=== PATIENT | female | born 1955 | race Caucasian/White ===

== ENCOUNTER → 2016-09-11 | Outpatient (CLI) | payer MEDICARE, BC ==
--- NOTE | 2016-09-11 16:17 | PN ---
Sarah is a 61-year-old female patient with a history of narcolepsy and obstructive sleep apnea. The patient has narcolepsy type I and she is maintained on Adderall 30 mg b.i.d. and Lexapro 20 mg p.o. daily. She is doing well. Her narcolepsy is being well controlled. No sleep paralysis or hallucinations at this point. No cataplexy has been reported. She is constantly losing weight. She had lost 15 pounds in May 2016 and since then she has lost an additional 6 pounds. This weight loss is being achieved as the patient has become more active following her back surgery. She has no complaints. She is ( ) of the Adderall for now and the dose has been dropped down to 30 mg p.o. b.i.d. and she is still on Lexapro 20 mg p.o. daily. She has not been using her CPAP therapy on a regular bases, which I insisted on multiple occasions to do so. I am going to re-order the patient's Mirage Gill FX nasal pillows. Her current vitals: Blood pressure is 117/74, pulse 108, respiration 16, temperature 97.5, saturation 96% on room air. Weight is 306 and height is 63 inches. GENERAL APPEARANCE: Calm and comfortable. HEENT: Crowding of the posterior pharynx. There is no goiter or neck mass. LUNGS: Clear to auscultation. HEART: Sounds are regular rate and rhythm. Normal S1, S2. ABDOMEN: Soft, nontender. No organomegaly. EXTREMITIES: No clubbing, no cyanosis or clubbing. IMPRESSION: 1. Narcolepsy type I on Adderall and Lexapro combination. Currently the patient is well treated. She is taking Adderall 30 mg p.o. twice a day and Lexapro 20 mg p.o. daily. No cataplexy has been noted. 2. Obstructive sleep apnea, apnea-hypopnea index of 28. 3. Obesity with ongoing weight loss. 4. Chronic hypersomnia. 5. Hypertension. 6. Diabetes mellitus. 7. Anxiety/depression. 8. Chronic back pain with previous back surgery. PLAN: 1. Reorder Mirage Gill FX mask for this patient. 2. Refill the patient's Adderall. 3. Continue Lexapro. 4. Encourage weight loss. 5. Continue maintaining good sleep hygiene measures. 6. She is well treated. However, she needs to be more compliant with her CPAP use. I insisted on that, and I am going to see her back in 6 months' time in follow up. I reordered her mask.
== END | disposition home or self-care (01) ==
LOC: SLEEP 13:06
PROVIDERS: ATTEND Internal Medicine Critical Care Medicine
DX: G47.419 Narcolepsy without cataplexy (principal); G47.33 Obstructive sleep apnea (adult) (pediatric); E66.9 Obesity, unspecified; G47.13 Recurrent hypersomnia; I10 Essential (primary) hypertension; E11.9 Type 2 diabetes mellitus without complications; F41.9 Anxiety disorder, unspecified; F32.9 Major depressive disorder, single episode, unspecified; G89.29 Other chronic pain; M54.9 Dorsalgia, unspecified; Z79.899 Other long term (current) drug therapy; Z98.890 Other specified postprocedural states

== ENCOUNTER 2017-03-13 13:44 | Emergency (ER) | payer MEDICARE, BC ==
[2017-03-13 13:50] VITALS: BP 130/76; PULSE 100; RESP 20; TEMP 97
--- NOTE | 2017-03-13 14:02 | ED ---
General Adult HPI - General Chief complaint: Extremity Injury, Upper Stated complaint: Wrist Injury Time Seen by Provider: 03/13/17 13:50 Source: patient, RN notes reviewed Mode of arrival: ambulatory Limitations: no limitations - History of Present Illness Initial comments: 61 yo female presents to the ER with cc of left wrist pain. Patient tripped and fell and landed onto her left wrist a week ago after walking her dog. Since she's had swelling and pains that she was concerned. She saw her doctor yesterday but the x-ray machine was down we did make an appointment for follow- up with or so but the splint she has been wearing his abdomen helping much pain medication is not helping much lately. Initially seen earlier. She denies any other injury from the incident. Denies any head or neck pain. She states she can feel her fingers she has good range of motion it is just painful. Patient denies any recent fever, chills, shortness of breath, chest pain, back pain, abdominal pain, nausea vomiting, numbness or tingling, dysuria or hematuria, constipation or diarrhea, headaches or visual changes, or any other current symptoms. - Related Data Home Medications Medication Instructions Recorded Confirmed ALPRAZolam [Xanax] 1 mg PO HS 03/23/15 05/14/16 Dextroamphetamine/Amphetamine 30 mg PO TID 03/23/15 05/14/16 [Adderall] Insulin Glargine [Lantus] 40 unit SQ HS 03/23/15 05/14/16 Lisinopril [Zestril] 5 mg PO HS 03/23/15 05/14/16 Albuterol Inhaler [Ventolin Hfa 2 puff INHALATION RT-Q6H PRN 09/12/15 05/14/16 Inhaler] Insulin Regular [humuLIN R] See Protocol SQ AC-TID 03/28/16 05/14/16 Pramipexole [Mirapex] 2 mg PO HS 05/09/16 05/14/16 metFORMIN HCL [Glucophage] 500 mg PO BID 05/09/16 05/14/16 Levofloxacin 500 mg PO DAILY 05/14/16 05/14/16 Previous Rx's Medication Instructions Recorded Docusate [Colace] 100 mg PO BID #60 capsule 05/18/16 HYDROcodone/APAP 10-325MG [[place] 1 each PO Q6H PRN #90 tab 05/18/16 10-325] Allergies Allergy/AdvReac Type Severity Reaction Status Date / Time Penicillins Allergy Rash/Hives, Verified 03/13/17 13:50 SOB Review of Systems ROS Statement: Those systems with pertinent positive or pertinent negative responses have been documented in the HPI. ROS Other: All systems not noted in ROS Statement are negative. Past Medical History Past Medical History: Asthma, Diabetes Mellitus Additional Past Medical History / Comment(s): Narcalepsy, Restless leg syndrome History of Any Multi-Drug Resistant Organisms: None Reported Additional Past Surgical History / Comment(s): Both hands, left knee, nose Past Psychological History: No Psychological Hx Reported Smoking Status: Current every day smoker Past Alcohol Use History: None Reported Past Drug Use History: None Reported General Exam - General Exam Comments Initial Comments: General: The patient is awake and alert, in no distress, and does not appear acutely ill. Neck: The neck is supple, there is no tenderness. Cardiovascular: There is a regular rate and rhythm. No murmur, rub or gallop is appreciated. Respiratory: Lungs are clear to auscultation, respirations are non-labored, breath sounds are equal. No wheezes, stridor, rales, or rhonchi. Musculoskeletal: Sensation intact with 2+ pulses throughout left upper extremity. Full range of Motion of left elbow. Patient's range of motion left wrist with some painful range of motion left hand. There is some associated signs and left wrist. Patient at the anatomical snuffbox. Neurological: CN II-XII intact, There are no obvious motor or sensory deficits. Coordination appears grossly intact. Speech is normal. Skin: Skin is warm and dry and no rashes or lesions are noted. Psychiatric: Normal mood and affect. Limitations: no limitations Course Vital Signs 03/13/17 13:48 Temperature 97 F L Pulse Rate 100 Respiratory 20 Rate Blood Pressure 130/76 O2 Sat by Pulse 97 Oximetry Procedures - Orthopedic Splinting/Casting Injury #1 Side: left Upper Extremity Injury Location: wrist Upper Extremity Immobilizer: thumb spica (short arm) Medical Decision Making - Medical Decision Making 61-year-old female presents for left wrist pain after a fall one week ago. At this time x-rays reviewed that does show a possible radius fracture. Since with the assessment. We discussed follow-up with orthopedic we discussed return parameters all her questions. She that she understood and she is given plan. All questions have been answered. She'll be discharged. - Radiology Data Radiology results: report reviewed, image reviewed Disposition Clinical Impression: Left radial fracture Disposition: HOME SELF-CARE Condition: Stable Instructions: Wrist Fracture in Adults (ED) Additional Instructions: Please use medication as discussed. Please follow up with family doctor if symptoms have not improved over the next two days. Please return to the emergency room if your symptoms increase or worsen or for any other concerns. Referrals: Weston Gusman DO [Primary Care Provider] - 1-2 days Time of Disposition: 14:37
--- NOTE | 2017-03-13 14:27 | XR ---
Left wrist HISTORY: Trauma and pain 1 week prior 4 views of the left wrist No comparisons Small ossific density is present lateral to the radial styloid on the frontal view. There is associat ed soft tissue swelling. Bone mineralization, joint spaces and alignment are maintained. Mild osteoar thritic change present at the carpometacarpal joint of the first digit. IMPRESSION: Findings suggest small chip fracture at the lateral aspect of the radial styloid.
== END 2017-03-13 14:45 | disposition home or self-care (01) ==
LOC: EC 13:44
DX: S52.512A Displaced fracture of left radial styloid process, initial encounter for closed fracture (principal); J45.909 Unspecified asthma, uncomplicated; E11.9 Type 2 diabetes mellitus without complications; F17.200 Nicotine dependence, unspecified, uncomplicated; Z79.4 Long term (current) use of insulin; Z79.899 Other long term (current) drug therapy; Z88.0 Allergy status to penicillin; W19.XXXA Unspecified fall, initial encounter
CPT/HCPCS: 29125; 99283

== ENCOUNTER → 2017-06-27 | Outpatient (CLI) | payer MEDICARE, BC | LOC: RADUSWWP 07:04 | PROVIDERS: ATTEND Family Medicine | DX: Z53.9 Procedure and treatment not carried out, unspecified reason (principal) ==

== ENCOUNTER → 2017-07-12 | Outpatient (CLI) | payer MEDICARE, BC ==
--- NOTE | 2017-07-16 11:41 | MM ---
Reason for exam: screening (asymptomatic). Last mammogram was performed 3 years and 11 months ago. History: Patient is postmenopausal. Took estrogen for 2 years beginning at age 36. Physical Findings: A clinical breast exam by your physician is recommended on an annual basis and results should be correlated with mammographic findings. MG 3D Screening Mammo W/Cad Bilateral CC and MLO view(s) were taken. XCCL view(s) were taken of the right breast. Prior study comparison: August 03, 2013, right diagnostic mammogram w/CAD. January 29, 2013, [facility] [place] DIGITAL RIGHT MAMMOGRAM w/CAD. The breast tissue is heterogeneously dense. This may lower the sensitivity of mammography. No suspicious abnormality. No significant changes when compared with prior studies. ASSESSMENT: Negative, BI-RAD 1 RECOMMENDATION: Routine screening mammogram of both breasts in 1 year.
== END | disposition home or self-care (01) ==
LOC: RADMAMWWP 11:23
PROVIDERS: ATTEND Obstetrics & Gynecology
DX: Z12.31 Encounter for screening mammogram for malignant neoplasm of breast (principal)
CPT/HCPCS: 77063; 77067

== ENCOUNTER → 2017-08-20 | Outpatient (CLI) | payer MEDICARE, BC ==
[2017-08-20 16:56] LABS: Basophils # (A) 0.1 k/uL (0-0.2); Basophils % (A) 1 %; Eosinophils # (A) 0.5 k/uL (0-0.7); Eosinophils % (A) 6 %; HCT 39.6 % (34.0-46.0); HGB 12.2 gm/dL (11.4-16.0); Hypochromasia Slight; Lymphocytes # (A) 2.4 k/uL (1.0-4.8); Lymphocytes % (A) 30 %; MCH 29.8 pg (25.0-35.0); MCHC 30.9 g/dL (31.0-37.0); MCV 96.4 fL (80.0-100.0); Mean Platelet Volume 6.7; Monocytes # (A) 0.5 k/uL (0-1.0); Monocytes % (A) 6 %; Neutrophils # (A) 4.4 k/uL (1.3-7.7); Neutrophils % (A) 56 %; Platelet Count 313 k/uL (150-450); RBC 4.11 m/uL (3.80-5.40); RDW 12.5 % (11.5-15.5); WBC 7.9 k/uL (3.8-10.6)
[2017-08-20 17:07] LABS: INR 0.9 (<1.2); Prothrombin Time 9.3 sec (9.0-12.0)
[2017-08-20 17:14] LABS: Chloride 100 mmol/L (98-107); Glucose 101 mg/dL (74-99); Sodium 137 mmol/L (137-145)
[2017-08-20 17:15] LABS: Anion Gap 9 mmol/L; Blood Urea Nitrogen 15 mg/dL (7-17); Calcium 9.2 mg/dL (8.4-10.2); Carbon Dioxide 28 mmol/L (22-30)
--- NOTE | 2017-08-20 17:37 | XR ---
EXAMINATION TYPE: XR chest 2V DATE OF EXAM: 08/20/2017 COMPARISON: Prior chest x-ray 05/08/2016 HISTORY: Preop, history of asthma TECHNIQUE: Frontal and lateral views of the chest are obtained. FINDINGS: There is no focal air space opacity, pleural effusion, or pneumothorax seen. The cardiac silhouette size is stable. The osseous structures are intact. IMPRESSION: No acute cardiopulmonary process.
[2017-08-20 18:58] LABS: Appearance,Urine Clear (Clear); Bilirubin,Urine Negative (Negative); Blood,Urine Negative (Negative); Color,Urine Yellow; Glucose,Urine (UA) Negative (Negative); Ketones,Urine Negative (Negative); Leukocyte Esterase,Urine Negative (Negative); Nitrite,Urine Negative (Negative); Protein,Urine Trace (Negative); Specific Gravity,Urine 1.023 (1.001-1.035); Urobilinogen,Urine <2.0 mg/dL (<2.0)
[2017-08-20 19:00] LABS: Amorphous Sediment,Urine Rare /hpf; Bacteria,Urine Rare /hpf; Hyaline Casts,Urine 3 /lpf (0-2); Mucus,Urine Rare /hpf; RBC,Urine 1 /hpf (0-5); Squamous Epithelial Cell,Urine 16 /hpf (0-4); Uric Acid Crystals,Urine Occasional /hpf; WBC,Urine 1 /hpf (0-5)
== END | disposition home or self-care (01) ==
LOC: LABPAT 16:27
PROVIDERS: ATTEND Orthopaedic Surgery Orthopaedic Surgery of the Spine
DX: Z01.818 Encounter for other preprocedural examination (principal); Z01.812 Encounter for preprocedural laboratory examination; M51.26 Other intervertebral disc displacement, lumbar region
CPT/HCPCS: 36415; 71046; 80048; 81003; 85025; 85610; 85730; 86850; 86900; 86901; 87070; 93005

== ENCOUNTER 2017-08-28 08:44 | Day surgery (SDC) | payer MEDICARE, BC ==
[2017-08-21 15:12] VITALS: BMI 36.5
[~2017-08-28 08:44] MED LIST: BACITRACIN 50,000 UNIT, POLYMYXIN B 500,000 UNIT in SODIUM CHLORIDE 0.9% IRRIGATIO 1,00... IRRIGATION ONE; CLINDAMYCIN 600 MG in DEXTROSE 5% IN WATER 50 ML IVPB ONE; DEXAMETHASONE SOD PHOSPHATE 10 MG/ML 1 ML VIAL IV ONE; HYDROmorphone 0.5 MG/0.5 ML SYRINGE IVP PRN; ONDANSETRON 4 MG/2 ML VIAL IVP ONE
[2017-08-28 09:14] LABS: Glucose,Whole Blood 128 mg/dL (75-99)
[2017-08-28] MEDS ORDERED: LIDOCAINE 1% 20 ML VIAL (10MG/ML) FOR IV START INTRADERMA ONE (09:19)
[2017-08-28] MEDS ORDERED: LACTATED RINGERS 1,000 ML IV ONE ×2 (09:19→12:09)
[2017-08-28] MEDS ORDERED: SUCCINYLCHOLINE CHLORIDE 100 MG/5 ML SYR IV ONE (10:51)
[2017-08-28] MEDS ORDERED: PHENYLEPHRINE-0.9% NACL SYG 1 MG/10 ML SYRINGE ONE (10:51)
[2017-08-28] MEDS ORDERED: MIDAZOLAM 2 MG/2 ML VIAL ONE (10:51)
[2017-08-28] MEDS ORDERED: ePHEDrine SULFATE/0.9% NACL/PF 50 MG/5 ML SYRINGE IV ONE (10:51)
[2017-08-28] MEDS ORDERED: PROPOFOL 10 MG/ML 20 ML VIAL IV ONE (10:51)
[2017-08-28] MEDS ORDERED: fentaNYL (PF) 50 MCG/ML 2 ML AMP ONE (10:51)
[2017-08-28] MEDS ORDERED: LIDOCAINE 1% INJ 10MG/ML (20 ML MDV) ONE (10:51)
[2017-08-28] MEDS ORDERED: BUPIVACAINE (PF) 0.25% 30 ML VIAL SQ ONE (11:15)
[2017-08-28] MEDS ORDERED: THROMBIN (BOVINE) 5,000 UNIT VIAL TOPICAL ONE (11:18)
--- NOTE | 2017-08-28 11:41 | FL ---
Fluoroscopy HISTORY: L1-2 laminectomy 1 second fluoroscopy time supplied to the referring clinician. 1 intraoperative C-arm images documen t the procedure. See dictated report from orthopedic surgery.
--- NOTE | 2017-08-28 11:42 | XR ---
Limited lumbar spine HISTORY: L1-2 laminectomy Intraoperative C-arm image documents the procedure
[2017-08-28] MEDS ORDERED: MORPHINE SULFATE 4 MG/ML SYRINGE IVP PRN (12:09)
[2017-08-28] MEDS ORDERED: MAGNESIUM HYDROXIDE 2,400 MG/10 ML CUP PO PRN (12:09)
[2017-08-28] MEDS ORDERED: ONDANSETRON 4 MG/2 ML VIAL IVP PRN (12:09)
[2017-08-28] MEDS ORDERED: HYDROcodone/APAP 5-325MG 1 EACH TAB PO PRN (12:09)
[2017-08-28] MEDS ORDERED: HYDROmorphone 0.5 MG/0.5 ML SYRINGE IVP PRN (12:09)
[2017-08-28] MEDS ORDERED: BENZOCAINE/MENTHOL LOZENG 1 EACH LOZENGE MUCOUS MEM PRN (12:09)
[2017-08-28] MEDS ORDERED: IBUPROFEN 600 MG TAB PO PRN (12:09)
[2017-08-28] MEDS ORDERED: ALBUTEROL NEBULIZED 2.5 MG/3 ML INHALATION PRN (12:12)
--- NOTE | 2017-08-28 12:17 | P.OP ---
Date of Procedure: 08/28/17 Preoperative Diagnosis: Severe spinal stenosis L1 to L2 Neurogenic claudication History of prior decompression and fusion L2 through L5 Lower extremity radiculopathy Postoperative Diagnosis: Same Anesthesia: GETA Pathology: none sent Condition: stable Disposition: PACU Description of Procedure: DESCRIPTION OF PROCEDURE(S): BRIEF OPERATIVE NOTE Preoperative Diagnosis: Severe Spinal stenosis L1-2,neurogenic claudication, lower extremity radiculopathy, history of prior decompression and fusion L2-3 L3 4 L4 5 Postoperative Diagnosis: Same Procedure: Laminectomy and decompression bilaterally Use of fluoroscopic guidance Surgeon: Dr. Mosher Free Lance Artist: Rk SALAS who is present throughout the entire the case persistence during positioning, dissection, exposure, visualization, and all crucial elements of the case as well as closure. Anesthesia: General anesthesia Estimated blood loss: Approximately 50 mL Complications: None apparent Components implanted: Paradigm Coflex interlaminar stabilization device size 16 Disposition: To recovery room in good stable condition. OPERATIVE INDICATIONS The patient has been having issues in their lower back and lower extremities. She has a history of lumbar decompression and fusion L2 through L5 for her severe spinal stenosis and degenerative scoliosis. She had done well with that surgery initially was making good progress with this and improving her mobilization and activity. However she started developing evidence of further aerogenic claudication and lower extremity razor symptoms. She is found have adjacent level degeneration at L1-2 with evidence of severe stenosis at L1-2 which correlated with her new lower extremity symptoms with neurogenic claudication and spinal stenosis with radiculopathy. The patient was having evidence of neurogenic claudication and spinal stenosis along with issues with lower extremity radiculopathy. The patient was found to have significant spinal stenosis which correlated well with their low back and lower extremity symptoms. The patient has been through conservative treatment. She is not having a lot of benefit despite aggressive conservative treatment. With their imaging, and the level of their stenosis and their propensity for the possibility of recurrent stenosis I felt that decompression with intralaminar stabilization would be a good benefit for the patient. We discussed various treatment options including surgery, and the patient wishes to proceed with surgery We discussed the risk, patient's alternatives and benefits of surgery including but not limited to, risk of bleeding risk of infection, risk of need for further surgery, risk of decreased, loss of motion, loss of function, nerve damage, paralysis, heart attack, blindness and . OPERATIVE SUMMARY After discussing all the risks, patient alternatives and benefits at length, the patient elected to proceed with surgical intervention, signed informed consent, and presented for their procedure. The patient was seen and examined in the preoperative holding area and the surgical site was marked. The patient was given antibiotics and brought to the operating room. The patient was sedated and intubated by anesthesia in standard fashion. The patient was positioned on to the operating room table in a prone position on the appropriate frame which was well-padded and well molded. We were careful to pad any bony prominences and pressure points. We were careful to maintain the patient's cervical spine and good neutral alignment and position throughout. The patient was prepped and draped in a normal standard fashion. An appropriate timeout and keystone protocol performed. We were able to proceed with the surgery. Fluoroscopy was utilized to establish the appropriate level. The local wound area was infiltrated with local anesthetic. An incision was made at the midline longitudinally over the appropriate levels at L1-2 above Levaquin her prior fusion . Dissection was taken down subcutaneously to the level of the fascia which was split midline. Dissection was taken over the lamina. Intraoperative fluoroscopy was taken which showed a marker at the appropriate level at L1-2 with findings of hardware. He stable from L2 to L5 . With the appropriate level positively confirmed, we were able to proceed with laminectomy. The wound was copiously irrigated and suctioned dry as had been done periodically throughout the case. I performed a laminectomy with a combination of curettes and a high-speed bur and Kerrison rongeurs. A small medial facetectomy was performed again further access. This was done bilaterally at that level. A partial foraminotomy was also performed. Portions of the ligamentum flavum were taken down to expose the dura and traversing nerve root. I was able to mobilize the traversing nerve root and gain access to the disc space. Note was made of obvious compression from the disc. Protecting the soft tissue structures, a small annulotomy was established. I was able to perform discectomy and remove any extruded disc fragments and any loose fragments from within the disc itself. There is some disc desiccation noted. I tried to preserve the disc annulus that appeared stable. There were no further extruded fragments noted. There is no evidence of dural tear or leak. Good hemostasis maintained. The wound was copiously irrigated and suctioned dry. Good decompression was noted. At this point further prepared the interspinous process and interlaminar space with a combination of curettes and a high-speed bur and Kerrison rongeurs. As able get good parallel alignment at the interspinous process space and interlaminar space. I used a trial spacer for the Coflex device and have good fit and fill with the appropriate size device. I was able to place a size 16 Coflex spacer. I had to shave down the spinous process at to allow for appropriate positioning of the Coflex device. The device was prepared and then positioned and malleted in position with good alignment and good position and good bony purchase at the interlaminar space. The position was checked and found to be approximately 3 mm away from the dura without impingement on the dura itself. It was checked and found to be stable. Intraoperative C-arm was utilized to confirm the alignment and position at the appropriate levels. We were able to proceed with closure. The fascia was closed for a watertight closure. The subcuticular tissue was closed with absorbable suture. The wound was cleaned and dried and dressed with the appropriate dressing. The drapes were broken down. The patient was gently rolled back onto their hospital bed being careful to maintain their cervical spine and good neutral alignment and position. They were woken up by anesthesia, extubated, and brought to the recovery room in good stable condition. The patient will be admitted to the hospital for observation and for appropriate postoperative care, medical management and monitoring. We will continue to follow them closely about the postoperative course.
[2017-08-28] MEDS ORDERED: INSULIN REGULAR 100 UNIT/ML VIAL SQ SCH (12:30)
[2017-08-28] MEDS: LACTATED RINGERS 1,000 ML IV SCH (12:31)
[2017-08-28] MEDS: MORPHINE SULFATE 4 MG/ML SYRINGE IVP PRN ×4 (12:33→13:25)
[2017-08-28 13:10] LABS: Glucose,Whole Blood 149 mg/dL (75-99)
[2017-08-28] MEDS: HYDROcodone/APAP 5-325MG 1 EACH TAB PO PRN ×2 (15:10→19:31)
[2017-08-28] MEDS ORDERED: ceFAZolin IN SWFI 2 GM/20 ML SYRINGE IVP SCH (16:00)
[2017-08-28 16:56] LABS: Glucose,Whole Blood 351 mg/dL (75-99)
[2017-08-28] MEDS: INSULIN ASPART 100 UNIT/ML 1 ML 10 ML VIAL SQ SCH ×2 (17:42→20:30)
[2017-08-28 20:13] LABS: Glucose,Whole Blood 375 mg/dL (75-99)
[2017-08-28] MEDS: metFORMIN 500 MG TAB PO SCH (20:30)
[2017-08-28] MEDS: SULFAMETHOX-TMP 800-160MG 1 EACH TAB PO SCH (20:30)
[2017-08-28] MEDS: SODIUM CHLORIDE 0.9% 1,000 ML IV SCH (20:31)
[2017-08-28] MEDS: CLINDAMYCIN 600 MG in DEXTROSE 5% IN WATER 50 ML IVPB SCH ×2 (20:31)
[2017-08-28] MEDS: Dextroamphetamine/Amphetamine [Adderall] 30 MG PO SCH (20:32)
[2017-08-28] MEDS ORDERED: INSULIN DETEMIR 100 UNIT/ML 10 ML VIAL SQ SCH (21:00)
[2017-08-28] MEDS ORDERED: LISINOPRIL 5 MG TAB PO SCH (21:00)
[2017-08-28] MEDS ORDERED: ESCITALOPRAM 10 MG TAB PO SCH (21:00)
[2017-08-28] MEDS ORDERED: PRAMIPEXOLE 1 MG TAB PO SCH (21:00)
[2017-08-28] MEDS ORDERED: ALPRAZolam 1 MG TAB PO SCH (21:00)
[2017-08-29] MEDS: SODIUM CHLORIDE 0.9% 1,000 ML IV SCH (01:41)
[2017-08-29] MEDS: CLINDAMYCIN 600 MG in DEXTROSE 5% IN WATER 50 ML IVPB SCH ×4 (01:59→09:31)
[2017-08-29] MEDS: HYDROcodone/APAP 5-325MG 1 EACH TAB PO PRN ×2 (03:44→08:36)
[2017-08-29] MEDS: LACTATED RINGERS 1,000 ML IV SCH (05:06)
[2017-08-29 07:08] VITALS: BP 101/55; PULSE 84; RESP 14; TEMP 98.2
[2017-08-29 07:44] LABS: Glucose,Whole Blood 136 mg/dL (75-99)
[2017-08-29] MEDS: metFORMIN 500 MG TAB PO SCH (07:47)
[2017-08-29] MEDS: SULFAMETHOX-TMP 800-160MG 1 EACH TAB PO SCH (07:47)
[2017-08-29] MEDS: INSULIN ASPART 100 UNIT/ML 1 ML 10 ML VIAL SQ SCH (07:48)
[2017-08-29] MEDS: Dextroamphetamine/Amphetamine [Adderall] 30 MG PO SCH (07:50)
--- NOTE | 2017-08-29 08:21 | P.DS ---
Providers Date of admission: 08/28/2017 Attending physician: Yo Mosher Primary care physician: Weston [facility] Course: The patient presented on the day of admission as per her operative note. She feels her legs are doing well but her back has some pain as expected. She has been having some drainage at her wound site overnight. and she is not having any fevers or chills. She's not having any nausea or vomiting. Physical Exam The incision site is clean dry and intact. There is no erythema . There is some scant bloody drainage at the inferior aspect of the incision site. There is no purulence. There is no significant fluid collection or swelling. There is no purulence no evidence of infection. Abdomen soft and nontender. Chest has good excursion with deep inspiration and expiration. The patient has active and passive range of motion intact at the upper and lower extremities. There is no acute change in neurologic status. Her lower extremity is have good sustained dorsal flexion plantar flexion and [facility] Hospital Course Postoperative day #1 status post laminectomy decompression of L1 2 with placement of interlaminar stabilizing device. History of lumbar decompression and fusion L2 to L5 Small bloody drainage at the incision The patient has been making progress postoperatively. She has very scant small bloody drainage the inferior aspect of the incision site but this seems to be slowing well and I think it will go on to heal appropriately. We should follow this up closely on an outpatient basis. She is hopeful to go home and I think that is okay as long as we see her closely in the office tomorrow to monitor the wound. She should remain on some prophylactic antibiotics and we will continue her Bactrim orally while there remained some drainage. Her dressing is reinforced and she'll be given some other dressing for local wound care as needed. They have completed the prophylactic antibiotics without any signs or symptoms of infection. The patient has been able to advance their diet, and is tolerating diet adequately. The pain was initially controlled with IV medications and is now controlled appropriately with oral medications. The patient has been able to increase their mobilization. The patient has progressed appropriately. I think they are in good stable condition for discharge today with close follow-up for her wound tomorrow at the office. They will be sent home with appropriate prescriptions. I answered their questions to the best of my ability in a language that they can understand and they are agreeable with the plan. They will follow up as directed tomorrow at our office. Patient Condition at Discharge: Fair Plan - Discharge Summary Discharge Rx Participant: Yes New Discharge Prescriptions: New HYDROcodone/APAP 5-325MG [[place] 5] 1 each PO Q8HR PRN #90 tab PRN Reason: Pain Sulfamethox-Tmp 800-160Mg [Bactrim DS 800-160 mg] 1 tab PO Q12HR #14 tab No Action Lisinopril [Zestril] 5 mg PO HS Dextroamphetamine/Amphetamine [Adderall] 30 mg PO BID ALPRAZolam [Xanax] 1 mg PO HS Insulin Glargine [Lantus] 40 unit SQ HS Albuterol Inhaler [Ventolin Hfa Inhaler] 2 puff INHALATION RT-Q6H PRN PRN Reason: Shortness Of Breath Insulin Regular [humuLIN R] See Protocol SQ AC-TID metFORMIN HCL [Glucophage] 500 mg PO BID Pramipexole [Mirapex] 2 mg PO HS Escitalopram [Lexapro] 10 mg PO HS Sulfamethox-Tmp 800-160Mg [Bactrim DS 800-160 mg] 1 tab PO Q12HR Discharge Medication List ALPRAZolam [Xanax] 1 mg PO HS 03/23/15 [History] Dextroamphetamine/Amphetamine [Adderall] 30 mg PO BID 03/23/15 [History] Insulin Glargine [Lantus] 40 unit SQ HS 03/23/15 [History] Lisinopril [Zestril] 5 mg PO HS 03/23/15 [History] Albuterol Inhaler [Ventolin Hfa Inhaler] 2 puff INHALATION RT-Q6H PRN 09/12/15 [ History] Insulin Regular [humuLIN R] See Protocol SQ AC-TID 03/28/16 [History] Pramipexole [Mirapex] 2 mg PO HS 05/09/16 [History] metFORMIN HCL [Glucophage] 500 mg PO BID 05/09/16 [History] Escitalopram [Lexapro] 10 mg PO HS 08/21/17 [History] Sulfamethox-Tmp 800-160Mg [Bactrim DS 800-160 mg] 1 tab PO Q12HR 08/21/17 [ History] HYDROcodone/APAP 5-325MG [[place] 5] 1 each PO Q8HR PRN #90 tab 08/29/17 [Rx] Sulfamethox-Tmp 800-160Mg [Bactrim DS 800-160 mg] 1 tab PO Q12HR #14 tab [Rx] Follow up Appointment(s)/Referral(s): Yo Mosher DO [Doctor of Osteopathic Medicine] - 08/30/17 (Follow-up tomorrow August [address] Mosher's office. Nurse to please make appointment) Activity/Diet/Wound Care/Special Instructions: Keep wound site covered with dry gauze. May reinforce as needed. Please give patient some extra dressing for reinforcement or changing dressing as needed. Keep site dry. Do not shower. May ambulate. No heavy or repetitive activity. No repetitive bending Ice to the area 3 times a day. Continue oral antibiotics and oral pain control
[2017-08-29] MEDS ORDERED: SENNOSIDES-DOCUSATE SODIUM 1 EACH TAB PO SCH (09:00)
== END 2017-08-29 10:50 | disposition home or self-care (01) ==
LOC: OR 08:44 → 3SUR 12:19 → OR 08-29 10:50
PROVIDERS: ATTEND Orthopaedic Surgery Orthopaedic Surgery of the Spine
DX: M48.062 Spinal stenosis, lumbar region with neurogenic claudication (principal); M51.16 Intervertebral disc disorders with radiculopathy, lumbar region; E11.51 Type 2 diabetes mellitus with diabetic peripheral angiopathy without gangrene; Z79.4 Long term (current) use of insulin; F32.9 Major depressive disorder, single episode, unspecified; I10 Essential (primary) hypertension; G25.81 Restless legs syndrome; J44.9 Chronic obstructive pulmonary disease, unspecified; G47.33 Obstructive sleep apnea (adult) (pediatric); G47.419 Narcolepsy without cataplexy; F17.210 Nicotine dependence, cigarettes, uncomplicated; Z79.899 Other long term (current) drug therapy; Z88.0 Allergy status to penicillin; Z79.891 Long term (current) use of opiate analgesic
CPT/HCPCS: 63047; 94640; 97161; 72020; C1713; J2270; J1100; J2405; 86850; 86900; 86901

== ENCOUNTER 2017-09-23 08:37 | Inpatient (IN) | payer MEDICARE, BC ==
[2017-09-23] MEDS ORDERED: SODIUM CHLORIDE 0.9% 1,000 ML IV STA (09:04)
[2017-09-23] MEDS ORDERED: DEXAMETHASONE SOD PHOSPHATE 10 MG/ML 1 ML VIAL IV STA (09:04)
[2017-09-23] MEDS ORDERED: IPRATROPIUM 0.5 MG/2.5 ML NEBU INHALATION STA (09:04)
[2017-09-23] MEDS ORDERED: ALBUTEROL NEBULIZED 2.5 MG/3 ML INHALATION STA (09:04)
[2017-09-23] MEDS ORDERED: SODIUM CHLORIDE 0.9% 500 ML IV STA (09:04)
--- NOTE | 2017-09-23 09:24 | ED ---
General Adult HPI - General Chief complaint: Shortness of Breath Stated complaint: SEBASTIAN X 3 DAYS Time Seen by Provider: 09/23/17 08:50 Source: patient, family, RN notes reviewed Mode of arrival: wheelchair Limitations: no limitations - History of Present Illness Initial comments: 62-year-old female presents with three-day history of worsening cough and dyspnea. Patient states that she has had a productive cough and worsening time catching her breath. She even used her 's oxygen at home. She has no diagnosis of COPD, however she is a long-time smoker and is currently smoking just less than one pack of cigarettes daily. She also complains of some mild sore throat. No central chest pain. No fever, however patient has had chills. No abdominal pain. No vomiting or diarrhea. - Related Data Home Medications Medication Instructions Recorded Confirmed ALPRAZolam [Xanax] 0.5 mg PO TID PRN 03/23/15 09/23/17 Dextroamphetamine/Amphetamine 30 mg PO BID 03/23/15 09/23/17 [Adderall] Lisinopril [Zestril] 5 mg PO HS 03/23/15 09/23/17 Albuterol Inhaler [Ventolin Hfa 2 puff INHALATION RT-Q6H PRN 09/12/15 09/23/17 Inhaler] Pramipexole [Mirapex] 2 mg PO HS 05/09/16 09/23/17 metFORMIN HCL [Glucophage] 500 mg PO BID 05/09/16 09/23/17 Escitalopram [Lexapro] 10 mg PO HS 08/21/17 09/23/17 Gabapentin [Neurontin] 600 mg PO TID 09/23/17 09/23/17 HYDROcodone/APAP 7.5-325MG [[place] 1 tab PO TID PRN 09/23/17 09/23/17 7.5-325] Montelukast [Singulair] 10 mg PO HS 09/23/17 09/23/17 busPIRone HCL [Buspar] 7.5 mg PO BID 09/23/17 09/23/17 Allergies Allergy/AdvReac Type Severity Reaction Status Date / Time Penicillins Allergy Rash/Hives, Verified 09/23/17 10:01 SOB Review of Systems ROS Statement: Those systems with pertinent positive or pertinent negative responses have been documented in the HPI. ROS Other: All systems not noted in ROS Statement are negative. Past Medical History Past Medical History: Asthma Additional Past Medical History / Comment(s): Narcalepsy, Restless leg syndrome History of Any Multi-Drug Resistant Organisms: None Reported Past Surgical History: Back Surgery Additional Past Surgical History / Comment(s): Both hands, left knee, nose Past Psychological History: No Psychological Hx Reported Smoking Status: Current every day smoker Past Alcohol Use History: None Reported Past Drug Use History: None Reported General Exam Limitations: no limitations General appearance: alert, in no apparent distress Head exam: Present: atraumatic, normocephalic Eye exam: Present: normal appearance, PERRL, EOMI ENT exam: Present: normal exam, normal oropharynx Neck exam: Present: normal inspection. Absent: tenderness, meningismus Respiratory exam: Present: respiratory distress, wheezes, decreased breath sounds, prolonged expiratory Cardiovascular Exam: Present: regular rate, normal rhythm GI/Abdominal exam: Present: soft. Absent: distended, tenderness Extremities exam: Present: normal inspection, normal capillary refill. Absent: pedal edema Back exam: Present: normal inspection, full ROM Neurological exam: Present: alert, oriented X3, CN II-XII intact. Absent: motor sensory deficit Psychiatric exam: Present: normal affect, normal mood Skin exam: Present: warm, dry, intact. Absent: cyanosis, diaphoretic Course Vital Signs 09/23/17 09/23/17 09/23/17 08:45 09:00 09:04 Temperature 98.4 F Pulse Rate 100 101 H Respiratory 16 20 22 Rate Blood Pressure 87/54 120/69 O2 Sat by Pulse 92 L 98 Oximetry 09/23/17 09/23/17 09:32 09:58 Temperature Pulse Rate 97 102 H Respiratory Rate Blood Pressure O2 Sat by Pulse Oximetry - Reevaluation(s) Reevaluation #1: 09/23/17 10:37 On reevaluation, patient remains dyspneic, she does have improved air entry. EKG Findings - EKG Comments: EKG Findings:: EKG: Normal sinus rhythm, ventricular rate 100, FL interval 162, QRS duration 78, QTC 407, no signs of ST segment elevation or ischemia Medical Decision Making - Medical Decision Making 62-year-old female presenting with cough and dyspnea. On initial evaluation, patient has decreased air entry bilaterally. She is given albuterol, Atrovent, and steroids, on reevaluation she does have somewhat improved air entry with wheezing throughout. Laboratory studies reveal normal CBC, normal electrolytes , troponin and BNP are negative. Influenza negative, chest x-ray negative for focal pneumonia. Patient will be admitted for further symptomatic treatment of reactive airway disease and suspicion for COPD. - Lab Data Result diagrams: 09/23/17 09:04 09/23/17 09:04 Lab Results 09/23/17 09/23/17 09/23/17 Range/Units 09:04 09:04 09:04 WBC 9.5 (3.8-10.6) k/uL RBC 4.24 (3.80-5.40) m/uL Hgb 12.1 (11.4-16.0) gm/dL Hct 39.1 (34.0-46.0) % MCV 92.2 (80.0-100.0) fL MCH 28.4 (25.0-35.0) pg MCHC 30.8 L (31.0-37.0) g/dL RDW 12.9 (11.5-15.5) % Plt Count 330 (150-450) k/uL Neutrophils % 68 % Lymphocytes % 19 % Monocytes % 7 % Eosinophils % 4 % Basophils % 1 % Neutrophils # 6.4 (1.3-7.7) k/uL Lymphocytes # 1.8 (1.0-4.8) k/uL Monocytes # 0.7 (0-1.0) k/uL Eosinophils # 0.4 (0-0.7) k/uL Basophils # 0.1 (0-0.2) k/uL PT (9.0-12.0) sec INR (<1.2) APTT (22.0-30.0) sec Sodium 139 (137-145) mmol/L Potassium 5.4 H (3.5-5.1) mmol/L Chloride 99 (98-107) mmol/L Carbon Dioxide 30 (22-30) mmol/L Anion Gap 10 mmol/L BUN 16 (7-17) mg/dL Creatinine 0.68 (0.52-1.04) mg/dL Est GFR (CKD-EPI)AfAm >90 (>60 ml/min/1.73 sqM) Est GFR (CKD-EPI)NonAf >90 (>60 ml/min/1.73 sqM) Glucose 104 H (74-99) mg/dL Plasma Lactic Acid Liu (0.7-2.0) mmol/L Calcium 9.0 (8.4-10.2) mg/dL Magnesium 1.8 (1.6-2.3) mg/dL Total Bilirubin 0.5 (0.2-1.3) mg/dL AST 21 (14-36) U/L ALT 23 (9-52) U/L Alkaline Phosphatase 121 (38-126) U/L Total Creatine Kinase 68 (30-135) U/L CK-MB (CK-2) 1.1 (0.0-2.4) ng/mL CK-MB (CK-2) Rel Index 1.6 Troponin I <0.012 (0.000-0.034) ng/mL NT-Pro-B Natriuret Pep pg/mL Total Protein 6.9 (6.3-8.2) g/dL Albumin 3.8 (3.5-5.0) g/dL Influenza Type A RNA (Not Detectd) Influenza Type B (PCR) (Not Detectd) 09/23/17 09/23/17 09/23/17 Range/Units 09:04 09:04 09:04 WBC (3.8-10.6) k/uL RBC (3.80-5.40) m/uL Hgb (11.4-16.0) gm/dL Hct (34.0-46.0) % MCV (80.0-100.0) fL MCH (25.0-35.0) pg MCHC (31.0-37.0) g/dL RDW (11.5-15.5) % Plt Count (150-450) k/uL Neutrophils % % Lymphocytes % % Monocytes % % Eosinophils % % Basophils % % Neutrophils # (1.3-7.7) k/uL Lymphocytes # (1.0-4.8) k/uL Monocytes # (0-1.0) k/uL Eosinophils # (0-0.7) k/uL Basophils # (0-0.2) k/uL PT 9.3 (9.0-12.0) sec INR 0.9 (<1.2) APTT 21.3 L (22.0-30.0) sec Sodium (137-145) mmol/L Potassium (3.5-5.1) mmol/L Chloride (98-107) mmol/L Carbon Dioxide (22-30) mmol/L Anion Gap mmol/L BUN (7-17) mg/dL Creatinine (0.52-1.04) mg/dL Est GFR (CKD-EPI)AfAm (>60 ml/min/1.73 sqM) Est GFR (CKD-EPI)NonAf (>60 ml/min/1.73 sqM) Glucose (74-99) mg/dL Plasma Lactic Acid Liu 0.9 (0.7-2.0) mmol/L Calcium (8.4-10.2) mg/dL Magnesium (1.6-2.3) mg/dL Total Bilirubin (0.2-1.3) mg/dL AST (14-36) U/L ALT (9-52) U/L Alkaline Phosphatase (38-126) U/L Total Creatine Kinase (30-135) U/L CK-MB (CK-2) (0.0-2.4) ng/mL CK-MB (CK-2) Rel Index Troponin I (0.000-0.034) ng/mL NT-Pro-B Natriuret Pep 114 pg/mL Total Protein (6.3-8.2) g/dL Albumin (3.5-5.0) g/dL Influenza Type A RNA (Not Detectd) Influenza Type B (PCR) (Not Detectd) 09/23/17 Range/Units 09:12 WBC (3.8-10.6) k/uL RBC (3.80-5.40) m/uL Hgb (11.4-16.0) gm/dL Hct (34.0-46.0) % MCV (80.0-100.0) fL MCH (25.0-35.0) pg MCHC (31.0-37.0) g/dL RDW (11.5-15.5) % Plt Count (150-450) k/uL Neutrophils % % Lymphocytes % % Monocytes % % Eosinophils % % Basophils % % Neutrophils # (1.3-7.7) k/uL Lymphocytes # (1.0-4.8) k/uL Monocytes # (0-1.0) k/uL Eosinophils # (0-0.7) k/uL Basophils # (0-0.2) k/uL PT (9.0-12.0) sec INR (<1.2) APTT (22.0-30.0) sec Sodium (137-145) mmol/L Potassium (3.5-5.1) mmol/L Chloride (98-107) mmol/L Carbon Dioxide (22-30) mmol/L Anion Gap mmol/L BUN (7-17) mg/dL Creatinine (0.52-1.04) mg/dL Est GFR (CKD-EPI)AfAm (>60 ml/min/1.73 sqM) Est GFR (CKD-EPI)NonAf (>60 ml/min/1.73 sqM) Glucose (74-99) mg/dL Plasma Lactic Acid Liu (0.7-2.0) mmol/L Calcium (8.4-10.2) mg/dL Magnesium (1.6-2.3) mg/dL Total Bilirubin (0.2-1.3) mg/dL AST (14-36) U/L ALT (9-52) U/L Alkaline Phosphatase (38-126) U/L Total Creatine Kinase (30-135) U/L CK-MB (CK-2) (0.0-2.4) ng/mL CK-MB (CK-2) Rel Index Troponin I (0.000-0.034) ng/mL NT-Pro-B Natriuret Pep pg/mL Total Protein (6.3-8.2) g/dL Albumin (3.5-5.0) g/dL Influenza Type A RNA Not Detected (Not Detectd) Influenza Type B (PCR) Not Detected (Not Detectd) Disposition Clinical Impression: Acute exacerbation of chronic obstructive airways disease Disposition: ADMITTED IP TO THIS HOSP Condition: Stable Referrals: Weston Gusman DO [Primary Care Provider] - 1-2 days Decision to Admit Reason: Admit from EC Decision Date: 09/23/17 Decision Time: 10:38
[2017-09-23 09:35] LABS: Basophils # (A) 0.1 k/uL (0-0.2); Basophils % (A) 1 %; Eosinophils # (A) 0.4 k/uL (0-0.7); Eosinophils % (A) 4 %; HCT 39.1 % (34.0-46.0); HGB 12.1 gm/dL (11.4-16.0); Lymphocytes # (A) 1.8 k/uL (1.0-4.8); Lymphocytes % (A) 19 %; MCH 28.4 pg (25.0-35.0); MCHC 30.8 g/dL (31.0-37.0); MCV 92.2 fL (80.0-100.0); Mean Platelet Volume 7.2; Monocytes # (A) 0.7 k/uL (0-1.0); Monocytes % (A) 7 %; Neutrophils # (A) 6.4 k/uL (1.3-7.7); Neutrophils % (A) 68 %; Platelet Count 330 k/uL (150-450); RBC 4.24 m/uL (3.80-5.40); RDW 12.9 % (11.5-15.5); WBC 9.5 k/uL (3.8-10.6)
[2017-09-23 09:45] LABS: Albumin 3.8 g/dL (3.5-5.0); Anion Gap 10 mmol/L; Carbon Dioxide 30 mmol/L (22-30); Chloride 99 mmol/L (98-107); Glucose 104 mg/dL (74-99); Sodium 139 mmol/L (137-145); Total Bilirubin 0.5 mg/dL (0.2-1.3); Total Protein 6.9 g/dL (6.3-8.2)
[2017-09-23 09:54] LABS: ALT 23 U/L (9-52); AST 21 U/L (14-36); Alkaline Phosphatase 121 U/L (38-126); Blood Urea Nitrogen 16 mg/dL (7-17); Magnesium 1.8 mg/dL (1.6-2.3); Potassium 5.4 mmol/L (3.5-5.1)
[2017-09-23 09:57] LABS: Creatine Kinase 68 U/L (30-135)
[2017-09-23 10:10] LABS: Creatine Kinase MB 1.1 ng/mL (0.0-2.4); INR 0.9 (<1.2); Prothrombin Time 9.3 sec (9.0-12.0); Troponin I <0.012 ng/mL (0.000-0.034)
[2017-09-23 10:11] LABS: Partial Thromboplastin Time 21.3 sec (22.0-30.0)
[2017-09-23] MEDS ORDERED: MORPHINE SULFATE/PF 10MG/10ML VL IVP STA (10:19)
[2017-09-23] MEDS ORDERED: IPRATROPIUM-ALBUTEROL 3 ML NEB INHALATION PRN (10:38)
[2017-09-23] MEDS ORDERED: ALBUTEROL NEBULIZED 2.5 MG/3 ML INHALATION PRN ×2 (10:40→12:47)
--- NOTE | 2017-09-23 10:52 | XR ---
EXAMINATION TYPE: XR chest 2V DATE OF EXAM: 09/23/2017 COMPARISON: Prior chest x-ray 08/20/2017 HISTORY: Difficulty breathing and shortness of breath, asthma TECHNIQUE: Frontal and lateral views of the chest are obtained. FINDINGS: There are overlying cardiac leads. Patient is rotated. No evident pneumothorax or pleural effusion. Cardiomediastinal silhouette, pulmonary vascularity and bridget are likely stable accounting f or differences in technique. There is bronchial wall thickening. No evident airspace disease. Promine nt lung volumes suggest underlying COPD. There is a spinal curvature. IMPRESSION: Correlate for bronchitis, reactive airways disease, follow-up as indicated.
[2017-09-23] MEDS: IPRATROPIUM-ALBUTEROL 3 ML NEB INHALATION SCH ×3 (11:36→20:22)
[2017-09-23] MEDS ORDERED: ALPRAZolam 0.5 MG TAB PO PRN (12:47)
[2017-09-23] MEDS ORDERED: HYDROcodone/APAP 7.5-325MG 1 EACH TAB PO PRN (12:47)
[2017-09-23] MEDS: ADDERALL 30MG PO SCH (16:21)
--- NOTE | 2017-09-23 16:46 | P.CNPUL ---
History of Present Illness Consult date: 09/23/17 Reason for consult: dyspnea, COPD History of present illness: 62-year-old female patient a chronic smoker with known history of COPD who has been maintained on Spiriva and budesonide neb last treatment twice a day in addition to Ventolin rescue inhaler lasted basis. The patient comes into the hospital because of increased dyspnea cough chest congestion wheezing and acute bronchospasm. Her condition is been gradually getting worse over the past few days. She has been utilizing her 's oxygen. She has been also utilizing her 's nebulizer. She is a long-term smoker. No sore throat. No hemoptysis. No pleurisy. No fever or chills. Influenza screen came back negative. The patient's chest x-ray was within normal limits. No leukocytosis. No renal insufficiency. No fever or chills. Currently she is on 97% pulse ox with 2-3 L of oxygen by nasal cannula. She is having frequent coughing spells. No recent hospitalization for any Pulmicort complications. Review of Systems Constitutional: Reports fatigue, Reports weakness Eyes: denies as per HPI, denies blurred vision, denies bulging eye Ears: deny: decreased hearing, ear discharge, earache Ears, nose, mouth and throat: Denies headache, Denies sore throat Breasts: Reports as per HPI Cardiovascular: Reports decreased exercise tolerance, Reports dyspnea on exertion, Reports shortness of breath Respiratory: Reports cough, Reports dyspnea, Reports wheezing Gastrointestinal: Denies abdominal pain, Denies diarrhea, Denies nausea, Denies vomiting Genitourinary: Denies dysuria, Denies hematuria Musculoskeletal: Denies myalgias Musculoskeletal: absent: ankle pain, ankle stiffness, ankle swelling Integumentary: Denies pruritus, Denies rash Neurological: Denies numbness, Denies weakness Psychiatric: Denies anxiety, Denies depression Endocrine: Denies fatigue, Denies weight change Past Medical History Past Medical History: COPD Additional Past Medical History / Comment(s): Narcalepsy, cataplexy, JOSSELIN does not wear device, restless leg syndrome, low back pain with sciatica, migraines, IDDM type II. History of Any Multi-Drug Resistant Organisms: None Reported Past Surgical History: Back Surgery Additional Past Surgical History / Comment(s): 08/18/17 laminectomy/discectomy with spacer L1-L2, bilateral carpal tunnel released, L knee arthroscopy, sinus surgery, "pain blocks" to back. Additional Past Anesthesia/Blood Transfusion Reaction / Comment(s): Pt's heart stopped after a "pain block" procedure that required anesthesia. Smoking Status: Current every day smoker - Past Family History Father History Unknown: Yes Additional Family Medical History / Comment(s): Pt is adopted. Medications and Allergies Home Medications Medication Instructions Recorded Confirmed Type ALPRAZolam [Xanax] 0.5 mg PO TID PRN 03/23/15 09/23/17 History Dextroamphetamine/Amphetamine 30 mg PO BID 03/23/15 09/23/17 History [Adderall] Lisinopril [Zestril] 5 mg PO HS 03/23/15 09/23/17 History Albuterol Inhaler [Ventolin Hfa 2 puff INHALATION RT-Q6H PRN 09/12/15 09/23/17 History Inhaler] Pramipexole [Mirapex] 2 mg PO HS 05/09/16 09/23/17 History metFORMIN HCL [Glucophage] 500 mg PO BID 05/09/16 09/23/17 History Escitalopram [Lexapro] 10 mg PO HS 08/21/17 09/23/17 History Gabapentin [Neurontin] 600 mg PO TID 09/23/17 09/23/17 History HYDROcodone/APAP 7.5-325MG [[place] 1 tab PO TID PRN 09/23/17 09/23/17 History 7.5-325] Montelukast [Singulair] 10 mg PO HS 09/23/17 09/23/17 History busPIRone HCL [Buspar] 7.5 mg PO BID 09/23/17 09/23/17 History Allergies Allergy/AdvReac Type Severity Reaction Status Date / Time Penicillins Allergy Rash/Hives, Verified 09/23/17 10:01 SOB Physical Exam Vitals: Vital Signs Temp Pulse Pulse Resp BP BP Pulse Ox 09/23/17 16:22 100 09/23/17 14:42 98 F 90 18 129/59 97 09/23/17 13:00 98.6 F 85 16 113/63 91 L 09/23/17 11:24 98.6 F 90 19 112/63 94 L 09/23/17 10:00 96 20 108/55 94 L 09/23/17 09:58 102 H 09/23/17 09:32 97 09/23/17 09:04 22 09/23/17 09:00 101 H 20 120/69 98 09/23/17 08:45 98.4 F 100 16 87/54 92 L Intake and Output 09/23/17 09/23/17 09/23/17 06:59 14:59 22:59 Other: Weight 93.894 kg Limitations: no limitations General appearance: alert, in no apparent distress Head exam: Present: atraumatic, normocephalic Eye exam: Present: normal appearance, PERRL, EOMI ENT exam: Present: normal exam, normal oropharynx Neck exam: Present: normal inspection. Absent: tenderness, meningismus Respiratory exam: Present: respiratory distress, wheezes, decreased breath sounds, prolonged expiratory Cardiovascular Exam: Present: regular rate, normal rhythm GI/Abdominal exam: Present: soft. Absent: distended, tenderness Extremities exam: Present: normal inspection, normal capillary refill. Absent: pedal edema Back exam: Present: normal inspection, full ROM Neurological exam: Present: alert, oriented X3, CN II-XII intact. Absent: motor sensory deficit Psychiatric exam: Present: normal affect, normal mood Skin exam: Present: warm, dry, intact. Absent: cyanosis, diaphoretic Results - Laboratory Findings CBC and BMP: 09/23/17 09:04 09/23/17 09:04 PT/INR, D-dimer PT 9.3 sec (9.0-12.0) 09/23/17 09:04 INR 0.9 (<1.2) 09/23/17 09:04 Abnormal lab findings: Abnormal Labs 09/23/17 09/23/17 09/23/17 09:04 09:04 09:04 MCHC 30.8 L APTT 21.3 L Potassium 5.4 H Glucose 104 H - Diagnostic Findings Chest x-ray: image reviewed Assessment and Plan Plan: Assessment 1 acute exacerbation of COPD with secondary shortness of breath 2 acute bronchitis 3 obstructive sleep apnea not on CPAP therapy 4 narcolepsy 5 RLS 6 obesity 7 chronic pain 8 chronic anxiety/depression 9 hypertension 10 smoker Plan Continue DuoNeb nebulized treatments around the clock. IV Solu-Medrol. Levaquin as an empiric antibiotic coverage. Robitussin-DM for cough. We'll continue to follow. Will need outpatient follow-up regarding her COPD including a based on pulmonary function test. Smoking cessation counseling was done. Adjustment on her respiratory medications inhaler will be done on outpatient basis.
[2017-09-23] MEDS: methylPREDNISolone SOD SUCCI 125 MG/2 ML VIAL IV SCH (18:09)
[2017-09-23] MEDS: LEVOFLOXACIN 500 MG TAB PO SCH (18:09)
[2017-09-23] MEDS: GABAPENTIN 300 MG CAP PO SCH ×2 (18:10→20:45)
[2017-09-23] MEDS: metFORMIN 500 MG TAB PO SCH (18:10)
[2017-09-23] MEDS: MONTELUKAST 10 MG TAB PO SCH (20:44)
[2017-09-23] MEDS: ESCITALOPRAM 10 MG TAB PO SCH (20:45)
[2017-09-23] MEDS: busPIRone HCl 5 MG TAB PO SCH (20:45)
[2017-09-23] MEDS: PRAMIPEXOLE 1 MG TAB PO SCH (21:00)
[2017-09-24] MEDS: methylPREDNISolone SOD SUCCI 125 MG/2 ML VIAL IV SCH ×3 (00:01→15:29)
[2017-09-24] MEDS: IPRATROPIUM-ALBUTEROL 3 ML NEB INHALATION SCH ×4 (08:05→20:18)
[2017-09-24 08:28] LABS: Anion Gap 12 mmol/L; Blood Urea Nitrogen 19 mg/dL (7-17); Carbon Dioxide 28 mmol/L (22-30); Chloride 98 mmol/L (98-107); Glucose 389 mg/dL (74-99); Potassium 5.6 mmol/L (3.5-5.1); Sodium 138 mmol/L (137-145)
[2017-09-24] MEDS ORDERED: predniSONE 20 MG TAB PO SCH (09:00)
[2017-09-24] MEDS: ADDERALL 30MG PO SCH ×2 (09:19→15:35)
[2017-09-24] MEDS: metFORMIN 500 MG TAB PO SCH ×2 (09:32→17:49)
[2017-09-24] MEDS: GABAPENTIN 300 MG CAP PO SCH ×3 (09:32→21:30)
[2017-09-24] MEDS: busPIRone HCl 5 MG TAB PO SCH ×2 (09:32→21:28)
[2017-09-24] MEDS ORDERED: INSULIN ASPART 100 UNIT/ML 1 ML 10 ML VIAL SQ SCH (09:41)
[2017-09-24] MEDS ORDERED: INSULIN ASPART 100 UNIT/ML 1 ML 10 ML VIAL SQ ONE ×2 (09:42→12:10)
[2017-09-24] MEDS: NICOTINE 21MG/24HR PATCH TRANSDERM SCH (11:06)
[2017-09-24 11:21] LABS: Glucose,Whole Blood 382 mg/dL (75-99)
--- NOTE | 2017-09-24 11:27 | P.HPIM ---
History of Present Illness H&P Date: 09/24/17 Chief Complaint: Shortness of breath 62-year-old female who presented to the emergency room with a chief complaint of shortness of breath and cough that is increasing in severity over the last 2-3 days. Patient reports using her 's oxygen at home. Patient does admit to smoking approximately one pack of cigarettes a day. Patient denies chest pain or pressure. Denies fever or chills. Denies nausea or vomiting. Denies lightheadedness or dizziness. The patient has a history of COPD, diabetes mellitus, obstructive sleep apnea, restless leg syndrome, and chronic back pain. The patient also has a history of anxiety and depression. She is a current every day cigarette smoker. Chest x-ray: Findings suggestive of COPD. No acute process. Laboratory data: WBC 9.5. Hemoglobin 12.1. Platelet count 330. Sodium 139. Potassium 5.4. BUN 16. Creatinine 0.68. Glucose 104. Lactic acid 0.9. Troponin: Negative 1 BNP: 114 Testing for influenza A and B was negative. The patient was admitted to the hospital under the care of Dr. Gusman. Consultations were placed to pulmonary. Review of Systems GENERAL: Patient denies fever. Denies chills. EYES: Denies blurred vision. Denies vision changes. Denies eye pain. EARS, NOSE, MOUTH, & THROAT: Denies headache. Denies sore throat. Denies ear pain. RESPIRATORY: Positive for shortness of breath. Positive for cough. Denies hemoptysis. CARDIOVASCULAR: Denies chest pain or pressure. Denies palpitations. Denies arrhythmias. GASTROINTESTINAL: Denies abdominal pain. Denies diarrhea. Denies constipation. Denies nausea. Denies vomiting. Denies heartburn. Denies blood in the stool. GENITOURINARY: Denies urinary frequency. Denies burning. Denies dysuria. Denies cloudy urine. Denies blood in the urine. MUSCULOSKELETAL: Denies myalgias. Denies joint swelling. Denies decreased range of motion beyond patients baseline. INTEGUMENTARY: Denies pruitis. Denies rash. PSYCHIATRIC: Denies suicidal or homicial ideations. ENDOCRINE: Denies weight change. Denies polydipsia. Denies polyuria. HEMATOLOGIC: Denies bleeding disorders. Past Medical History Past Medical History: COPD, Diabetes Mellitus Additional Past Medical History / Comment(s): Narcalepsy, cataplexy, JOSSELIN does not wear device, restless leg syndrome, low back pain with sciatica, migraines, IDDM type II. History of Any Multi-Drug Resistant Organisms: None Reported Past Surgical History: Back Surgery Additional Past Surgical History / Comment(s): 08/18/17 laminectomy/discectomy with spacer L1-L2, bilateral carpal tunnel released, L knee arthroscopy, sinus surgery, "pain blocks" to back. Additional Past Anesthesia/Blood Transfusion Reaction / Comment(s): Pt's heart stopped after a "pain block" procedure that required anesthesia. Past Psychological History: Anxiety, Depression Additional Psychological History / Comment(s): Pt resides with her spouse. She uses a rolator if going for longer walks. She drives minimally, her spouse takes her to [id number]. She has a glucometer. Smoking Status: Current every day smoker Past Alcohol Use History: None Reported Additional Past Alcohol Use History / Comment(s): Pt started smoking in 1977 and is about a ppd smoker. Past Drug Use History: None Reported - Past Family History Father History Unknown: Yes Additional Family Medical History / Comment(s): Pt is adopted. Medications and Allergies Home Medications Medication Instructions Recorded Confirmed Type ALPRAZolam [Xanax] 0.5 mg PO TID PRN 03/23/15 09/23/17 History Dextroamphetamine/Amphetamine 30 mg PO BID 03/23/15 09/23/17 History [Adderall] Lisinopril [Zestril] 5 mg PO HS 03/23/15 09/23/17 History Albuterol Inhaler [Ventolin Hfa 2 puff INHALATION RT-Q6H PRN 09/12/15 09/23/17 History Inhaler] Pramipexole [Mirapex] 2 mg PO HS 05/09/16 09/23/17 History metFORMIN HCL [Glucophage] 500 mg PO BID 05/09/16 09/23/17 History Escitalopram [Lexapro] 10 mg PO HS 08/21/17 09/23/17 History Gabapentin [Neurontin] 600 mg PO TID 09/23/17 09/23/17 History HYDROcodone/APAP 7.5-325MG [[place] 1 tab PO TID PRN 03/26/18 03/26/18 History 7.5-325] Montelukast [Singulair] 10 mg PO HS 09/23/17 09/23/17 History busPIRone HCL [Buspar] 7.5 mg PO BID 09/23/17 09/23/17 History Allergies Allergy/AdvReac Type Severity Reaction Status Date / Time Penicillins Allergy Rash/Hives, Verified 09/23/17 10:01 SOB Physical Exam Vitals: Vital Signs Temp Pulse Pulse Resp BP BP Pulse Ox 09/24/17 08:16 92 09/24/17 08:06 92 09/24/17 07:00 97.4 F L 94 18 143/74 98 09/24/17 01:54 90 09/24/17 01:43 92 09/23/17 23:00 98 F 76 17 136/61 93 L 09/23/17 20:46 92 09/23/17 20:22 96 09/23/17 16:38 100 09/23/17 16:22 100 09/23/17 14:42 98 F 90 18 129/59 97 09/23/17 13:00 98.6 F 85 16 113/63 91 L 09/23/17 11:24 98.6 F 90 19 112/63 94 L Intake and Output 09/23/17 09/24/17 09/24/17 22:59 06:59 14:59 Intake Total 2300 600 Balance 2300 600 Intake: Intake, IV Titration 600 600 Amount Sodium Chloride 0.9% 1, 600 600 000 ml @ 75 mls/hr IV . [id number] STA Rx#:[id number] Oral 1700 Other: Voiding Method Toilet # Voids 2 2 Weight 93.894 kg GENERAL: This is a 62-year-old female in no apparent distress at the time of examination. Pleasant and cooperative. HEENT: Head is atraumatic, normocephalic. Pupils are equal, round, and reactive to light. Sclerae anicteric. Conjunctivae are clear. Mucus membranes of the mouth are moist. Neck is supple. RESPIRATORY: Decreased air exchange with expiratory wheezing noted. No use of accessory muscles. Patient maintaining oxygen saturation greater than 92% nasal cannula. No chest wall tenderness is noted on palpation or with deep breathing. CARDIOVASCULAR: Regular rate and rhythm. S1 and S2 noted. No systolic or diastolic murmur auscultated. No JVD noted. No S3 or S4 noted. GASTROINTESTINAL: No distention noted. Abdomen soft and round. Normal active bowel sounds auscultated x 4 quadrants. No pain or tenderness noted upon palpation. INTEGUMENTARY: No cyanosis. No jaundice. No rashes noted. No cellulitis noted. EXTREMITIES: 2+ peripheral pulses. No evidence of peripheral edema. No calf tenderness noted. NEUROLOGIC: Cranial nerves II-XII intact. PSYCHIATRIC: Awake, alert, and oriented X 3. Appropriate affect. Intact judgement and insight. Results CBC & Chem 7: 09/23/17 09:04 09/24/17 07:39 Labs: Abnormal Lab Results - Last 24 Hours (Table) 09/24/17 Range/Units 07:39 Potassium 5.6 H (3.5-5.1) mmol/L BUN 19 H (7-17) mg/dL Glucose 389 H (74-99) mg/dL Thrombosis Risk Factor Assmnt - Choose All That Apply Any of the Below Risk Factors Present?: Yes Each Factor Represents 1 point: Abnormal pulmonary function (COPD), Obesity ( BMI >25) Other Risk Factors: Yes Each Risk Factor Represents 2 Points: Age 61-74 years Other congenital or acquired thrombophilia - If yes, enter type in comment: No Thrombosis Risk Factor Assessment Total Risk Factor Score: 4 Thrombosis Risk Factor Assessment Level: Moderate Risk Assessment and Plan Plan: ASSESSMENT: Acute exacerbation of chronic obstructive pulmonary disease Acute bronchitis Diabetes mellitus, type II, hemoglobin A1c pending Hyperglycemia, likely secondary to IV steroids Hyperkalemia Obstructive sleep apnea, patient not on CPAP therapy Essential hypertension Chronic pain disorder Anxiety, unspecified Depression, unspecified Obesity: BMI 36.7 Nicotine dependence, patient is a current cigarette smoker PLAN: Pulmonary on consult. Appreciate recommendations and input Continue DuoNeb treatments Continue IV steroids: 60 mg every 6 hours IV. Wean per pulmonary Continue empiric antibiotics in the form of Levaquin Hold patient's lisinopril secondary to hyperkalemia. Monitor blood pressure Repeat potassium at 1600 IV fluids at 100 mL an hour 12 hours then may Hep-Lock IV Nicotine patch 21 mg daily Obtain hemoglobin A1c Capillary blood glucose accu-checks AC/HS 18 units NovoLog 1 dose now then begin NovoLog sliding scale insulin coverage AC/HS Complete home oxygen assessment Home meds as appropriate Monitor labs GI prophylaxis: Protonix 40 mg PO Daily DVT prophylaxis: Heparin 5000 units subcu every 8 hours Monitor vital signs and address as appropriate Discharge planning: Patient to return home when stable Further recommendations pending patient's course Nurse practitioner note has been reviewed by physician. Signing provider agrees with the documented findings, assessment, and plan of care.
[2017-09-24] MEDS ORDERED: INSULIN DETEMIR 100 UNIT/ML 10 ML VIAL SQ SCH (12:15)
[2017-09-24] MEDS: SODIUM CHLORIDE 0.9% 1,000 ML IV SCH ×2 (12:58→21:28)
[2017-09-24] MEDS: INSULIN DETEMIR 100 UNIT/ML 10 ML VIAL SQ SCH ×2 (12:58→23:55)
[2017-09-24] MEDS: HEPARIN SODIUM,PORCINE 5,000 UNIT/ML 1 ML VIAL SQ SCH ×2 (15:35→23:55)
[2017-09-24 15:36] LABS: Glucose,Whole Blood 181 mg/dL (75-99)
[2017-09-24] MEDS: methylPREDNISolone SOD SUCCI 40 MG/ML 1 ML VIAL IV SCH ×2 (15:39→23:55)
[2017-09-24] MEDS: LEVOFLOXACIN 500 MG TAB PO SCH (15:40)
[2017-09-24] MEDS: INSULIN ASPART 100 UNIT/ML 1 ML 10 ML VIAL SQ SCH ×3 (15:40→21:29)
--- NOTE | 2017-09-24 16:47 | P.PN ---
Subjective Progress Note Date: 09/24/17 Principal diagnosis: Acute exacerbation of COPD with secondary shortness of breath and acute bronchitis 62-year-old female patient a chronic smoker with known history of COPD who has been maintained on Spiriva and budesonide neb last treatment twice a day in addition to Ventolin rescue inhaler lasted basis. The patient comes into the hospital because of increased dyspnea cough chest congestion wheezing and acute bronchospasm. Her condition is been gradually getting worse over the past few days. She has been utilizing her 's oxygen. She has been also utilizing her 's nebulizer. She is a long-term smoker. No sore throat. No hemoptysis. No pleurisy. No fever or chills. Influenza screen came back negative. The patient's chest x-ray was within normal limits. No leukocytosis. No renal insufficiency. No fever or chills. Currently she is on 97% pulse ox with 2-3 L of oxygen by nasal cannula. She is having frequent coughing spells. No recent hospitalization for any Pulmicort complications. On 09/24/2017 patient seen in follow-up. She is improving, denies any worsening shortness of breath, lung sounds positive for good air entry bilaterally, with a few rhonchi, but no wheezes noted. Denies any fever, chills , chest pain. She has been ambulating within the room, and tolerating activity well. Remains on 2 L per nasal cannula with O2 sat at 97%. She remains slightly tachycardic with a heart rate up to 110 BPM. Afebrile, vital signs are stable. Blood culture showed no growth at the 24-hour marion. She and continues on Levaquin, Solu-Medrol, nebulized treatments, and she is responding well to the treatments. However developed a significant steroid-induced hyperglycemia, but in view of her improvement, we will decrease the Solu-Medrol down to 40 mg every 8 hours. Anticipate further improvement, and tomorrow we will switch the patient to oral prednisone, and discharge patient home provided she continues to improve. Objective - Vital Signs Vital signs: Vital Signs Temp 97.9 F 09/24/17 15:00 Pulse 110 H 09/24/17 16:19 Resp 16 09/24/17 16:19 BP 117/70 09/24/17 15:00 Pulse Ox 97 09/24/17 16:10 Intake & Output 09/23/17 09/24/17 09/24/17 18:59 06:59 18:59 Intake Total 600 2900 200 Balance 600 2900 200 Weight 93.894 kg 93.894 kg Intake: IV 200 Sodium Chloride 0.9% 1, 200 000 ml @ 100 mls/hr IV . Q10H [facility] Rx#:[id number] Intake, IV Titration 600 1200 Amount Sodium Chloride 0.9% 1, 600 1200 000 ml @ 75 mls/hr IV . [id number] [facility] Rx#:[id number] Oral 1700 Other: Voiding Method Toilet # Voids 2 - Exam Limitations: no limitations General appearance: alert, in no apparent distress Head exam: Present: atraumatic, normocephalic Eye exam: Present: normal appearance, PERRL, EOMI ENT exam: Present: normal exam, normal oropharynx Neck exam: Present: normal inspection. Absent: tenderness, meningismus Respiratory exam: prolonged expiratory phase, no wheezes, there is some scattered rhonchi Cardiovascular Exam: Present: regular rate, normal rhythm GI/Abdominal exam: Present: soft. Absent: distended, tenderness Extremities exam: Present: normal inspection, normal capillary refill. Absent: pedal edema Back exam: Present: normal inspection, full ROM Neurological exam: Present: alert, oriented X3, CN II-XII intact. Absent: motor sensory deficit Psychiatric exam: Present: normal affect, normal mood Skin exam: Present: warm, dry, intact. Absent: cyanosis, diaphoretic - Labs CBC & Chem 7: 09/23/17 09:04 09/24/17 07:39 Labs: Abnormal Lab Results - Last 24 Hours (Table) 09/24/17 09/24/17 09/24/17 Range/Units 07:39 11:16 15:23 Potassium 5.6 H (3.5-5.1) mmol/L BUN 19 H (7-17) mg/dL Glucose 389 H (74-99) mg/dL POC Glucose (mg/dL) 382 H 181 H (75-99) mg/dL Microbiology - Last 24 Hours (Table) 09/23/17 09:04 Blood Culture - Preliminary Blood No Growth after 24 hours Assessment and Plan Plan: Assessment: 1 acute exacerbation of COPD with secondary shortness of breath 2 acute bronchitis 3 obstructive sleep apnea not on CPAP therapy 4 narcolepsy 5 RLS 6 obesity 7 chronic pain 8 chronic anxiety/depression 9 hypertension 10 smoker Plan Patient continues to improve, she however developed significant steroid-induced hyperglycemia, but in view of her clinical improvement we will decrease the Solu -Medrol to 40 mg every 8 hours. Continue Levaquin, continue cough syrup, nicotine patch, nebulized treatments. Anticipate further improvement, and possible discharge home tomorrow. I performed a history & physical examination of the patient and discussed their management with my nurse practitioner, Maryam Barker. I reviewed the nurse practitioner's note and agree with the documented findings and plan of care. Lung sounds are positive for scattered rhonchi, but no wheezing noted. The findings and the impression was discussed with the patient. I attest to the documentation by the nurse practitioner. Time with Patient: Less than 30
[2017-09-24 17:29] LABS: Glucose,Whole Blood 155 mg/dL (75-99)
[2017-09-24 18:45] LABS: Hemoglobin A1C 6.7 % (4.0-6.0)
[2017-09-24 20:37] LABS: Glucose,Whole Blood 233 mg/dL (75-99)
[2017-09-24] MEDS: ESCITALOPRAM 10 MG TAB PO SCH (21:28)
[2017-09-24] MEDS: MONTELUKAST 10 MG TAB PO SCH (21:29)
[2017-09-24] MEDS: PRAMIPEXOLE 1 MG TAB PO SCH (21:29)
[2017-09-25] MEDS ORDERED: PANTOPRAZOLE 40 MG TABLET PO SCH (07:30)
[2017-09-25 07:42] LABS: Glucose,Whole Blood 205 mg/dL (75-99)
[2017-09-25] MEDS: ADDERALL 30MG PO SCH ×2 (07:46→12:40)
[2017-09-25] MEDS: INSULIN ASPART 100 UNIT/ML 1 ML 10 ML VIAL SQ SCH ×2 (07:53→14:50)
[2017-09-25] MEDS: NICOTINE 21MG/24HR PATCH TRANSDERM SCH (07:54)
[2017-09-25] MEDS: methylPREDNISolone SOD SUCCI 40 MG/ML 1 ML VIAL IV SCH (07:54)
[2017-09-25] MEDS: HEPARIN SODIUM,PORCINE 5,000 UNIT/ML 1 ML VIAL SQ SCH (07:54)
[2017-09-25] MEDS: GABAPENTIN 300 MG CAP PO SCH (07:55)
[2017-09-25] MEDS: metFORMIN 500 MG TAB PO SCH (07:55)
[2017-09-25 08:34] VITALS: BP 144/83; RESP 16; TEMP 98.8
[2017-09-25 08:34] LABS: Anion Gap 11 mmol/L; Blood Urea Nitrogen 26 mg/dL (7-17); Calcium 9.6 mg/dL (8.4-10.2); Carbon Dioxide 27 mmol/L (22-30); Chloride 101 mmol/L (98-107); Glucose 237 mg/dL (74-99); Potassium 5.2 mmol/L (3.5-5.1); Sodium 139 mmol/L (137-145)
[2017-09-25] MEDS: IPRATROPIUM-ALBUTEROL 3 ML NEB INHALATION SCH ×2 (08:39→11:43)
[2017-09-25] MEDS: busPIRone HCl 5 MG TAB PO SCH (10:05)
--- NOTE | 2017-09-25 11:08 | P.PN ---
Subjective Progress Note Date: 09/25/17 62-year-old female who presented to the emergency room with a chief complaint of shortness of breath and cough that is increasing in severity over the last 2-3 days. Patient reports using her 's oxygen at home. Patient does admit to smoking approximately one pack of cigarettes a day. Patient denies chest pain or pressure. Denies fever or chills. Denies nausea or vomiting. Denies lightheadedness or dizziness. The patient has a history of COPD, diabetes mellitus, obstructive sleep apnea, restless leg syndrome, and chronic back pain. The patient also has a history of anxiety and depression. She is a current every day cigarette smoker. Chest x-ray: Findings suggestive of COPD. No acute process. Laboratory data: WBC 9.5. Hemoglobin 12.1. Platelet count 330. Sodium 139. Potassium 5.4. BUN 16. Creatinine 0.68. Glucose 104. Lactic acid 0.9. Troponin: Negative 1 BNP: 114 Testing for influenza A and B was negative. The patient was admitted to the hospital under the care of Dr. Gusman. Consultations were placed to pulmonary. 09/25/2017 Patient seen and examined at the bedside on rounds with Dr. Gusman. Patient is awake and alert. Sitting up in bed. Patient currently denies dyspnea. Patient was evaluated for home oxygen yesterday. Patient does not meet criteria for home oxygen therapy. Patient is currently on room air with oxygen saturations of 94%. Heart rate in the 90-100s. Blood pressure 144/83. Patient is afebrile. Her potassium this morning is 5.2. Blood sugars elevated at 237. Patient remains on NovoLog sliding scale. Objective - Vital Signs Vital signs: Vital Signs Temp 98.8 F 09/25/17 07:00 Pulse 98 09/25/17 08:50 Resp 16 09/25/17 07:00 BP 144/83 09/25/17 07:00 Pulse Ox 94 L 09/25/17 07:00 Intake & Output 09/24/17 09/25/17 09/25/17 18:59 06:59 18:59 Intake Total 200 1450 Balance 200 1450 Intake: IV 200 900 Sodium Chloride 0.9% 1, 200 900 000 ml @ 100 mls/hr IV . Q10H [facility] Rx#:[id number] Oral 550 Other: Voiding Method Toilet Toilet # Voids 1 - Exam GENERAL: This is a 62-year-old female in no apparent distress at the time of examination. Pleasant and cooperative. HEENT: Head is atraumatic, normocephalic. Pupils are equal, round, and reactive to light. Sclerae anicteric. Conjunctivae are clear. Mucus membranes of the mouth are moist. Neck is supple. RESPIRATORY: Scattered expiratory wheezing noted, improved since yesterday. No use of accessory muscles. Patient maintaining oxygen saturation greater than 92 %. No chest wall tenderness is noted on palpation or with deep breathing. CARDIOVASCULAR: Regular rate and rhythm. S1 and S2 noted. No systolic or diastolic murmur auscultated. No JVD noted. No S3 or S4 noted. GASTROINTESTINAL: No distention noted. Abdomen soft and round. Normal active bowel sounds auscultated x 4 quadrants. No pain or tenderness noted upon palpation. INTEGUMENTARY: No cyanosis. No jaundice. No rashes noted. No cellulitis noted. EXTREMITIES: 2+ peripheral pulses. No evidence of peripheral edema. No calf tenderness noted. NEUROLOGIC: Cranial nerves II-XII intact. PSYCHIATRIC: Awake, alert, and oriented X 3. Appropriate affect. Intact judgement and insight. - Labs CBC & Chem 7: 09/23/17 09:04 09/25/17 08:02 Labs: Abnormal Lab Results - Last 24 Hours (Table) 09/24/17 09/24/17 09/24/17 Range/Units 07:39 11:16 15:23 Potassium (3.5-5.1) mmol/L BUN (7-17) mg/dL Glucose (74-99) mg/dL POC Glucose (mg/dL) 382 H 181 H (75-99) mg/dL Hemoglobin A1c 6.7 H (4.0-6.0) % 09/24/17 09/24/17 09/25/17 Range/Units 17:11 20:29 07:14 Potassium (3.5-5.1) mmol/L BUN (7-17) mg/dL Glucose (74-99) mg/dL POC Glucose (mg/dL) 155 H 233 H 205 H (75-99) mg/dL Hemoglobin A1c (4.0-6.0) % 09/25/17 Range/Units 08:02 Potassium 5.2 H (3.5-5.1) mmol/L BUN 26 H (7-17) mg/dL Glucose 237 H (74-99) mg/dL POC Glucose (mg/dL) (75-99) mg/dL Hemoglobin A1c (4.0-6.0) % Microbiology - Last 24 Hours (Table) 09/23/17 09:04 Blood Culture - Preliminary Blood No Growth after 24 hours Assessment and Plan Plan: ASSESSMENT: Acute exacerbation of chronic obstructive pulmonary disease Acute bronchitis Diabetes mellitus, type II, hemoglobin A1c 6.7% Hyperglycemia, likely secondary to IV steroids Hyperkalemia Obstructive sleep apnea, patient not on CPAP therapy Essential hypertension Chronic pain disorder Anxiety, unspecified Depression, unspecified Obesity: BMI 36.7 Nicotine dependence, patient is a current cigarette smoker PLAN: Pulmonary on consult. Appreciate recommendations and input Continue DuoNeb treatments Continue IV steroids: 40 mg every 8 hours IV. Wean per pulmonary Continue empiric antibiotics in the form of Levaquin Hold patient's lisinopril secondary to hyperkalemia. Monitor blood pressure Nicotine patch 21 mg daily Capillary blood glucose accu-checks AC/HS Continue NovoLog sliding scale insulin coverage AC/HS Continue Levemir Home meds as appropriate Monitor labs GI prophylaxis: Protonix 40 mg PO Daily DVT prophylaxis: Heparin 5000 units subcu every 8 hours Monitor vital signs and address as appropriate Discharge planning: Patient to return home when stable Further recommendations pending patient's course Possible discharge home this afternoon if patient is cleared by pulmonary. Otherwise anticipate discharge home tomorrow Nurse practitioner note has been reviewed by physician. Signing provider agrees with the documented findings, assessment, and plan of care.
[2017-09-25 11:34] LABS: Glucose,Whole Blood 356 mg/dL (75-99)
[2017-09-25 11:47] VITALS: PULSE 99
[2017-09-25] MEDS ORDERED: INSULIN ASPART 100 UNIT/ML 1 ML 10 ML VIAL SQ ONE (12:12)
[2017-09-25] MEDS: INSULIN DETEMIR 100 UNIT/ML 10 ML VIAL SQ SCH (12:58)
[2017-09-25 14:43] LABS: Glucose,Whole Blood 211 mg/dL (75-99)
--- NOTE | 2017-09-25 14:52 | P.DS ---
Providers Date of admission: 09/25/17 09:16 Expected date of discharge: 09/25/17 Attending physician: Weston Gusman Consults: 09/23/17 11:10 Consult Physician Urgent Consulting Provider: Alexandre Gardiner Consult Reason/Comments: copd Do you want consulting provider notified?: Yes Primary care physician: Weston Gusman [facility] Course: 62-year-old female who presented to the emergency room with a chief complaint of shortness of breath and cough that is increasing in severity over the last 2-3 days. Patient reports using her 's oxygen at home. Patient does admit to smoking approximately one pack of cigarettes a day. Patient denies chest pain or pressure. Denies fever or chills. Denies nausea or vomiting. Denies lightheadedness or dizziness. The patient has a history of COPD, diabetes mellitus, obstructive sleep apnea, restless leg syndrome, and chronic back pain. The patient also has a history of anxiety and depression. She is a current every day cigarette smoker. Chest x-ray: Findings suggestive of COPD. No acute process. Laboratory data: WBC 9.5. Hemoglobin 12.1. Platelet count 330. Sodium 139. Potassium 5.4. BUN 16. Creatinine 0.68. Glucose 104. Lactic acid 0.9. Troponin: Negative 1 BNP: 114 Testing for influenza A and B was negative. The patient was evaluated by pulmonary during hospitalization. She was started on IV steroids and have been tapered per pulmonary with improvement in the patient's respiratory status back to her baseline. The patient was evaluated for home oxygen. However the patient does not meet criteria for home oxygen as her oxygen saturation was 94% on room air. The patient has remained hemodynamically stable during hospitalization. The patient's potassium was elevated during hospitalization with a peak of 5.6. The patient's lisinopril has been placed on hold. Her blood pressure has remained stable. She is to continue to hold her lisinopril at the time of discharge until she is reevaluated by Dr. Gusman on an outpatient basis and has her potassium repeated at that time. The patient experienced steroid-induced hyperglycemia during hospitalization. She was placed on a NovoLog sliding scale and also required Levemir. The patient's hemoglobin A1c is 6.7%. The patient takes metformin at home and also has a glucometer to check her blood sugars. The patient was deemed stable for discharge from a pulmonary standpoint per Dr. Gardiner. The patient was also deemed stable for discharge per Dr. Gusman. She is to follow up on an outpatient basis. The patient was encouraged to abstain from cigarette smoking. Prescriptions were sent to the patient's preferred pharmacy for prednisone taper, Levaquin, and DuoNeb treatments per pulmonary. Prescriptions were also sent to the patient's preferred pharmacy for nicotine patches daily 7 days. DISCHARGE DIAGNOSIS: Acute exacerbation of chronic obstructive pulmonary disease, improved at the time of discharge Acute bronchitis, improved at time of discharge Diabetes mellitus, type II, hemoglobin A1c 6.7% Hyperglycemia, likely secondary to IV steroids Hyperkalemia Obstructive sleep apnea, patient not on CPAP therapy Essential hypertension Chronic pain disorder Anxiety, unspecified Depression, unspecified Obesity: BMI 36.7 Nicotine dependence, patient is a current cigarette smoker Nurse practitioner note has been reviewed by physician. Signing provider agrees with the documented findings, assessment, and plan of care. Patient Condition at Discharge: Stable Plan - Discharge Summary Discharge Rx Participant: No New Discharge Prescriptions: New Levofloxacin [Levaquin] 500 mg PO DAILY 5 Days #5 tab predniSONE 10 mg PO DAILY 9 Days #18 tab Ipratropium-Albuterol Nebulize [Duoneb 0.5 mg-3 mg/3 ml Soln] 3 ml INHALATION QID 30 Days #3 box Nicotine 21Mg/24Hr Patch [Habitrol] 1 patch TRANSDERM DAILY #7 patch Continue Dextroamphetamine/Amphetamine [Adderall] 30 mg PO BID ALPRAZolam [Xanax] 0.5 mg PO TID PRN PRN Reason: Anxiety Albuterol Inhaler [Ventolin Hfa Inhaler] 2 puff INHALATION RT-Q6H PRN PRN Reason: Shortness Of Breath metFORMIN HCL [Glucophage] 500 mg PO BID Pramipexole [Mirapex] 2 mg PO HS Escitalopram [Lexapro] 10 mg PO HS busPIRone HCL [Buspar] 7.5 mg PO BID Montelukast [Singulair] 10 mg PO HS HYDROcodone/APAP 7.5-325MG [Miller 7.5-325] 1 tab PO TID PRN PRN Reason: Pain Gabapentin [Neurontin] 600 mg PO TID Discontinued Lisinopril [Zestril] 5 mg PO HS Discharge Medication List ALPRAZolam [Xanax] 0.5 mg PO TID PRN 03/23/15 [History] Dextroamphetamine/Amphetamine [Adderall] 30 mg PO BID 03/23/15 [History] Albuterol Inhaler [Ventolin Hfa Inhaler] 2 puff INHALATION RT-Q6H PRN 09/12/15 [ History] Pramipexole [Mirapex] 2 mg PO HS 05/09/16 [History] metFORMIN HCL [Glucophage] 500 mg PO BID 05/09/16 [History] Escitalopram [Lexapro] 10 mg PO HS 08/21/17 [History] Gabapentin [Neurontin] 600 mg PO TID 09/23/17 [History] HYDROcodone/APAP 7.5-325MG [Miller 7.5-325] 1 tab PO TID PRN 09/23/17 [History] Montelukast [Singulair] 10 mg PO HS 09/23/17 [History] busPIRone HCL [Buspar] 7.5 mg PO BID 09/23/17 [History] Ipratropium-Albuterol Nebulize [Duoneb 0.5 mg-3 mg/3 ml Soln] 3 ml INHALATION QID 30 Days #3 box 09/25/17 [Rx] Levofloxacin [Levaquin] 500 mg PO DAILY 5 Days #5 tab 09/25/17 [Rx] Nicotine 21Mg/24Hr Patch [Habitrol] 1 patch TRANSDERM DAILY #7 patch 09/25/17 [ Rx] predniSONE 10 mg PO DAILY 9 Days #18 tab 09/25/17 [Rx] Follow up Appointment(s)/Referral(s): Weston Gusman DO [Primary Care Provider] - 1 Week [facility], [NON-STAFF] - As Needed Alexandre Gardiner MD [STAFF PHYSICIAN] - 1 Week Activity/Diet/Wound Care/Special Instructions: Continue to hold your lisinopril until you see Dr. Gusman at your follow up appointment Recheck potassium at follow up appointment with Dr. Gusman Discharge Disposition: HOME SELF-CARE
--- NOTE | 2017-09-25 15:03 | P.PN ---
Subjective Progress Note Date: 09/25/17 Principal diagnosis: Acute exacerbation of COPD with secondary shortness of breath and acute bronchitis 62-year-old female patient a chronic smoker with known history of COPD who has been maintained on Spiriva and budesonide neb last treatment twice a day in addition to Ventolin rescue inhaler lasted basis. The patient comes into the hospital because of increased dyspnea cough chest congestion wheezing and acute bronchospasm. Her condition is been gradually getting worse over the past few days. She has been utilizing her 's oxygen. She has been also utilizing her 's nebulizer. She is a long-term smoker. No sore throat. No hemoptysis. No pleurisy. No fever or chills. Influenza screen came back negative. The patient's chest x-ray was within normal limits. No leukocytosis. No renal insufficiency. No fever or chills. Currently she is on 97% pulse ox with 2-3 L of oxygen by nasal cannula. She is having frequent coughing spells. No recent hospitalization for any Pulmicort complications. On 09/24/2017 patient seen in follow-up. She is improving, denies any worsening shortness of breath, lung sounds positive for good air entry bilaterally, with a few rhonchi, but no wheezes noted. Denies any fever, chills , chest pain. She has been ambulating within the room, and tolerating activity well. Remains on 2 L per nasal cannula with O2 sat at 97%. She remains slightly tachycardic with a heart rate up to 110 BPM. Afebrile, vital signs are stable. Blood culture showed no growth at the 24-hour marion. She and continues on Levaquin, Solu-Medrol, nebulized treatments, and she is responding well to the treatments. However developed a significant steroid-induced hyperglycemia, but in view of her improvement, we will decrease the Solu-Medrol down to 40 mg every 8 hours. Anticipate further improvement, and tomorrow we will switch the patient to oral prednisone, and discharge patient home provided she continues to improve. On 09/17/2017 patient seen in follow-up on medical surgical floor. She is almost back to her baseline, she continues to improve. She states her breathing is much easier, her lung sounds are clear to auscultation today. No rhonchi, no wheezes, no rales on today's exam. Vital signs are stable, she is on room air. He has been ambulating, tolerating activity well. No fever, no chills, no chest congestion. She is requesting to go home today. From pulmonary standpoint patient is stable to go home today, follow-up appointment with Dr. Gardiner and 7 days. Patient will need to finish outpatient course of antibiotics, prednisone taper, obese on home on DuoNeb nebulized treatments, she has Ventolin inhaler at home, and we will add Symbicort. Objective - Vital Signs Vital signs: Vital Signs Temp 98.8 F 09/25/17 07:00 Pulse 99 09/25/17 11:54 Resp 16 09/25/17 07:00 BP 144/83 09/25/17 07:00 Pulse Ox 94 L 09/25/17 07:00 Intake & Output 09/24/17 09/25/17 09/25/17 18:59 06:59 18:59 Intake Total 200 1450 Balance 200 1450 Intake: IV 200 900 Sodium Chloride 0.9% 1, 200 900 000 ml @ 100 mls/hr IV . Q10H [facility] Rx#:[id number] Oral 550 Other: Voiding Method Toilet Toilet Toilet # Voids 1 2 - Exam Limitations: no limitations General appearance: alert, in no apparent distress Head exam: Present: atraumatic, normocephalic Eye exam: Present: normal appearance, PERRL, EOMI ENT exam: Present: normal exam, normal oropharynx Neck exam: Present: normal inspection. Absent: tenderness, meningismus Respiratory exam: prolonged expiratory phase, no wheezes, no rhonchi, patient is much less bronchospastic and congested on today's exam. Cardiovascular Exam: Present: regular rate, normal rhythm GI/Abdominal exam: Present: soft. Absent: distended, tenderness Extremities exam: Present: normal inspection, normal capillary refill. Absent: pedal edema Back exam: Present: normal inspection, full ROM Neurological exam: Present: alert, oriented X3, CN II-XII intact. Absent: motor sensory deficit Psychiatric exam: Present: normal affect, normal mood Skin exam: Present: warm, dry, intact. Absent: cyanosis, diaphoretic - Labs CBC & Chem 7: 09/23/17 09:04 09/25/17 08:02 Labs: Abnormal Lab Results - Last 24 Hours (Table) 09/24/17 09/24/17 09/24/17 Range/Units 07:39 15:23 17:11 Potassium (3.5-5.1) mmol/L BUN (7-17) mg/dL Glucose (74-99) mg/dL POC Glucose (mg/dL) 181 H 155 H (75-99) mg/dL Hemoglobin A1c 6.7 H (4.0-6.0) % 09/24/17 09/25/17 09/25/17 Range/Units 20:29 07:14 08:02 Potassium 5.2 H (3.5-5.1) mmol/L BUN 26 H (7-17) mg/dL Glucose 237 H (74-99) mg/dL POC Glucose (mg/dL) 233 H 205 H (75-99) mg/dL Hemoglobin A1c (4.0-6.0) % 09/25/17 09/25/17 Range/Units 11:31 14:42 Potassium (3.5-5.1) mmol/L BUN (7-17) mg/dL Glucose (74-99) mg/dL POC Glucose (mg/dL) 356 H 211 H (75-99) mg/dL Hemoglobin A1c (4.0-6.0) % Microbiology - Last 24 Hours (Table) 09/23/17 09:04 Blood Culture - Preliminary Blood No Growth after 48 hours Assessment and Plan Plan: Assessment: 1 acute exacerbation of COPD with secondary shortness of breath 2 acute bronchitis 3 obstructive sleep apnea not on CPAP therapy 4 narcolepsy 5 RLS 6 obesity 7 chronic pain 8 chronic anxiety/depression 9 hypertension 10 smoker Plan Patient continues to improve, reports her breathing is much easier, lung sounds are clear to auscultation, no wheezes or rhonchi. No fever no chills, vital signs are stable. From pulmonary standpoint patient is stable for discharge home today. She will need to finish outpatient course of oral Levaquin for 5 more days, prednisone taper, DuoNeb nebulized treatments will be sent, nicotine patch, and Symbicort will be added. Follow-up with Dr. Gardiner in the office in one week I performed a history & physical examination of the patient and discussed their management with my nurse practitioner, Maryam Barker. I reviewed the nurse practitioner's note and agree with the documented findings and plan of care. Lung sounds are clear. The findings and the impression was discussed with the patient. I attest to the documentation by the nurse practitioner. Time with Patient: Less than 30
== END 2017-09-25 15:55 | disposition home or self-care (01) | DRG 192 ==
LOC: EC 08:37 → 5MS5E 10:38 → OBSVTOIN 09-25 09:16
PROVIDERS: ADMIT Family Medicine; ATTEND Family Medicine
DX: J44.0 Chronic obstructive pulmonary disease with (acute) lower respiratory infection (principal); E11.65 Type 2 diabetes mellitus with hyperglycemia; J44.1 Chronic obstructive pulmonary disease with (acute) exacerbation; J20.9 Acute bronchitis, unspecified; E66.9 Obesity, unspecified; E87.5 Hyperkalemia; F17.210 Nicotine dependence, cigarettes, uncomplicated; F32.9 Major depressive disorder, single episode, unspecified; F41.9 Anxiety disorder, unspecified; G25.81 Restless legs syndrome; G47.33 Obstructive sleep apnea (adult) (pediatric); G47.419 Narcolepsy without cataplexy; G89.29 Other chronic pain; I10 Essential (primary) hypertension; T38.0X5A Adverse effect of glucocorticoids and synthetic analogues, initial encounter; Z68.36 Body mass index [BMI] 36.0-36.9, adult; Z79.899 Other long term (current) drug therapy; Z79.84 Long term (current) use of oral hypoglycemic drugs; Z79.51 Long term (current) use of inhaled steroids; Z88.0 Allergy status to penicillin; M54.30 Sciatica, unspecified side; G43.909 Migraine, unspecified, not intractable, without status migrainosus; Z79.891 Long term (current) use of opiate analgesic; Z71.6 Tobacco abuse counseling
CPT/HCPCS: 36415; 71046; 80048; 80053; 82550; 82553; 83036; 83605; 83735; 83880; 84132; 84484; 85025; 85610; 85730; 87040; 87502; 93005; 94640; 94760; 96361; 96374; 96375; 99285

== ENCOUNTER 2017-12-06 13:07 | Emergency (ER) | payer MEDICARE, BC ==
[2017-12-06] MEDS ORDERED: MORPHINE SULFATE 2 MG/ML SYRINGE IM STA (13:32)
--- NOTE | 2017-12-06 13:34 | ED ---
Back Pain HPI - General Chief Complaint: Back Pain/Injury Stated Complaint: fall, back injury Time Seen by Provider: 12/06/17 13:23 Source: patient, family, RN notes reviewed Limitations: no limitations - History of Present Illness Initial Comments: 62-year-old female presents emergency Department chief complaint of low back pain. Patient states that she fell out of bed on Saturday night. Patient states that she follow-up with her PCP in which she received a pain shot. She states the pain worsened and she was advised to come emergency department for evaluation. Patient has an appointment with her back surgeon Dr. Jc on Saturday. Patient denies any bowel bladder incontinence or retention. Denies any saddle anesthesia. She does have right lower extremity paresthesias which is chronic for sensitive surgeries. Patient states that she's had 2 fusions of her lumbar spine L3 through L5 along with spacers to an L1-L2 L2-L3. Patient has no dysuria. Patient denies head injury no loss conscious denies any neck or upper back pain. - Related Data Home Medications Medication Instructions Recorded Confirmed ALPRAZolam [Xanax] 1 mg PO HS 03/23/15 12/06/17 Dextroamphetamine/Amphetamine 60 mg PO HS 03/23/15 12/06/17 [Adderall] Pramipexole [Mirapex] 2 mg PO HS 05/09/16 12/06/17 metFORMIN HCL [Glucophage] 1,000 mg PO HS 05/09/16 12/06/17 Escitalopram [Lexapro] 10 mg PO HS 08/21/17 12/06/17 Gabapentin [Neurontin] 600 mg PO Q8H 09/23/17 12/06/17 Montelukast [Singulair] 10 mg PO HS 09/23/17 12/06/17 busPIRone HCL [Buspar] 15 mg PO HS 09/23/17 12/06/17 Ipratropium-Albuterol Nebulize 3 ml INHALATION RT-QID 12/06/17 12/06/17 [Duoneb 0.5 mg-3 mg/3 ml Soln] Lisinopril [Zestril] 5 mg PO HS 12/06/17 12/06/17 buPROPion XL [Wellbutrin Xl] 150 mg PO HS 12/06/17 12/06/17 traMADol HCL [Ultram] 50 - 100 mg PO Q6H PRN 12/06/17 12/06/17 Previous Rx's Medication Instructions Recorded Acetaminophen-Codeine 300-30mg 1 tab PO Q4H PRN #14 tablet 12/06/17 [Tylenol #3] Allergies Allergy/AdvReac Type Severity Reaction Status Date / Time Penicillins Allergy Rash/Hives, Verified 12/06/17 13:35 SOB Review of Systems ROS Statement: Those systems with pertinent positive or pertinent negative responses have been documented in the HPI. ROS Other: All systems not noted in ROS Statement are negative. Past Medical History Past Medical History: COPD, Diabetes Mellitus, Hypertension Additional Past Medical History / Comment(s): Narcalepsy, cataplexy, JOSSELIN does not wear device, restless leg syndrome, low back pain with sciatica, migraines, IDDM type II. History of Any Multi-Drug Resistant Organisms: None Reported Past Surgical History: Back Surgery Additional Past Surgical History / Comment(s): 08/18/17 laminectomy/discectomy with spacer L1-L2, bilateral carpal tunnel released, L knee arthroscopy, sinus surgery, "pain blocks" to back. Additional Past Anesthesia/Blood Transfusion Reaction / Comment(s): Pt's heart stopped after a "pain block" procedure that required anesthesia. Past Psychological History: Anxiety, Depression Smoking Status: Current every day smoker Past Alcohol Use History: None Reported Past Drug Use History: None Reported - Past Family History Mother Additional Family Medical History / Comment(s): adopted Father History Unknown: Yes Additional Family Medical History / Comment(s): Pt is adopted. General Exam Limitations: no limitations General appearance: alert, in no apparent distress Head exam: Present: atraumatic, normocephalic, normal inspection Neck exam: Present: normal inspection, full ROM. Absent: tenderness, meningismus, lymphadenopathy Respiratory exam: Present: normal lung sounds bilaterally. Absent: respiratory distress, wheezes, rales, rhonchi, stridor Cardiovascular Exam: Present: regular rate, normal rhythm, normal heart sounds. Absent: systolic murmur, diastolic murmur, rubs, gallop, clicks GI/Abdominal exam: Present: soft, normal bowel sounds. Absent: distended, tenderness, guarding, rebound, rigid Extremities exam: Present: normal inspection, full ROM, normal capillary refill , other (Lower extremities neurovascular intact equal color equal warmth). Absent: tenderness, pedal edema, joint swelling, calf tenderness Back exam: Present: normal inspection, full ROM, tenderness (Tenderness along the lumbar spine, right lower back region, there is an old surgical scar noted) , paraspinal tenderness. Absent: CVA tenderness (R), CVA tenderness (L), vertebral tenderness Skin exam: Present: warm, dry, intact, normal color. Absent: rash Course Vital Signs 12/06/17 13:16 Temperature 97.7 F Pulse Rate 80 Respiratory 20 Rate Blood Pressure 102/62 O2 Sat by Pulse 96 Oximetry Medical Decision Making - Medical Decision Making 62-year-old female presents to the emergency department for back pain after a fall. Patient x-rays which shows stable postsurgical changes. Patient is neurovascularly and neurologically intact. Patient will follow-up with her surgeon on Saturday at her scheduled appointment. Patient is alert like symptoms. Patient agrees this plan return parameters discussed. Disposition Clinical Impression: Low back pain Disposition: HOME SELF-CARE Condition: Stable Instructions: Chronic Back Pain (ED) Additional Instructions: Please return to the Emergency Department if symptoms worsen or any other concerns. Prescriptions: Acetaminophen-Codeine 300-30mg [Tylenol #3] 1 tab PO Q4H PRN #14 tablet PRN Reason: pain Is patient prescribed a controlled substance at d/c from ED?: Yes When asked, does pt state using other controlled substances?: Yes If prescribed controlled substance>3 days was MAPS reviewed?: Prescribed <3 Days If opioid is for acute pain is fill amount 7 days or less?: No If Rx opioid, was Start Talking consent form obtained?: Yes Referrals: Weston Gusman DO [Primary Care Provider] - 1-2 days Yo Mosher DO [Doctor of Osteopathic Medicine] - 1-2 days
--- NOTE | 2017-12-06 14:11 | XR ---
EXAM TYPE: LUMBAR SPINE X RAY SERIES COMPARISON: 05/14/2016 HISTORY: Pain TECHNIQUE: 4 views are submitted. FINDINGS: Postsurgical changes are noted. Severe degenerative disc disease T12-L1 and L1-L2. Alignment is near anatomic. No definite spondylolisthesis. IMPRESSION: 1. Postsurgical changes. 2. Severe degenerative disc disease T12-L1 and L1-L2.
--- NOTE | 2017-12-06 14:12 | XR ---
EXAMINATION TYPE: XR Hip RT and AP Pelvis DATE OF EXAM: 12/06/2017 COMPARISON: NONE HISTORY: Pain TECHNIQUE: A single AP view of the pelvis is obtained. Two views of the right hip are obtained. FINDINGS: There is postsurgical change involving the lower lumbar spine. SI joints are symmetric. Mi ld concentric narrowing of the hip joints. Osseous structures intact. IMPRESSION: 1. No acute fracture or dislocation. If symptoms persist follow-up exam in 7-10 days recommended.
[2017-12-06] MEDS ORDERED: Acetaminophen-Codeine 300-30mg TAB PO STA (14:21)
[2017-12-06 15:06] VITALS: BP 123/59; PULSE 90; RESP 18; TEMP 96.9
== END 2017-12-06 15:12 | disposition home or self-care (01) ==
LOC: EC 13:07
DX: M54.5 Low back pain (principal); J44.9 Chronic obstructive pulmonary disease, unspecified; E11.9 Type 2 diabetes mellitus without complications; I10 Essential (primary) hypertension; G25.81 Restless legs syndrome; F32.9 Major depressive disorder, single episode, unspecified; F41.9 Anxiety disorder, unspecified; F17.200 Nicotine dependence, unspecified, uncomplicated; Z79.84 Long term (current) use of oral hypoglycemic drugs; Z79.899 Other long term (current) drug therapy; Z88.0 Allergy status to penicillin; Z98.890 Other specified postprocedural states; W06.XXXA Fall from bed, initial encounter
CPT/HCPCS: 72110; 73502; 99283; 96372; J2270

== ENCOUNTER 2018-03-14 16:44 | Emergency (ER) | payer MEDICARE, BC ==
[2018-03-14 16:50] VITALS: RESP 18
[2018-03-14] MEDS ORDERED: HYDROcodone/APAP 7.5-325MG 1 EACH TAB PO ONE (17:17)
--- NOTE | 2018-03-14 17:59 | XR ---
EXAMINATION TYPE: XR Hip Complete RT DATE OF EXAM: 03/14/2018 COMPARISON: NONE HISTORY: Pain after a fall TECHNIQUE: 2 views FINDINGS: I see no fracture nor dislocation. Hip joint space is normal. Sacroiliac joint appears norm al. IMPRESSION: Negative right hip exam
--- NOTE | 2018-03-14 18:00 | XR ---
EXAMINATION TYPE: XR knee complete LT DATE OF EXAM: 03/14/2018 COMPARISON: NONE HISTORY: Knee pain TECHNIQUE: 3 views FINDINGS: I see no fracture nor dislocation. Joint spaces are normal. There is no sign of joint effus ion. IMPRESSION: Negative left knee exam.
--- NOTE | 2018-03-14 18:00 | XR ---
EXAMINATION TYPE: XR elbow complete RT DATE OF EXAM: 03/14/2018 COMPARISON: NONE HISTORY: Pain TECHNIQUE: 3 views FINDINGS: I see no fracture nor dislocation. Joint spaces are normal. There is no sign of elbow joint effusion. IMPRESSION: Negative right elbow exam.
--- NOTE | 2018-03-14 18:01 | XR ---
EXAMINATION TYPE: XR shoulder complete LT DATE OF EXAM: 03/14/2018 COMPARISON: NONE HISTORY: Pain TECHNIQUE: 3 views FINDINGS: I see no fracture nor dislocation. Joint spaces are normal. There is no sign of shoulder sammy int effusion. IMPRESSION: Negative left shoulder exam. Minimal spurring.
--- NOTE | 2018-03-14 18:02 | XR ---
EXAMINATION TYPE: XR clavicle LT DATE OF EXAM: 03/14/2018 COMPARISON: NONE HISTORY: Pain after a fall TECHNIQUE: 2 views FINDINGS: The AC joint appears intact. I see no fracture nor dislocation. There is some calcification at the greater tuberosity of the humerus. IMPRESSION: Calcific tendinitis at the left shoulder joint. No clavicle fracture.
--- NOTE | 2018-03-14 18:50 | ED ---
Lower Extremity Injury HPI - General Chief Complaint: Extremity Injury, Lower Stated Complaint: Fall-Knee and Back Pain Time Seen by Provider: 03/14/18 16:53 Source: patient Mode of arrival: wheelchair Limitations: no limitations - History of Present Illness Initial Comments: This is 62 field past medical history of osteoarthritis and previous left hip injury, type 2 diabetes and hypertension presents today for chief complaint of fall. Patient sates that 4 PM she was in the parking lot at [employer], when she was running from bees that were near her. She tripped over a cement parking barrier. She fell onto her left side. Patient denies any head injury, loss of consciousness. Or injury to the thoracic region of the body. Patient states that she fell and rolled onto her left side hitting her left knee and left shoulder and had some low back pain. Patient states that she has chronic low back pain. Patient stated that she had right hip pain. However she has had right hip pain chronically. Patient denies chest pain, shortness of breath , dizziness, palpitations prior or after the fall. Patient states that following the incident she was complaining of left shoulder pain, she stated this felt mostly clavicle. She was able to fully weight-bear and ambulate. However she complained of left knee pain. Patient denies any numbness, tingling , loss sensation, loss of bowel bladder control, urinary retention or any other associated symptoms. Remainder of ROS negative. - Related Data Home Medications Medication Instructions Recorded Confirmed ALPRAZolam [Xanax] 1 mg PO HS 03/23/15 12/06/17 Dextroamphetamine/Amphetamine 60 mg PO HS 03/23/15 12/06/17 [Adderall] Pramipexole [Mirapex] 2 mg PO HS 05/09/16 12/06/17 metFORMIN HCL [Glucophage] 1,000 mg PO HS 05/09/16 12/06/17 Escitalopram [Lexapro] 10 mg PO HS 08/21/17 12/06/17 Gabapentin [Neurontin] 600 mg PO Q8H 09/23/17 12/06/17 Montelukast [Singulair] 10 mg PO HS 09/23/17 12/06/17 busPIRone HCL [Buspar] 15 mg PO HS 09/23/17 12/06/17 Ipratropium-Albuterol Nebulize 3 ml INHALATION RT-QID 12/06/17 12/06/17 [Duoneb 0.5 mg-3 mg/3 ml Soln] Lisinopril [Zestril] 5 mg PO HS 12/06/17 12/06/17 buPROPion XL [Wellbutrin Xl] 150 mg PO HS 12/06/17 12/06/17 traMADol HCL [Ultram] 50 - 100 mg PO Q6H PRN 12/06/17 12/06/17 Previous Rx's Medication Instructions Recorded Acetaminophen-Codeine 300-30mg 1 tab PO Q4H PRN #14 tablet 12/06/17 [Tylenol #3] Ibuprofen [Motrin] 600 mg PO Q6HR PRN 7 Days #28 tab 03/14/18 Allergies Allergy/AdvReac Type Severity Reaction Status Date / Time Penicillins Allergy Rash/Hives, Verified 03/14/18 16:50 SOB Review of Systems ROS Statement: Those systems with pertinent positive or pertinent negative responses have been documented in the HPI. ROS Other: All systems not noted in ROS Statement are negative. Constitutional: Denies: fever, chills Eyes: Denies: eye pain ENT: Denies: ear pain, throat pain Respiratory: Denies: cough, dyspnea, wheezes, hemoptysis, stridor Cardiovascular: Denies: chest pain, palpitations, dyspnea on exertion, edema Genitourinary: Denies: dysuria Musculoskeletal: Reports: back pain. Denies: arthralgia Skin: Denies: rash, lesions Neurological: Denies: headache, weakness, numbness, paresthesias, confusion, abnormal gait Past Medical History Past Medical History: COPD, Diabetes Mellitus, Hypertension Additional Past Medical History / Comment(s): Narcalepsy, cataplexy, JOSSELIN does not wear device, restless leg syndrome, low back pain with sciatica, migraines, IDDM type II. History of Any Multi-Drug Resistant Organisms: None Reported Past Surgical History: Back Surgery Additional Past Surgical History / Comment(s): 08/18/17 laminectomy/discectomy with spacer L1-L2, bilateral carpal tunnel released, L knee arthroscopy, sinus surgery, "pain blocks" to back. Additional Past Anesthesia/Blood Transfusion Reaction / Comment(s): Pt's heart stopped after a "pain block" procedure that required anesthesia. Past Psychological History: Anxiety, Depression Smoking Status: Current every day smoker Past Alcohol Use History: None Reported Past Drug Use History: None Reported - Past Family History Mother Additional Family Medical History / Comment(s): adopted Father History Unknown: Yes Additional Family Medical History / Comment(s): Pt is adopted. General Exam - General Exam Comments Initial Comments: General: The patient is awake and alert, in no distress, and does not appear acutely ill. Eye: Pupils are equal, round and reactive to light, extra-ocular movements are intact. No nystagmus. There is normal conjunctiva bilaterally. No signs of icterus. Ears, nose, mouth and throat: There are moist mucous membranes and no oral lesions. Neck: The neck is supple, there is no tenderness or JVD. Cardiovascular: There is a regular rate and rhythm. No murmur, rub or gallop is appreciated. Respiratory: Lungs are clear to auscultation, respirations are non-labored, breath sounds are equal. No wheezes, stridor, rales, or rhonchi. Musculoskeletal: Upon examination of the left shoulder, there is no obvious deformity or couple supple. There is tenderness to patient over the mid clavicle left side. Appears equal palpation of the right. There are no lacerations or abrasions of the knees bilaterally. There is no obvious deformity or soft tissue swelling. Patient admits to pain over palpation of the anterior knee. Patient has full range motion of the knees equally bilaterally with extension and flexion, extensor mechanism intact. No laxity or crepitus noted. Sensation of the upper and lower extremities intact bilaterally. No patch paresthesias. She is able to make the okay, fingers crossed for thumbs-up, stop sign with the hands bilaterally. Ulnar, median, radial nerves intact. Strength of the upper or lower extremities including shoulders elbows wrist and hand, hips knees and feet 5 out of 5 no evidence of weakness. Inspection of the right hip there is no obvious deformities. There is no shortening of the leg or internal/external rotation of the right hip. Patient is full range of motion at the right hip with flexion and extension. DP and radial pulses equal bilaterally 2+. No saddle parathesias. Full ROM at the lumbar spine, no midline tenderness, mild right sided paravertebral tenderness. Neurological: A&O x 3. CN II-XII intact, There are no obvious motor or sensory deficits. Coordination appears grossly intact. Speech is normal. Skin: Skin is warm and dry and no rashes or lesions are noted. Psychiatric: Cooperative, appropriate mood & affect, normal judgment. Limitations: no limitations Course Vital Signs 03/14/18 03/14/18 16:48 19:17 Temperature 98.5 F 98.2 F Pulse Rate 109 H 99 Respiratory 18 18 Rate Blood Pressure 138/86 122/83 O2 Sat by Pulse 97 97 Oximetry Medical Decision Making - Medical Decision Making Imaging (-). Neurovascular exam WNL. No signs of caude equina a this time. Pt given norco for pain mgmt. She stated this helped. Case discussed with Dr. Dahl. At this time we feel pt is stable for d/c with PCP f/u and orthopedic consult if pain persists >1 week. Pt agreed with plan. Pt given ibuprofen 600mg rx for pain mgmt. Pt d/c in stable condition. Disposition Clinical Impression: Fall, Left shoulder pain, Left knee pain, Right hip pain, Left elbow pain Disposition: HOME SELF-CARE Condition: Good Instructions: Knee Pain (ED), R.I.C.E. Treatment (ED) Additional Instructions: Please take medication as discussed. Please follow-up with primary care provider in next 1-2 days. Please see orthopedic surgery for persistent pain > 1week. Please return to the ER for any changes, worsening symptoms, or any other concerns as discussed. Prescriptions: Ibuprofen [Motrin] 600 mg PO Q6HR PRN 7 Days #28 tab PRN Reason: Pain Is patient prescribed a controlled substance at d/c from ED?: No Referrals: Weston Gusman DO [Primary Care Provider] - 1-2 days Bhavesh Bryson MD [Medical Doctor] - 1-2 days Time of Disposition: 18:49
[2018-03-14 19:18] VITALS: BP 122/83; PULSE 99; TEMP 98.2
== END 2018-03-14 19:17 | disposition home or self-care (01) ==
LOC: EC 16:44
DX: M25.562 Pain in left knee (principal); M25.512 Pain in left shoulder; M25.551 Pain in right hip; M25.522 Pain in left elbow; M54.5 Low back pain; J44.9 Chronic obstructive pulmonary disease, unspecified; E11.9 Type 2 diabetes mellitus without complications; I10 Essential (primary) hypertension; G25.81 Restless legs syndrome; F32.9 Major depressive disorder, single episode, unspecified; F41.9 Anxiety disorder, unspecified; F17.200 Nicotine dependence, unspecified, uncomplicated; Z79.84 Long term (current) use of oral hypoglycemic drugs; Z79.899 Other long term (current) drug therapy; Z88.0 Allergy status to penicillin
CPT/HCPCS: 73502; 99283

== ENCOUNTER → 2018-08-26 | Outpatient (CLI) | payer MEDICARE, BC ==
--- NOTE | 2018-08-26 15:39 | PN ---
PROGRESS NOTE This is a 63-year-old female patient with multiple medical problems. I have diagnosed this patient with moderately severe obstructive sleep apnea with an AHI of 28. 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 After an extensive attempt, the patient failed CPAP therapy and she is at the point where she is unable to use any form of CPAP treatment. She has lost some weight in order of the a 11 pounds since her last evaluation. She is trying to lose weight. She is a chronic smoker. She has COPD. She is coming in for routine check. In terms of her sleep apnea, the patient has loud snoring. The patient has frequent nighttime arousals in the middle of the night with choking and gasping sensation. Her narcolepsy symptoms are being treated with Adderall 30 mg p.o. twice a day and Lexapro 20 mg p.o. q. daily for symptoms of cataplexy. She continues to have on and off sleep attacks, especially on the nights where she does not extend her sleep hours. She has occasional sleep paralysis, once every couple of months and occasional episodes of narcolepsy once every 6 months. These are mild episodes where the patient does not collapse on the floor. Upon laughing or becoming emotional she feels muscle weakness especially in the lower extremities. She is going to bed at around 8:30 pm and she tries to sleep around 7 hours if possible. More recently, she has become short of breath. She is a chronic smoker and she is having increased dyspnea on cough, chest tightness, wheezing. COPD is exacerbating. She has a ProAir rescue inhaler at home and albuterol nebulized treatment. She is using only on as-needed basis. She smokes 1/2 to 1 pack of cigarettes a day. No side effect from Adderall. No hyperactivity. No issues related to dependence. No tremors. No irritability. No sleepwalking or sleep talking. No agitation, no anxiety or depression. She has lost with weight as mentioned. No hemoptysis. No pleurisy. She is looking to move to [facility] as her is being considered for lung transplantation at [facility]. REVIEW OF SYSTEMS: A 12-point review of system was done. Positive findings are mentioned above with history of present illness. [place] score still elevated above 20. She has sleepiness, tiredness and fatigue. She is on Adderall and Celexa for combination regarding her narcolepsy. She has lost weight. She has labored breathing and daytime cough. She has also nocturnal wheezing. No swelling in the lower extremities. No restlessness in her legs. No sleepwalking or sleep talking. No altered mentation. PHYSICAL EXAMINATION: BP is 101/66, pulse 106, respirations 20, temperature 97.5, saturation 96% on room air. Weight is 203, height is 53 inches. BMI 35.9. GENERAL APPEARANCE: Obese, calm, comfortable. Head is atraumatic normocephalic. Neck is short, supple Mallampati class IV. There is no goiter or neck mass. LUNGS: Diminished breath sounds bilaterally otherwise clear. There is prolongation of the expiratory phase of breathing. Scattered expiratory wheezes throughout the lung jones bilaterally. HEART: Sounds are regular rate and rhythm. Normal S1, S2. No S3. No murmurs. ABDOMEN: Soft, nontender. No organomegaly. EXTREMITIES: No cyanosis or clubbing. NEUROLOGIC: Alert and oriented x3. No focal neurological deficits. PSYCHIATRIC: Negative for anxiety or depression. IMPRESSION: 1. Acute chronic obstructive pulmonary disease exacerbation. The patient has COPD and currently she is smoking 1/2 pack of cigarettes a day. She is having increased bronchus with wheezing and shortness of breath related to COPD exacerbation. 2. Narcolepsy type I, maintained on a combination of Adderall 30 mg p.o. b.i.d. and Lexapro 20 mg p. o. q. day. She is too somnolent and sleepy, probably related to her combination of obstructive sleep apnea and narcolepsy. JOSSELIN is not treated and her treatment of JOSSELIN has failed in the past. She has lost some weight. She is having occasional sleep arousals and cataplexy. Medications will be renewed. 3. Obstructive sleep apnea, apnea-hypopnea index of 28, unable to comply with CPAP therapy. 4. Obesity with a body mass index of 35.9. 5. Shortness of breath, secondary to above. 6. Hypersomnia, chronic [place] score is more than 20. 7. Hypertension. 8. Diabetes mellitus. 9. Chronic anxiety/depression. 10.Chronic back pain. 11.Chronic neck pain. PLAN: 1. Renew the Adderall 30 mg p.o. twice a day. 2. Continue Lexapro 20 mg p.o. daily for symptoms of cataplexy. 3. Encourage further weight loss. 4. Optimize COPD exacerbation with a combination of Z-Natanael and prednisone burst taper and use albuterol nebulized treatment 3-4 times a day around the clock. 5. [facility] regarding her COPD exacerbation. She will need a chest x-ray, and repeat baseline spirometry. Smoking cessation counseling was done. Advise was given regarding optimizing sleep hygiene measures. Power naps will be needed regarding hypersomnia. Will continue to follow. MMODL / IJN: [id number] /
== END ==
LOC: SLEEP 14:00
PROVIDERS: ATTEND Internal Medicine Critical Care Medicine
DX: G47.33 Obstructive sleep apnea (adult) (pediatric) (principal); J44.9 Chronic obstructive pulmonary disease, unspecified; F17.210 Nicotine dependence, cigarettes, uncomplicated; G47.411 Narcolepsy with cataplexy; E66.9 Obesity, unspecified; R06.02 Shortness of breath; I10 Essential (primary) hypertension; E11.9 Type 2 diabetes mellitus without complications; F41.9 Anxiety disorder, unspecified; F32.9 Major depressive disorder, single episode, unspecified; G89.29 Other chronic pain; M54.9 Dorsalgia, unspecified; M54.2 Cervicalgia; Z68.35 Body mass index [BMI] 35.0-35.9, adult

== ENCOUNTER 2018-12-08 10:07 | Inpatient (IN) | payer MEDICARE, BC ==
[2018-12-08] MEDS ORDERED: IPRATROPIUM-ALBUTEROL 3 ML NEB INHALATION STA (10:30)
[2018-12-08] MEDS ORDERED: methylPREDNISolone SOD SUCCI 125 MG/2 ML VIAL IV STA (10:30)
[2018-12-08] MEDS ORDERED: ACETAMINOPHEN TAB 500 MG TAB PO STA (10:32)
--- NOTE | 2018-12-08 10:33 | ED ---
General Adult HPI - General Chief complaint: Shortness of Breath Stated complaint: SEBASTIAN Time Seen by Provider: 12/08/18 10:14 Source: patient, RN notes reviewed Mode of arrival: wheelchair Limitations: no limitations - History of Present Illness Initial comments: Patient is a pleasant 83-year-old female presenting to the emergency department with difficulty breathing. Onset of symptoms was several days ago. Patient does have history of similar symptoms previously associated with COPD. Patient does have cough with occasional DrChloe green sputum. Symptoms have presently worsened since onset. No chest pain. No leg pain or leg swelling. Patient is unclear whether or not she has had fevers. - Related Data Home Medications Medication Instructions Recorded Confirmed ALPRAZolam [Xanax] 1 mg PO HS 03/23/15 12/08/18 Dextroamphetamine/Amphetamine 30 mg PO BID 03/23/15 12/08/18 [Adderall] Pramipexole [Mirapex] 2 mg PO HS 05/09/16 12/08/18 metFORMIN HCL [Glucophage] 1,000 mg PO HS 05/09/16 12/08/18 Escitalopram [Lexapro] 10 mg PO HS 08/21/17 12/08/18 Montelukast [Singulair] 10 mg PO HS 09/23/17 12/08/18 busPIRone HCL [Buspar] 15 mg PO HS 09/23/17 12/08/18 Lisinopril [Zestril] 5 mg PO HS 12/06/17 12/08/18 buPROPion XL [Wellbutrin Xl] 150 mg PO HS 12/06/17 12/08/18 Albuterol Nebulized [Ventolin 2.5 mg INHALATION RT-Q4H 12/08/18 12/08/18 Nebulized] Allergies Allergy/AdvReac Type Severity Reaction Status Date / Time Penicillins Allergy Rash/Hives, Verified 12/08/18 10:47 SOB Review of Systems ROS Statement: Those systems with pertinent positive or pertinent negative responses have been documented in the HPI. ROS Other: All systems not noted in ROS Statement are negative. Constitutional: Reports: as per HPI Eyes: Denies: eye pain ENT: Denies: ear pain Respiratory: Reports: cough, dyspnea Cardiovascular: Denies: chest pain Endocrine: Reports: fatigue Gastrointestinal: Denies: abdominal pain Genitourinary: Denies: dysuria Musculoskeletal: Denies: back pain Skin: Denies: rash Neurological: Denies: weakness Past Medical History Past Medical History: COPD, Diabetes Mellitus, Hypertension Additional Past Medical History / Comment(s): Narcalepsy, cataplexy, JOSSELIN does not wear device, restless leg syndrome, low back pain with sciatica, migraines, IDDM type II. History of Any Multi-Drug Resistant Organisms: None Reported Past Surgical History: Back Surgery Additional Past Surgical History / Comment(s): 08/18/17 laminectomy/discectomy with spacer L1-L2, bilateral carpal tunnel released, L knee arthroscopy, sinus surgery, "pain blocks" to back. Additional Past Anesthesia/Blood Transfusion Reaction / Comment(s): Pt's heart stopped after a "pain block" procedure that required anesthesia. Past Psychological History: Anxiety, Depression Smoking Status: Current every day smoker Past Alcohol Use History: None Reported Past Drug Use History: None Reported - Past Family History Mother Additional Family Medical History / Comment(s): adopted Father History Unknown: Yes Additional Family Medical History / Comment(s): Pt is adopted. General Exam Limitations: no limitations General appearance: alert Head exam: Present: atraumatic Eye exam: Present: normal appearance, PERRL ENT exam: Present: normal oropharynx Neck exam: Present: normal inspection Respiratory exam: Present: respiratory distress, wheezes, decreased breath sounds Cardiovascular Exam: Present: tachycardia GI/Abdominal exam: Present: soft. Absent: tenderness Extremities exam: Present: normal inspection. Absent: pedal edema, calf tenderness Back exam: Present: normal inspection Neurological exam: Present: alert Psychiatric exam: Present: normal affect, normal mood Skin exam: Present: normal color Course Vital Signs 12/08/18 12/08/18 12/08/18 10:09 10:30 10:39 Temperature 99.2 F Pulse Rate 114 H 98 108 H Respiratory 26 H 28 H Rate Blood Pressure 98/62 108/76 O2 Sat by Pulse 86 L 92 L Oximetry 12/08/18 12/08/18 10:48 11:00 Temperature Pulse Rate 92 96 Respiratory 25 H Rate Blood Pressure 116/90 O2 Sat by Pulse 93 L Oximetry EKG Findings - EKG Comments: EKG Findings:: Sinus tachycardia 11. IA 160. QRS 86. QT 322. QTC 417. Normal axis. Normal QRS. No acute ST change. Medical Decision Making - Medical Decision Making Patient reevaluated and is somewhat improved following advise her treatment. Patient and family are updated on results and plan. Dr. Gusman has been paged for admission. Patient previously has seen Dr. Eric Saravia in and he will be consult. - Lab Data Result diagrams: 12/08/18 10:28 12/08/18 10:28 Lab Results 12/08/18 12/08/18 12/08/18 Range/Units 10:28 10:28 10:28 WBC 8.6 (3.8-10.6) k/uL RBC 4.52 (3.80-5.40) m/uL Hgb 13.3 (11.4-16.0) gm/dL Hct 41.1 (34.0-46.0) % MCV 91.0 (80.0-100.0) fL MCH 29.5 (25.0-35.0) pg MCHC 32.4 (31.0-37.0) g/dL RDW 12.9 (11.5-15.5) % Plt Count 297 (150-450) k/uL Neutrophils % 78 % Lymphocytes % 12 % Monocytes % 6 % Eosinophils % 1 % Basophils % 1 % Neutrophils # 6.7 (1.3-7.7) k/uL Lymphocytes # 1.1 (1.0-4.8) k/uL Monocytes # 0.5 (0-1.0) k/uL Eosinophils # 0.1 (0-0.7) k/uL Basophils # 0.0 (0-0.2) k/uL PT (9.0-12.0) sec INR (<1.2) APTT (22.0-30.0) sec Sodium 133 L (137-145) mmol/L Potassium 4.8 (3.5-5.1) mmol/L Chloride 99 (98-107) mmol/L Carbon Dioxide 26 (22-30) mmol/L Anion Gap 8 mmol/L BUN 20 H (7-17) mg/dL Creatinine 0.80 (0.52-1.04) mg/dL Est GFR (CKD-EPI)AfAm 90 (>60 ml/min/1.73 sqM) Est GFR (CKD-EPI)NonAf 78 (>60 ml/min/1.73 sqM) Glucose 172 H (74-99) mg/dL Plasma Lactic Acid Liu (0.7-2.0) mmol/L Calcium 8.8 (8.4-10.2) mg/dL Total Bilirubin 0.4 (0.2-1.3) mg/dL AST 31 (14-36) U/L ALT 32 (9-52) U/L Alkaline Phosphatase 107 (38-126) U/L Troponin I (0.000-0.034) ng/mL NT-Pro-B Natriuret Pep 145 pg/mL Total Protein 6.6 (6.3-8.2) g/dL Albumin 3.8 (3.5-5.0) g/dL 12/08/18 12/08/18 12/08/18 Range/Units 10:28 10:28 10:28 WBC (3.8-10.6) k/uL RBC (3.80-5.40) m/uL Hgb (11.4-16.0) gm/dL Hct (34.0-46.0) % MCV (80.0-100.0) fL MCH (25.0-35.0) pg MCHC (31.0-37.0) g/dL RDW (11.5-15.5) % Plt Count (150-450) k/uL Neutrophils % % Lymphocytes % % Monocytes % % Eosinophils % % Basophils % % Neutrophils # (1.3-7.7) k/uL Lymphocytes # (1.0-4.8) k/uL Monocytes # (0-1.0) k/uL Eosinophils # (0-0.7) k/uL Basophils # (0-0.2) k/uL PT 9.7 (9.0-12.0) sec INR 0.9 (<1.2) APTT 23.3 (22.0-30.0) sec Sodium (137-145) mmol/L Potassium (3.5-5.1) mmol/L Chloride (98-107) mmol/L Carbon Dioxide (22-30) mmol/L Anion Gap mmol/L BUN (7-17) mg/dL Creatinine (0.52-1.04) mg/dL Est GFR (CKD-EPI)AfAm (>60 ml/min/1.73 sqM) Est GFR (CKD-EPI)NonAf (>60 ml/min/1.73 sqM) Glucose (74-99) mg/dL Plasma Lactic Acid Liu 0.9 (0.7-2.0) mmol/L Calcium (8.4-10.2) mg/dL Total Bilirubin (0.2-1.3) mg/dL AST (14-36) U/L ALT (9-52) U/L Alkaline Phosphatase (38-126) U/L Troponin I <0.012 (0.000-0.034) ng/mL NT-Pro-B Natriuret Pep pg/mL Total Protein (6.3-8.2) g/dL Albumin (3.5-5.0) g/dL - Radiology Data Radiology results: image reviewed (Chest x-ray shows diffuse interstitial prominence.) Disposition Clinical Impression: Acute exacerbation of chronic obstructive airways disease Disposition: ADMITTED IP TO THIS HOSP Is patient prescribed a controlled substance at d/c from ED?: No Referrals: Weston Gusman DO [Primary Care Provider] - 1-2 days Decision Time: 11:42
[2018-12-08 10:47] LABS: Basophils % (A) 1 %; Eosinophils # (A) 0.1 k/uL (0-0.7); Eosinophils % (A) 1 %; HCT 41.1 % (34.0-46.0); HGB 13.3 gm/dL (11.4-16.0); Lymphocytes # (A) 1.1 k/uL (1.0-4.8); Lymphocytes % (A) 12 %; MCH 29.5 pg (25.0-35.0); MCHC 32.4 g/dL (31.0-37.0); Mean Platelet Volume 6.7; Monocytes # (A) 0.5 k/uL (0-1.0); Monocytes % (A) 6 %; Neutrophils # (A) 6.7 k/uL (1.3-7.7); Neutrophils % (A) 78 %; Platelet Count 297 k/uL (150-450); RBC 4.52 m/uL (3.80-5.40); RDW 12.9 % (11.5-15.5); WBC 8.6 k/uL (3.8-10.6)
[2018-12-08 10:57] LABS: Albumin 3.8 g/dL (3.5-5.0); Calcium 8.8 mg/dL (8.4-10.2); Potassium 4.8 mmol/L (3.5-5.1); Total Bilirubin 0.4 mg/dL (0.2-1.3); Total Protein 6.6 g/dL (6.3-8.2)
[2018-12-08 11:01] LABS: INR 0.9 (<1.2); Partial Thromboplastin Time 23.3 sec (22.0-30.0); Prothrombin Time 9.7 sec (9.0-12.0)
--- NOTE | 2018-12-08 11:12 | XR ---
EXAMINATION TYPE: XR chest 2V DATE OF EXAM: 12/08/2018 COMPARISON: 09/23/2017 HISTORY: Shortness of breath and COPD TECHNIQUE: Frontal and lateral views of the chest are obtained. FINDINGS: Pulmonary hyperinflation is seen with flattening of the diaphragms on lateral view indicat julisa of underlying COPD. Increased interstitial markings are unchanged from 09/23/2017. Cardiomediastin al silhouette is within normal limits and stable. Minimal multilevel degenerative changes of the spin e are noted with mild diffuse osseous demineralization. IMPRESSION: Similar diffuse interstitial prominence can be seen in atypical pneumonitis, reactive ai rway disease, bronchitis. Alternatively mild interstitial pulmonary edema is less likely.
[2018-12-08] MEDS ORDERED: LEVOFLOXACIN 750MG-D5W PMX 750 MG in DEXTROSE/WATER 1 150ML.BAG IVPB STA (11:43)
[2018-12-08] MEDS: LEVOFLOXACIN 750MG-D5W PMX 750 MG in DEXTROSE/WATER 1 150ML.BAG IVPB SCH (11:52)
[2018-12-08 15:38] LABS: Glucose,Whole Blood 346 mg/dL (75-99)
[2018-12-08] MEDS: IPRATROPIUM-ALBUTEROL 3 ML NEB INHALATION SCH ×2 (15:41→19:16)
[2018-12-08] MEDS ORDERED: INSULIN ASPART (NovoLOG) 100 UNIT/ML VIAL SQ ONE ×2 (15:54→21:21)
[2018-12-08] MEDS ORDERED: ONDANSETRON 4 MG/2 ML VIAL IVP PRN (15:58)
[2018-12-08] MEDS: INSULIN ASPART (NovoLOG) 100 UNIT/ML VIAL SQ SCH ×3 (16:41→21:24)
[2018-12-08] MEDS: methylPREDNISolone SOD SUCCI 125 MG/2 ML VIAL IV SCH (17:21)
[2018-12-08] MEDS: PANTOPRAZOLE 40 MG/10 ML VIAL IVP SCH (17:22)
[2018-12-08] MEDS: INSULIN DETEMIR (LEVEMIR) 100 UNIT/ML SYR SQ SCH (17:22)
[2018-12-08] MEDS: buPROPion XL 150 MG TAB.ER.24H PO SCH (20:42)
[2018-12-08] MEDS: busPIRone HCl 5 MG TAB PO SCH (20:43)
--- NOTE | 2018-12-08 20:54 | P.CNPUL ---
History of Present Illness Consult date: 12/08/18 Reason for consult: dyspnea, COPD History of present illness: 63-year-old female patient came into the hospital because of worsening shortness of breath. She presented herself to the ED. Her symptoms started several days back. She had been producing green to yellow sputum. She was also getting more dyspneic cough and congested. The patient was unclear whether she was having any fever or chills. Chest x-ray showed COPD with some increased interstitial prominence bilaterally. For that reason the patient in the coming to the hospital. On his nonelevated. Troponins are negative. Liver function is within normal limits. The electrolytes are also within normal limits. Review of Systems Constitutional: Reports fatigue, Reports weakness, reports chronic sleepiness Eyes: denies as per HPI, denies blurred vision, denies bulging eye Ears: deny: decreased hearing, ear discharge, earache Ears, nose, mouth and throat: Denies headache, Denies sore throat Breasts: Reports as per HPI Cardiovascular: Reports decreased exercise tolerance, Reports dyspnea on exertion, Reports shortness of breath Respiratory: Reports cough, Reports dyspnea, Reports wheezing Gastrointestinal: Denies abdominal pain, Denies diarrhea, Denies nausea, Denies vomiting Genitourinary: Denies dysuria, Denies hematuria Musculoskeletal: Denies myalgias Musculoskeletal: absent: ankle pain, ankle stiffness, ankle swelling Integumentary: Denies pruritus, Denies rash Neurological: Denies numbness, Denies weakness Psychiatric: Denies anxiety, Denies depression Endocrine: Denies fatigue, Denies weight change Past Medical History Past Medical History: Asthma, COPD, Diabetes Mellitus, Hypertension Additional Past Medical History / Comment(s): Narcalepsy, cataplexy, JOSSELIN does not wear device, restless leg syndrome, low back pain, R leg numbness at times, IDDM type II. History of Any Multi-Drug Resistant Organisms: None Reported Past Surgical History: Back Surgery Additional Past Surgical History / Comment(s): 08/18/17 laminectomy/discectomy with spacer L1-L2, lumbar cages, bilateral carpal tunnel released, L knee arthroscopy, sinus surgery, "pain injections" to back and cervical. Additional Past Anesthesia/Blood Transfusion Reaction / Comment(s): Pt's heart stopped after a "pain block" procedure that required anesthesia. Smoking Status: Current every day smoker - Past Family History Mother Additional Family Medical History / Comment(s): adopted Father History Unknown: Yes Additional Family Medical History / Comment(s): Pt is adopted. Medications and Allergies Home Medications Medication Instructions Recorded Confirmed Type ALPRAZolam [Xanax] 1 mg PO HS 03/23/15 12/08/18 History Dextroamphetamine/Amphetamine 30 mg PO BID 03/23/15 12/08/18 History [Adderall] Pramipexole [Mirapex] 2 mg PO HS 05/09/16 12/08/18 History metFORMIN HCL [Glucophage] 1,000 mg PO HS 05/09/16 12/08/18 History Escitalopram [Lexapro] 10 mg PO HS 08/21/17 12/08/18 History Montelukast [Singulair] 10 mg PO HS 09/23/17 12/08/18 History busPIRone HCL [Buspar] 15 mg PO HS 09/23/17 12/08/18 History Lisinopril [Zestril] 5 mg PO HS 12/06/17 12/08/18 History buPROPion XL [Wellbutrin Xl] 150 mg PO HS 12/06/17 12/08/18 History Albuterol Nebulized [Ventolin 2.5 mg INHALATION RT-Q4H 12/08/18 12/08/18 History Nebulized] Allergies Allergy/AdvReac Type Severity Reaction Status Date / Time Penicillins Allergy Rash/Hives, Verified 12/08/18 17:09 SOB Physical Exam Vitals: Vital Signs Temp Pulse Pulse Pulse Resp BP BP 12/08/18 19:16 90 12/08/18 16:47 97.4 F L 86 20 114/63 12/08/18 15:51 93 12/08/18 15:43 91 12/08/18 15:40 98.3 F 91 20 93/57 12/08/18 15:35 18 12/08/18 12:00 106 H 21 126/80 12/08/18 11:00 96 25 H 116/90 12/08/18 10:48 92 12/08/18 10:39 108 H 12/08/18 10:30 98 28 H 108/76 12/08/18 10:09 99.2 F 114 H 26 H 98/62 Pulse Ox 12/08/18 19:16 06/10/19 16:47 100 12/08/18 15:51 12/08/18 15:43 12/08/18 15:40 94 L 12/08/18 15:35 12/08/18 12:00 92 L 12/08/18 11:00 93 L 12/08/18 10:48 12/08/18 10:39 12/08/18 10:30 92 L 12/08/18 10:09 86 L Intake and Output 12/08/18 12/08/18 12/08/18 06:59 14:59 22:59 Other: Weight 95.708 kg Limitations: no limitations General appearance: alert, in no apparent distress Head exam: Present: atraumatic, normocephalic Eye exam: Present: normal appearance, PERRL, EOMI ENT exam: Present: normal exam, normal oropharynx Neck exam: Present: normal inspection. Absent: tenderness, meningismus Respiratory exam: Present: respiratory distress, wheezes, decreased breath sounds, prolonged expiratory phase of breathing along with expiratory wheezes. Cardiovascular Exam: Present: regular rate, normal rhythm GI/Abdominal exam: Present: soft. Absent: distended, tenderness Extremities exam: Present: normal inspection, normal capillary refill. Absent: pedal edema Back exam: Present: normal inspection, full ROM Neurological exam: Present: alert, oriented X3, CN II-XII intact. Absent: motor sensory deficit Psychiatric exam: Present: normal affect, normal mood Skin exam: Present: warm, dry, intact. Absent: cyanosis, diaphoretic Results - Laboratory Findings CBC and BMP: 12/08/18 10:28 12/08/18 10:28 PT/INR, D-dimer PT 9.7 sec (9.0-12.0) 12/08/18 10:28 INR 0.9 (<1.2) 12/08/18 10:28 Abnormal lab findings: Abnormal Labs 12/08/18 12/08/18 10:28 15:38 Sodium 133 L BUN 20 H Glucose 172 H POC Glucose (mg/dL) 346 H - Diagnostic Findings Chest x-ray: image reviewed Assessment and Plan Plan: 1 acute exacerbation of COPD with secondary shortness of breath 2 acute bronchitis 3 obstructive sleep apnea not on CPAP therapy 4 narcolepsy, maintained on and that 30 mg by mouth twice a day. 5 RLS 6 obesity 7 chronic pain 8 chronic anxiety/depression 9 hypertension 10 smoke Plan Agree on current treatment. Levaquin as empiric antibiotic coverage. IV Solu- Medrol for the next 24 hours. DuoNeb nebulized treatments around the clock. Monitor blood sugars. Levemir insulin 25 units daily along with a NovoLog sliding scale coverage along with a 0.1 units per KG before meals and at bedtime. Resume all of the outpatient medications. Smoking cessation counseling was done. We'll continue to follow.
[2018-12-08] MEDS ORDERED: LISINOPRIL 5 MG TAB PO SCH (21:00)
[2018-12-08 21:01] LABS: Glucose,Whole Blood 427 mg/dL (75-99)
[2018-12-08] MEDS: MONTELUKAST 10 MG TAB PO SCH (21:49)
[2018-12-08] MEDS: ALPRAZolam 1 MG TAB PO SCH (21:49)
[2018-12-08] MEDS: metFORMIN 500 MG TAB PO SCH (21:49)
[2018-12-08] MEDS: ESCITALOPRAM 10 MG TAB PO SCH (21:49)
[2018-12-08] MEDS: PRAMIPEXOLE 1 MG TAB PO SCH (21:51)
[2018-12-08] MEDS: NICOTINE 21MG/24HR PATCH TRANSDERM SCH (21:51)
[2018-12-09] MEDS: methylPREDNISolone SOD SUCCI 125 MG/2 ML VIAL IV SCH ×4 (00:14→18:01)
[2018-12-09] MEDS: IPRATROPIUM-ALBUTEROL 3 ML NEB INHALATION SCH ×4 (07:41→20:10)
[2018-12-09 07:51] LABS: Glucose,Whole Blood 221 mg/dL (75-99)
[2018-12-09 08:07] LABS: Basophils % (A) 0 %; Eosinophils % (A) 0 %; HCT 38.8 % (34.0-46.0); HGB 12.4 gm/dL (11.4-16.0); Lymphocytes # (A) 0.8 k/uL (1.0-4.8); Lymphocytes % (A) 12 %; MCH 29.5 pg (25.0-35.0); MCHC 31.9 g/dL (31.0-37.0); MCV 92.7 fL (80.0-100.0); Mean Platelet Volume 7.4; Monocytes # (A) 0.2 k/uL (0-1.0); Monocytes % (A) 3 %; Neutrophils # (A) 5.9 k/uL (1.3-7.7); Neutrophils % (A) 83 %; Platelet Count 276 k/uL (150-450); RBC 4.19 m/uL (3.80-5.40); RDW 13.6 % (11.5-15.5); WBC 7.1 k/uL (3.8-10.6)
[2018-12-09] MEDS: DEXTROAMPHETAMINE PO SCH ×2 (08:22→13:38)
[2018-12-09] MEDS: AMPHETAMINE PO SCH ×2 (08:22→13:38)
[2018-12-09] MEDS: PANTOPRAZOLE 40 MG/10 ML VIAL IVP SCH (08:25)
[2018-12-09] MEDS: NICOTINE 21MG/24HR PATCH TRANSDERM SCH (08:25)
[2018-12-09 08:26] LABS: Calcium 8.9 mg/dL (8.4-10.2); Potassium 5.4 mmol/L (3.5-5.1)
[2018-12-09] MEDS: INSULIN DETEMIR (LEVEMIR) 100 UNIT/ML SYR SQ SCH (08:29)
[2018-12-09] MEDS: INSULIN ASPART (NovoLOG) 100 UNIT/ML VIAL SQ SCH ×7 (08:29→22:17)
[2018-12-09] MEDS ORDERED: SODIUM CHLORIDE 0.9% 500 ML 500 ML IV ONE (09:09)
[2018-12-09] MEDS: LEVOFLOXACIN 750MG-D5W PMX 750 MG in DEXTROSE/WATER 1 150ML.BAG IVPB SCH (11:57)
--- NOTE | 2018-12-09 11:58 | P.PN ---
Subjective Progress Note Date: 12/09/18 Principal diagnosis: Exacerbation of COPD 63-year-old female patient came into the hospital because of worsening shortness of breath. She presented herself to the ED. Her symptoms started several days back. She had been producing green to yellow sputum. She was also getting more dyspneic cough and congested. The patient was unclear whether she was having any fever or chills. Chest x-ray showed COPD with some increased interstitial prominence bilaterally. For that reason the patient in the coming to the hospital. On his nonelevated. Troponins are negative. Liver function is within normal limits. The electrolytes are also within normal limits. On 12/09/2016 patient seen in follow-up on pediatric floor. She is awake and alert, she still pretty dyspneic, and as having nonproductive cough, this morning her blood pressure is low, 86/53, patient is non-tachycardic, no fever or chills, she is on 3 L of oxygen with a pulse ox 92%, lung sounds reveal diminished breath sounds, with scattered wheezing, but overall patient's sounds less congested. Patient is in the process of receiving 500 mL IV fluid bolus. Today's labs have been reviewed, showing white blood cell count of 7.1, hemoglobin of 12.4, lactic acid was 0.9. Apparently was negative 1, proBNP was within normal limits at 145. Antibiotic coverage in the form of Levaquin, patient is on IV Solu-Medrol, nebulized bronchodilators. She is on a nicotine patch. Objective - Vital Signs Vital signs: Vital Signs Temp 97.5 F L 12/09/18 08:40 Pulse 91 12/09/18 11:05 Resp 16 12/09/18 11:05 BP 88/55 12/09/18 09:10 Pulse Ox 92 L 12/09/18 08:40 Intake & Output 12/08/18 12/09/18 12/09/18 18:59 06:59 18:59 Intake Total 750 Balance 750 Weight 95.708 kg Intake: Oral 750 Other: Voiding Method Toilet # Voids 1 - Exam GENERAL EXAM: Alert, pleasant, 63-year-old white female, on 3 L of oxygen with a pulse ox of 92% comfortable in no apparent distress. HEAD: Normocephalic/atraumatic. EYES: Normal reaction of pupils, equal size. Conjunctiva pink, sclera white. NOSE: Clear with pink turbinates. THROAT: No erythema or exudates. NECK: No masses, no JVD, no thyroid enlargement, no adenopathy. CHEST: No chest wall deformity. Symmetrical expansion. LUNGS: Equal air entry with diminished breath sounds, scattered wheezes CVS: Regular rate and rhythm, normal S1 and S2, no gallops, no murmurs, no rubs ABDOMEN: Soft, nontender. No hepatosplenomegaly, normal bowel sounds, no guarding or rigidity. EXTREMITIES: No clubbing, no edema, no cyanosis, 2+ pulses and upper and lower extremities. MUSCULOSKELETAL: Muscle strength and tone normal. SPINE: No scoliosis or deformity SKIN: No rashes CENTRAL NERVOUS SYSTEM: Alert and oriented -3. No focal deficits, tone is normal in all 4 extremities. PSYCHIATRIC: Alert and oriented -3. Appropriate affect. Intact judgment and insight. - Labs CBC & Chem 7: 12/09/18 07:23 12/09/18 07:23 Labs: Abnormal Lab Results - Last 24 Hours (Table) 12/08/18 12/08/18 12/09/18 Range/Units 15:38 20:56 07:23 Lymphocytes # 0.8 L (1.0-4.8) k/uL Sodium (137-145) mmol/L Potassium (3.5-5.1) mmol/L BUN (7-17) mg/dL Glucose (74-99) mg/dL POC Glucose (mg/dL) 346 H 427 H (75-99) mg/dL 12/09/18 12/09/18 Range/Units 07:23 07:47 Lymphocytes # (1.0-4.8) k/uL Sodium 134 L (137-145) mmol/L Potassium 5.4 H (3.5-5.1) mmol/L BUN 26 H (7-17) mg/dL Glucose 205 H (74-99) mg/dL POC Glucose (mg/dL) 221 H (75-99) mg/dL Assessment and Plan Plan: 1 acute exacerbation of COPD with secondary shortness of breath 2 acute bronchitis 3 obstructive sleep apnea not on CPAP therapy 4 narcolepsy, maintained on and that 30 mg by mouth twice a day. 5 RLS 6 obesity 7 chronic pain 8 chronic anxiety/depression 9 hypertension 10 smoke Plan: We'll continue with current medical treatment, agree with IV fluid bolus, no complaints of worsening dyspnea or chest pain. Encourage oral intake. No fever or chills, continue current abiotic coverage. Today's labs have been reviewed, chest x-ray was reviewed by Dr. Gardiner, and showed some diffuse interstitial prominence, likely related to reactive airway disease and bronchitis. ProBNP was within normal limits, doubt possibility of pulmonary edema. We'll continue to follow I performed a history & physical examination of the patient and discussed their management with my nurse practitioner, Maryam Barker. I reviewed the nurse practitioner's note and agree with the documented findings and plan of care. Lung sounds are positive for diffuse wheezes throughout the lung jones. The findings and the impression was discussed with the patient. I attest to the documentation by the nurse practitioner. Time with Patient: Less than 30
[2018-12-09 12:43] LABS: Glucose,Whole Blood 318 mg/dL (75-99)
[2018-12-09 13:04] LABS: Hemoglobin A1C 9.9 % (4.0-6.0)
[2018-12-09 17:28] LABS: Glucose,Whole Blood 284 mg/dL (75-99)
[2018-12-09 20:42] LABS: Glucose,Whole Blood 444 mg/dL (75-99)
[2018-12-09] MEDS: busPIRone HCl 5 MG TAB PO SCH (21:40)
[2018-12-09] MEDS: buPROPion XL 150 MG TAB.ER.24H PO SCH (21:40)
[2018-12-09] MEDS ORDERED: INSULIN DETEMIR (LEVEMIR) 100 UNIT/ML SYR SQ SCH ×3 (21:45→22:20)
[2018-12-09] MEDS: ESCITALOPRAM 10 MG TAB PO SCH (21:57)
[2018-12-09] MEDS: PRAMIPEXOLE 1 MG TAB PO SCH (21:58)
[2018-12-09] MEDS: ALPRAZolam 1 MG TAB PO SCH (22:01)
[2018-12-09] MEDS: metFORMIN 500 MG TAB PO SCH (22:01)
[2018-12-09] MEDS: MONTELUKAST 10 MG TAB PO SCH (22:12)
[2018-12-09] MEDS ORDERED: INSULIN ASPART (NovoLOG) 100 UNIT/ML VIAL SQ ONE (22:17)
[2018-12-09] MEDS: IPRATROPIUM-ALBUTEROL 3 ML NEB INHALATION PRN (22:59)
[2018-12-10] MEDS: methylPREDNISolone SOD SUCCI 125 MG/2 ML VIAL IV SCH ×4 (00:29→18:03)
[2018-12-10] MEDS: IPRATROPIUM-ALBUTEROL 3 ML NEB INHALATION PRN ×2 (05:20→23:40)
[2018-12-10 07:46] LABS: Glucose,Whole Blood 179 mg/dL (75-99)
[2018-12-10] MEDS: PANTOPRAZOLE 40 MG TABLET PO SCH (08:07)
[2018-12-10] MEDS: INSULIN ASPART (NovoLOG) 100 UNIT/ML VIAL SQ SCH ×7 (08:08→20:51)
[2018-12-10] MEDS: IPRATROPIUM-ALBUTEROL 3 ML NEB INHALATION SCH ×4 (08:13→19:48)
[2018-12-10 09:31] LABS: Basophils % (A) 0 %; Eosinophils % (A) 0 %; HCT 39.4 % (34.0-46.0); HGB 12.5 gm/dL (11.4-16.0); Hypochromasia Moderate; Lymphocytes # (A) 0.7 k/uL (1.0-4.8); Lymphocytes % (A) 8 %; MCH 30.3 pg (25.0-35.0); MCHC 31.7 g/dL (31.0-37.0); MCV 95.8 fL (80.0-100.0); Mean Platelet Volume 7.1; Monocytes # (A) 0.3 k/uL (0-1.0); Monocytes % (A) 3 %; Neutrophils # (A) 8.6 k/uL (1.3-7.7); Neutrophils % (A) 88 %; Platelet Count 298 k/uL (150-450); RBC 4.11 m/uL (3.80-5.40); RDW 12.9 % (11.5-15.5); WBC 9.8 k/uL (3.8-10.6)
[2018-12-10 09:40] LABS: Potassium 5.3 mmol/L (3.5-5.1)
[2018-12-10] MEDS: AMPHETAMINE PO SCH ×2 (10:56→15:23)
[2018-12-10] MEDS: NICOTINE 21MG/24HR PATCH TRANSDERM SCH (10:56)
[2018-12-10] MEDS: DEXTROAMPHETAMINE PO SCH ×2 (10:56→15:23)
[2018-12-10] MEDS: MUPIROCIN 2% OINT 22 GM TUBE TOPICAL SCH ×3 (12:19→21:12)
[2018-12-10] MEDS: LEVOFLOXACIN 750 MG TAB PO SCH (12:20)
[2018-12-10 12:56] LABS: Glucose,Whole Blood 317 mg/dL (75-99)
[2018-12-10 15:03] VITALS: BMI 37.3
--- NOTE | 2018-12-10 15:38 | P.PN ---
Subjective Progress Note Date: 12/10/18 63-year-old female patient came into the hospital because of worsening shortness of breath. She presented herself to the ED. Her symptoms started several days back. She had been producing green to yellow sputum. She was also getting more dyspneic cough and congested. The patient was unclear whether she was having any fever or chills. Chest x-ray showed COPD with some increased interstitial prominence bilaterally. For that reason the patient in the coming to the hospital. On his nonelevated. Troponins are negative. Liver function is within normal limits. The electrolytes are also within normal limits. On 12/09/2016 patient seen in follow-up on pediatric floor. She is awake and alert, she still pretty dyspneic, and as having nonproductive cough, this morning her blood pressure is low, 86/53, patient is non-tachycardic, no fever or chills, she is on 3 L of oxygen with a pulse ox 92%, lung sounds reveal diminished breath sounds, with scattered wheezing, but overall patient's sounds less congested. Patient is in the process of receiving 500 mL IV fluid bolus. Today's labs have been reviewed, showing white blood cell count of 7.1, hemoglobin of 12.4, lactic acid was 0.9. Apparently was negative 1, proBNP was within normal limits at 145. Antibiotic coverage in the form of Levaquin, patient is on IV Solu-Medrol, nebulized bronchodilators. She is on a nicotine patch. On 12/10/2018, patient is gradually improving and she is less short of breath compared to yesterday. She still having some coughing spells. Note that yesterday the patient had a bout of hypotension. She was given IV fluids and her blood pressure normalizes. Since then she has not had any issues with his blood pressure. Cough has subsided. She remains bronchus spastic and wheezy. She is gradually improving. She is on Levaquin. Is on IV Solu-Medrol. She is on DuoNeb nebulized treatment [id number]. Skeletal chest wall pain especially when she coughs. No other new complaints otherwise for now. Objective - Vital Signs Vital signs: Vital Signs Temp 97.9 F 12/10/18 12:15 Pulse 98 12/10/18 12:15 Resp 20 12/10/18 12:15 BP 101/67 12/10/18 12:15 Pulse Ox 96 12/10/18 12:15 Intake & Output 12/09/18 12/10/18 12/10/18 18:59 06:59 18:59 Intake Total 1250 480 Balance 1250 480 Weight 95.708 kg Intake: Oral 1250 480 Other: Voiding Method Toilet Toilet # Voids 3 3 1 - Exam GENERAL EXAM: Alert, pleasant, 63-year-old white female, on 3 L of oxygen with a pulse ox of 92% comfortable in no apparent distress. HEAD: Normocephalic/atraumatic. EYES: Normal reaction of pupils, equal size. Conjunctiva pink, sclera white. NOSE: Clear with pink turbinates. THROAT: No erythema or exudates. NECK: No masses, no JVD, no thyroid enlargement, no adenopathy. CHEST: No chest wall deformity. Symmetrical expansion. LUNGS: Equal air entry with diminished breath sounds, scattered wheezes CVS: Regular rate and rhythm, normal S1 and S2, no gallops, no murmurs, no rubs ABDOMEN: Soft, nontender. No hepatosplenomegaly, normal bowel sounds, no guarding or rigidity. EXTREMITIES: No clubbing, no edema, no cyanosis, 2+ pulses and upper and lower extremities. MUSCULOSKELETAL: Muscle strength and tone normal. SPINE: No scoliosis or deformity SKIN: No rashes CENTRAL NERVOUS SYSTEM: Alert and oriented -3. No focal deficits, tone is normal in all 4 extremities. PSYCHIATRIC: Alert and oriented -3. Appropriate affect. Intact judgment and insight. - Labs CBC & Chem 7: 12/10/18 09:16 12/10/18 09:16 Labs: Abnormal Lab Results - Last 24 Hours (Table) 12/09/18 12/09/18 12/10/18 Range/Units 17:26 20:39 07:42 Neutrophils # (1.3-7.7) k/uL Lymphocytes # (1.0-4.8) k/uL Sodium (137-145) mmol/L Potassium (3.5-5.1) mmol/L BUN (7-17) mg/dL Glucose (74-99) mg/dL POC Glucose (mg/dL) 284 H 444 H 179 H (75-99) mg/dL 12/10/18 12/10/18 12/10/18 Range/Units 09:16 09:16 12:54 Neutrophils # 8.6 H (1.3-7.7) k/uL Lymphocytes # 0.7 L (1.0-4.8) k/uL Sodium 136 L (137-145) mmol/L Potassium 5.3 H (3.5-5.1) mmol/L BUN 29 H (7-17) mg/dL Glucose 268 H (74-99) mg/dL POC Glucose (mg/dL) 317 H (75-99) mg/dL Microbiology - Last 24 Hours (Table) 12/08/18 10:44 Blood Culture - Preliminary Blood No Growth after 48 hours Assessment and Plan Plan: 1 acute exacerbation of COPD with secondary shortness of breath 2 acute bronchitis 3 obstructive sleep apnea not on CPAP therapy 4 narcolepsy, maintained on Adderall 30 mg by mouth twice a day. 5 RLS 6 obesity 7 chronic pain 8 chronic anxiety/depression 9 hypertension 10 smoke Plan Continue same treatment. The patient is improving slowly. Continue IV Solu- Medrol. Continue bronchodilators. Continue Levaquin. Outpatient medications were resumed. We'll continue to follow. Anticipate further improvement over the next 24 hours.
[2018-12-10 17:20] LABS: Glucose,Whole Blood 408 mg/dL (75-99)
[2018-12-10] MEDS ORDERED: INSULIN ASPART (NovoLOG) 100 UNIT/ML VIAL SQ ONE ×2 (18:00→21:00)
--- NOTE | 2018-12-10 18:47 | P.HPIM ---
History of Present Illness H&P Date: 12/09/18 Chief Complaint: Worsening shortness of breath A 63-year-old female presented to the ER with worsening shortness of breath that started last week in a patient who is a current smoker, history of narcolepsy, COPD, anxiety, depression, hypertension, diabetes mellitus and multiple other medical issues. Reports occasional productive cough with green sputum. He reports no fevers or chills. Denies chest pain, palpitations or shortness of breath. Denies lightheadedness dizziness or focal deficits. EKG reporting sinus tachycardia. Chest x-ray reporting diffuse interstitial prominence, bronchitis. Troponin is negative. Blood sugars uncontrolled. Review of Systems ROS Statement: Those systems with pertinent positive or pertinent negative responses have been documented in the HPI. ROS Other: All systems not noted in ROS Statement are negative. Past Medical History Past Medical History: Asthma, COPD, Diabetes Mellitus, Hypertension Additional Past Medical History / Comment(s): Narcalepsy, cataplexy, JOSSELIN does not wear device, restless leg syndrome, low back pain, R leg numbness at times, IDDM type II. History of Any Multi-Drug Resistant Organisms: None Reported Past Surgical History: Back Surgery Additional Past Surgical History / Comment(s): 08/18/17 laminectomy/discectomy with spacer L1-L2, lumbar cages, bilateral carpal tunnel released, L knee arthr oscopy, sinus surgery, "pain injections" to back and cervical. Additional Past Anesthesia/Blood Transfusion Reaction / Comment(s): Pt's heart stopped after a "pain block" procedure that required anesthesia. Smoking Status: Current every day smoker - Past Family History Mother Additional Family Medical History / Comment(s): adopted Father History Unknown: Yes Additional Family Medical History / Comment(s): Pt is adopted. Medications and Allergies Home Medications Medication Instructions Recorded Confirmed Type ALPRAZolam [Xanax] 1 mg PO HS 03/23/15 12/08/18 History Dextroamphetamine/Amphetamine 30 mg PO BID 03/23/15 12/08/18 History [Adderall] Pramipexole [Mirapex] 2 mg PO HS 05/09/16 12/08/18 History metFORMIN HCL [Glucophage] 1,000 mg PO HS 05/09/16 12/08/18 History Escitalopram [Lexapro] 10 mg PO HS 08/21/17 12/08/18 History Montelukast [Singulair] 10 mg PO HS 09/23/17 12/08/18 History busPIRone HCL [Buspar] 15 mg PO HS 09/23/17 12/08/18 History Lisinopril [Zestril] 5 mg PO HS 12/06/17 12/08/18 History buPROPion XL [Wellbutrin Xl] 150 mg PO HS 12/06/17 12/08/18 History Albuterol Nebulized [Ventolin 2.5 mg INHALATION RT-Q4H 12/08/18 12/08/18 History Nebulized] Allergies Allergy/AdvReac Type Severity Reaction Status Date / Time Penicillins Allergy Rash/Hives, Verified 12/08/18 17:09 SOB Physical Exam Vitals: Vital Signs Temp Pulse Pulse Pulse Resp BP BP 12/09/18 04:55 98.2 F 93 22 96/63 12/09/18 00:12 97.4 F L 74 22 94/57 12/08/18 20:13 92 12/08/18 20:03 98.1 F 94 20 115/70 12/08/18 20:00 90 12/08/18 16:47 97.4 F L 86 20 114/63 12/08/18 15:51 93 12/08/18 15:43 91 12/08/18 15:40 98.3 F 91 20 93/57 12/08/18 15:35 18 12/08/18 12:00 106 H 21 126/80 12/08/18 11:00 96 25 H 116/90 12/08/18 10:48 92 12/08/18 10:39 108 H 12/08/18 10:30 98 28 H 108/76 12/08/18 10:09 99.2 F 114 H 26 H 98/62 Pulse Ox 12/09/18 04:55 94 L 12/09/18 00:12 96 12/08/18 20:13 12/08/18 20:03 95 12/08/18 20:00 12/08/18 16:47 100 12/08/18 15:51 12/08/18 15:43 12/08/18 15:40 94 L 12/08/18 15:35 12/08/18 12:00 92 L 12/08/18 11:00 93 L 12/08/18 10:48 12/08/18 10:39 12/08/18 10:30 92 L 12/08/18 10:09 86 L Intake and Output 12/08/18 12/09/18 12/09/18 22:59 06:59 14:59 Intake Total 250 500 Balance 250 500 Intake: Oral 250 500 Other: Voiding Method Toilet Toilet # Voids 1 1 PHYSICAL EXAM: VITAL SIGNS: As above GENERAL: Sitting up in bed, no acute distress, sleepy HEENT: Conjunctivae normal. eyes normal. Oral mucosa moist NECK: No JVD. No thyroid enlargement. No LNs CARDIOVASCULAR: S1, S2 regular..No murmur RESPIRATION: Breath sounds diminished in the bases. No rhonchi or crackles. Prolonged Expiratory wheezing, No bronchial breathing. ABDOMEN: Soft, nontender . No guarding. no masses palpable. No ascites, No hepatosplenomegaly.Bowel sounds heard. LEGS: No edema. no swelling PSYCHIATRY: Alert and oriented X-3, mood and affect normal. NERVOUS SYSTEM: Cranial N 2-12 grossly normal. Moves all 4 limbs. Diffuse weakness No focal deficits. Strength and sensation grossly intact.. Skin: no lesions, no rash Joints: No active swelling. No inflammation. Lymphatic system. No LN neck axilla or groin. Results CBC & Chem 7: 12/10/18 09:16 12/10/18 09:16 Labs: Abnormal Lab Results - Last 24 Hours (Table) 12/08/18 12/08/18 12/08/18 Range/Units 10:28 15:38 20:56 Sodium 133 L (137-145) mmol/L BUN 20 H (7-17) mg/dL Glucose 172 H (74-99) mg/dL POC Glucose (mg/dL) 346 H 427 H (75-99) mg/dL Thrombosis Risk Factor Assmnt - Choose All That Apply Any of the Below Risk Factors Present?: Yes Each Factor Represents 1 point: Abnormal pulmonary function (COPD), Obesity (BMI >25) Other Risk Factors: Yes Each Risk Factor Represents 2 Points: Age 61-74 years Other congenital or acquired thrombophilia - If yes, enter type in comment: No Thrombosis Risk Factor Assessment Total Risk Factor Score: 4 Thrombosis Risk Factor Assessment Level: Moderate Risk Assessment and Plan Assessment: -Acute COPD exacerbation with acute bronchitis -Ongoing nicotine abuse -Narcolepsy -Obstructive sleep apnea -Restless leg syndrome -Diabetes mellitus, hyperglycemic, noncompliant, HGBA1c 9.9 -Obesity, BMI 37.4 -Anxiety, depression, chronic -Hypertension -Chronic pain syndrome Plan: Continue on current medication regime ,monitoring and symptomatic treatment. Maintain IV antibiotics, nebulized bronchodilators, IV steroids. Smoking cessation readdressed. Pursed lip breathing demonstrated & encouraged. Continue on long acting insulin, steroids sliding scale with close monitoring of Accu-Cheks. Consistent carb diet reinforced. Home meds have been reviewed and resumed. Evaluated by pulmonary with recommendations noted and appreciated. Further recommendations to follow. The impression and plan of care has been dictated as directed. : I performed a history and examination of this patient, discussed the same with the dictator. I agree with the dictator's note ,documented as a scribe. Any additional findings or plans will be noted. Intake and: 35 minutes
--- NOTE | 2018-12-10 18:59 | P.PN ---
Subjective Progress Note Date: 12/10/18 A 63-year-old female presented to the ER with worsening shortness of breath that started last week in a patient who is a current smoker, history of narcolepsy, COPD, anxiety, depression, hypertension, diabetes mellitus and multiple other medical issues. Reports occasional productive cough with green sputum. He reports no fevers or chills. Denies chest pain, palpitations or shortness of breath. Denies lightheadedness dizziness or focal deficits. EKG reporting sinus tachycardia. Chest x-ray reporting diffuse interstitial prominence, bronchitis. Troponin is negative. Blood sugars uncontrolled. 01/09/2019 yesterday had an isolated episode of mild hypotension, received IV fluid bolus 1, resolved .blood sugars uncontrolled in a patient on steroids and eating Milky [employer] candy bars throughout the night. Long-acting insulin dose increased last night with additional 18 units of NovoLog. A.m. blood sugar 172. Breathing slowly improving on nebulized bronchodilators, IV antibiotics, IV steroids. Denies cough today Afebrile. Potassium 5.3. Objective - Vital Signs Vital signs: Vital Signs Temp 98.2 F 12/10/18 15:51 Pulse 110 H 12/10/18 16:12 Resp 20 12/10/18 15:51 BP 122/75 12/10/18 15:51 Pulse Ox 93 L 12/10/18 15:51 Intake & Output 12/09/18 12/10/18 12/10/18 18:59 06:59 18:59 Intake Total 1250 480 Balance 1250 480 Weight 95.708 kg Intake: Oral 1250 480 Other: Voiding Method Toilet Toilet # Voids 3 3 1 - Exam VITAL SIGNS: As above GENERAL: Sitting up in bed, no acute distress, sleepy HEENT: Conjunctivae normal. eyes normal. Oral mucosa moist NECK: No JVD. No thyroid enlargement. No LNs CARDIOVASCULAR: S1, S2 regular..No murmur RESPIRATION: Breath sounds diminished in the bases. No rhonchi or crackles. Improving Expiratory wheezing. ABDOMEN: Soft, nontender . No guarding. no masses palpable. Bowel sounds heard. LEGS: No edema. no swelling PSYCHIATRY: Alert and oriented X-3, mood and affect normal. NERVOUS SYSTEM: Cranial N 2-12 grossly normal. Moves all 4 limbs. Diffuse weakness No focal deficits. Strength and sensation grossly intact.. Skin: no lesions, no rash Joints: No active swelling. No inflammation. Lymphatic system. No LN neck axilla or groin. - Labs CBC & Chem 7: 12/10/18 09:16 12/10/18 09:16 Labs: Abnormal Lab Results - Last 24 Hours (Table) 12/09/18 12/10/18 12/10/18 Range/Units 20:39 07:42 09:16 Neutrophils # 8.6 H (1.3-7.7) k/uL Lymphocytes # 0.7 L (1.0-4.8) k/uL Sodium (137-145) mmol/L Potassium (3.5-5.1) mmol/L BUN (7-17) mg/dL Glucose (74-99) mg/dL POC Glucose (mg/dL) 444 H 179 H (75-99) mg/dL 12/10/18 12/10/18 12/10/18 Range/Units 09:16 12:54 17:16 Neutrophils # (1.3-7.7) k/uL Lymphocytes # (1.0-4.8) k/uL Sodium 136 L (137-145) mmol/L Potassium 5.3 H (3.5-5.1) mmol/L BUN 29 H (7-17) mg/dL Glucose 268 H (74-99) mg/dL POC Glucose (mg/dL) 317 H 408 H (75-99) mg/dL Microbiology - Last 24 Hours (Table) 12/08/18 10:44 Blood Culture - Preliminary Blood No Growth after 48 hours Assessment and Plan Assessment: -Acute COPD exacerbation with acute bronchitis -Ongoing nicotine abuse -Narcolepsy -Obstructive sleep apnea -Restless leg syndrome -Diabetes mellitus, hyperglycemic, noncompliant, HGBA1c 9.9 -Obesity, BMI 37.4 -Anxiety, depression, chronic -Hypertension -Chronic pain syndrome Plan: Continue on current medication regime ,monitoring and symptomatic treatment. Discussed compliancy with diabetes mellitus/diet. Dietary consulted. Mupirocin for left forearm abrasion. Maintain IV antibiotics, nebulized bronchodilators, IV steroids. Smoking cessation readdressed Levemir dose further increased last night with close monitoring of Accu-Cheks. Increase ambulation as tolerated. follow closely with pulmonary. Further recommendations to follow. The impression and plan of care has been dictated as directed. : I performed a history and examination of this patient, discussed the same with the dictator. I agree with the dictator's note ,documented as a scribe. Any additional findings or plans will be noted. Intake and: 35 minutes
[2018-12-10 20:52] LABS: Glucose,Whole Blood 316 mg/dL (75-99)
[2018-12-10] MEDS: ALPRAZolam 1 MG TAB PO SCH (21:07)
[2018-12-10] MEDS: PRAMIPEXOLE 1 MG TAB PO SCH (21:08)
[2018-12-10] MEDS: metFORMIN 500 MG TAB PO SCH (21:08)
[2018-12-10] MEDS: MONTELUKAST 10 MG TAB PO SCH (21:08)
[2018-12-10] MEDS: ESCITALOPRAM 10 MG TAB PO SCH (21:08)
[2018-12-10] MEDS: busPIRone HCl 5 MG TAB PO SCH (21:12)
[2018-12-10] MEDS: buPROPion XL 150 MG TAB.ER.24H PO SCH (21:12)
[2018-12-11] MEDS: methylPREDNISolone SOD SUCCI 125 MG/2 ML VIAL IV SCH ×3 (00:04→12:35)
[2018-12-11] MEDS: PANTOPRAZOLE 40 MG TABLET PO SCH (06:40)
[2018-12-11 06:56] LABS: Basophils % (A) 0 %; Eosinophils % (A) 0 %; HCT 37.7 % (34.0-46.0); HGB 11.6 gm/dL (11.4-16.0); Hypochromasia Slight; Lymphocytes # (A) 0.9 k/uL (1.0-4.8); Lymphocytes % (A) 9 %; MCH 29.1 pg (25.0-35.0); MCHC 30.8 g/dL (31.0-37.0); MCV 94.4 fL (80.0-100.0); Mean Platelet Volume 6.7; Monocytes # (A) 0.3 k/uL (0-1.0); Monocytes % (A) 3 %; Neutrophils # (A) 8.4 k/uL (1.3-7.7); Neutrophils % (A) 85 %; Platelet Count 301 k/uL (150-450); RDW 12.9 % (11.5-15.5); WBC 9.9 k/uL (3.8-10.6)
[2018-12-11 07:05] LABS: Glucose,Whole Blood 204 mg/dL (75-99)
[2018-12-11 07:21] LABS: Calcium 9.4 mg/dL (8.4-10.2); Potassium 5.6 mmol/L (3.5-5.1)
[2018-12-11] MEDS: INSULIN ASPART (NovoLOG) 100 UNIT/ML VIAL SQ SCH ×8 (07:25→22:52)
[2018-12-11] MEDS: DEXTROAMPHETAMINE PO SCH ×2 (08:41→15:52)
[2018-12-11] MEDS: AMPHETAMINE PO SCH ×2 (08:41→15:52)
[2018-12-11] MEDS: NICOTINE 21MG/24HR PATCH TRANSDERM SCH (08:42)
[2018-12-11] MEDS: MUPIROCIN 2% OINT 22 GM TUBE TOPICAL SCH ×2 (08:44→20:02)
[2018-12-11] MEDS: IPRATROPIUM-ALBUTEROL 3 ML NEB INHALATION SCH ×4 (09:14→20:36)
--- NOTE | 2018-12-11 11:29 | P.PN ---
Subjective Progress Note Date: 12/11/18 A 63-year-old female presented to the ER with worsening shortness of breath that started last week in a patient who is a current smoker, history of narcolepsy, COPD, anxiety, depression, hypertension, diabetes mellitus and multiple other medical issues. Reports occasional productive cough with green sputum. He reports no fevers or chills. Denies chest pain, palpitations or shortness of breath. Denies lightheadedness dizziness or focal deficits. EKG reporting sinus tachycardia. Chest x-ray reporting diffuse interstitial prominence, bronchitis. Troponin is negative. Blood sugars uncontrolled. 01/09/2019 yesterday had an isolated episode of mild hypotension, received IV fluid bolus 1, resolved .blood sugars uncontrolled in a patient on steroids and eating Milky Way candy bars throughout the night. Long-acting insulin dose increased last night with additional 18 units of NovoLog. A.m. blood sugar 172. Breathing slowly improving on nebulized bronchodilators, IV antibiotics, IV steroids. Denies cough today Afebrile. Potassium 5.3. 01/10/19 maintained on nebulized bronchodilators, IV steroids -hyperglycemic during the night, received additional NovoLog. A.m. blood sugar 200. Breathing continues to improve. No cough. Afebrile, normal WBC. Objective - Vital Signs Vital signs: Vital Signs Temp 98.0 F 12/11/18 08:16 Pulse 94 12/11/18 09:25 Resp 20 12/11/18 08:52 BP 164/83 12/11/18 08:16 Pulse Ox 95 12/11/18 08:16 Intake & Output 12/10/18 12/11/18 12/11/18 18:59 06:59 18:59 Intake Total 480 Balance 480 Weight 95.708 kg Intake: Oral 480 Other: Voiding Method Toilet # Voids 1 1 # Bowel Movements 1 - Exam VITAL SIGNS: As above GENERAL: Sitting up at side of bed, no acute distress HEENT: Conjunctivae normal. eyes normal. Oral mucosa moist NECK: No JVD. No thyroid enlargement. No LNs CARDIOVASCULAR: S1, S2 regular..No murmur RESPIRATION: Breath sounds diminished in the bases. No rhonchi or crackles. Expiratory wheezing improved ABDOMEN: Soft, nontender . No guarding. no masses palpable. Bowel sounds heard. LEGS: No edema. no swelling PSYCHIATRY: Alert and oriented X-3, mood and affect normal. NERVOUS SYSTEM: Cranial N 2-12 grossly normal. Moves all 4 limbs. No focal deficits. Strength and sensation grossly intact.. Skin: no lesions, no rash - Labs CBC & Chem 7: 12/11/18 06:36 12/11/18 06:36 Labs: Abnormal Lab Results - Last 24 Hours (Table) 12/10/18 12/10/18 12/10/18 Range/Units 12:54 17:16 20:38 MCHC (31.0-37.0) g/dL Neutrophils # (1.3-7.7) k/uL Lymphocytes # (1.0-4.8) k/uL Potassium (3.5-5.1) mmol/L Carbon Dioxide (22-30) mmol/L BUN (7-17) mg/dL Glucose (74-99) mg/dL POC Glucose (mg/dL) 317 H 408 H 316 H (75-99) mg/dL 12/11/18 12/11/18 12/11/18 Range/Units 06:36 06:36 07:02 MCHC 30.8 L (31.0-37.0) g/dL Neutrophils # 8.4 H (1.3-7.7) k/uL Lymphocytes # 0.9 L (1.0-4.8) k/uL Potassium 5.6 H (3.5-5.1) mmol/L Carbon Dioxide 32 H (22-30) mmol/L BUN 28 H (7-17) mg/dL Glucose 202 H (74-99) mg/dL POC Glucose (mg/dL) 204 H (75-99) mg/dL Microbiology - Last 24 Hours (Table) 12/08/18 10:44 Blood Culture - Preliminary Blood No Growth after 48 hours Assessment and Plan Assessment: -Acute COPD exacerbation with acute bronchitis -Ongoing nicotine abuse -Narcolepsy -Obstructive sleep apnea -Restless leg syndrome -Diabetes mellitus, hyperglycemic, noncompliant, HGBA1c 9.9 -Obesity, BMI 37.4 -Anxiety, depression, chronic -Hypertension -Chronic pain syndrome Plan: Continue on current medication regime ,monitoring and symptomatic treatment. Maintain IV antibiotics, nebulized bronchodilators, IV steroids. Smoking cessation readdressed. Levemir dose further increased. close monitoring of Accu-Cheks. Steroid tapering as per pulmonary. Increase ambulation as tolerated. The impression and plan of care has been dictated as directed. : I performed a history and examination of this patient, discussed the same with the dictator. I agree with the dictator's note ,documented as a scribe. Any additional findings or plans will be noted. Intake and: 35 minutes
[2018-12-11] MEDS: LEVOFLOXACIN 750 MG TAB PO SCH (12:34)
[2018-12-11 12:36] LABS: Glucose,Whole Blood 291 mg/dL (75-99)
[2018-12-11] MEDS ORDERED: INSULIN ASPART (NovoLOG) 100 UNIT/ML VIAL SQ ONE (12:47)
--- NOTE | 2018-12-11 13:07 | P.PN ---
Subjective Progress Note Date: 12/11/18 Principal diagnosis: Exacerbation of COPD 63-year-old female patient came into the hospital because of worsening shortness of breath. She presented herself to the ED. Her symptoms started several days back. She had been producing green to yellow sputum. She was also getting more dyspneic cough and congested. The patient was unclear whether she was having any fever or chills. Chest x-ray showed COPD with some increased interstitial prominence bilaterally. For that reason the patient in the coming to the hospital. On his nonelevated. Troponins are negative. Liver function is within normal limits. The electrolytes are also within normal limits. On 12/09/2016 patient seen in follow-up on pediatric floor. She is awake and alert, she still pretty dyspneic, and as having nonproductive cough, this morning her blood pressure is low, 86/53, patient is non-tachycardic, no fever or chills, she is on 3 L of oxygen with a pulse ox 92%, lung sounds reveal diminished breath sounds, with scattered wheezing, but overall patient's sounds less congested. Patient is in the process of receiving 500 mL IV fluid bolus. Today's labs have been reviewed, showing white blood cell count of 7.1, hemoglobin of 12.4, lactic acid was 0.9. Apparently was negative 1, proBNP was within normal limits at 145. Antibiotic coverage in the form of Levaquin, patient is on IV Solu-Medrol, nebulized bronchodilators. She is on a nicotine patch. On 12/10/2018 patient is seen in follow-up on pediatric floor. She is sitting up in bed, in no acute distress, her breathing is improving, she is breathing easier, she is currently on room air, with a pulse ox of 95%, afebrile, hemodynamically stable, lung sounds reveal minimal wheezes. Today's labs were reviewed, showing white blood cell count of 9.9, hemoglobin of 11.6, serum sodium is 138, potassium is 5.6, chloride is 100, CO2 32, BUN of 28, creatinine 0.81. Blood culture showed no growth. Pneumatic coverage in the form of L evaquin. Nebulized bronchodilator, IV steroids continue. Objective - Vital Signs Vital signs: Vital Signs Temp 98.0 F 12/11/18 08:16 Pulse 94 12/11/18 09:25 Resp 20 12/11/18 08:52 BP 164/83 12/11/18 08:16 Pulse Ox 95 12/11/18 08:16 Intake & Output 12/10/18 12/11/18 12/11/18 18:59 06:59 18:59 Intake Total 480 Balance 480 Weight 95.708 kg Intake: Oral 480 Other: Voiding Method Toilet # Voids 1 1 # Bowel Movements 1 - Exam GENERAL EXAM: Alert, pleasant, 63-year-old white female, on 3 L of oxygen with a pulse ox of 92% comfortable in no apparent distress. HEAD: Normocephalic/atraumatic. EYES: Normal reaction of pupils, equal size. Conjunctiva pink, sclera white. NOSE: Clear with pink turbinates. THROAT: No erythema or exudates. NECK: No masses, no JVD, no thyroid enlargement, no adenopathy. CHEST: No chest wall deformity. Symmetrical expansion. LUNGS: Equal air entry with diminished breath sounds, scattered wheezes, less bronchospastic on today's exam CVS: Regular rate and rhythm, normal S1 and S2, no gallops, no murmurs, no rubs ABDOMEN: Soft, nontender. No hepatosplenomegaly, normal bowel sounds, no g uarding or rigidity. EXTREMITIES: No clubbing, no edema, no cyanosis, 2+ pulses and upper and lower extremities. MUSCULOSKELETAL: Muscle strength and tone normal. SPINE: No scoliosis or deformity SKIN: No rashes CENTRAL NERVOUS SYSTEM: Alert and oriented -3. No focal deficits, tone is normal in all 4 extremities. PSYCHIATRIC: Alert and oriented -3. Appropriate affect. Intact judgment and insight. - Labs CBC & Chem 7: 12/11/18 06:36 12/11/18 06:36 Labs: Abnormal Lab Results - Last 24 Hours (Table) 12/10/18 12/10/18 12/11/18 Range/Units 17:16 20:38 06:36 MCHC 30.8 L (31.0-37.0) g/dL Neutrophils # 8.4 H (1.3-7.7) k/uL Lymphocytes # 0.9 L (1.0-4.8) k/uL Potassium (3.5-5.1) mmol/L Carbon Dioxide (22-30) mmol/L BUN (7-17) mg/dL Glucose (74-99) mg/dL POC Glucose (mg/dL) 408 H 316 H (75-99) mg/dL 12/11/18 12/11/18 12/11/18 Range/Units 06:36 07:02 12:28 MCHC (31.0-37.0) g/dL Neutrophils # (1.3-7.7) k/uL Lymphocytes # (1.0-4.8) k/uL Potassium 5.6 H (3.5-5.1) mmol/L Carbon Dioxide 32 H (22-30) mmol/L BUN 28 H (7-17) mg/dL Glucose 202 H (74-99) mg/dL POC Glucose (mg/dL) 204 H 291 H (75-99) mg/dL Microbiology - Last 24 Hours (Table) 12/08/18 10:44 Blood Culture - Preliminary Blood No Growth after 72 hours Assessment and Plan Plan: 1 acute exacerbation of COPD with secondary shortness of breath 2 acute bronchitis 3 obstructive sleep apnea not on CPAP therapy 4 narcolepsy, maintained on and that 30 mg by mouth twice a day. 5 RLS 6 obesity 7 chronic pain 8 chronic anxiety/depression 9 hypertension 10 smoke Plan: Continue current medical treatment considering dose IV steroids, antibiotics, nebulized bronchodilators. Patient is improving, less bronchospastic and dyspneic. Vital signs are stable, could be considered for discharge home in the next 24 hours. I performed a history & physical examination of the patient and discussed their management with my nurse practitioner, Maryam Barker. I reviewed the nurse practitioner's note and agree with the documented findings and plan of care. Lung sounds are positive for diffuse wheezes throughout the lung jones. The findings and the impression was discussed with the patient. I attest to the documentation by the nurse practitioner. Time with Patient: Less than 30
[2018-12-11 16:55] LABS: Glucose,Whole Blood 218 mg/dL (75-99)
[2018-12-11] MEDS ORDERED: INSULIN DETEMIR (LEVEMIR) 100 UNIT/ML SYR SQ SCH (21:00)
[2018-12-11 21:13] LABS: Glucose,Whole Blood 264 mg/dL (75-99)
[2018-12-11] MEDS: busPIRone HCl 5 MG TAB PO SCH (21:51)
[2018-12-11] MEDS: buPROPion XL 150 MG TAB.ER.24H PO SCH (21:51)
[2018-12-11] MEDS: MONTELUKAST 10 MG TAB PO SCH (21:52)
[2018-12-11] MEDS: PRAMIPEXOLE 1 MG TAB PO SCH (21:52)
[2018-12-11] MEDS: ESCITALOPRAM 10 MG TAB PO SCH (21:53)
[2018-12-11] MEDS: metFORMIN 500 MG TAB PO SCH (21:53)
[2018-12-11] MEDS: ALPRAZolam 1 MG TAB PO SCH (21:57)
[2018-12-12] MEDS: MUPIROCIN 2% OINT 22 GM TUBE TOPICAL SCH ×2 (00:03→09:36)
[2018-12-12] MEDS: methylPREDNISolone SOD SUCCI 125 MG/2 ML VIAL IV SCH ×2 (00:08→09:38)
[2018-12-12] MEDS: IPRATROPIUM-ALBUTEROL 3 ML NEB INHALATION PRN (03:33)
[2018-12-12 06:54] LABS: Basophils % (A) 0 %; Eosinophils % (A) 0 %; HCT 40.8 % (34.0-46.0); HGB 12.6 gm/dL (11.4-16.0); Hypochromasia Slight; Lymphocytes # (A) 0.9 k/uL (1.0-4.8); Lymphocytes % (A) 11 %; MCH 29.1 pg (25.0-35.0); MCHC 30.8 g/dL (31.0-37.0); MCV 94.5 fL (80.0-100.0); Mean Platelet Volume 6.6; Monocytes # (A) 0.3 k/uL (0-1.0); Monocytes % (A) 4 %; Neutrophils # (A) 6.3 k/uL (1.3-7.7); Neutrophils % (A) 82 %; Platelet Count 306 k/uL (150-450); RBC 4.32 m/uL (3.80-5.40); RDW 12.9 % (11.5-15.5); WBC 7.7 k/uL (3.8-10.6)
[2018-12-12 07:08] LABS: Calcium 9.5 mg/dL (8.4-10.2); Potassium 5.1 mmol/L (3.5-5.1)
[2018-12-12] MEDS: PANTOPRAZOLE 40 MG TABLET PO SCH (07:33)
[2018-12-12 07:34] LABS: Glucose,Whole Blood 211 mg/dL (75-99)
[2018-12-12] MEDS: INSULIN ASPART (NovoLOG) 100 UNIT/ML VIAL SQ SCH ×4 (07:38→12:57)
[2018-12-12] MEDS: IPRATROPIUM-ALBUTEROL 3 ML NEB INHALATION SCH ×2 (08:44→12:07)
[2018-12-12] MEDS: AMPHETAMINE PO SCH (09:24)
[2018-12-12] MEDS: DEXTROAMPHETAMINE PO SCH (09:24)
[2018-12-12] MEDS: NICOTINE 21MG/24HR PATCH TRANSDERM SCH (09:35)
[2018-12-12 09:55] VITALS: BP 145/86; RESP 20; TEMP 97.9
--- NOTE | 2018-12-12 11:33 | P.DS ---
Providers Date of admission: 12/08/18 11:43 Expected date of discharge: 12/12/18 Attending physician: Weston Gusman Consults: 12/08/18 11:43 Consult Physician Routine Consulting Provider: Alexandre Gardiner Consult Reason/Comments: dyspnea Do you want consulting provider notified?: Yes Primary care physician: Weston Gusman Hospital Course: Final Diagnoses: -Acute COPD exacerbation with acute bronchitis -Ongoing nicotine abuse -Narcolepsy -Obstructive sleep apnea -Restless leg syndrome -Diabetes mellitus, hyperglycemic, noncompliant, HGBA1c 9.9 -Obesity, BMI 37.4 -Anxiety, depression, chronic -Hypertension -Chronic pain syndrome Hospital course: A 63-year-old female presented to the ER with worsening shortness of breath that started last week in a patient who is a current smoker, history of narcolepsy, COPD, anxiety, depression, hypertension, diabetes mellitus and multiple other medical issues. Reports occasional productive cough with green sputum. He reports no fevers or chills. Denies chest pain, palpitations or shortness of breath. Denies lightheadedness dizziness or focal deficits. EKG reporting sinus tachycardia. Chest x-ray reporting diffuse interstitial prominence, bronchitis. Troponin is negative. Blood sugars uncontrolled. 01/09/2019 yesterday had an isolated episode of mild hypotension, received IV fluid bolus 1, resolved .blood sugars uncontrolled in a patient on steroids and eating Milky Way candy bars throughout the night. Long-acting insulin dose increased last night with additional 18 units of NovoLog. A.m. blood sugar 172. Breathing slowly improving on nebulized bronchodilators, IV antibiotics, IV steroids. Denies cough today Afebrile. Potassium 5.3. 01/10/19 maintained on nebulized bronchodilators, IV steroids -hyperglycemic during the night, received additional NovoLog. A.m. blood sugar 200. Breathing continues to improve. No cough. Afebrile, normal WBC. Significant clinical improvement. Cleared by pulmonary for discharge. Patient being discharged on Lantus insulin, will require diabetic supplies, case management to ensure patient has glucometer. Outpatient diabetic education at Dr. Gusman office. Patient is being discharged home today in a stable condition with guarded prognosis. Exam GENERAL: ALert and oriented X 3, no acute distress CARDIOVASCULAR: S1, S2 regular.No murmur RESPIRATION: Breath sounds diminished in the bases. No rhonchi or crackles. Occasional fine expiratory wheeze. ABDOMEN: Soft, nontender . No guarding. no masses palpable. Bowel sounds heard. NERVOUS SYSTEM: No focal deficits. The impression and plan of care has been dictated as directed. : I performed a history and examination of this patient, discussed the same with the dictator. I agree with the dictator's note ,documented as a scribe. Any additional findings or plans will be noted. Time taken: 35 minutes Patient Condition at Discharge: Stable Plan - Discharge Summary Discharge Rx Participant: No New Discharge Prescriptions: New Nicotine 21Mg/24Hr Patch [Habitrol] 1 patch TRANSDERM DAILY #30 patch Levofloxacin [Levaquin] 750 mg PO Q24H #5 tab predniSONE 10 mg PO DIRECTED #30 tab Pantoprazole [Protonix] 40 mg PO AC-BRKFST #15 tablet. Insulin Glargine [Lantus] 30 unit SQ HS #1 vial Continue Dextroamphetamine/Amphetamine [Adderall] 30 mg PO BID ALPRAZolam [Xanax] 1 mg PO HS metFORMIN HCL [Glucophage] 1,000 mg PO HS Pramipexole [Mirapex] 2 mg PO HS Escitalopram [Lexapro] 10 mg PO HS busPIRone HCL [Buspar] 15 mg PO HS Montelukast [Singulair] 10 mg PO HS buPROPion XL [Wellbutrin XL] 150 mg PO HS Lisinopril [Zestril] 5 mg PO HS Albuterol Nebulized [Ventolin Nebulized] 2.5 mg INHALATION RT-Q4H Discharge Medication List ALPRAZolam [Xanax] 1 mg PO HS 03/23/15 [History] Dextroamphetamine/Amphetamine [Adderall] 30 mg PO BID 03/23/15 [History] Pramipexole [Mirapex] 2 mg PO HS 05/09/16 [History] metFORMIN HCL [Glucophage] 1,000 mg PO HS 05/09/16 [History] Escitalopram [Lexapro] 10 mg PO HS 08/21/17 [History] Montelukast [Singulair] 10 mg PO HS 09/23/17 [History] busPIRone HCL [Buspar] 15 mg PO HS 09/23/17 [History] Lisinopril [Zestril] 5 mg PO HS 12/06/17 [History] buPROPion XL [Wellbutrin XL] 150 mg PO HS 12/06/17 [History] Albuterol Nebulized [Ventolin Nebulized] 2.5 mg INHALATION RT-Q4H 12/08/18 [History] Insulin Glargine [Lantus] 30 unit SQ HS #1 vial 12/12/18 [Rx] Levofloxacin [Levaquin] 750 mg PO Q24H #5 tab 12/12/18 [Rx] Nicotine 21Mg/24Hr Patch [Habitrol] 1 patch TRANSDERM DAILY #30 patch 12/12/18 [Rx] Pantoprazole [Protonix] 40 mg PO AC-BRKFST #15 tablet. 12/12/18 [Rx] predniSONE 10 mg PO DIRECTED #30 tab 12/12/18 [Rx] Follow up Appointment(s)/Referral(s): Weston Gusman DO [Primary Care Provider] - 01/02/19 10:30 am Alexandre Gardiner MD [Family Provider] - 12/15/18 2:15 pm Ambulatory/Diagnostic Orders: Complete Blood Count w/diff [LAB.AMB] Time Frame: 1 Week, Location: None Selected Activity/Diet/Wound Care/Special Instructions: Case management to arrange for diabetic supplies, ensure patient has glucometer Accu-Cheks before meals and at bedtime, maintain log and take to follow-up visit with PCP for further recommendations Outpatient diabetic education classes at Dr. Gusman office Diet: Consistent carb Activity: Limited until follow up
[2018-12-12] MEDS: LEVOFLOXACIN 750 MG TAB PO SCH (12:13)
[2018-12-12 12:15] VITALS: PULSE 94
--- NOTE | 2018-12-12 12:22 | P.PN ---
Subjective Progress Note Date: 12/12/18 Principal diagnosis: Exacerbation of COPD 63-year-old female patient came into the hospital because of worsening shortness of breath. She presented herself to the ED. Her symptoms started several days back. She had been producing green to yellow sputum. She was also getting more dyspneic cough and congested. The patient was unclear whether she was having any fever or chills. Chest x-ray showed COPD with some increased interstitial prominence bilaterally. For that reason the patient in the coming to the hospital. On his nonelevated. Troponins are negative. Liver function is within normal limits. The electrolytes are also within normal limits. On 12/09/2016 patient seen in follow-up on pediatric floor. She is awake and alert, she still pretty dyspneic, and as having nonproductive cough, this morning her blood pressure is low, 86/53, patient is non-tachycardic, no fever or chills, she is on 3 L of oxygen with a pulse ox 92%, lung sounds reveal diminished breath sounds, with scattered wheezing, but overall patient's sounds less congested. Patient is in the process of receiving 500 mL IV fluid bolus. Today's labs have been reviewed, showing white blood cell count of 7.1, hemoglobin of 12.4, lactic acid was 0.9. Apparently was negative 1, proBNP was within normal limits at 145. Antibiotic coverage in the form of Levaquin, patient is on IV Solu-Medrol, nebulized bronchodilators. She is on a nicotine patch. On 12/10/2018 patient is seen in follow-up on pediatric floor. She is sitting up in bed, in no acute distress, her breathing is improving, she is breathing easier, she is currently on room air, with a pulse ox of 95%, afebrile, hemodynamically stable, lung sounds reveal minimal wheezes. Today's labs were reviewed, showing white blood cell count of 9.9, hemoglobin of 11.6, serum sodium is 138, potassium is 5.6, chloride is 100, CO2 32, BUN of 28, creatinine 0.81. Blood culture showed no growth. Pneumatic coverage in the form of L evaquin. Nebulized bronchodilator, IV steroids continue. On 12/12/2018 patient seen in follow-up on pediatric floor. She continues to improve. No acute events overnight, room air pulse ox is 95%, no fever or chills, lung sounds are positive for a few end expiratory wheezes, significantly improved. Today's labs have been reviewed showing white blood cell Of 7.7, Hemoglobin of 12.6, Electrolytes Were Unremarkable, BUN Was 28 and Creatinine Is 0.83. No Fever or Chills, blood culture showed no growth. Objective - Vital Signs Vital signs: Vital Signs Temp 97.9 F 12/12/18 08:17 Pulse 102 H 12/12/18 08:53 Resp 20 12/12/18 08:17 BP 145/86 12/12/18 08:17 Pulse Ox 95 12/12/18 08:17 Intake & Output 12/11/18 12/12/18 12/12/18 18:59 06:59 18:59 Other: Voiding Method Toilet # Voids 1 1 # Bowel Movements 1 - Exam GENERAL EXAM: Alert, pleasant, 63-year-old white female, on room air with pulse ox of 95 comfortable in no apparent distress. HEAD: Normocephalic/atraumatic. EYES: Normal reaction of pupils, equal size. Conjunctiva pink, sclera white. NOSE: Clear with pink turbinates. THROAT: No erythema or exudates. NECK: No masses, no JVD, no thyroid enlargement, no adenopathy. CHEST: No chest wall deformity. Symmetrical expansion. LUNGS: Equal air entry with diminished breath sounds, a few end expiratory wheezes CVS: Regular rate and rhythm, normal S1 and S2, no gallops, no murmurs, no rubs ABDOMEN: Soft, nontender. No hepatosplenomegaly, normal bowel sounds, no guarding or rigidity. EXTREMITIES: No clubbing, no edema, no cyanosis, 2+ pulses and upper and lower extremities. MUSCULOSKELETAL: Muscle strength and tone normal. SPINE: No scoliosis or deformity SKIN: No rashes CENTRAL NERVOUS SYSTEM: Alert and oriented -3. No focal deficits, tone is normal in all 4 extremities. PSYCHIATRIC: Alert and oriented -3. Appropriate affect. Intact judgment and insight. - Labs CBC & Chem 7: 12/12/18 06:19 12/12/18 06:19 Labs: Abnormal Lab Results - Last 24 Hours (Table) 12/11/18 12/11/18 12/11/18 Range/Units 12:28 16:51 21:11 MCHC (31.0-37.0) g/dL Lymphocytes # (1.0-4.8) k/uL Carbon Dioxide (22-30) mmol/L BUN (7-17) mg/dL Glucose (74-99) mg/dL POC Glucose (mg/dL) 291 H 218 H 264 H (75-99) mg/dL 12/12/18 12/12/18 12/12/18 Range/Units 06:19 06:19 07:32 MCHC 30.8 L (31.0-37.0) g/dL Lymphocytes # 0.9 L (1.0-4.8) k/uL Carbon Dioxide 31 H (22-30) mmol/L BUN 28 H (7-17) mg/dL Glucose 225 H (74-99) mg/dL POC Glucose (mg/dL) 211 H (75-99) mg/dL Microbiology - Last 24 Hours (Table) 12/08/18 10:44 Blood Culture - Preliminary Blood No Growth after 72 hours Assessment and Plan Plan: 1 acute exacerbation of COPD with secondary shortness of breath 2 acute bronchitis 3 obstructive sleep apnea not on CPAP therapy 4 narcolepsy, maintained on and that 30 mg by mouth twice a day. 5 RLS 6 obesity 7 chronic pain 8 chronic anxiety/depression 9 hypertension 10 smoke Plan: From pulmonary perspective patient is stable, she is improving, stable for discharge home today on the course of oral antibiotics, prednisone taper, she has albuterol nebulized treatments at home, she can continue on those, she will need follow-up in the outpatient setting, in 7-10 days. I performed a history & physical examination of the patient and discussed their management with my nurse practitioner, Maryam Barker. I reviewed the nurse practitioner's note and agree with the documented findings and plan of care. Lung sounds are positive for diffuse wheezes throughout the lung jones. The findings and the impression was discussed with the patient. I attest to the documentation by the nurse practitioner. Time with Patient: Less than 30
[2018-12-12 12:46] LABS: Glucose,Whole Blood 194 mg/dL (75-99)
== END 2018-12-12 13:15 | disposition home or self-care (01) | DRG 192 ==
LOC: EC 10:07 → 4MS4W 11:43 → 6PED 15:46
PROVIDERS: ADMIT Family Medicine; ATTEND Family Medicine
DX: J44.1 Chronic obstructive pulmonary disease with (acute) exacerbation (principal); J44.0 Chronic obstructive pulmonary disease with (acute) lower respiratory infection; J20.9 Acute bronchitis, unspecified; E11.65 Type 2 diabetes mellitus with hyperglycemia; E66.9 Obesity, unspecified; Z68.37 Body mass index [BMI] 37.0-37.9, adult; F17.210 Nicotine dependence, cigarettes, uncomplicated; F32.9 Major depressive disorder, single episode, unspecified; F41.9 Anxiety disorder, unspecified; G25.81 Restless legs syndrome; G47.33 Obstructive sleep apnea (adult) (pediatric); G47.419 Narcolepsy without cataplexy; G89.4 Chronic pain syndrome; I10 Essential (primary) hypertension; Z79.52 Long term (current) use of systemic steroids; Z79.84 Long term (current) use of oral hypoglycemic drugs; Z79.899 Other long term (current) drug therapy; T38.3X6A Underdosing of insulin and oral hypoglycemic [antidiabetic] drugs, initial encounter; Z91.128 Patient's intentional underdosing of medication regimen for other reason; I95.9 Hypotension, unspecified; T38.0X5A Adverse effect of glucocorticoids and synthetic analogues, initial encounter; Z88.0 Allergy status to penicillin; Z91.19 Patient's noncompliance with other medical treatment and regimen
CPT/HCPCS: 36415; 71046; 80048; 80053; 83036; 83605; 83880; 84484; 85025; 85610; 85730; 87040; 93005; 94640; 94760; 96365; 96375; 99285

== ENCOUNTER → 2020-06-21 | Outpatient (CLI) | payer MEDICARE, BC ==
--- NOTE | 2020-06-21 17:40 | PN ---
PROGRESS NOTE Sarah is 65 and the patient has obstructive sleep apnea, narcolepsy type 1 and COPD. She is a chronic smoker. In terms of her sleep apnea, I was unable to make her successfully treated with CPAP therapy. Currently she has a ResMed S9 series which is adjusted at a minimum pressure of 8 and a maximum pressure of 16. She has been given a nasal pillow in the past. Despite our efforts, the patient tells me that she has not been able to tolerate the treatment. I am wondering whether this is related to the machine itself or the mode of ventilator, CPAP versus BiPAP, or overall she may be noncompliant. Meanwhile, she [place] at a dose of 30 mg twice a day, and she is also on Lexapro. She has been having on and off episodes of sleep paralysis; probably she can recall around one episode over the past 6 months. She has had no major hallucinations. She had rounds of cataplexy, not to the point where she had to completely collapse. She felt weak without being collapsed on the floor. She is on Lexapro for that. Her weight has been stable. She continues to smoke. She continues to have issues with COPD. She is on ProAir rescue inhaler. No hemoptysis. No pleurisy. On one occasion she had a sleep attack at Dr. Gusman's in the office and she had to be stimulated frequently and repetitively to get her awakened. No history of alcoholism. No potential for any substance abuse at this point in time. No side effects to Adderall. She is on 30 mg twice a day in addition to Lexapro. No symptoms of depression. No symptoms of any significant anxiety at this point in time. PHYSICAL EXAMINATION: VITAL SIGNS: BP is 107/73, pulse 80, respirations 16, temperature 97.8. GENERAL APPEARANCE: Calm, comfortable. HEAD: Atraumatic, normocephalic. NECK: Supple. No JVD. No goiter or neck masses. Mallampati class IV. LUNGS: Clear to auscultation. Diminished in lung bases along with a few scattered expiratory wheezes. HEART: Heart sounds are regular rate and rhythm. Normal S1, S2. No S3, S4. No murmurs. ABDOMEN: Soft, nontender. No organomegaly. EXTREMITIES: No edema. No cyanosis or clubbing. IMPRESSION: 1. Narcolepsy, type 1, currently on a combination of Adderall 30 mg p.o. b.i.d. and Lexapro 20 mg p.o. daily. She continues to be quite somnolent and sleepy. She is requesting an increase in her medication dose or addition of different medications. However, based on the fact that the patient has been not treated for sleep apnea, I am not going to make any adjustments. I am going to concentrate on her getting more compliant with CPAP therapy, knowing that she has at least moderate to severe obstructive sleep apnea. 2. Obstructive sleep apnea with apnea/hypopnea index of 28, unable to tolerate APAP. 3. Chronic obstructive pulmonary disease. 4. Obesity. 5. Chronic hypersomnia; Lula score of at least 20. 6. Hypertension. 7. Diabetes mellitus. 8. History of chronic anxiety/depression. 9. Chronic back and neck pain. PLAN: 1. Continue Adderall and Lexapro, and the medications will be refilled regularly. 2. Encourage weight loss. 3. Obtain a BiPAP titration on this patient and attempt to get her a BiPAP machine, hoping that she will be more compliant with the treatment. 4. See me back in followup in a few months' time. MMODL / IJN: [id number] /
== END | disposition home or self-care (01) ==
LOC: SLEEP 16:30
PROVIDERS: ATTEND Internal Medicine Critical Care Medicine
DX: G47.33 Obstructive sleep apnea (adult) (pediatric) (principal); G47.419 Narcolepsy without cataplexy; G47.10 Hypersomnia, unspecified; E66.9 Obesity, unspecified; I10 Essential (primary) hypertension; E11.9 Type 2 diabetes mellitus without complications; J44.9 Chronic obstructive pulmonary disease, unspecified; M54.9 Dorsalgia, unspecified; G89.29 Other chronic pain; Z86.59 Personal history of other mental and behavioral disorders; Z99.89 Dependence on other enabling machines and devices

== ENCOUNTER → 2020-12-28 | Outpatient (CLI) | payer MEDICARE, BC ==
--- NOTE | 2020-12-28 11:24 | XR ---
EXAMINATION TYPE: XR chest 2V DATE OF EXAM: 12/28/2020 COMPARISON: 12/08/2018 TECHNIQUE: PA and lateral views submitted. HISTORY: Chest pain FINDINGS: The lungs are clear and there is no pneumothorax, pleural effusion, or focal pneumonia. Hyperinflati on noted. Arthropathy of the shoulders. Hypertrophic and degenerative change of the spine. Postoperat julisa change lumbosacral junction. Mild prominence of the pulmonary arteries. IMPRESSION: 1. No acute process. Correlate for COPD and pulmonary arterial hypertension.
== END | disposition home or self-care (01) ==
LOC: RADXRMAIN 10:50
PROVIDERS: ATTEND Family Medicine
DX: R91.8 Other nonspecific abnormal finding of lung field (principal)
CPT/HCPCS: 71046

== ENCOUNTER 2021-01-29 16:47 | Observation (INO) | payer MEDICARE, BC ==
[2021-01-29 17:02] LABS: Glucose,Whole Blood 474 mg/dL (75-99)
[2021-01-29] MEDS ORDERED: SODIUM CHLORIDE 0.9% 1,000 ML IV STA (17:22)
[2021-01-29] MEDS ORDERED: ASPIRIN 81 MG PO STA (17:37)
--- NOTE | 2021-01-29 17:39 | ED ---
General Adult HPI - General Chief complaint: Chest Pain Stated complaint: Chest Pain/High BS Time Seen by Provider: 01/29/21 16:53 Source: EMS Mode of arrival: EMS Limitations: no limitations - History of Present Illness Initial comments: Dictation was produced using [employer] dictation software. please excuse any grammatical, word or spelling errors. Chief Complaint: 65-year-old female presents to the emergency department for chest pain History of Present Illness: 75-year-old female she presents with chest pain. She had an episode that began last night. She states it's like a pressure to her substernal chest. No radiation to the extremities shoulders or jaw. No associated diaphoresis. Patient has a history of tobacco abuse, diabetes and hypertension. Patient is an orphan and has no idea if she has family history of heart attacks or cardiac disease. [facility] was evaluated transferred via EMS to our emergency department. He is given 1 nitro with improvement of symptoms. The ROS documented in this emergency department record has been reviewed and confirmed by me. Those systems with pertinent positive or negative responses have been documented in the HPI. All other systems are other negative and/or noncontributory. PHYSICAL EXAM: General Impression: Alert and oriented x3, not in acute distress HEENT: Normocephalic atraumatic, extra-ocular movements intact, pupils equal and reactive to light bilaterally, mucous membranes moist. Cardiovascular: Heart regular rate and rhythm Chest: Able to complete full sentences, no retractions, no tachypnea Abdomen: abdomen soft, non-tender, non-distended, no organomegaly Musculoskeletal: Pulses present and equal in all extremities, no peripheral edema Motor: no focal deficits noted Neurological: CN II-XII grossly intact, no focal motor or sensory deficits noted Skin: Intact with no visualized rashes Psych: Normal affect and mood ED course: 65-year-old female presents with atypical chest pain typical features. Vital signs upon arrival are within acceptable limits. EKG shows no active findings to suggest ischemia or infarction. Laboratory evaluation obtained. CBC unremarkable. Metabolic panel shows sodium of 129, glucose 485. Troponin is negative. Rest of labs unremarkable. Chest x-ray is nonacute. Patient reevaluated bedside at 6:58 PM found to be in stable medical condition. Patient denies any active chest pain at this time. Clinical presentation concerning for acute coronary syndrome. She has multiple risk factors. Patient is agreeable for admission for cardiac monitoring, cardiac consultation and serial troponins. She is given aspirin. EKG interpretation: Ventricular rate 92, normal sinus rhythm, MD interval 174, QRS 90, QTc 455. No MD prolongation, no QTC prolongation, no ST or T-wave changes noted. . Overall, this EKG is unremarkable - Related Data Home Medications Medication Instructions Recorded Confirmed ALPRAZolam [Xanax] 0.5 mg PO BID PRN 03/23/15 01/29/21 Dextroamphetamine/Amphetamine 30 mg PO BID 03/23/15 01/29/21 [Adderall] Pramipexole [Mirapex] 2 mg PO HS 05/09/16 01/29/21 lisinopriL [Zestril] 5 mg PO HS 12/06/17 01/29/21 Escitalopram [Lexapro] 20 mg PO HS 01/29/21 01/29/21 INSULIN LISPRO (humaLOG) [humaLOG] See Protocol SQ DIRECTED 01/29/21 01/29/21 Insulin Glargine [Lantus] 70 unit SQ HS 01/29/21 01/29/21 metFORMIN HCL ER [Glucophage XR] 1,000 mg PO HS 01/29/21 01/29/21 Allergies Allergy/AdvReac Type Severity Reaction Status Date / Time Penicillins Allergy Rash/Hives, Verified 01/29/21 17:54 SOB Review of Systems ROS Statement: Those systems with pertinent positive or pertinent negative responses have been documented in the HPI. ROS Other: All systems not noted in ROS Statement are negative. Past Medical History Past Medical History: Asthma, COPD, Diabetes Mellitus, Hypertension Additional Past Medical History / Comment(s): Narcalepsy, cataplexy, JOSSELIN does not wear device, restless leg syndrome, low back pain, R leg numbness at times, IDDM type II. History of Any Multi-Drug Resistant Organisms: None Reported Past Surgical History: Back Surgery Additional Past Surgical History / Comment(s): 08/18/17 laminectomy/discectomy with spacer L1-L2, lumbar cages, bilateral carpal tunnel released, L knee arthroscopy, sinus surgery, "pain injections" to back and cervical. Additional Past Anesthesia/Blood Transfusion Reaction / Comment(s): Pt's heart stopped after a "pain block" procedure that required anesthesia. Past Psychological History: Anxiety, Depression Smoking Status: Current every day smoker Past Alcohol Use History: None Reported Past Drug Use History: None Reported - Past Family History Mother Additional Family Medical History / Comment(s): adopted Father History Unknown: Yes Additional Family Medical History / Comment(s): Pt is adopted. General Exam Limitations: no limitations Course Vital Signs 01/29/21 01/29/21 16:53 17:10 Temperature 98.3 F Pulse Rate 105 H 96 Respiratory 20 20 Rate Blood Pressure 102/76 118/81 O2 Sat by Pulse 99 98 Oximetry Medical Decision Making - Lab Data Result diagrams: 01/29/21 17:42 01/29/21 17:42 Lab Results 01/29/21 01/29/21 01/29/21 Range/Units 17:01 17:42 17:42 WBC 9.3 (3.8-10.6) k/uL RBC 4.20 (3.80-5.40) m/uL Hgb 12.0 (11.4-16.0) gm/dL Hct 37.2 (34.0-46.0) % MCV 88.7 (80.0-100.0) fL MCH 28.6 (25.0-35.0) pg MCHC 32.2 (31.0-37.0) g/dL RDW 13.8 (11.5-15.5) % Plt Count 313 (150-450) k/uL MPV 7.5 Neutrophils % 69 % Lymphocytes % 18 % Monocytes % 5 % Eosinophils % 7 % Basophils % 0 % Neutrophils # 6.4 (1.3-7.7) k/uL Lymphocytes # 1.7 (1.0-4.8) k/uL Monocytes # 0.4 (0-1.0) k/uL Eosinophils # 0.6 (0-0.7) k/uL Basophils # 0.0 (0-0.2) k/uL Sodium 129 L (137-145) mmol/L Potassium 4.7 (3.5-5.1) mmol/L Chloride 96 L (98-107) mmol/L Carbon Dioxide 26 (22-30) mmol/L Anion Gap 7 mmol/L BUN 14 (7-17) mg/dL Creatinine 0.58 (0.52-1.04) mg/dL Est GFR (CKD-EPI)AfAm >90 (>60 ml/min/1.73 sqM) Est GFR (CKD-EPI)NonAf >90 (>60 ml/min/1.73 sqM) Glucose 485 H (74-99) mg/dL POC Glucose (mg/dL) 474 H (75-99) mg/dL POC Glu Manager Of Sales Mayra Maier Calcium 8.6 (8.4-10.2) mg/dL Magnesium 1.8 (1.6-2.3) mg/dL Total Bilirubin <0.1 L (0.2-1.3) mg/dL AST 19 (14-36) U/L ALT 16 (4-34) U/L Alkaline Phosphatase 116 (38-126) U/L Troponin I (0.000-0.034) ng/mL Total Protein 5.8 L (6.3-8.2) g/dL Albumin 3.2 L (3.5-5.0) g/dL 01/29/21 Range/Units 17:42 WBC (3.8-10.6) k/uL RBC (3.80-5.40) m/uL Hgb (11.4-16.0) gm/dL Hct (34.0-46.0) % MCV (80.0-100.0) fL MCH (25.0-35.0) pg MCHC (31.0-37.0) g/dL RDW (11.5-15.5) % Plt Count (150-450) k/uL MPV Neutrophils % % Lymphocytes % % Monocytes % % Eosinophils % % Basophils % % Neutrophils # (1.3-7.7) k/uL Lymphocytes # (1.0-4.8) k/uL Monocytes # (0-1.0) k/uL Eosinophils # (0-0.7) k/uL Basophils # (0-0.2) k/uL Sodium (137-145) mmol/L Potassium (3.5-5.1) mmol/L Chloride (98-107) mmol/L Carbon Dioxide (22-30) mmol/L Anion Gap mmol/L BUN (7-17) mg/dL Creatinine (0.52-1.04) mg/dL Est GFR (CKD-EPI)AfAm (>60 ml/min/1.73 sqM) Est GFR (CKD-EPI)NonAf (>60 ml/min/1.73 sqM) Glucose (74-99) mg/dL POC Glucose (mg/dL) (75-99) mg/dL POC Glu Manager Of Sales ID Calcium (8.4-10.2) mg/dL Magnesium (1.6-2.3) mg/dL Total Bilirubin (0.2-1.3) mg/dL AST (14-36) U/L ALT (4-34) U/L Alkaline Phosphatase (38-126) U/L Troponin I <0.012 (0.000-0.034) ng/mL Total Protein (6.3-8.2) g/dL Albumin (3.5-5.0) g/dL Disposition Clinical Impression: Chest pain Disposition: ADMITTED IP TO THIS HOSP Condition: Fair Referrals: Weston Gusman DO [Primary Care Provider] - 1-2 days
[2021-01-29 17:59] LABS: Basophils % (A) 0 %; Eosinophils # (A) 0.6 k/uL (0-0.7); Eosinophils % (A) 7 %; HCT 37.2 % (34.0-46.0); Lymphocytes # (A) 1.7 k/uL (1.0-4.8); Lymphocytes % (A) 18 %; MCH 28.6 pg (25.0-35.0); MCHC 32.2 g/dL (31.0-37.0); MCV 88.7 fL (80.0-100.0); Mean Platelet Volume 7.5; Monocytes # (A) 0.4 k/uL (0-1.0); Monocytes % (A) 5 %; Neutrophils # (A) 6.4 k/uL (1.3-7.7); Neutrophils % (A) 69 %; Platelet Count 313 k/uL (150-450); RDW 13.8 % (11.5-15.5); WBC 9.3 k/uL (3.8-10.6)
[2021-01-29 18:09] LABS: ALT 16 U/L (4-34); AST 19 U/L (14-36); African American GFR (CKD) >90 (>60 ml/min/1.73 sqM); Albumin 3.2 g/dL (3.5-5.0); Alkaline Phosphatase 116 U/L (38-126); Anion Gap 7 mmol/L; Blood Urea Nitrogen 14 mg/dL (7-17); Calcium 8.6 mg/dL (8.4-10.2); Carbon Dioxide 26 mmol/L (22-30); Chloride 96 mmol/L (98-107); Glucose 485 mg/dL (74-99); Magnesium 1.8 mg/dL (1.6-2.3); Non-African American GFR(CKD) >90 (>60 ml/min/1.73 sqM); Potassium 4.7 mmol/L (3.5-5.1); Sodium 129 mmol/L (137-145); Total Bilirubin <0.1 mg/dL (0.2-1.3); Total Protein 5.8 g/dL (6.3-8.2)
--- NOTE | 2021-01-29 18:36 | XR ---
EXAMINATION TYPE: XR chest 2V DATE OF EXAM: 01/29/2021 COMPARISON: Chest radiograph 12/28/2020 HISTORY: Chest pain TECHNIQUE: Frontal and lateral views of the chest are obtained. FINDINGS: Cardiomediastinal silhouette appears within normal limits. Mildly prominent pulmonary vasc ulature. No focal consolidation, pleural effusion, or pneumothorax. There is osseous structures appea r intact. Limited views of the upper abdomen appear normal. IMPRESSION: 1. No acute cardiopulmonary process. 2. Mildly prominent pulmonary vessels, similar to prior. Correlate for pulmonary hypertension.
[2021-01-29 18:43] LABS: INR 0.8 (<1.2); Prothrombin Time 9.3 sec (9.0-12.0)
[2021-01-29] MEDS ORDERED: NITROGLYCERIN SL TABS 0.4 MG TAB SUBLINGUAL PRN (18:56)
[2021-01-29 19:08] LABS: Partial Thromboplastin Time 19.8 sec (22.0-30.0)
[2021-01-29 20:43] LABS: Glucose,Whole Blood 330 mg/dL (75-99)
[2021-01-29] MEDS: INSULIN ASPART (NovoLOG) 100 UNIT/ML VIAL SQ SCH (21:36)
[2021-01-30 03:35] LABS: Glucose,Whole Blood 259 mg/dL (75-99)
[2021-01-30] MEDS ORDERED: ALPRAZolam 0.5 MG TAB PO PRN (05:08)
[2021-01-30] MEDS ORDERED: INSULIN DETEMIR (LEVEMIR) 100 UNIT/ML SYR SQ STA (05:13)
[2021-01-30 05:33] LABS: Glucose,Whole Blood 169 mg/dL (75-99)
[2021-01-30 07:31] LABS: Glucose,Whole Blood 211 mg/dL (75-99)
[2021-01-30 08:12] VITALS: BP 113/76; PULSE 104; RESP 16; TEMP 98.9
[2021-01-30] MEDS ORDERED: NON FORMULARY DRUG (Dextroamphetamine/Amphetamine [Adderall] 30 MG Tablet) PO SCH (09:00)
[2021-01-30] MEDS ORDERED: ASPIRIN 325 MG TAB PO SCH (09:00)
[2021-01-30] MEDS: INSULIN ASPART (NovoLOG) 100 UNIT/ML VIAL SQ SCH (09:05)
[2021-01-30] MEDS ORDERED: ASPIRIN 81 MG PO STA (09:20)
[2021-01-30] MEDS ORDERED: AMINOPHYLLINE 500 MG/20 ML VIAL IV PRN (09:21)
[2021-01-30] MEDS ORDERED: CAFFEINE CITRATE 60 MG/3 ML VIAL IV PRN (09:21)
[2021-01-30] MEDS ORDERED: REGADENOSON 0.4 MG/5 ML SYRINGE IV PRN (09:21)
--- NOTE | 2021-01-30 09:56 | P.CRDCN ---
History of Present Illness Consult date: 01/30/21 History of present illness: HISTORY OF PRESENT ILLNESS: This is a 65-year-old female with a past medical history significant for hypertension, diabetes, and nicotine dependence. Patient reports she smokes 1 pack per day. She is unsure of her family history. 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 We have been asked to see the patient in consultation for chest pain. Patient examined at the bedside. Patient reports 2 nights ago she was feeling in her normal state of health when she developed chest pain on the right side of her chest. She states the pain has been on and off since that time. She denied any radiation of the pain. She does report feeling nauseous and diaphoretic yesterday and states she threw up once. No further episodes of vomiting since. She does report pain with palpation of her right chest. She denies increased pain with deep inspiration. EKG reveals sinus mechanism with no signs of acute ischemia Chest xray no acute cardiopulmonary process. Mildly prominent pulmonary vessels, similar to prior. Correlate for pulmonary hypertension. Laboratory data: WBC 9.3. Hemoglobin 12.0. Platelet count 313. Sodium 129. Potassium 4.7. BUN 13. Creatinine 0.58. Troponin negative 3. Current home cardiac medications include lisinopril 5 mg at night REVIEW OF SYSTEMS: At the time of my exam: CONSTITUTIONAL: Denies fever or chills. HEENT: Denies blurred vision, vision changes, or eye pain. Denies hemoptysis CARDIOVASCULAR: Denies chest pain. Denies orthopnea. Denies PND. Denies palpitations RESPIRATORY: Denies shortness of breath. GASTROINTESTINAL: Denies abdominal pain. Denies nausea or vomiting. HEMATOLOGIC: Denies bleeding disorders. GENITOURINARY: Denies any blood in urine. SKIN: Denies pruitis. Denies rash. PHYSICAL EXAM: VITAL SIGNS: Reviewed. GENERAL: Well-developed in no acute distress. HEENT: Head is normocephalic. Pupils are equal, round. Sclerae anicteric. Mucous membranes of the mouth are moist. Neck supple. No JVD or thyromegaly LUNGS: Respirations even and unlabored. Lungs diminished bilaterally. HEART: Regular rate and rhythm. S1 and S2 heard. ABDOMEN: Soft. Nondistended. Nontender. EXTREMITIES: Normal range of motion. No clubbing or cyanosis. Peripheral pulses intact. No lower extremity edema NEUROLOGIC: Awake and alert. Oriented x 3. ASSESSMENT: Chest pain, troponins negative 3, with typical and atypical features Hypertension Diabetes Nicotine dependence, patient smokes 1 pack per day Obesity: BMI 33.7 PLAN: An acute coronary event has been ruled out Resume home cardiac medications Smoking cessation recommended Obtain 2-D echo to assess cardiac structure and function Patient to undergo Lexiscan stress test to assess for reversible ischemia Further recommendations pending patient's course Nurse practitioner note has been reviewed by physician. Signing provider agrees with the documented findings, assessment, and plan of care. Past Medical History Past Medical History: Asthma, COPD, Diabetes Mellitus, Hypertension Additional Past Medical History / Comment(s): Narcalepsy, cataplexy, JOSSELIN does not wear device, restless leg syndrome, low back pain, R leg numbness at times, IDDM type II. History of Any Multi-Drug Resistant Organisms: None Reported Past Surgical History: Back Surgery Additional Past Surgical History / Comment(s): 08/18/17 laminectomy/discectomy with spacer L1-L2, lumbar cages, bilateral carpal tunnel released, L knee arthroscopy, sinus surgery, "pain injections" to back and cervical. Additional Past Anesthesia/Blood Transfusion Reaction / Comment(s): Pt's heart stopped after a "pain block" procedure that required anesthesia. Past Psychological History: Anxiety, Depression Smoking Status: Current every day smoker Past Alcohol Use History: None Reported Additional Past Alcohol Use History / Comment(s): Pt states she currently smokes a pack a day. Past Drug Use History: None Reported - Past Family History Mother Additional Family Medical History / Comment(s): adopted Father History Unknown: Yes Additional Family Medical History / Comment(s): Pt is adopted. Medications and Allergies Home Medications Medication Instructions Recorded Confirmed Type ALPRAZolam [Xanax] 0.5 mg PO BID PRN 03/23/15 01/29/21 History Dextroamphetamine/Amphetamine 30 mg PO BID 03/23/15 01/29/21 History [Adderall] Pramipexole [Mirapex] 2 mg PO HS 05/09/16 01/29/21 History lisinopriL [Zestril] 5 mg PO HS 12/06/17 01/29/21 History Escitalopram [Lexapro] 20 mg PO HS 01/29/21 01/29/21 History INSULIN LISPRO (humaLOG) [humaLOG] See Protocol SQ DIRECTED 01/29/21 01/29/21 History Insulin Glargine [Lantus] 70 unit SQ HS 01/29/21 01/29/21 History metFORMIN HCL ER [Glucophage XR] 1,000 mg PO HS 01/29/21 01/29/21 History Allergies Allergy/AdvReac Type Severity Reaction Status Date / Time Penicillins Allergy Rash/Hives, Verified 01/29/21 17:54 SOB Physical Exam Vitals: Vital Signs Temp Pulse Pulse Resp BP BP Pulse Ox 01/30/21 07:00 98.9 F 104 H 16 113/76 98 01/30/21 02:00 98.0 F 98 17 98/71 97 01/29/21 20:00 98.4 F 84 17 113/72 98 01/29/21 19:22 97.2 F L 100 18 134/80 100 01/29/21 17:10 96 20 118/81 98 01/29/21 16:53 98.3 F 105 H 20 102/76 99 Intake and Output 01/29/21 01/30/21 01/30/21 22:59 06:59 14:59 Intake Total 500 0 Balance 500 0 Intake: Oral 500 0 Other: Voiding Method Toilet # Voids 0 2 Weight 86.183 kg Results 01/29/21 17:42 01/29/21 17:42 Cardiac Enzymes 01/29/21 01/29/21 01/29/21 Range/Units 17:42 17:42 20:40 AST 19 (14-36) U/L Troponin I <0.012 0.015 (0.000-0.034) ng/mL 01/29/21 Range/Units 23:06 AST (14-36) U/L Troponin I <0.012 (0.000-0.034) ng/mL Coagulation 01/29/21 Range/Units 17:42 PT 9.3 (9.0-12.0) sec APTT 19.8 L (22.0-30.0) sec CBC 01/29/21 Range/Units 17:42 WBC 9.3 (3.8-10.6) k/uL RBC 4.20 (3.80-5.40) m/uL Hgb 12.0 (11.4-16.0) gm/dL Hct 37.2 (34.0-46.0) % Plt Count 313 (150-450) k/uL Comprehensive Metabolic Panel 01/29/21 Range/Units 17:42 Sodium 129 L (137-145) mmol/L Potassium 4.7 (3.5-5.1) mmol/L Chloride 96 L (98-107) mmol/L Carbon Dioxide 26 (22-30) mmol/L BUN 14 (7-17) mg/dL Creatinine 0.58 (0.52-1.04) mg/dL Glucose 485 H (74-99) mg/dL Calcium 8.6 (8.4-10.2) mg/dL AST 19 (14-36) U/L ALT 16 (4-34) U/L Alkaline Phosphatase 116 (38-126) U/L Total Protein 5.8 L (6.3-8.2) g/dL Albumin 3.2 L (3.5-5.0) g/dL Current Medications Generic Name Dose Route Start Last Admin Trade Name Freq PRN Reason Stop Dose Admin Alprazolam 0.5 mg 01/30/21 05:08 Alprazolam 0.5 Mg Tab PO BID PRN Anxiety Aspirin 325 mg 01/30/21 09:00 Aspirin 325 Mg Tab PO DAILY [facility] Escitalopram Oxalate 20 mg 01/30/21 21:00 Escitalopram 20 Mg Tab PO HS [facility] Insulin Aspart 0 unit 01/29/21 19:30 01/29/21 21:36 Insulin Aspart (Novolog) 100 Unit/Ml Vial SQ 6 unit AC-TID [facility] Administration Protocol Insulin Detemir 70 unit 01/30/21 21:00 Insulin Detemir (Levemir) 100 Unit/Ml Syr SQ HS [facility] Lisinopril 5 mg 01/30/21 21:00 Lisinopril 5 Mg Tab PO HS [facility] Metformin HCl 250 mg 01/30/21 21:00 Metformin 500 Mg Tab PO BID JOSE ANTONIO Nitroglycerin 0.4 mg 01/29/21 18:56 Nitroglycerin Sl Tabs 0.4 Mg Tab SUBLINGUAL Q5M PRN Chest Pain Non-Formulary Medication 30 mg 01/30/21 09:00 Dextroamphetamine/Amphetamine [Adderall] PO BID [facility] Pramipexole Dihydrochloride 2 mg 01/30/21 21:00 Pramipexole 1 Mg Tab PO HS JOSE ANTONIO Intake and Output 01/29/21 01/30/21 01/30/21 22:59 06:59 14:59 Intake Total 500 0 Balance 500 0 Intake: Oral 500 0 Other: Voiding Method Toilet # Voids 0 2 Weight 86.183 kg 01/29/21 17:42 01/29/21 17:42
[2021-01-30] MEDS ORDERED: PANTOPRAZOLE 40 MG/10 ML VIAL IVP SCH (10:15)
[2021-01-30] MEDS ORDERED: NICOTINE 21MG/24HR PATCH TRANSDERM SCH (10:15)
--- NOTE | 2021-01-30 10:38 | P.HPIM ---
History of Present Illness H&P Date: 01/30/21 Chief Complaint: Chest pain History and Physical and Discharge Summary This is a 65-year-old female presented to the ER with complaints of chest pain with past medical history of ongoing nicotine dependence -smokes one pack per day, narcolepsy, COPD, anxiety, depression, hypertension, diabetes mellitus and multiple other medical issues. Family history unknown, patient is an orphan. Reports nonradiating midsternal chest pain accompanied by diaphoresis, nausea and vomiting initiating the prior night before admission. Denies increased pain with deep inspiration. Denies lightheadedness, dizziness or focal deficits. Chest x-ray reported no acute cardiopulmonary process, mildly prominent pulmonary vessels similar to prior, possible pulmonary hypertension. EKG reported normal sinus rhythm. Troponin negative 3. Hematology unremarkable. Sodium 129, potassium 4.7, chloride 96 bicarb 26 BUN 14, creatinine 0.58. Blood sugar uncontrolled on admission with a high of 474, currently ranging in the 160s to low 200s. Prior hemoglobin A1c of 11.6 on 12/26/2020. Review of Systems ROS Statement: Those systems with pertinent positive or pertinent negative responses have been documented in the HPI. ROS Other: All systems not noted in ROS Statement are negative. Past Medical History Past Medical History: Asthma, COPD, Diabetes Mellitus, Hypertension Additional Past Medical History / Comment(s): Narcalepsy, cataplexy, JOSSELIN does not wear device, restless leg syndrome, low back pain, R leg numbness at times, IDDM type II. History of Any Multi-Drug Resistant Organisms: None Reported Past Surgical History: Back Surgery Additional Past Surgical History / Comment(s): 08/18/17 laminectomy/discectomy with spacer L1-L2, lumbar cages, bilateral carpal tunnel released, L knee arthroscopy, sinus surgery, "pain injections" to back and cervical. Additional Past Anesthesia/Blood Transfusion Reaction / Comment(s): Pt's heart stopped after a "pain block" procedure that required anesthesia. Past Psychological History: Anxiety, Depression Smoking Status: Current every day smoker Past Alcohol Use History: None Reported Additional Past Alcohol Use History / Comment(s): Pt states she currently smokes a pack a day. Past Drug Use History: None Reported - Past Family History Mother Additional Family Medical History / Comment(s): adopted Father History Unknown: Yes Additional Family Medical History / Comment(s): Pt is adopted. Medications and Allergies Home Medications Medication Instructions Recorded Confirmed Type ALPRAZolam [Xanax] 0.5 mg PO BID PRN 03/23/15 01/29/21 History Dextroamphetamine/Amphetamine 30 mg PO BID 03/23/15 01/29/21 History [Adderall] Pramipexole [Mirapex] 2 mg PO HS 05/09/16 01/29/21 History lisinopriL [Zestril] 5 mg PO HS 12/06/17 01/29/21 History Escitalopram [Lexapro] 20 mg PO HS 01/29/21 01/29/21 History INSULIN LISPRO (humaLOG) [humaLOG] See Protocol SQ DIRECTED 01/29/21 01/29/21 History Insulin Glargine [Lantus] 70 unit SQ HS 01/29/21 01/29/21 History metFORMIN HCL ER [Glucophage XR] 1,000 mg PO HS 01/29/21 01/29/21 History Nicotine 21Mg/24Hr Patch [Habitrol] 1 patch TRANSDERM DAILY patch 01/30/21 Rx Allergies Allergy/AdvReac Type Severity Reaction Status Date / Time Penicillins Allergy Rash/Hives, Verified 01/29/21 17:54 SOB Physical Exam Vitals: Vital Signs Temp Pulse Pulse Resp BP BP Pulse Ox 01/30/21 07:00 98.9 F 104 H 16 113/76 98 01/30/21 02:00 98.0 F 98 17 98/71 97 01/29/21 20:00 98.4 F 84 17 113/72 98 01/29/21 19:22 97.2 F L 100 18 134/80 100 01/29/21 17:10 96 20 118/81 98 01/29/21 16:53 98.3 F 105 H 20 102/76 99 Intake and Output 01/29/21 01/30/21 01/30/21 22:59 06:59 14:59 Intake Total 500 0 Balance 500 0 Intake: Oral 500 0 Other: Voiding Method Toilet # Voids 0 2 Weight 86.183 kg PHYSICAL EXAM: VITAL SIGNS: As above GENERAL: Sitting up in bed, no acute distress HEENT: Conjunctivae normal. eyes normal. NECK: No JVD. No thyroid enlargement. No LNs CARDIOVASCULAR: S1, S2 regular.No murmur RESPIRATION: Normal respiratory effort .Breath sounds CTA,diminished in the bases. No rhonchi or crackles. ABDOMEN: Soft, nontender . No guarding. no masses palpable. No ascites, No hepatosplenomegaly.Bowel sounds heard. LEGS: No edema. no swelling PSYCHIATRY: Alert and oriented X-3, mood and affect normal. NERVOUS SYSTEM: Cranial N 2-12 grossly normal. Moves all 4 limbs. Diffuse weakness No focal deficits. Strength and sensation grossly intact.. Skin: Right thigh open wound secondary to picking, no rash Lymphatic system. No LN neck axilla. Results CBC & Chem 7: 01/29/21 17:42 01/29/21 17:42 Labs: Abnormal Lab Results - Last 24 Hours (Table) 01/29/21 01/29/21 01/29/21 Range/Units 17:01 17:42 17:42 APTT 19.8 L (22.0-30.0) sec Sodium 129 L (137-145) mmol/L Chloride 96 L (98-107) mmol/L Glucose 485 H (74-99) mg/dL POC Glucose (mg/dL) 474 H (75-99) mg/dL Total Bilirubin <0.1 L (0.2-1.3) mg/dL Total Protein 5.8 L (6.3-8.2) g/dL Albumin 3.2 L (3.5-5.0) g/dL 01/29/21 01/30/21 01/30/21 Range/Units 20:39 03:31 05:30 APTT (22.0-30.0) sec Sodium (137-145) mmol/L Chloride (98-107) mmol/L Glucose (74-99) mg/dL POC Glucose (mg/dL) 330 H 259 H 169 H (75-99) mg/dL Total Bilirubin (0.2-1.3) mg/dL Total Protein (6.3-8.2) g/dL Albumin (3.5-5.0) g/dL 01/30/21 Range/Units 07:30 APTT (22.0-30.0) sec Sodium (137-145) mmol/L Chloride (98-107) mmol/L Glucose (74-99) mg/dL POC Glucose (mg/dL) 211 H (75-99) mg/dL Total Bilirubin (0.2-1.3) mg/dL Total Protein (6.3-8.2) g/dL Albumin (3.5-5.0) g/dL Thrombosis Risk Factor Assmnt - Choose All That Apply Each Factor Represents 1 point: Abnormal pulmonary function (COPD) Each Risk Factor Represents 2 Points: Age 61-74 years Thrombosis Risk Factor Assessment Total Risk Factor Score: 3 Thrombosis Risk Factor Assessment Level: Moderate Risk Assessment and Plan Assessment: -CP, troponins negative 3, ruling out ACS. -Diabetes mellitus, hyperglycemic in admission, hemoglobin A1c 11.6 on 12/26/2020, repeat A1c pending. -Hyponatremia -COPD, stable -Ongoing nicotine abuse -Narcolepsy -Obstructive sleep apnea -Restless leg syndrome -Obesity, BMI 33.7 -Anxiety, depression, chronic -Hypertension -Chronic pain syndrome Plan: Continue on current medication regime ,monitoring and symptomatic treatment. Echo, stress test ordered. Smoking cessation readdressed. PPI added on for GI prophylaxis. Hemoglobin A1c results pending and to be faxed to Dr. Gusman office Further diabetic education in clinic.Dietary consult placed regarding further education on consistent carb diet. Patient will be discharged home today in a stable condition with guarded prognosis pending echo, stress test results, final DC recommendations and clearance from cardiology. The impression and plan of care has been dictated as directed. : I performed a history and examination of this patient, discussed the same with the dictator. I agree with the dictator's note ,documented as a scribe. Any additional findings or plans will be noted.
[2021-01-30 10:46] LABS: African American GFR (CKD) >90 (>60 ml/min/1.73 sqM); Anion Gap 8 mmol/L; Blood Urea Nitrogen 13 mg/dL (7-17); Calcium 9.1 mg/dL (8.4-10.2); Carbon Dioxide 23 mmol/L (22-30); Chloride 105 mmol/L (98-107); Glucose 180 mg/dL (74-99); Non-African American GFR(CKD) >90 (>60 ml/min/1.73 sqM); Sodium 136 mmol/L (137-145)
[2021-01-30 10:48] LABS: Potassium 5.1 mmol/L (3.5-5.1)
[2021-01-30] MEDS ORDERED: DOBUTamine DRIP for NUC MED 500 MG in DEXTROSE/WATER 1 250ML.BAG IV PRN (11:09)
[2021-01-30 11:58] LABS: Glucose,Whole Blood 102 mg/dL (75-99)
--- NOTE | 2021-01-30 12:15 | ECHOF ---
Referral Reason:Chest pain MEASUREMENTS -------- HEIGHT: 160.0 cm WEIGHT: 86.2 kg BP: RVIDd: 2.8 cm (< 3.3) IVSd: 1.4 cm (0.6 - 1.1) LVIDd: 3.5 cm (3.9 - 5.3) LVPWd: 1.5 cm (0.6 - 1.1) IVSs: 2.1 cm LVIDs: 2.4 cm LVPWs: 1.9 cm LAESV Index (A-L): 15.49 ml/m Ao Diam: 3.3 cm (2.0 - 3.7) AV Cusp: 2.3 cm (1.5 - 2.6) LA Diam: 2.8 cm (2.7 - 3.8) MV EXCURSION: 14.230 mm (> 18.000) MV EF SLOPE: 44 mm/s (70 - 150) EPSS: 0.4 cm MV E Chencho: 0.83 m/s MV DecT: 220 ms MV A Chencho: 0.80 m/s MV E/A Ratio: 1.04 RAP: 5.00 mmHg RVSP: 13.69 mmHg FINDINGS -------- Sinus rhythm. This was a technically adequate study. The left ventricular size is normal. There is moderate concentric left ventricular hypertrophy. O verall left ventricular systolic function is normal with, an EF between 55 - 60 %. The diastolic fi lling pattern is normal for the age of the patient 9.83. The right ventricle is normal in size. Normal LA size by volume 22+/-6 ml/m2. The right atrial size is normal. The aortic valve is trileaflet, and appears structurally normal. No aortic stenosis or regurgitation. The mitral valve is normal. Mild mitral regurgitation is present. The tricuspid valve appears structurally normal. Trace tricuspid regurgitation present. Right beverley tricular systolic pressure is normal at < 35 mmHg. There is no pulmonic regurgitation present. The aortic root size is normal. Normal inferior vena cava with normal inspiratory collapse consistent with estimated right atrial pre ssure of 5 mmHg. There is no pericardial effusion. CONCLUSIONS -------- 1. There is moderate concentric left ventricular hypertrophy. 2. Overall left ventricular systolic function is normal with, an EF between 55 - 60 %. 3. Normal LA size by volume 22+/-6 ml/m2. 4. The aortic valve is trileaflet, and appears structurally normal. No aortic stenosis or regurgitati on. 5. Mild mitral regurgitation is present. 6. Trace tricuspid regurgitation present. 7. There is no pericardial effusion. PROPERTY STAFF ACCOUNTANT: Dunia Zapata RDCS
[2021-01-30 16:17] LABS: Chol/HDL Ratio 3.45; LDL Cholesterol,Calculated 68.2 mg/dL (0.0-131.0); VLDL Calculation 29.8 mg/dL (5.00-40.00)
[2021-01-30 19:39] LABS: Hemoglobin A1C 12.1 % (4.0-6.0)
[2021-01-30] MEDS ORDERED: INSULIN DETEMIR (LEVEMIR) 100 UNIT/ML SYR SQ SCH (21:00)
[2021-01-30] MEDS ORDERED: PRAMIPEXOLE 1 MG TAB PO SCH (21:00)
[2021-01-30] MEDS ORDERED: lisinopriL 5 MG TAB PO SCH (21:00)
[2021-01-30] MEDS ORDERED: metFORMIN 500 MG TAB PO SCH (21:00)
[2021-01-30] MEDS ORDERED: ESCITALOPRAM 20 MG TAB PO SCH (21:00)
[2021-01-31] MEDS ORDERED: ASPIRIN 81 MG PO SCH (09:00)
== END 2021-01-30 13:18 | disposition home or self-care (01) ==
LOC: EC 16:47 → 6NMEDSUR 18:56
PROVIDERS: ADMIT Family Medicine; ATTEND Family Medicine
DX: R07.2 Precordial pain (principal); E11.9 Type 2 diabetes mellitus without complications; E66.9 Obesity, unspecified; E87.1 Hypo-osmolality and hyponatremia; F17.210 Nicotine dependence, cigarettes, uncomplicated; G47.411 Narcolepsy with cataplexy; J44.9 Chronic obstructive pulmonary disease, unspecified; G47.33 Obstructive sleep apnea (adult) (pediatric); F32.9 Major depressive disorder, single episode, unspecified; F41.9 Anxiety disorder, unspecified; I10 Essential (primary) hypertension; G89.4 Chronic pain syndrome; M54.5 Low back pain; G25.81 Restless legs syndrome; Z68.33 Body mass index [BMI] 33.0-33.9, adult; Z88.0 Allergy status to penicillin; Z79.4 Long term (current) use of insulin; Z98.1 Arthrodesis status; Z87.39 Personal history of other diseases of the musculoskeletal system and connective tissue; Z71.6 Tobacco abuse counseling
CPT/HCPCS: 96360; 96361; 99285; 36415; 93005; 93306; 80061; 80053; 80048; 83735; 84484; 85025; 85610; 85730; 83036; 71046; G0378 ×2

== ENCOUNTER 2021-02-02 18:35 | Inpatient (IN) | payer MEDICARE, BC ==
[2021-02-02] MEDS ORDERED: ALBUTEROL NEBULIZED 2.5 MG/3 ML INHALATION STA (18:54)
[2021-02-02] MEDS ORDERED: methylPREDNISolone SOD SUCCI 125 MG/2 ML VIAL IV STA (18:54)
[2021-02-02] MEDS ORDERED: SODIUM CHLORIDE 0.9% 500 ML 500 ML IV STA (18:54)
[2021-02-02] MEDS ORDERED: IPRATROPIUM 0.5 MG/2.5 ML NEBU INHALATION STA (18:54)
--- NOTE | 2021-02-02 19:03 | ED ---
General Adult HPI - General Chief complaint: Shortness of Breath Stated complaint: SOB Time Seen by Provider: 02/02/21 18:40 Source: patient, RN notes reviewed, old records reviewed Mode of arrival: wheelchair Limitations: no limitations - History of Present Illness Initial comments: This is a 65-year-old female presents emergency Department complaining of difficulty breathing for 2 days. Patient states she's also had an increased cough over the last 2 days. Patient denies any noticeable fever. Patient states she has COPD she continues to smoke. Patient states she has been taking breathing treatments but has not been helping. Patient denies any chest pain or palpitations. Patient denies any lightheadedness dizziness. Patient denies abdominal pain patient denies nausea vomiting diarrhea per patient states she's had a chronic wound to the lateral aspect of her right thigh which she continues to pick at it checked so never heals but is been there for over a year. - Related Data Home Medications Medication Instructions Recorded Confirmed ALPRAZolam [Xanax] 0.5 mg PO BID PRN 03/23/15 02/02/21 Dextroamphetamine/Amphetamine 30 mg PO BID 03/23/15 02/02/21 [Adderall] Pramipexole [Mirapex] 2 mg PO HS 05/09/16 02/02/21 lisinopriL [Zestril] 5 mg PO HS 12/06/17 02/02/21 Escitalopram [Lexapro] 20 mg PO HS 01/29/21 02/02/21 INSULIN LISPRO (humaLOG) [humaLOG] See Protocol SQ AC-TID 01/29/21 02/02/21 Insulin Glargine [Lantus] 70 unit SQ HS 01/29/21 02/02/21 metFORMIN HCL ER [Glucophage XR] 1,000 mg PO HS 01/29/21 02/02/21 Allergies Allergy/AdvReac Type Severity Reaction Status Date / Time Penicillins Allergy Rash/Hives, Verified 01/29/21 17:54 SOB Review of Systems ROS Statement: Those systems with pertinent positive or pertinent negative responses have been documented in the HPI. ROS Other: All systems not noted in ROS Statement are negative. Past Medical History Past Medical History: Asthma, COPD, Diabetes Mellitus, Hypertension Additional Past Medical History / Comment(s): Narcalepsy, cataplexy, JOSSELIN does not wear device, restless leg syndrome, low back pain, R leg numbness at times, IDDM type II. History of Any Multi-Drug Resistant Organisms: None Reported Past Surgical History: Back Surgery Additional Past Surgical History / Comment(s): 08/18/17 laminectomy/discectomy with spacer L1-L2, lumbar cages, bilateral carpal tunnel released, L knee arthroscopy, sinus surgery, "pain injections" to back and cervical. Additional Past Anesthesia/Blood Transfusion Reaction / Comment(s): Pt's heart stopped after a "pain block" procedure that required anesthesia. Past Psychological History: Anxiety, Depression Smoking Status: Current every day smoker Past Alcohol Use History: None Reported Past Drug Use History: None Reported - Past Family History Mother Additional Family Medical History / Comment(s): adopted Father History Unknown: Yes Additional Family Medical History / Comment(s): Pt is adopted. General Exam - General Exam Comments Initial Comments: GENERAL: Patient is well-developed and well-nourished. Patient is nontoxic and well- hydrated and is in mild distress. ENT: Neck is soft and supple. No significant lymphadenopathy is noted. Oropharynx is clear. Moist mucous membranes. Neck has full range of motion without eliciting any pain. EYES: The sclera were anicteric and conjunctiva were pink and moist. Extraocular movements were intact and pupils were equal round and reactive to light. Eye lids were unremarkable. PULMONARY: Patient has diminished breath sounds diffusely wheezing diffusely. CARDIOVASCULAR: There is a regular rate and rhythm without any murmurs gallops or rubs. ABDOMEN: Soft and nontender with normal bowel sounds. SKIN: Skin is clear with no lesions or rashes and otherwise unremarkable. NEUROLOGIC: Patient is alert and oriented x3. Cranial nerves II through XII are grossly intact. Motor and sensory are also intact. Normal speech, volume and content. Symmetrical smile. MUSCULOSKELETAL: Normal extremities with adequate strength and full range of motion. LYMPHATICS: No significant lymphadenopathy is noted PSYCHIATRIC: Normal psychiatric evaluation. Limitations: no limitations Course Vital Signs 02/02/21 02/02/21 02/02/21 18:36 18:51 18:52 Temperature 97.9 F 99.7 F H Pulse Rate 112 H Respiratory 18 22 Rate Blood Pressure 147/77 O2 Sat by Pulse 93 L Oximetry 02/02/21 02/02/21 02/02/21 19:23 19:32 19:45 Temperature Pulse Rate 103 H 103 H 103 H Respiratory Rate Blood Pressure O2 Sat by Pulse Oximetry 02/02/21 19:54 Temperature Pulse Rate 103 H Respiratory Rate Blood Pressure O2 Sat by Pulse Oximetry Medical Decision Making - Medical Decision Making EKG shows sinus tachycardia at 106 bpm NH interval 156 QRS is under 26 QT interval 364 QTC is 483. Patient's EKG shows no ST segment elevation or depression Patient received 2 breathing treatments and steroids in the emergency department. After that I listened to the patient she was doing better but continued to wheeze diffusely and needed to be admitted to the hospital. Chest x-ray showed no acute abnormality. Patient had a low-grade fever there for continued antibiotics on the floor. I spoke with [facility] AGREED to admit the patient admitted the patient wrote admitting orders I continued. Treatments steroids and antibiotics on the floor - Lab Data Result diagrams: 02/02/21 19:06 02/02/21 19:06 Lab Results 02/02/21 02/02/21 02/02/21 Range/Units 19:06 19:06 19:06 WBC 6.1 (3.8-10.6) k/uL RBC 4.46 (3.80-5.40) m/uL Hgb 12.3 (11.4-16.0) gm/dL Hct 39.2 (34.0-46.0) % MCV 88.0 (80.0-100.0) fL MCH 27.6 (25.0-35.0) pg MCHC 31.4 (31.0-37.0) g/dL RDW 13.8 (11.5-15.5) % Plt Count 306 (150-450) k/uL MPV 7.1 Neutrophils % 72 % Lymphocytes % 15 % Monocytes % 5 % Eosinophils % 5 % Basophils % 1 % Neutrophils # 4.4 (1.3-7.7) k/uL Lymphocytes # 0.9 L (1.0-4.8) k/uL Monocytes # 0.3 (0-1.0) k/uL Eosinophils # 0.3 (0-0.7) k/uL Basophils # 0.1 (0-0.2) k/uL PT 9.3 (9.0-12.0) sec INR 0.8 (<1.2) APTT 21.1 L (22.0-30.0) sec Sodium 132 L (137-145) mmol/L Potassium 4.9 (3.5-5.1) mmol/L Chloride 99 (98-107) mmol/L Carbon Dioxide 25 (22-30) mmol/L Anion Gap 8 mmol/L BUN 16 (7-17) mg/dL Creatinine 0.69 (0.52-1.04) mg/dL Est GFR (CKD-EPI)AfAm >90 (>60 ml/min/1.73 sqM) Est GFR (CKD-EPI)NonAf >90 (>60 ml/min/1.73 sqM) Glucose 217 H (74-99) mg/dL Plasma Lactic Acid Liu (0.7-2.0) mmol/L Calcium 8.8 (8.4-10.2) mg/dL Magnesium 1.8 (1.6-2.3) mg/dL Total Bilirubin <0.1 L (0.2-1.3) mg/dL AST 25 (14-36) U/L ALT 19 (4-34) U/L Alkaline Phosphatase 112 (38-126) U/L Troponin I (0.000-0.034) ng/mL Total Protein 6.2 L (6.3-8.2) g/dL Albumin 3.4 L (3.5-5.0) g/dL 02/02/21 02/02/21 Range/Units 19:06 19:06 WBC (3.8-10.6) k/uL RBC (3.80-5.40) m/uL Hgb (11.4-16.0) gm/dL Hct (34.0-46.0) % MCV (80.0-100.0) fL MCH (25.0-35.0) pg MCHC (31.0-37.0) g/dL RDW (11.5-15.5) % Plt Count (150-450) k/uL MPV Neutrophils % % Lymphocytes % % Monocytes % % Eosinophils % % Basophils % % Neutrophils # (1.3-7.7) k/uL Lymphocytes # (1.0-4.8) k/uL Monocytes # (0-1.0) k/uL Eosinophils # (0-0.7) k/uL Basophils # (0-0.2) k/uL PT (9.0-12.0) sec INR (<1.2) APTT (22.0-30.0) sec Sodium (137-145) mmol/L Potassium (3.5-5.1) mmol/L Chloride (98-107) mmol/L Carbon Dioxide (22-30) mmol/L Anion Gap mmol/L BUN (7-17) mg/dL Creatinine (0.52-1.04) mg/dL Est GFR (CKD-EPI)AfAm (>60 ml/min/1.73 sqM) Est GFR (CKD-EPI)NonAf (>60 ml/min/1.73 sqM) Glucose (74-99) mg/dL Plasma Lactic Acid Liu 1.1 (0.7-2.0) mmol/L Calcium (8.4-10.2) mg/dL Magnesium (1.6-2.3) mg/dL Total Bilirubin (0.2-1.3) mg/dL AST (14-36) U/L ALT (4-34) U/L Alkaline Phosphatase (38-126) U/L Troponin I <0.012 (0.000-0.034) ng/mL Total Protein (6.3-8.2) g/dL Albumin (3.5-5.0) g/dL Disposition Clinical Impression: Acute exacerbation of chronic obstructive pulmonary disease Disposition: ADMITTED IP TO THIS HOSP Referrals: Weston Gusman DO [Primary Care Provider] - 1-2 days Time of Disposition: 20:17
[2021-02-02 19:17] LABS: Basophils # (A) 0.1 k/uL (0-0.2); Basophils % (A) 1 %; Eosinophils # (A) 0.3 k/uL (0-0.7); Eosinophils % (A) 5 %; HCT 39.2 % (34.0-46.0); HGB 12.3 gm/dL (11.4-16.0); Lymphocytes # (A) 0.9 k/uL (1.0-4.8); Lymphocytes % (A) 15 %; MCH 27.6 pg (25.0-35.0); MCHC 31.4 g/dL (31.0-37.0); Mean Platelet Volume 7.1; Monocytes # (A) 0.3 k/uL (0-1.0); Monocytes % (A) 5 %; Neutrophils # (A) 4.4 k/uL (1.3-7.7); Neutrophils % (A) 72 %; Platelet Count 306 k/uL (150-450); RBC 4.46 m/uL (3.80-5.40); RDW 13.8 % (11.5-15.5); WBC 6.1 k/uL (3.8-10.6)
[2021-02-02 19:35] LABS: ALT 19 U/L (4-34); AST 25 U/L (14-36); African American GFR (CKD) >90 (>60 ml/min/1.73 sqM); Albumin 3.4 g/dL (3.5-5.0); Alkaline Phosphatase 112 U/L (38-126); Anion Gap 8 mmol/L; Blood Urea Nitrogen 16 mg/dL (7-17); Calcium 8.8 mg/dL (8.4-10.2); Carbon Dioxide 25 mmol/L (22-30); Chloride 99 mmol/L (98-107); Glucose 217 mg/dL (74-99); INR 0.8 (<1.2); Magnesium 1.8 mg/dL (1.6-2.3); Non-African American GFR(CKD) >90 (>60 ml/min/1.73 sqM); Partial Thromboplastin Time 21.1 sec (22.0-30.0); Potassium 4.9 mmol/L (3.5-5.1); Prothrombin Time 9.3 sec (9.0-12.0); Sodium 132 mmol/L (137-145); Total Bilirubin <0.1 mg/dL (0.2-1.3); Total Protein 6.2 g/dL (6.3-8.2)
[2021-02-02] MEDS ORDERED: IPRATROPIUM-ALBUTEROL 3 ML NEB INHALATION PRN (20:17)
--- NOTE | 2021-02-02 21:28 | XR ---
EXAMINATION TYPE: XR chest 2V DATE OF EXAM: 02/02/2021 COMPARISON: 01/29/2021 HISTORY: 65 years Female. STUDY INDICATION GIVEN: difficulty breathing . TECHNIQUE: Frontal lateral chest radiographs FINDINGS AND IMPRESSION: Mild prominence of the interstitium slightly increased compared to most recent prior suggests mild pu lmonary edema which could be secondary to atypical viral infection, inflammation, small airway diseas e or cardiogenic although the heart is not enlarged. No focal airspace disease, pneumothorax or pleural effusion seen. No acute osseous abnormalities seen. Mild osteophytic changes noted.
[2021-02-02 22:21] LABS: Glucose,Whole Blood 291 mg/dL (75-99)
[2021-02-02] MEDS ORDERED: ALPRAZolam 0.5 MG TAB PO PRN (22:22)
[2021-02-02] MEDS ORDERED: PRAMIPEXOLE 1 MG TAB PO SCH (22:30)
[2021-02-02] MEDS ORDERED: ESCITALOPRAM 20 MG TAB PO SCH (22:30)
[2021-02-02] MEDS ORDERED: lisinopriL 5 MG TAB PO SCH (22:30)
[2021-02-02] MEDS ORDERED: INSULIN DETEMIR (LEVEMIR) 100 UNIT/ML SYR SQ ONE (23:00)
[2021-02-02] MEDS: NON FORMULARY DRUG (Dextroamphetamine/Amphetamine [Adderall] 30 MG Tablet) PO SCH (23:59)
[2021-02-02] MEDS: metFORMIN 500 MG TAB PO SCH (23:59)
[2021-02-03 00:01] LABS: Glucose,Whole Blood 317 mg/dL (75-99)
[2021-02-03] MEDS ORDERED: INSULIN DETEMIR (LEVEMIR) 100 UNIT/ML SYR SQ ONE ×2 (00:05→07:00)
[2021-02-03] MEDS: methylPREDNISolone SOD SUCCI 125 MG/2 ML VIAL IV SCH ×2 (01:46→05:21)
[2021-02-03 01:51] LABS: Glucose,Whole Blood 336 mg/dL (75-99)
[2021-02-03 06:56] LABS: Glucose,Whole Blood 275 mg/dL (75-99)
[2021-02-03] MEDS: metFORMIN 500 MG TAB PO SCH (07:29)
[2021-02-03] MEDS ORDERED: INSULIN ASPART (NovoLOG) 100 UNIT/ML VIAL SQ SCH (07:30)
[2021-02-03] MEDS: INSULIN ASPART (NovoLOG) 100 UNIT/ML VIAL SQ SCH ×2 (07:30→12:03)
[2021-02-03] MEDS: NON FORMULARY DRUG (Dextroamphetamine/Amphetamine [Adderall] 30 MG Tablet) PO SCH (07:31)
[2021-02-03 08:26] VITALS: BP 132/73; PULSE 76; RESP 18; TEMP 97.5
[2021-02-03] MEDS ORDERED: IPRATROPIUM-ALBUTEROL 3 ML NEB INHALATION PRN (08:40)
[2021-02-03] MEDS ORDERED: HEPARIN SODIUM,PORCINE/PF 5,000 UNIT/0.5 ML SYRINGE SQ SCH (09:00)
[2021-02-03] MEDS ORDERED: LEVOFLOXACIN 500 MG TAB PO SCH (09:00)
[2021-02-03] MEDS ORDERED: FAMOTIDINE 20 MG/2 ML VIAL IV SCH (09:00)
[2021-02-03 11:21] LABS: Glucose,Whole Blood 412 mg/dL (75-99)
--- NOTE | 2021-02-03 11:34 | P.CNPUL ---
History of Present Illness Consult date: 02/03/21 Reason for consult: dyspnea, cough Chief complaint: Dyspnea, cough, History of present illness: This is a 65-year-old white female patient with a past medical history of COPD on home oxygen, obstructive sleep apnea noncompliant with CPAP therapy, history of narcolepsy on Adderall and Lexapro, and patient follows with Dr. Gardiner in the pulmonary clinic, patient continues to smoke 1 pack a day, at least 40 pack year smoking history, hypertension, diabetes TYPE II, restless leg syndrome, anxiety, depression, chronic back pain with history of multiple surgeries. Patient came into the emergency department on 02/02/2021 for evaluation of shortness of breath, cough and wheezing. Patient's symptoms started the day before yesterday. She reports nonproductive cough, no chest pain, or palpitations, no lightheadedness or dizziness, no nausea vomiting or diarrhea. Chest x-ray showed no acute abnormality. On admission patient had a low-grade fever temp of 99.5F, she was mildly tachycardic, with a heart rate in the low 100s. She was dyspneic and bronchospastic, she was given 2 [id number] nebulizer treatments, she was started on antibiotics in the form of Rocephin, which was later switched to Levaquin, she was given Solu-Medrol 125 mg. Her admission blood work has been reviewed showing normal white count of 6.1, hemoglobin is 12.3, sodium of 132, the rest of electrolytes were within normal limits, lactic acid of 1.1, LFTs were within normal limits, troponin was less than 0.012. Today's evaluation patient is seen sitting up in bed, currently on room air, she's been afebrile overnight, vital signs have been stable, she reports significant improvement in her dyspnea, wheezing and coughing. She is currently on room air. Her pulse ox is 92%, appears quite comfortable, after evaluation we offered clearing the patient for discharge home today to which the patient agreed. Review of Systems All systems: negative Constitutional: Denies chills, Denies fever Eyes: denies blurred vision, denies pain Ears, nose, mouth and throat: Denies headache, Denies sore throat Cardiovascular: Denies chest pain, Denies shortness of breath Respiratory: Reports cough with sputum, Reports dyspnea, Denies cough Gastrointestinal: Denies abdominal pain, Denies diarrhea, Denies nausea, Denies vomiting Genitourinary: Denies dysuria, Denies hematuria Musculoskeletal: Denies myalgias Integumentary: Denies pruritus, Denies rash Neurological: Denies numbness, Denies weakness Psychiatric: Denies anxiety, Denies depression Endocrine: Denies fatigue, Denies weight change Past Medical History Past Medical History: Asthma, COPD, Diabetes Mellitus, Hypertension Additional Past Medical History / Comment(s): Narcalepsy, cataplexy, JOSSELIN does not wear device, restless leg syndrome, low back pain, R leg numbness at times, IDDM type II. chronic wound to right thigh History of Any Multi-Drug Resistant Organisms: None Reported Past Surgical History: Back Surgery Additional Past Surgical History / Comment(s): 08/18/17 laminectomy/discectomy with spacer L1-L2, lumbar cages, bilateral carpal tunnel released, L knee arthroscopy, sinus surgery, "pain injections" to back and cervical. Additional Past Anesthesia/Blood Transfusion Reaction / Comment(s): Pt's heart stopped after a "pain block" procedure that required anesthesia. Past Psychological History: Anxiety, Depression Additional Psychological History / Comment(s): She uses a rolator if going for longer walks or walking outdoors. She no longer drives, her friends or son takes her to [employer]. She has a glucometer and a nebulizer.. Lives alone in 2 bedroom apt Smoking Status: Current every day smoker Past Alcohol Use History: None Reported Additional Past Alcohol Use History / Comment(s): Pt states she currently smokes a pack a day. Past Drug Use History: None Reported - Past Family History Mother Additional Family Medical History / Comment(s): adopted Father History Unknown: Yes Additional Family Medical History / Comment(s): Pt is adopted. Medications and Allergies Home Medications Medication Instructions Recorded Confirmed Type ALPRAZolam [Xanax] 0.5 mg PO BID PRN 03/23/15 02/02/21 History Dextroamphetamine/Amphetamine 30 mg PO BID 03/23/15 02/02/21 History [Adderall] Pramipexole [Mirapex] 2 mg PO HS 05/09/16 02/02/21 History lisinopriL [Zestril] 5 mg PO HS 12/06/17 02/02/21 History Escitalopram [Lexapro] 20 mg PO HS 01/29/21 02/02/21 History INSULIN LISPRO (humaLOG) [humaLOG] See Protocol SQ AC-TID 01/29/21 02/02/21 History Insulin Glargine [Lantus] 70 unit SQ HS 01/29/21 02/02/21 History metFORMIN HCL ER [Glucophage XR] 1,000 mg PO HS 01/29/21 02/02/21 History Allergies Allergy/AdvReac Type Severity Reaction Status Date / Time Penicillins Allergy Rash/Hives, Verified 01/29/21 17:54 SOB Physical Exam Vitals: Vital Signs Temp Pulse Pulse Resp BP BP Pulse Ox 02/03/21 08:25 97.5 F L 76 18 132/73 92 L 02/03/21 08:00 89 02/03/21 07:48 86 97 02/03/21 02:00 98.1 F 81 17 118/69 96 02/02/21 21:27 98.8 F 96 19 101/63 91 L 02/02/21 21:00 97 25 H 116/74 94 L 02/02/21 20:18 98 25 H 97 02/02/21 19:54 103 H 02/02/21 19:45 103 H 02/02/21 19:32 103 H 02/02/21 19:23 103 H 02/02/21 18:52 22 02/02/21 18:51 99.7 F H 02/02/21 18:36 97.9 F 112 H 18 147/77 93 L Intake and Output 02/02/21 02/03/21 02/03/21 22:59 06:59 14:59 Other: Voiding Method Toilet # Voids 1 Weight 86.183 kg GENERAL EXAM: Alert, very pleasant, 65-year-old white female, on room air with a pulse ox of 92% comfortable in no apparent distress. HEAD: Normocephalic/atraumatic. EYES: Normal reaction of pupils, equal size. Conjunctiva pink, sclera white. NOSE: Clear with pink turbinates. THROAT: No erythema or exudates. NECK: No masses, no JVD, no thyroid enlargement, no adenopathy. CHEST: No chest wall deformity. Symmetrical expansion. LUNGS: Equal air entry with some scattered rhonchi CVS: Regular rate and rhythm, normal S1 and S2, no gallops, no murmurs, no rubs ABDOMEN: Soft, nontender. No hepatosplenomegaly, normal bowel sounds, no guar ding or rigidity. EXTREMITIES: No clubbing, no edema, no cyanosis, 2+ pulses and upper and lower extremities. MUSCULOSKELETAL: Muscle strength and tone normal. SPINE: No scoliosis or deformity SKIN: No rashes CENTRAL NERVOUS SYSTEM: Alert and oriented -3. No focal deficits, tone is normal in all 4 extremities. PSYCHIATRIC: Alert and oriented -3. Appropriate affect. Intact judgment and insight. Results - Laboratory Findings CBC and BMP: 02/02/21 19:06 02/02/21 19:06 PT/INR, D-dimer PT 9.3 sec (9.0-12.0) 02/02/21 19:06 INR 0.8 (<1.2) 02/02/21 19:06 Abnormal lab findings: Abnormal Labs 02/02/21 02/02/21 02/02/21 19:06 19:06 19:06 Lymphocytes # 0.9 L APTT 21.1 L Sodium 132 L Glucose 217 H POC Glucose (mg/dL) Total Bilirubin <0.1 L Total Protein 6.2 L Albumin 3.4 L 02/02/21 02/03/21 02/03/21 22:19 00:00 01:49 Lymphocytes # APTT Sodium Glucose POC Glucose (mg/dL) 291 H 317 H 336 H Total Bilirubin Total Protein Albumin 02/03/21 02/03/21 06:55 11:19 Lymphocytes # APTT Sodium Glucose POC Glucose (mg/dL) 275 H 412 H Total Bilirubin Total Protein Albumin - Diagnostic Findings Chest x-ray: report reviewed, image reviewed Additional studies: EKG reviewed Assessment and Plan Plan: Assessment: #1. Acute exacerbation of chronic obstructive pulmonary disease, chest x-ray showed no acute abnormality. #2. Advanced COPD on home oxygen #3. Chronic and ongoing history of smoking, currently smoking 1 pack a day, carries at least [id number] smoking history #4. History of obstructive sleep apnea, noncompliant with CPAP #5. History of narcolepsy type I, on Adderall and Lexapro #6. Hypertension #7. Diabetes multiple type II #8. Chronic back and neck pain with multiple surgeries #9. Anxiety and depression #10. Restless leg syndrome Plan: Patient reports significant improvement in her symptoms since admission Breathing comfortably, she is on room air Afebrile, chest x-ray shows no acute abnormality She was offered to be cleared for discharge home today, and she agreed From pulmonary perspective she stable for discharge home, on course of oral antibiotics, prednisone taper, and she can resume her breathing treatments Follow up with Dr. Gardiner in the office in 7-10 days I performed a history & physical examination of the patient and discussed their management with my nurse practitioner, Maryam Barker. I reviewed the nurse practitioner's note and agree with the documented findings and plan of care. Lung sounds are positive for diffuse rhonchi throughout the lung jones. The findings and the impression was discussed with the patient. I attest to the do cumentation by the nurse practitioner. Time with Patient: Greater than 30
[2021-02-03] MEDS ORDERED: INSULIN ASPART (NovoLOG) 100 UNIT/ML VIAL SQ ONE (11:42)
[2021-02-03] MEDS ORDERED: IPRATROPIUM-ALBUTEROL 3 ML NEB INHALATION SCH (12:00)
--- NOTE | 2021-02-03 12:13 | P.HPIM ---
History of Present Illness H&P Date: 02/03/21 Chief Complaint: Worsening shortness of breath History and Physical and Discharge Summary This is a 65-year-old female presented to the ER with worsening shortness of breath, cough, wheezing since the last 2-3 days in a patient who has a medical history of ongoing nicotine dependence, obstructive sleep apnea, narcolepsy, COPD, anxiety, depression, hypertension, diabetes mellitus and multiple other medical issues. Nonproductive cough. Chest x-ray reporting no acute abnormality. Denies chest pain, palpitations or increased shortness of breath. Denies lightheadedness, dizziness or focal deficits. T-max 99.7, normal WBC. Hemoglobin 12.3, sodium 132, lactic acid 1.1 , troponin less than 0.012. Maintained on antibiotics, nebulized bronchodilators, IV steroids. Blood sugars elevated as patient on steroids and received only half of her Levemir dose last night, in addition to her requesting and eating multiple servings of pudding. Review of Systems ROS Statement: Those systems with pertinent positive or pertinent negative responses have been documented in the HPI. ROS Other: All systems not noted in ROS Statement are negative. Past Medical History Past Medical History: Asthma, COPD, Diabetes Mellitus, Hypertension Additional Past Medical History / Comment(s): Narcalepsy, cataplexy, JOSSELIN does not wear device, restless leg syndrome, low back pain, R leg numbness at times, IDDM type II. chronic wound to right thigh History of Any Multi-Drug Resistant Organisms: None Reported Past Surgical History: Back Surgery Additional Past Surgical History / Comment(s): 08/18/17 laminectomy/discectomy with spacer L1-L2, lumbar cages, bilateral carpal tunnel released, L knee arthroscopy, sinus surgery, "pain injections" to back and cervical. Additional Past Anesthesia/Blood Transfusion Reaction / Comment(s): Pt's heart stopped after a "pain block" procedure that required anesthesia. Past Psychological History: Anxiety, Depression Additional Psychological History / Comment(s): She uses a rolator if going for longer walks or walking outdoors. She no longer drives, her friends or son takes her to appts. She has a glucometer and a nebulizer.. Lives alone in 2 bedroom apt Smoking Status: Current every day smoker Past Alcohol Use History: None Reported Additional Past Alcohol Use History / Comment(s): Pt states she currently smokes a pack a day. Past Drug Use History: None Reported - Past Family History Mother Additional Family Medical History / Comment(s): adopted Father History Unknown: Yes Additional Family Medical History / Comment(s): Pt is adopted. Medications and Allergies Home Medications Medication Instructions Recorded Confirmed Type ALPRAZolam [Xanax] 0.5 mg PO BID PRN 03/23/15 02/02/21 History Dextroamphetamine/Amphetamine 30 mg PO BID 03/23/15 02/02/21 History [Adderall] Pramipexole [Mirapex] 2 mg PO HS 05/09/16 02/02/21 History lisinopriL [Zestril] 5 mg PO HS 12/06/17 02/02/21 History Escitalopram [Lexapro] 20 mg PO HS 01/29/21 02/02/21 History INSULIN LISPRO (humaLOG) [humaLOG] See Protocol SQ AC-TID 01/29/21 02/02/21 History Insulin Glargine [Lantus] 70 unit SQ HS 01/29/21 02/02/21 History metFORMIN HCL ER [Glucophage XR] 1,000 mg PO HS 01/29/21 02/02/21 History Budesonide-Formot 160-4.5 Mcg 2 puff INHALATION RT-BID #1 inh 02/03/21 Rx [Symbicort 160-4.5 Mcg Inhaler] Ipratropium-Albuterol Nebulize 3 ml INHALATION RT-QID #120 ml 02/03/21 Rx [Duoneb 0.5 mg-3 mg/3 ml Soln] Levofloxacin [Levaquin] 500 mg PO DAILY #5 tab 02/03/21 Rx predniSONE 10 mg PO DIRECTED #30 tab 02/03/21 Rx Allergies Allergy/AdvReac Type Severity Reaction Status Date / Time Penicillins Allergy Rash/Hives, Verified 01/29/21 17:54 SOB Physical Exam Vitals: Vital Signs Temp Pulse Pulse Resp BP BP Pulse Ox 02/03/21 08:25 97.5 F L 76 18 132/73 92 L 02/03/21 08:00 89 02/03/21 07:48 86 97 02/03/21 02:00 98.1 F 81 17 118/69 96 02/02/21 21:27 98.8 F 96 19 101/63 91 L 02/02/21 21:00 97 25 H 116/74 94 L 02/02/21 20:18 98 25 H 97 02/02/21 19:54 103 H 02/02/21 19:45 103 H 02/02/21 19:32 103 H 02/02/21 19:23 103 H 02/02/21 18:52 22 02/02/21 18:51 99.7 F H 02/02/21 18:36 97.9 F 112 H 18 147/77 93 L Intake and Output 02/02/21 02/03/21 02/03/21 22:59 06:59 14:59 Other: Voiding Method Toilet # Voids 1 Weight 86.183 kg PHYSICAL EXAM: VITAL SIGNS: As above GENERAL: Sitting up in bed, no acute distress, HEENT: Conjunctivae normal. eyes normal. Oral mucosa moist NECK: No JVD. No thyroid enlargement. No LNs CARDIOVASCULAR: S1, S2 regular.No murmur RESPIRATION: Breath sounds diminished in the bases. No rhonchi or crackles. Expiratory wheezing initially. Currently with some scattered rhonchi ABDOMEN: Soft, nontender . No guarding. no masses palpable. No ascites, No hepatosplenomegaly.Bowel sounds heard. LEGS: No edema. no swelling PSYCHIATRY: Alert and oriented X-3, mood and affect normal. NERVOUS SYSTEM: Cranial N 2-12 grossly normal. Moves all 4 limbs. Diffuse weakness No focal deficits. Strength and sensation grossly intact.. Skin: no lesions, no rash Lymphatic system. No LN neck axilla. Results CBC & Chem 7: 02/02/21 19:06 02/02/21 19:06 Labs: Abnormal Lab Results - Last 24 Hours (Table) 02/02/21 02/02/21 02/02/21 Range/Units 19:06 19:06 19:06 Lymphocytes # 0.9 L (1.0-4.8) k/uL APTT 21.1 L (22.0-30.0) sec Sodium 132 L (137-145) mmol/L Glucose 217 H (74-99) mg/dL POC Glucose (mg/dL) (75-99) mg/dL Total Bilirubin <0.1 L (0.2-1.3) mg/dL Total Protein 6.2 L (6.3-8.2) g/dL Albumin 3.4 L (3.5-5.0) g/dL 02/02/21 02/03/21 02/03/21 Range/Units 22:19 00:00 01:49 Lymphocytes # (1.0-4.8) k/uL APTT (22.0-30.0) sec Sodium (137-145) mmol/L Glucose (74-99) mg/dL POC Glucose (mg/dL) 291 H 317 H 336 H (75-99) mg/dL Total Bilirubin (0.2-1.3) mg/dL Total Protein (6.3-8.2) g/dL Albumin (3.5-5.0) g/dL 02/03/21 Range/Units 06:55 Lymphocytes # (1.0-4.8) k/uL APTT (22.0-30.0) sec Sodium (137-145) mmol/L Glucose (74-99) mg/dL POC Glucose (mg/dL) 275 H (75-99) mg/dL Total Bilirubin (0.2-1.3) mg/dL Total Protein (6.3-8.2) g/dL Albumin (3.5-5.0) g/dL Thrombosis Risk Factor Assmnt - Choose All That Apply Each Factor Represents 1 point: Abnormal pulmonary function (COPD), Obesity (BMI >25) Each Risk Factor Represents 2 Points: Age 61-74 years Thrombosis Risk Factor Assessment Total Risk Factor Score: 4 Thrombosis Risk Factor Assessment Level: Moderate Risk Assessment and Plan Assessment: -Acute COPD exacerbation -Chronic hypoxic and hypercapnic respiratory failure, on home O2 -Ongoing nicotine abuse -Narcolepsy -Obstructive sleep apnea, noncompliant with CPAP -Restless leg syndrome -Diabetes mellitus, hyperglycemic, noncompliant, HGBA1c 12.1 -Obesity, BMI 37.4 -Anxiety, depression, chronic -Hypertension -Chronic pain syndrome Plan: Continue current medication regime, monitoring and symptomatically treatment. Maintain antibiotics,nebulized bronchodilators, IV steroids. Smoking cessation readdressed. Hemoglobin A1c 12.1, consistent carb diet reinforced, patient is advised to obtain further diabetic education in clinic with Dr. Gusman. Evaluated by pulmonary and patient has been cleared for discharge. Patient feels better, eager for discharge. Patient will be discharged home in a stable condition with guarded prognosis, once blood sugars are better controlled. Discharge Medication List ALPRAZolam [Xanax] 0.5 mg PO BID PRN 03/23/15 [History] Dextroamphetamine/Amphetamine [Adderall] 30 mg PO BID 03/23/15 [History] Pramipexole [Mirapex] 2 mg PO HS 05/09/16 [History] lisinopriL [Zestril] 5 mg PO HS 12/06/17 [History] Escitalopram [Lexapro] 20 mg PO HS 01/29/21 [History] INSULIN LISPRO (humaLOG) [humaLOG] See Protocol SQ AC-TID 01/29/21 [History] Insulin Glargine [Lantus] 70 unit SQ HS 01/29/21 [History] metFORMIN HCL ER [Glucophage XR] 1,000 mg PO HS 01/29/21 [History] Budesonide-Formot 160-4.5 Mcg [Symbicort 160-4.5 Mcg Inhaler] 2 puff INHALATION RT-BID #1 inh 02/03/21 [Rx] Ipratropium-Albuterol Nebulize [Duoneb 0.5 mg-3 mg/3 ml Soln] 3 ml INHALATION RT-QID #120 ml 02/03/21 [Rx] Levofloxacin [Levaquin] 500 mg PO DAILY #5 tab 02/03/21 [Rx] predniSONE 10 mg PO DIRECTED #30 tab 02/03/21 [Rx] The impression and plan of care has been dictated as directed. : I performed a history and examination of this patient, discussed the same with the dictator. I agree with the dictator's note ,documented as a scribe. Any additional findings or plans will be noted.
[2021-02-03 14:38] LABS: Glucose,Whole Blood 221 mg/dL (75-99)
[2021-02-03] MEDS ORDERED: SYMBICORT 160-4.5 MCG INHALER INHALATION SCH (20:00)
[2021-02-03] MEDS ORDERED: FAMOTIDINE 20 MG TAB PO SCH (21:00)
[2021-02-03] MEDS ORDERED: NON FORMULARY DRUG (Insulin Glargine 100 UNIT/ML Vial) SQ SCH (21:00)
[2021-02-03] MEDS ORDERED: INSULIN DETEMIR (LEVEMIR) 100 UNIT/ML SYR SQ SCH (21:00)
[2021-02-04] MEDS ORDERED: predniSONE 20 MG TAB PO SCH (09:00)
== END 2021-02-03 15:14 | disposition home or self-care (01) | DRG 191 ==
LOC: EC 18:35 → 4SSUR 20:17
PROVIDERS: ADMIT Family Medicine; ATTEND Family Medicine
DX: J44.1 Chronic obstructive pulmonary disease with (acute) exacerbation (principal); J96.12 Chronic respiratory failure with hypercapnia; J96.11 Chronic respiratory failure with hypoxia; Z79.4 Long term (current) use of insulin; E11.65 Type 2 diabetes mellitus with hyperglycemia; G47.33 Obstructive sleep apnea (adult) (pediatric); G25.81 Restless legs syndrome; Z98.1 Arthrodesis status; F41.9 Anxiety disorder, unspecified; F32.9 Major depressive disorder, single episode, unspecified; F17.210 Nicotine dependence, cigarettes, uncomplicated; Z79.51 Long term (current) use of inhaled steroids; G47.419 Narcolepsy without cataplexy; E66.9 Obesity, unspecified; Z68.37 Body mass index [BMI] 37.0-37.9, adult; G89.4 Chronic pain syndrome; Z99.81 Dependence on supplemental oxygen; I10 Essential (primary) hypertension; Z91.19 Patient's noncompliance with other medical treatment and regimen
CPT/HCPCS: 36415; 71046; 80053; 83605; 83735; 84484; 85025; 85610; 85730; 87040; 93005; 94640; 94644; 94760; 96361; 96374; 99285

== ENCOUNTER 2021-04-05 19:41 | Emergency (ER) | payer MEDICARE, BC ==
[2021-04-05 19:54] VITALS: TEMP 98.2
[2021-04-05] MEDS ORDERED: IPRATROPIUM 0.5 MG/2.5 ML NEBU INHALATION STA (20:09)
[2021-04-05] MEDS ORDERED: methylPREDNISolone SOD SUCCI 125 MG/2 ML VIAL IV STA (20:09)
[2021-04-05] MEDS ORDERED: ALBUTEROL NEBULIZED 2.5 MG/3 ML INHALATION STA (20:09)
--- NOTE | 2021-04-05 20:57 | ED ---
General Adult HPI - General Chief complaint: Shortness of Breath Stated complaint: SOB Time Seen by Provider: 04/05/21 20:06 Source: patient, RN notes reviewed, old records reviewed Mode of arrival: ambulatory Limitations: no limitations - History of Present Illness Initial comments: 65-year-old female presenting with worsening cough and dyspnea. Patient was seen at the urgent care and sent to the emergency department for worsening pneumonia. Patient states she has been on antibiotics recently and continues to have a productive cough and dyspnea. She is a current smoker with history of COPD. No central chest pain. No reported fever. - Related Data Home Medications Medication Instructions Recorded Confirmed ALPRAZolam [Xanax] 0.5 mg PO BID PRN 03/23/15 02/02/21 Dextroamphetamine/Amphetamine 30 mg PO BID 03/23/15 02/02/21 [Adderall] Pramipexole [Mirapex] 2 mg PO HS 05/09/16 02/02/21 lisinopriL [Zestril] 5 mg PO HS 12/06/17 02/02/21 Escitalopram [Lexapro] 20 mg PO HS 01/29/21 02/02/21 INSULIN LISPRO (humaLOG) [humaLOG] See Protocol SQ AC-TID 01/29/21 02/02/21 Insulin Glargine [Lantus Vial] 70 unit SQ HS 01/29/21 02/02/21 metFORMIN HCL ER [Glucophage XR] 1,000 mg PO HS 01/29/21 02/02/21 Previous Rx's Medication Instructions Recorded Budesonide-Formot 160-4.5 Mcg 2 puff INHALATION RT-BID #1 inh 02/03/21 [Symbicort 160-4.5 Mcg Inhaler] Ipratropium-Albuterol Nebulize 3 ml INHALATION RT-QID #120 ml 02/03/21 [Duoneb 0.5 mg-3 mg/3 ml Soln] Levofloxacin [Levaquin] 500 mg PO DAILY #5 tab 02/03/21 predniSONE 10 mg PO DIRECTED #30 tab 02/03/21 Levofloxacin [Levaquin] 500 mg PO DAILY 1 Days #5 tab 04/05/21 predniSONE 50 mg PO DAILY #5 tab 04/05/21 Allergies Allergy/AdvReac Type Severity Reaction Status Date / Time Penicillins Allergy Rash/Hives, Verified 04/05/21 19:53 SOB Review of Systems ROS Statement: Those systems with pertinent positive or pertinent negative responses have been documented in the HPI. ROS Other: All systems not noted in ROS Statement are negative. Past Medical History Past Medical History: Asthma, COPD, Diabetes Mellitus, Hypertension Additional Past Medical History / Comment(s): Narcalepsy, cataplexy, JOSSELIN does not wear device, restless leg syndrome, low back pain, R leg numbness at times, IDDM type II. chronic wound to right thigh History of Any Multi-Drug Resistant Organisms: None Reported Past Surgical History: Back Surgery Additional Past Surgical History / Comment(s): 08/18/17 laminectomy/discectomy with spacer L1-L2, lumbar cages, bilateral carpal tunnel released, L knee arthroscopy, sinus surgery, "pain injections" to back and cervical. Additional Past Anesthesia/Blood Transfusion Reaction / Comment(s): Pt's heart stopped after a "pain block" procedure that required anesthesia. Past Psychological History: Anxiety, Depression Smoking Status: Current every day smoker Past Alcohol Use History: None Reported Past Drug Use History: None Reported - Past Family History Mother Additional Family Medical History / Comment(s): adopted Father History Unknown: Yes Additional Family Medical History / Comment(s): Pt is adopted. General Exam Limitations: no limitations General appearance: alert, in no apparent distress Head exam: Present: atraumatic, normocephalic Eye exam: Present: normal appearance, PERRL ENT exam: Present: normal exam Neck exam: Present: normal inspection Respiratory exam: Present: wheezes, rhonchi. Absent: respiratory distress Cardiovascular Exam: Present: normal rhythm, tachycardia GI/Abdominal exam: Present: soft. Absent: distended, tenderness, guarding Extremities exam: Present: normal inspection, normal capillary refill Neurological exam: Present: alert, oriented X3, CN II-XII intact. Absent: motor sensory deficit Psychiatric exam: Present: normal affect, normal mood Skin exam: Present: warm, dry, intact. Absent: cyanosis, diaphoretic Course Vital Signs 04/05/21 04/05/21 04/05/21 19:53 20:30 20:42 Temperature 98.2 F Pulse Rate 118 H 110 H 112 H Respiratory 16 Rate Blood Pressure 98/62 O2 Sat by Pulse 95 Oximetry 04/05/21 21:10 Temperature Pulse Rate 110 H Respiratory 20 Rate Blood Pressure 102/65 O2 Sat by Pulse 96 Oximetry EKG Findings - EKG Comments: EKG Findings:: EKG: Sinus tachycardia, low voltage, rate of 110, NM interval 158, QRS duration 88, QTC [address] segment elevation. Medical Decision Making - Medical Decision Making 65-year-old female history of COPD presenting with increased cough and dyspnea. No fevers. Workup was initiated, she has no leukocytosis, no blood flow abnormality. She has a mild hyperglycemia. Patient well-appearing and eager for discharge. I did discuss case with Dr. Gusman will evaluate the patient an outpatient basis. Chest x-ray showing no possible right lower lobe infiltrates, no other acute findings. - Lab Data Result diagrams: 04/05/21 20:51 04/05/21 20:51 Lab Results 04/05/21 04/05/21 04/05/21 Range/Units 20:51 20:51 20:51 WBC 10.3 (3.8-10.6) k/uL RBC 4.54 (3.80-5.40) m/uL Hgb 12.3 (11.4-16.0) gm/dL Hct 39.4 (34.0-46.0) % MCV 86.8 (80.0-100.0) fL MCH 27.0 (25.0-35.0) pg MCHC 31.2 (31.0-37.0) g/dL RDW 13.9 (11.5-15.5) % Plt Count 344 (150-450) k/uL MPV 7.0 Neutrophils % 73 % Lymphocytes % 20 % Monocytes % 4 % Eosinophils % 3 % Basophils % 0 % Neutrophils # 7.5 (1.3-7.7) k/uL Lymphocytes # 2.0 (1.0-4.8) k/uL Monocytes # 0.4 (0-1.0) k/uL Eosinophils # 0.3 (0-0.7) k/uL Basophils # 0.0 (0-0.2) k/uL PT 9.4 (9.0-12.0) sec INR 0.8 (<1.2) APTT 20.3 L (22.0-30.0) sec Sodium 132 L (137-145) mmol/L Potassium 4.1 (3.5-5.1) mmol/L Chloride 99 (98-107) mmol/L Carbon Dioxide 27 (22-30) mmol/L Anion Gap 6 mmol/L BUN 15 (7-17) mg/dL Creatinine 0.76 (0.52-1.04) mg/dL Est GFR (CKD-EPI)AfAm >90 (>60 ml/min/1.73 sqM) Est GFR (CKD-EPI)NonAf 82 (>60 ml/min/1.73 sqM) Glucose 216 H (74-99) mg/dL Plasma Lactic Acid Liu (0.7-2.0) mmol/L Calcium 9.1 (8.4-10.2) mg/dL Magnesium 1.7 (1.6-2.3) mg/dL Total Bilirubin 0.3 (0.2-1.3) mg/dL AST 23 (14-36) U/L ALT 20 (4-34) U/L Alkaline Phosphatase 109 (38-126) U/L Troponin I (0.000-0.034) ng/mL Total Protein 6.0 L (6.3-8.2) g/dL Albumin 3.3 L (3.5-5.0) g/dL 04/05/21 04/05/21 Range/Units 20:51 20:51 WBC (3.8-10.6) k/uL RBC (3.80-5.40) m/uL Hgb (11.4-16.0) gm/dL Hct (34.0-46.0) % MCV (80.0-100.0) fL MCH (25.0-35.0) pg MCHC (31.0-37.0) g/dL RDW (11.5-15.5) % Plt Count (150-450) k/uL MPV Neutrophils % % Lymphocytes % % Monocytes % % Eosinophils % % Basophils % % Neutrophils # (1.3-7.7) k/uL Lymphocytes # (1.0-4.8) k/uL Monocytes # (0-1.0) k/uL Eosinophils # (0-0.7) k/uL Basophils # (0-0.2) k/uL PT (9.0-12.0) sec INR (<1.2) APTT (22.0-30.0) sec Sodium (137-145) mmol/L Potassium (3.5-5.1) mmol/L Chloride (98-107) mmol/L Carbon Dioxide (22-30) mmol/L Anion Gap mmol/L BUN (7-17) mg/dL Creatinine (0.52-1.04) mg/dL Est GFR (CKD-EPI)AfAm (>60 ml/min/1.73 sqM) Est GFR (CKD-EPI)NonAf (>60 ml/min/1.73 sqM) Glucose (74-99) mg/dL Plasma Lactic Acid Liu 1.5 (0.7-2.0) mmol/L Calcium (8.4-10.2) mg/dL Magnesium (1.6-2.3) mg/dL Total Bilirubin (0.2-1.3) mg/dL AST (14-36) U/L ALT (4-34) U/L Alkaline Phosphatase (38-126) U/L Troponin I <0.012 (0.000-0.034) ng/mL Total Protein (6.3-8.2) g/dL Albumin (3.5-5.0) g/dL Disposition Clinical Impression: Acute exacerbation of chronic obstructive airways disease Disposition: HOME SELF-CARE Condition: Fair Instructions (If sedation given, give patient instructions): COPD (Chronic Obstructive Pulmonary Disease) (ED) Prescriptions: Levofloxacin [Levaquin] 500 mg PO DAILY 1 Days #5 tab predniSONE 50 mg PO DAILY #5 tab Is patient prescribed a controlled substance at d/c from ED?: No Referrals: Weston Gusman DO [Primary Care Provider] - 1-2 days Time of Disposition: 22:27
[2021-04-05 20:59] LABS: Basophils % (A) 0 %; Eosinophils # (A) 0.3 k/uL (0-0.7); Eosinophils % (A) 3 %; HCT 39.4 % (34.0-46.0); HGB 12.3 gm/dL (11.4-16.0); Lymphocytes % (A) 20 %; MCHC 31.2 g/dL (31.0-37.0); MCV 86.8 fL (80.0-100.0); Monocytes # (A) 0.4 k/uL (0-1.0); Monocytes % (A) 4 %; Neutrophils # (A) 7.5 k/uL (1.3-7.7); Neutrophils % (A) 73 %; Platelet Count 344 k/uL (150-450); RBC 4.54 m/uL (3.80-5.40); RDW 13.9 % (11.5-15.5); WBC 10.3 k/uL (3.8-10.6)
[2021-04-05 21:09] LABS: ALT 20 U/L (4-34); AST 23 U/L (14-36); African American GFR (CKD) >90 (>60 ml/min/1.73 sqM); Albumin 3.3 g/dL (3.5-5.0); Alkaline Phosphatase 109 U/L (38-126); Anion Gap 6 mmol/L; Blood Urea Nitrogen 15 mg/dL (7-17); Calcium 9.1 mg/dL (8.4-10.2); Carbon Dioxide 27 mmol/L (22-30); Chloride 99 mmol/L (98-107); Glucose 216 mg/dL (74-99); Magnesium 1.7 mg/dL (1.6-2.3); Non-African American GFR(CKD) 82 (>60 ml/min/1.73 sqM); Potassium 4.1 mmol/L (3.5-5.1); Sodium 132 mmol/L (137-145); Total Bilirubin 0.3 mg/dL (0.2-1.3)
[2021-04-05 21:21] LABS: INR 0.8 (<1.2); Prothrombin Time 9.4 sec (9.0-12.0)
[2021-04-05 21:24] LABS: Partial Thromboplastin Time 20.3 sec (22.0-30.0)
[2021-04-05] MEDS ORDERED: cefTRIAXone IN SWFI 1,000 MG/10 ML SYRINGE IVP STA (22:16)
--- NOTE | 2021-04-05 22:28 | XR ---
EXAMINATION TYPE: XR chest 2V DATE OF EXAM: 04/05/2021 COMPARISON: 02/02/2021 HISTORY: Difficulty breathing TECHNIQUE: 2 views FINDINGS: There is blunting left costophrenic angle. The right lung is fairly clear. There is no hear t failure. Heart is borderline enlarged. IMPRESSION: There is some left pleural effusion and left lower lobe infiltrate which is mostly new co mpared to old exam. No heart failure seen.
[2021-04-05 22:53] VITALS: BP 105/66; PULSE 103; RESP 18
== END 2021-04-05 22:40 | disposition home or self-care (01) ==
LOC: EC 19:41
DX: J44.1 Chronic obstructive pulmonary disease with (acute) exacerbation (principal); E11.9 Type 2 diabetes mellitus without complications; I10 Essential (primary) hypertension; F32.9 Major depressive disorder, single episode, unspecified; F41.9 Anxiety disorder, unspecified; F17.200 Nicotine dependence, unspecified, uncomplicated; Z79.4 Long term (current) use of insulin; Z79.51 Long term (current) use of inhaled steroids; Z79.52 Long term (current) use of systemic steroids; Z88.0 Allergy status to penicillin
CPT/HCPCS: 36415; 94640; 93005; 80053; 83605; 83735; 84484; 85025; 85610; 85730; 87040; 71046; 96374; 96375; 99285; J2930; J0696

== ENCOUNTER 2021-06-02 16:39 | Inpatient (IN) | payer MEDICARE, BC ==
[2021-06-02] MEDS ORDERED: IPRATROPIUM 0.5 MG/2.5 ML NEBU INHALATION STA (17:31)
[2021-06-02] MEDS ORDERED: methylPREDNISolone SOD SUCCI 125 MG/2 ML VIAL IV STA (17:31)
[2021-06-02] MEDS ORDERED: SODIUM CHLORIDE 0.9% 1,000 ML IV STA (17:31)
[2021-06-02] MEDS ORDERED: ALBUTEROL NEBULIZED 2.5 MG/3 ML INHALATION STA (17:31)
[2021-06-02] MEDS ORDERED: SODIUM CHLORIDE 0.9% 500 ML 500 ML IV STA (17:31)
[2021-06-02 17:49] LABS: Basophils # (A) 0.1 k/uL (0-0.2); Basophils % (A) 1 %; Eosinophils # (A) 0.1 k/uL (0-0.7); Eosinophils % (A) 1 %; HCT 37.7 % (34.0-46.0); HGB 11.8 gm/dL (11.4-16.0); Hypochromasia Slight; Lymphocytes # (A) 0.5 k/uL (1.0-4.8); Lymphocytes % (A) 7 %; MCH 25.8 pg (25.0-35.0); MCHC 31.4 g/dL (31.0-37.0); MCV 82.1 fL (80.0-100.0); Monocytes # (A) 0.5 k/uL (0-1.0); Monocytes % (A) 6 %; Neutrophils # (A) 6.6 k/uL (1.3-7.7); Neutrophils % (A) 84 %; Platelet Count 363 k/uL (150-450); RBC 4.59 m/uL (3.80-5.40); RDW 13.9 % (11.5-15.5); WBC 7.8 k/uL (3.8-10.6)
[2021-06-02 17:59] LABS: ALT 26 U/L (4-34); AST 27 U/L (14-36); African American GFR (CKD) >90 (>60 ml/min/1.73 sqM); Albumin 3.5 g/dL (3.5-5.0); Alkaline Phosphatase 118 U/L (38-126); Anion Gap 8 mmol/L; Blood Urea Nitrogen 15 mg/dL (7-17); Carbon Dioxide 28 mmol/L (22-30); Chloride 96 mmol/L (98-107); Glucose 235 mg/dL (74-99); Magnesium 1.8 mg/dL (1.6-2.3); Non-African American GFR(CKD) >90 (>60 ml/min/1.73 sqM); Potassium 4.5 mmol/L (3.5-5.1); Sodium 132 mmol/L (137-145); Total Bilirubin 0.2 mg/dL (0.2-1.3); Total Protein 6.3 g/dL (6.3-8.2)
[2021-06-02 18:11] LABS: INR 0.9 (<1.2); Prothrombin Time 9.8 sec (9.0-12.0)
[2021-06-02 18:12] LABS: Partial Thromboplastin Time 21.9 sec (22.0-30.0)
[2021-06-02] MEDS ORDERED: MORPHINE SULFATE 4 MG/ML SYRINGE IVP STA (18:49)
--- NOTE | 2021-06-02 19:01 | XR ---
EXAMINATION TYPE: XR chest 1V portable DATE OF EXAM: 06/02/2021 HISTORY: Shortness of breath. COMPARISON: 04/05/2021 TECHNIQUE: Single view of the chest is submitted. FINDINGS: Demonstrated are scattered senescent parenchymal change. There is near complete opacification left hemithorax which is felt to reflect a combination of the ef fusion, infiltrate and/or atelectasis. Underlying mass is not excluded. The right lung is clear. The heart is stable. Hilar and mediastinal structures are within normal limits. Degenerative changes are seen of the dorsal spine. IMPRESSION: 1. There is near complete opacification left hemithorax which is felt to reflect a combination of th e effusion, infiltrate and/or atelectasis. Underlying mass is not excluded. .
[2021-06-02] MEDS ORDERED: LORazepam 2 MG/ML INJ IV STA (19:54)
[2021-06-02] MEDS ORDERED: MORPHINE SULFATE 2 MG/ML SYRINGE IVP STA (19:55)
[2021-06-02] MEDS ORDERED: ACETAMINOPHEN TAB 325 MG TAB PO PRN (20:01)
[2021-06-02] MEDS ORDERED: NALOXONE 0.4 MG/ML 1 ML VIAL IV PRN (20:01)
[2021-06-02] MEDS ORDERED: ALBUTEROL HFA INHALER INHALATION PRN (20:03)
[2021-06-02] MEDS ORDERED: cefTRIAXone IN SWFI 1,000 MG/10 ML SYRINGE IVP STA (20:04)
[2021-06-02] MEDS ORDERED: AZITHROMYCIN 500 MG in SODIUM CHLORIDE 0.9% 250 ML IVPB STA (20:04)
--- NOTE | 2021-06-02 20:08 | ED ---
General Adult HPI - General Chief complaint: Shortness of Breath Stated complaint: SEBASTIAN,COPD,ASTHMA Time Seen by Provider: 06/02/21 17:20 Source: patient, RN notes reviewed, old records reviewed Mode of arrival: wheelchair Limitations: no limitations - History of Present Illness Initial comments: 58-year-old female presenting with 1 week of increased cough and dyspnea. History is somewhat limited secondary to respiratory distress. She denies fever. She does report some chest pain which is worse with deep breathing. She also has some back pain which is been present for the past one month. No abdominal pain. - Related Data Home Medications Medication Instructions Recorded Confirmed ALPRAZolam [Xanax] 0.5 mg PO BID PRN 03/23/15 06/02/21 Dextroamphetamine/Amphetamine 30 mg PO BID@0900,1400 03/23/15 06/02/21 [Adderall] Pramipexole [Mirapex] 2 mg PO HS 05/09/16 06/02/21 lisinopriL [Zestril] 5 mg PO HS 12/06/17 06/02/21 Escitalopram [Lexapro] 20 mg PO HS 01/29/21 06/02/21 metFORMIN HCL ER [Glucophage XR] 1,000 mg PO HS 01/29/21 06/02/21 Budesonide-Formot 160-4.5 Mcg 1 puff INHALATION RT-BID 06/02/21 06/02/21 [Symbicort 160-4.5 Mcg Inhaler] Allergies Allergy/AdvReac Type Severity Reaction Status Date / Time Penicillins Allergy Rash/Hives, Verified 06/02/21 19:24 SOB Review of Systems ROS Statement: Those systems with pertinent positive or pertinent negative responses have been documented in the HPI. ROS Other: All systems not noted in ROS Statement are negative. Past Medical History Past Medical History: Asthma, COPD, Diabetes Mellitus, Hypertension Additional Past Medical History / Comment(s): Narcalepsy, cataplexy, JOSSELIN does not wear device, restless leg syndrome, low back pain, R leg numbness at times, IDDM type II. chronic wound to right thigh History of Any Multi-Drug Resistant Organisms: None Reported Past Surgical History: Back Surgery Additional Past Surgical History / Comment(s): 08/18/17 laminectomy/discectomy with spacer L1-L2, lumbar cages, bilateral carpal tunnel released, L knee arthroscopy, sinus surgery, "pain injections" to back and cervical. Additional Past Anesthesia/Blood Transfusion Reaction / Comment(s): Pt's heart stopped after a "pain block" procedure that required anesthesia. Past Psychological History: Anxiety, Depression Smoking Status: Current every day smoker Past Alcohol Use History: None Reported Past Drug Use History: None Reported - Past Family History Mother Additional Family Medical History / Comment(s): adopted Father History Unknown: Yes Additional Family Medical History / Comment(s): Pt is adopted. General Exam Limitations: no limitations General appearance: alert, in distress Head exam: Present: atraumatic, normocephalic Eye exam: Present: normal appearance, PERRL ENT exam: Present: normal exam Neck exam: Present: normal inspection. Absent: tenderness, meningismus Respiratory exam: Present: respiratory distress, wheezes, accessory muscle use, decreased breath sounds Cardiovascular Exam: Present: normal rhythm, tachycardia GI/Abdominal exam: Present: soft. Absent: distended, tenderness, guarding Extremities exam: Present: normal inspection, normal capillary refill. Absent: pedal edema Neurological exam: Present: alert, oriented X3, CN II-XII intact. Absent: motor sensory deficit Psychiatric exam: Present: anxious Skin exam: Present: warm, dry, intact. Absent: cyanosis, diaphoretic Course Vital Signs 06/02/21 06/02/21 06/02/21 17:06 17:35 17:46 Temperature 99.7 F H 98.0 F Pulse Rate 131 H 126 H 124 H Respiratory 28 H 30 H Rate Blood Pressure 129/78 111/71 O2 Sat by Pulse 92 L 99 Oximetry 06/02/21 06/02/21 06/02/21 18:10 18:27 18:47 Temperature Pulse Rate 120 H 120 H 121 H Respiratory 24 Rate Blood Pressure O2 Sat by Pulse 83 L Oximetry 06/02/21 19:07 Temperature Pulse Rate 121 H Respiratory 22 Rate Blood Pressure 134/92 O2 Sat by Pulse 98 Oximetry EKG Findings - EKG Comments: EKG Findings:: EKG: Sinus tachycardia, left bundle branch block, rate of 124, OR interval 168, QRS duration 126, QTC 482. Medical Decision Making - Medical Decision Making 14-year-old female presenting with cough and dyspnea for one week. History COPD. Patient is in moderate respiratory distress upon arrival. She is wheezing bilateral lung jones. Chest x-rays obtained which shows a past patient left hemithorax. Patient does test positive for coronavirus. Given these opacification on x-ray she is started on antibiotics to cover for secondary pneumonia. She will be treated for COPD exacerbation. She is buddy ntained on BiPAP. There is no ICU beds currently she will be monitored in the emergency department, admitted to internal medicine awaiting bed placement and pulmonology is placed on consult. - Lab Data Result diagrams: 06/02/21 17:37 06/02/21 17:37 Lab Results 06/02/21 06/02/21 06/02/21 Range/Units 17:37 17:37 17:37 WBC 7.8 (3.8-10.6) k/uL RBC 4.59 (3.80-5.40) m/uL Hgb 11.8 (11.4-16.0) gm/dL Hct 37.7 (34.0-46.0) % MCV 82.1 (80.0-100.0) fL MCH 25.8 (25.0-35.0) pg MCHC 31.4 (31.0-37.0) g/dL RDW 13.9 (11.5-15.5) % Plt Count 363 (150-450) k/uL MPV 7.0 Neutrophils % 84 % Lymphocytes % 7 % Monocytes % 6 % Eosinophils % 1 % Basophils % 1 % Neutrophils # 6.6 (1.3-7.7) k/uL Lymphocytes # 0.5 L (1.0-4.8) k/uL Monocytes # 0.5 (0-1.0) k/uL Eosinophils # 0.1 (0-0.7) k/uL Basophils # 0.1 (0-0.2) k/uL Hypochromasia Slight PT 9.8 (9.0-12.0) sec INR 0.9 (<1.2) APTT 21.9 L (22.0-30.0) sec Sodium 132 L (137-145) mmol/L Potassium 4.5 (3.5-5.1) mmol/L Chloride 96 L (98-107) mmol/L Carbon Dioxide 28 (22-30) mmol/L Anion Gap 8 mmol/L BUN 15 (7-17) mg/dL Creatinine 0.65 (0.52-1.04) mg/dL Est GFR (CKD-EPI)AfAm >90 (>60 ml/min/1.73 sqM) Est GFR (CKD-EPI)NonAf >90 (>60 ml/min/1.73 sqM) Glucose 235 H (74-99) mg/dL Plasma Lactic Acid Liu (0.7-2.0) mmol/L Calcium 9.0 (8.4-10.2) mg/dL Magnesium 1.8 (1.6-2.3) mg/dL Total Bilirubin 0.2 (0.2-1.3) mg/dL AST 27 (14-36) U/L ALT 26 (4-34) U/L Alkaline Phosphatase 118 (38-126) U/L Troponin I (0.000-0.034) ng/mL NT-Pro-B Natriuret Pep pg/mL Total Protein 6.3 (6.3-8.2) g/dL Albumin 3.5 (3.5-5.0) g/dL Coronavirus (PCR) (Not Detectd) 06/02/21 06/02/21 06/02/21 Range/Units 17:37 17:37 17:37 WBC (3.8-10.6) k/uL RBC (3.80-5.40) m/uL Hgb (11.4-16.0) gm/dL Hct (34.0-46.0) % MCV (80.0-100.0) fL MCH (25.0-35.0) pg MCHC (31.0-37.0) g/dL RDW (11.5-15.5) % Plt Count (150-450) k/uL MPV Neutrophils % % Lymphocytes % % Monocytes % % Eosinophils % % Basophils % % Neutrophils # (1.3-7.7) k/uL Lymphocytes # (1.0-4.8) k/uL Monocytes # (0-1.0) k/uL Eosinophils # (0-0.7) k/uL Basophils # (0-0.2) k/uL Hypochromasia PT (9.0-12.0) sec INR (<1.2) APTT (22.0-30.0) sec Sodium (137-145) mmol/L Potassium (3.5-5.1) mmol/L Chloride (98-107) mmol/L Carbon Dioxide (22-30) mmol/L Anion Gap mmol/L BUN (7-17) mg/dL Creatinine (0.52-1.04) mg/dL Est GFR (CKD-EPI)AfAm (>60 ml/min/1.73 sqM) Est GFR (CKD-EPI)NonAf (>60 ml/min/1.73 sqM) Glucose (74-99) mg/dL Plasma Lactic Acid Liu 1.3 (0.7-2.0) mmol/L Calcium (8.4-10.2) mg/dL Magnesium (1.6-2.3) mg/dL Total Bilirubin (0.2-1.3) mg/dL AST (14-36) U/L ALT (4-34) U/L Alkaline Phosphatase (38-126) U/L Troponin I <0.012 (0.000-0.034) ng/mL NT-Pro-B Natriuret Pep 77 pg/mL Total Protein (6.3-8.2) g/dL Albumin (3.5-5.0) g/dL Coronavirus (PCR) (Not Detectd) 06/02/21 Range/Units 18:09 WBC (3.8-10.6) k/uL RBC (3.80-5.40) m/uL Hgb (11.4-16.0) gm/dL Hct (34.0-46.0) % MCV (80.0-100.0) fL MCH (25.0-35.0) pg MCHC (31.0-37.0) g/dL RDW (11.5-15.5) % Plt Count (150-450) k/uL MPV Neutrophils % % Lymphocytes % % Monocytes % % Eosinophils % % Basophils % % Neutrophils # (1.3-7.7) k/uL Lymphocytes # (1.0-4.8) k/uL Monocytes # (0-1.0) k/uL Eosinophils # (0-0.7) k/uL Basophils # (0-0.2) k/uL Hypochromasia PT (9.0-12.0) sec INR (<1.2) APTT (22.0-30.0) sec Sodium (137-145) mmol/L Potassium (3.5-5.1) mmol/L Chloride (98-107) mmol/L Carbon Dioxide (22-30) mmol/L Anion Gap mmol/L BUN (7-17) mg/dL Creatinine (0.52-1.04) mg/dL Est GFR (CKD-EPI)AfAm (>60 ml/min/1.73 sqM) Est GFR (CKD-EPI)NonAf (>60 ml/min/1.73 sqM) Glucose (74-99) mg/dL Plasma Lactic Acid Liu (0.7-2.0) mmol/L Calcium (8.4-10.2) mg/dL Magnesium (1.6-2.3) mg/dL Total Bilirubin (0.2-1.3) mg/dL AST (14-36) U/L ALT (4-34) U/L Alkaline Phosphatase (38-126) U/L Troponin I (0.000-0.034) ng/mL NT-Pro-B Natriuret Pep pg/mL Total Protein (6.3-8.2) g/dL Albumin (3.5-5.0) g/dL Coronavirus (PCR) Detected A (Not Detectd) Critical Care Time Critical Care Time: Yes Total Critical Care Time: 35 Disposition Clinical Impression: Acute exacerbation of chronic obstructive airways disease, Pneumonia, COVID-19 Disposition: ADMITTED IP TO THIS [facility] Condition: Serious Is patient prescribed a controlled substance at d/c from ED?: No Referrals: Weston Gusman DO [Primary Care Provider] - 1-2 days Time of Disposition: 20:07 Decision to Admit Reason: Admit from EC Decision Date: 06/02/21 Decision Time: 20:07
[2021-06-02] MEDS: SODIUM CHLORIDE 0.9% 1,000 ML IV SCH (20:56)
[2021-06-02 21:49] LABS: Glucose,Whole Blood 211 mg/dL (75-99)
[2021-06-02] MEDS: methylPREDNISolone SOD SUCCI 125 MG/2 ML VIAL IV SCH (22:55)
[2021-06-03] MEDS: LORazepam 2 MG/ML INJ IV PRN ×2 (03:11→19:39)
[2021-06-03] MEDS: MORPHINE SULFATE 4 MG/ML SYRINGE IV PRN (05:00)
[2021-06-03] MEDS: methylPREDNISolone SOD SUCCI 125 MG/2 ML VIAL IV SCH ×3 (05:00→17:22)
[2021-06-03 06:27] LABS: Glucose,Whole Blood 242 mg/dL (75-99)
[2021-06-03] MEDS: INSULIN ASPART (NovoLOG) 100 UNIT/ML VIAL SQ SCH ×4 (06:44→21:21)
[2021-06-03] MEDS: ALBUTEROL HFA INHALER INHALATION SCH ×4 (08:05→20:52)
[2021-06-03 11:33] LABS: Glucose,Whole Blood 170 mg/dL (75-99)
[2021-06-03 11:39] LABS: ABG Base Excess 2.8 mmol/L; ABG HCO3 29 mmol/L (21-25); ABG Oxygen Saturation 95.4 % (94-97); ABG PCO2 53 mmHg (35-45); ABG PH 7.34 (7.35-7.45); ABG PO2 77 mmHg (83-108); ABG TCO2 30 mmol/L (19-24); Allen Test Performed? Yes
--- NOTE | 2021-06-03 12:03 | P.CNPUL ---
History of Present Illness Consult date: 06/03/21 Reason for consult: dyspnea, COPD History of present illness: 65-year-old female patient who is presenting to the emergency department because of an acute respiratory distress. The patient came in yesterday to emergency and she was complaining of increased cough and shortness of breath away 1 week duration. She denied having any fever. She had some pain worse with breathing across her chest. Her chest x-ray was done and showed near-complete opacities of the left lung which was a new finding. In the emergency department, the patient was found to have a white cell count of 7.8 with hemoglobin of 11.8, sodium is at 132 with a BUN of 15 a creatinine of 0.35. The patient's proBNP level was nonelevated, troponins were negative, and she had also normal coagulation profile. At that point, the patient was admitted to the hospital and a pulmonary consultation was requested. The patient was started on Proventil HFA and the patient was also started on IV Solu-Medrol. On a separate note, the patient hospitalist nocturnist physician to be positive for COVID 19. Note that this patient has been vaccinated for COVID 19. The patient is known to me. The patient is known to have advanced COPD along with obstructive sleep apnea and she has been able to tolerate CPAP therapy on outpatient basis. She has also history of narcolepsy maintained on Enbrel and L exapro on outpatient basis. She is known to have diabetes, hypertension, chronic anxiety and depression and chronic back pain. She has also symptoms of RLS. She was in the hospital back in January 2021 for worsening shortness of breath and COPD exacerbation. The patient's condition was optimized and the patient was discharged home. She is maintained on Symbicort on outpatient basis regarding her COPD. No nausea. No vomiting. No emesis. No diarrhea. I saw this patient on an urgent basis. 8 team was called earlier this morning as the patient was in considerable multivessel distress. She is currently on a BiPAP at a pressure of 12/5 cm of water and FiO2 of 35%. She had marked dimini shed breath sound bilaterally and diffuse expiratory wheezes on the right. She has also absent breath on the left. The chest x-ray was repeated and the patient had complete opacification of the left lung. I performed an emergent bedside thoracentesis draining approximately 1.3 L of fluid from the left lung. Follow-up chest x-rays to follow. Note that her chest x-ray did not reveal any significant pleural effusion. She is currently on a BiPAP for respiratory support. She is also and accommodation bronchodilators and steroids. Review of Systems Patient was unable to communicate because of her significant shortness of breath and the patient was also on BiPAP as mentioned earlier in my dictation note. Past Medical History Past Medical History: Asthma, COPD, Diabetes Mellitus, Hypertension Additional Past Medical History / Comment(s): Narcalepsy, cataplexy, JOSSELIN does not wear device, restless leg syndrome, low back pain, R leg numbness at times, IDDM type II. chronic wound to right thigh History of Any Multi-Drug Resistant Organisms: None Reported Past Surgical History: Back Surgery Additional Past Surgical History / Comment(s): 08/18/17 laminectomy/discectomy with spacer L1-L2, lumbar cages, bilateral carpal tunnel released, L knee arthroscopy, sinus surgery, "pain injections" to back and cervical. Additional Past Anesthesia/Blood Transfusion Reaction / Comment(s): Pt's heart stopped after a "pain block" procedure that required anesthesia. Past Psychological History: Anxiety, Depression Additional Psychological History / Comment(s): She uses a rolator if going for longer walks or walking outdoors. She no longer drives, her friends or son takes her to appts. She has a glucometer and a nebulizer.. Lives alone in 2 bedroom apt Smoking Status: Current every day smoker Past Alcohol Use History: None Reported Additional Past Alcohol Use History / Comment(s): Pt states she currently smokes a pack a day. Past Drug Use History: None Reported - Past Family History Mother Additional Family Medical History / Comment(s): adopted Father History Unknown: Yes Additional Family Medical History / Comment(s): Pt is adopted. Medications and Allergies Home Medications Medication Instructions Recorded Confirmed Type ALPRAZolam [Xanax] 0.5 mg PO BID PRN 03/23/15 06/02/21 History Dextroamphetamine/Amphetamine 30 mg PO BID@0900,1400 03/23/15 06/02/21 History [Adderall] Pramipexole [Mirapex] 2 mg PO HS 05/09/16 06/02/21 History lisinopriL [Zestril] 5 mg PO HS 12/06/17 06/02/21 History Escitalopram [Lexapro] 20 mg PO HS 01/29/21 06/02/21 History metFORMIN HCL ER [Glucophage XR] 1,000 mg PO HS 01/29/21 06/02/21 History Budesonide-Formot 160-4.5 Mcg 1 puff INHALATION RT-BID 06/02/21 06/02/21 History [Symbicort 160-4.5 Mcg Inhaler] Allergies Allergy/AdvReac Type Severity Reaction Status Date / Time Penicillins Allergy Rash/Hives, Verified 06/02/21 19:24 SOB Physical Exam Vitals: Vital Signs Temp Pulse Pulse Resp BP BP Pulse Ox 06/03/21 09:10 97.8 F 87 18 113/79 93 L 06/03/21 08:00 18 06/03/21 04:44 110 H 24 95 06/03/21 04:00 106 H 21 149/76 94 L 06/03/21 01:53 109 H 22 06/03/21 00:00 98.5 F 109 H 22 145/80 95 06/02/21 21:55 109 H 22 06/02/21 21:50 98.6 F 119 H 20 133/69 96 06/02/21 20:05 118 H 30 H 149/113 96 06/02/21 19:07 121 H 22 134/92 98 06/02/21 18:47 121 H 24 83 L 06/02/21 18:27 120 H 06/02/21 18:10 120 H 06/02/21 17:46 124 H 06/02/21 17:35 98.0 F 126 H 30 H 111/71 99 06/02/21 17:06 99.7 F H 131 H 28 H 129/78 92 L Intake and Output 06/02/21 06/03/21 06/03/21 22:59 06:59 14:59 Intake Total 250 250 Output Total 0 Balance 250 250 Intake: Intake, IV Titration 250 Amount Azithromycin 500 mg In 250 Sodium Chloride 0.9% 250 ml @ 250 mls/hr IVPB ONCE STA Rx#:[id number] Oral 250 Output: Urine 0 Other: Voiding Method Bedpan Weight 90.718 kg GENERAL EXAM: Alert, very pleasant, 65-year-old white female, the patient currently is in significant amount of respiratory distress and the patient is on BiPAP for respiratory support at a pressure of 12/5 cm of water. She is having labored breathing. HEAD: Normocephalic/atraumatic. EYES: Normal reaction of pupils, equal size. Conjunctiva pink, sclera white. NOSE: Clear with pink turbinates. THROAT: No erythema or exudates. NECK: No masses, no JVD, no thyroid enlargement, no adenopathy. CHEST: No chest wall deformity. Symmetrical expansion. LUNGS: Asymmetric breath sounds. Absent breath on the left. Diffuse expiratory wheezes on the right with prolongation of the exhalation phase of breathing. She is quite short of breath, using excessive muscle breathing. She is also on a BiPAP. CVS: Regular rate and rhythm, normal S1 and S2, no gallops, no murmurs, no rubs ABDOMEN: Soft, nontender. No hepatosplenomegaly, normal bowel sounds, no guarding or rigidity. EXTREMITIES: No clubbing, no edema, no cyanosis, 2+ pulses and upper and lower extremities. MUSCULOSKELETAL: Muscle strength and tone normal. SPINE: No scoliosis or deformity SKIN: No rashes CENTRAL NERVOUS SYSTEM: Alert and oriented -3. No focal deficits, tone is normal in all 4 extremities. PSYCHIATRIC: Alert and oriented -3. Appropriate affect. Intact judgment and insight. Results - Laboratory Findings CBC and BMP: 06/02/21 17:37 06/02/21 17:37 ABG ABG pH 7.34 (7.35-7.45) L 06/03/21 11:36 ABG pCO2 53 mmHg (35-45) H 06/03/21 11:36 ABG pO2 77 mmHg (83-108) L 06/03/21 11:36 ABG O2 Saturation 95.4 % (94-97) 06/03/21 11:36 PT/INR, D-dimer PT 9.8 sec (9.0-12.0) 06/02/21 17:37 INR 0.9 (<1.2) 06/02/21 17:37 Abnormal lab findings: Abnormal Labs 06/02/21 06/02/21 12 17:37 17:37 17:37 Lymphocytes # 0.5 L APTT 21.9 L ABG pH ABG pCO2 ABG pO2 ABG HCO3 ABG Total CO2 Sodium 132 L Chloride 96 L Glucose 235 H POC Glucose (mg/dL) Coronavirus (PCR) 06/02/21 06/02/21 06/03/21 18:09 21:47 06:25 Lymphocytes # APTT ABG pH ABG pCO2 ABG pO2 ABG HCO3 ABG Total CO2 Sodium Chloride Glucose POC Glucose (mg/dL) 211 H 242 H Coronavirus (PCR) Detected A 06/03/21 06/03/21 11:27 11:36 Lymphocytes # APTT ABG pH 7.34 L ABG pCO2 53 H ABG pO2 77 L ABG HCO3 29 H ABG Total CO2 30 H Sodium Chloride Glucose POC Glucose (mg/dL) 170 H Coronavirus (PCR) - Diagnostic Findings Chest x-ray: image reviewed Assessment and Plan Plan: 1 acute hypoxic respiratory failure. The patient was seen on an emergent basis as the patient was having considerable amount of shortness of breath and the patient was on a BiPAP at a pressure of 12/5 cm of water with an FiO2 of 40%. Chest x-ray was noted. There was complete opacification of the left lung and the patient underwent an emergent left-sided thoracentesis. Chest x-rays to follow. A total of 1.3 L of fluid was aspirated from the left lung 2 complete opacification of the left lung likely secondary to combination of effusion atelectasis. The patient underwent an emergent thoracentesis with a total of 1.3 L of fluid was aspirated. The fluid will be sent for analysis 3 acute on top of chronic hypoxic respiratory failure. 4 COPD with previous hospital physician for COPD exacerbation 5 acute COVID 19 infection, cancer COVID 19 related pneumonia. The patient has been vaccinated. 6 acute COPD exacerbation 7 obstructive sleep apnea nontolerant to CPAP therapy 8 history of narcolepsy 9 obesity. 10 Hypertension 11 Diabetes multiple type II 12 Chronic back and neck pain with multiple surgeries 13 Anxiety and depression 14 Restless leg syndrome MARIELY Emergent thoracentesis was done and the fluid will be sent for analysis including cytology. We'll cover the patient with broad-spectrum antibiotics with IV Zosyn Continue to IV Solu-Medrol 60 mg IV push every 6 hours Continue BiPAP for respiratory support at a pressure of 12/5 cm of water. Blood gases was noted that showed a component of acute respiratory acidosis with a pH of 7.34 and a pCO2 of 52 check inflammatory markers including LDH, CRP and d-dimer is also check pro calcitonin levels Proceed with a CTA of the chest Condition is somewhat critical. The patient underwent emergent thoracentesis. We'll continue to follow make further recommendations based on her progress. She was extended short of breath at time of admission. She progressed and the patient is already feeling better post thoracentesis. A follow-up chest x-rays to follow.
--- NOTE | 2021-06-03 12:05 | P.PCN ---
Date of Procedure: 06/03/21 Preoperative Diagnosis: Left-sided pleural effusion Postoperative Diagnosis: Left-sided pleural effusion Procedure(s) Performed: Left-sided thoracentesis Anesthesia: local Surgeon: Alexandre Gardiner Estimated Blood Loss (ml): 0 Pathology: other Condition: stable Operative Findings: A time out was performed and the chest x-ray was reviewed, the appropriate side was confirmed and marked. My hands were washed immediately prior to the procedure. I wore a surgical cap, mask with protective eyewear, sterile gown and sterile gloves throughout the procedure. The patient was prepped and draped in a sterile manner using chlorhexidine scrub after the appropriate level was percussed and confirmed by ultrasound. 1% lidocaine was used to anesthesize the skin, subcutaneous tissue, superior aspect of the rib periosteum and parietal pleura. A finder needle was then introduced over the superior aspect of the rib to locate the pleural fluid; 2colored fluid was aspirated at a depth of approximately 2 cm. A 10-blade scalpel was used to clau the skin at the insertion site. The [id number] needle was then introduced through the skin incision into the pleural space using negative aspiration pressure and the red colometric indicator to confirm appropriate positioning of the needle. The thoracentesis catheter was then threaded without difficulty. 1300 ml of turbid colored fluid was removed without difficulty. The catheter was then removed. No immediate complications were noted during the procedure. A post-procedure chest x-ray is pending at the time of this note. The fluid will be sent for studies. Estimated blood loss is 0cc
--- NOTE | 2021-06-03 12:05 | XR ---
EXAMINATION TYPE: XR chest 1V portable DATE OF EXAM: 06/03/2021 COMPARISON: 06/03/21 HISTORY: SOB TECHNIQUE: Single frontal view of the chest is obtained. FINDINGS: No change in the complete opacification of the left hemithorax. The osseous structures ar e intact. Right lung remains clear. IMPRESSION: No interval change in opacified left hemithorax
--- NOTE | 2021-06-03 12:26 | XR ---
EXAMINATION TYPE: XR chest 1V portable DATE OF EXAM: 06/03/2021 CLINICAL HISTORY: Status post left thoracentesis. TECHNIQUE: Single frontal view of the chest is obtained. COMPARISON: Prior chest radiograph 11:42 AM on 06/03/2021 FINDINGS: Interval decrease in size of left pleural effusion now small in size. There is no evidence of left-sided pneumothorax. Right lung demonstrates no evidence for focal air space opacity, pleural effusion, or pneumothorax seen. The cardiac silhouette size is within normal limits. The osseous structures are intact. Surgical changes to the lower lumbar spine. IMPRESSION: 1. Interval decrease in size of left pleural effusion, now small in size. No evidence of pneumothorax .
[2021-06-03 12:33] LABS: HGB 10.6 gm/dL (11.4-16.0); Hypochromasia Slight; MCH 25.9 pg (25.0-35.0); MCHC 31.2 g/dL (31.0-37.0); Platelet Count 337 k/uL (150-450); RDW 13.9 % (11.5-15.5); WBC 5.1 k/uL (3.8-10.6)
[2021-06-03 12:52] LABS: ALT 24 U/L (4-34); AST 24 U/L (14-36); African American GFR (CKD) >90 (>60 ml/min/1.73 sqM); Albumin 3.1 g/dL (3.5-5.0); Alkaline Phosphatase 102 U/L (38-126); Anion Gap 8 mmol/L; Blood Urea Nitrogen 18 mg/dL (7-17); Calcium 8.7 mg/dL (8.4-10.2); Carbon Dioxide 25 mmol/L (22-30); Chloride 100 mmol/L (98-107); Glucose 188 mg/dL (74-99); LDH 695 U/L (313-618); Non-African American GFR(CKD) >90 (>60 ml/min/1.73 sqM); Potassium 5.2 mmol/L (3.5-5.1); Sodium 133 mmol/L (137-145); Total Bilirubin 0.2 mg/dL (0.2-1.3); Total Protein 6.1 g/dL (6.3-8.2)
--- NOTE | 2021-06-03 12:55 | P.PN ---
Progress Note - Text Progress Note Date: 06/03/21 A team was called for the patient around 11:50 AM. Per nurse patient is somnolent and not responding. She was placed on BiPAP about 15-20 minutes before I arrived. ABG was obtained on the patient which I reviewed which is consistent with mild acute chronic hypercapnic respiratory failure. After a few minutes patient became responsive. I reviewed her chest x-ray and she has complete whiteout of the left chest. Patient also has some wheezing on exam. She did receive some Ativan and morphine overnight. The LIBRARY CLERK for [facility] arrived and I updated her. I recommended to hold Ativan and morphine and continue with management for COPD exacerbation. Case was discussed with the head operator sulfide as well.
[2021-06-03 13:04] LABS: C Reactive Protein 2.7 mg/dL (<1.0)
--- NOTE | 2021-06-03 13:14 | CT ---
EXAMINATION TYPE: CT angio chest DATE OF EXAM: 06/03/2021 COMPARISON: None HISTORY: COVID, Left effusion, ? mass CT DLP: 479.1 mGycm CONTRAST: CT chest with contrast and 3D reconstruction with MIP imaging is performed without and with IV Contra st, patient injected with 100 ml mL of Isovue 370. Contrast-enhanced CT of the chest was performed through the course of the pulmonary arteries with mayra g and mediastinal window settings submitted. 3D reconstruction with MIP imaging was also performed. PULMONARY ARTERIES: The pulmonary arteries and their major tributaries are patent. I do not see sebas dence for sizable filling defect to suggest pulmonary embolic process. LUNGS: There is a left hilar mass which is difficult to measure however is estimated at 5.1 x 4.7 cm. There is luminal narrowing of the left upper lobe bronchus and obstruction of the left lower lobe br onchus. The findings may reflect primary malignancy and/or adenopathy. There is pleural-based nodular ity left upper lobe measuring 9 mm. Left lower lobe pleural nodular studding identified. Bilateral re ticulonodular infiltrates. There is left lower lobe collapse with pleural effusion seen. MEDIASTINUM: Subcarinal adenopathy measures 3.1 by approximately 3.4 cm. There is prevascular space a denopathy measuring up to 2.2 cm. There is left paratracheal adenopathy measuring 3.4 cm in maximal d imension. No nodules or masses identified of the right lung. HILAR STRUCTURES: No evidence for mass. No hilar lymph nodes greater than 1 cm. UPPER ABDOMEN: No significant abnormality is seen. IMPRESSION: 1. No evidence for Pulmonary embolism at this time. 2. Left hilar mass with narrowing of the left upper lobe bronchus and left lower lobes collapse. Pleu ral effusion, mediastinal adenopathy and pleural studding. Underlying neoplasm suspected. Scattered i nfiltrates noted as well.
[2021-06-03] MEDS: LEVOFLOXACIN 500MG-D5W PMX 500 MG in DEXTROSE/WATER 1 100ML.BAG IVPB SCH (14:53)
--- NOTE | 2021-06-03 15:02 | P.HPIM ---
History of Present Illness 65-year-old female came to emergency department with a competent of cough and shortness of breath of about 1 week duration patient became severely hypoxic and the patient is found to have a complete opacification of the right lung. Patient underwent emergent thoracic cyst removal of 1.3 L of pleural fluid after which patient has significant improvement, now on nasal cannula oxygen. Patient doesn't have any fever chills patient had a CT of the chest which is suspicious for malignancy. Patient is being covered with diabetic antibiotics patient is also positive for Covid [address] did show infiltrates consistent with Covid 19 although there is no typical pneumonic infiltrate. Patient was on BiPAP before the pleural tap. REVIEW OF SYSTEMS: CONSTITUTIONAL: No fever, no malaise, no fatigue. HEENT: No recent visual problems or hearing problems. Denied any sore throat. CARDIOVASCULAR: No chest pain, orthopnea, PND, no palpitations, no syncope. PULMONARY: As mentioned in HPI GASTROINTESTINAL: No diarrhea, no nausea, no vomiting, no abdominal pain. NEUROLOGICAL: No headaches, no weakness, no numbness. HEMATOLOGICAL: Denies any bleeding or petechiae. GENITOURINARY: Denies any burning micturition, frequency, or urgency. MUSCULOSKELETAL/RHEUMATOLOGICAL: Denies any joint pain, swelling, or any muscle pain. ENDOCRINE: Denies any polyuria or polydipsia. The rest of the 14-point review of systems is negative. PHYSICAL EXAMINATION: GENERAL: The patient is alert and oriented x3, not in any acute distress. Well developed, well nourished. HEENT: Pupils are round and equally reacting to light. EOMI. No scleral icterus. No conjunctival pallor. Normocephalic, atraumatic. No pharyngeal erythema. No thyromegaly. CARDIOVASCULAR: S1 and S2 present. No murmurs, rubs, or gallops. PULMONARY: Pale good air entry into bilateral lung jones minimal expiratory wheezing on exam ABDOMEN: Soft, nontender, nondistended, normoactive bowel sounds. No palpable organomegaly. MUSCULOSKELETAL: No joint swelling or deformity. EXTREMITIES: No cyanosis, clubbing, or pedal edema. NEUROLOGICAL: Gross neurological examination did not reveal any focal deficits. SKIN: No rashes. Assessment and plan -Acute hypoxic respiratory failure: Multifactorial secondary to right-sided pleural effusion which may be secondary to malignancy along with Covid 19 infection. Patient was on BiPAP presently on nasal cannula oxygen doing well tachycardia improved. Low possibility of pneumonia patient is on empiric anti biotics for now -COPD with acute exacerbation patient on systemic steroids inhalational treatments -Chronic hypercapnic and hypoxic respiratory failure 70 to COPD patient uses oxygen at home -Obstructive sleep apnea -Obesity -Hypertension next and-type 2 diabetes mellitus -Chronic back pain -Depression -Restless leg syndrome -Hypovolemic hyponatremia for which patient will IV fluids which will be continued DVT prophylaxis: Lovenox Past Medical History Past Medical History: Asthma, COPD, Diabetes Mellitus, Hypertension Additional Past Medical History / Comment(s): Narcalepsy, cataplexy, JOSSELIN does not wear device, restless leg syndrome, low back pain, R leg numbness at times, IDDM type II. chronic wound to right thigh History of Any Multi-Drug Resistant Organisms: None Reported Past Surgical History: Back Surgery Additional Past Surgical History / Comment(s): 08/18/17 laminectomy/discectomy with spacer L1-L2, lumbar cages, bilateral carpal tunnel released, L knee arthroscopy, sinus surgery, "pain injections" to back and cervical. Additional Past Anesthesia/Blood Transfusion Reaction / Comment(s): Pt's heart stopped after a "pain block" procedure that required anesthesia. Past Psychological History: Anxiety, Depression Additional Psychological History / Comment(s): She uses a rolator if going for longer walks or walking outdoors. She no longer drives, her friends or son takes her to appts. She has a glucometer and a nebulizer.. Lives alone in 2 bedroom apt Smoking Status: Current every day smoker Past Alcohol Use History: None Reported Additional Past Alcohol Use History / Comment(s): Pt states she currently smokes a pack a day. Past Drug Use History: None Reported - Past Family History Mother Additional Family Medical History / Comment(s): adopted Father History Unknown: Yes Additional Family Medical History / Comment(s): Pt is adopted. Medications and Allergies Home Medications Medication Instructions Recorded Confirmed Type ALPRAZolam [Xanax] 0.5 mg PO BID PRN 03/23/15 06/02/21 History Dextroamphetamine/Amphetamine 30 mg PO BID@0900,1400 03/23/15 06/02/21 History [Adderall] Pramipexole [Mirapex] 2 mg PO HS 05/09/16 06/02/21 History lisinopriL [Zestril] 5 mg PO HS 12/06/17 06/02/21 History Escitalopram [Lexapro] 20 mg PO HS 01/29/21 06/02/21 History metFORMIN HCL ER [Glucophage XR] 1,000 mg PO HS 01/29/21 06/02/21 History Budesonide-Formot 160-4.5 Mcg 1 puff INHALATION RT-BID 06/02/21 06/02/21 History [Symbicort 160-4.5 Mcg Inhaler] Allergies Allergy/AdvReac Type Severity Reaction Status Date / Time Penicillins Allergy Rash/Hives, Verified 06/02/21 19:24 SOB Physical Exam Vitals: Vital Signs Temp Pulse Pulse Resp BP BP Pulse Ox 06/03/21 12:02 98.0 F 76 20 134/90 95 06/03/21 09:10 97.8 F 87 18 113/79 93 L 06/03/21 08:00 18 06/03/21 04:44 110 H 24 95 06/03/21 04:00 106 H 21 149/76 94 L 06/03/21 01:53 109 H 22 06/03/21 00:00 98.5 F 109 H 22 145/80 95 06/02/21 21:55 109 H 22 06/02/21 21:50 98.6 F 119 H 20 133/69 96 06/02/21 20:05 118 H 30 H 149/113 96 06/02/21 19:07 121 H 22 134/92 98 06/02/21 18:47 121 H 24 83 L 06/02/21 18:27 120 H 06/02/21 18:10 120 H 06/02/21 17:46 124 H 06/02/21 17:35 98.0 F 126 H 30 H 111/71 99 06/02/21 17:06 99.7 F H 131 H 28 H 129/78 92 L Intake and Output 06/03/21 06/03/21 06/03/21 06:59 14:59 22:59 Intake Total 250 Output Total 0 500 Balance 250 -500 Intake: Oral 250 Output: Urine 0 500 Results CBC & Chem 7: 06/03/21 11:36 06/03/21 11:36 Labs: Abnormal Lab Results - Last 24 Hours (Table) 06/02/21 06/02/21 06/02/21 Range/Units 17:37 17:37 17:37 Hgb (11.4-16.0) gm/dL Lymphocytes # 0.5 L (1.0-4.8) k/uL APTT 21.9 L (22.0-30.0) sec D-Dimer (<0.60) mg/L FEU ABG pH (7.35-7.45) ABG pCO2 (35-45) mmHg ABG pO2 (83-108) mmHg ABG HCO3 (21-25) mmol/L ABG Total CO2 (19-24) mmol/L Sodium 132 L (137-145) mmol/L Potassium (3.5-5.1) mmol/L Chloride 96 L (98-107) mmol/L BUN (7-17) mg/dL Glucose 235 H (74-99) mg/dL POC Glucose (mg/dL) (75-99) mg/dL Lactate Dehydrogenase (313-618) U/L C-Reactive Protein (<1.0) mg/dL Total Protein (6.3-8.2) g/dL Albumin (3.5-5.0) g/dL Coronavirus (PCR) (Not Detectd) 06/02/21 06/02/21 06/03/21 Range/Units 18:09 21:47 06:25 Hgb (11.4-16.0) gm/dL Lymphocytes # (1.0-4.8) k/uL APTT (22.0-30.0) sec D-Dimer (<0.60) mg/L FEU ABG pH (7.35-7.45) ABG pCO2 (35-45) mmHg ABG pO2 (83-108) mmHg ABG HCO3 (21-25) mmol/L ABG Total CO2 (19-24) mmol/L Sodium (137-145) mmol/L Potassium (3.5-5.1) mmol/L Chloride (98-107) mmol/L BUN (7-17) mg/dL Glucose (74-99) mg/dL POC Glucose (mg/dL) 211 H 242 H (75-99) mg/dL Lactate Dehydrogenase (313-618) U/L C-Reactive Protein (<1.0) mg/dL Total Protein (6.3-8.2) g/dL Albumin (3.5-5.0) g/dL Coronavirus (PCR) Detected A (Not Detectd) 06/03/21 06/03/21 06/03/21 Range/Units 11:27 11:36 11:36 Hgb 10.6 L (11.4-16.0) gm/dL Lymphocytes # (1.0-4.8) k/uL APTT (22.0-30.0) sec D-Dimer (<0.60) mg/L FEU ABG pH (7.35-7.45) ABG pCO2 (35-45) mmHg ABG pO2 (83-108) mmHg ABG HCO3 (21-25) mmol/L ABG Total CO2 (19-24) mmol/L Sodium 133 L (137-145) mmol/L Potassium 5.2 H (3.5-5.1) mmol/L Chloride (98-107) mmol/L BUN 18 H (7-17) mg/dL Glucose 188 H (74-99) mg/dL POC Glucose (mg/dL) 170 H (75-99) mg/dL Lactate Dehydrogenase 695 H (313-618) U/L C-Reactive Protein 2.7 H (<1.0) mg/dL Total Protein 6.1 L (6.3-8.2) g/dL Albumin 3.1 L (3.5-5.0) g/dL Coronavirus (PCR) (Not Detectd) 06/03/21 06/03/21 Range/Units 11:36 11:48 Hgb (11.4-16.0) gm/dL Lymphocytes # (1.0-4.8) k/uL APTT (22.0-30.0) sec D-Dimer 0.86 H (<0.60) mg/L FEU ABG pH 7.34 L (7.35-7.45) ABG pCO2 53 H (35-45) mmHg ABG pO2 77 L (83-108) mmHg ABG HCO3 29 H (21-25) mmol/L ABG Total CO2 30 H (19-24) mmol/L Sodium (137-145) mmol/L Potassium (3.5-5.1) mmol/L Chloride (98-107) mmol/L BUN (7-17) mg/dL Glucose (74-99) mg/dL POC Glucose (mg/dL) (75-99) mg/dL Lactate Dehydrogenase (313-618) U/L C-Reactive Protein (<1.0) mg/dL Total Protein (6.3-8.2) g/dL Albumin (3.5-5.0) g/dL Coronavirus (PCR) (Not Detectd)
[2021-06-03 16:34] LABS: Appearance,BF Hazy; Nucleated Cells, Body Fluid 150 /uL; RBC, Body Fluid 14900 /uL
[2021-06-03 16:36] LABS: Mononuclear WBC,Body Fluid 99 %; Polynuclear WBC,Body Fluid 1 %; Total Cells Counted,Body Fluid 100
[2021-06-03 16:42] LABS: Glucose,Whole Blood 392 mg/dL (75-99)
[2021-06-03] MEDS: SODIUM CHLORIDE 0.9% 1,000 ML IV SCH ×2 (17:59→21:21)
[2021-06-03 20:49] LABS: Glucose,Whole Blood 254 mg/dL (75-99)
[2021-06-03] MEDS: PRAMIPEXOLE 1 MG TAB PO SCH (21:20)
[2021-06-03] MEDS: ESCITALOPRAM 20 MG TAB PO SCH (21:20)
[2021-06-03] MEDS: ENOXAPARIN 40 MG/0.4 ML SYRINGE SQ SCH (21:20)
[2021-06-03 23:55] LABS: Glucose,Whole Blood 109 mg/dL (75-99)
[2021-06-04 00:01] LABS: LDH, Body Fluid Source Pleural Fluid; Total Protein, Body Fluid 3710 mg/dL
[2021-06-04] MEDS: methylPREDNISolone SOD SUCCI 125 MG/2 ML VIAL IV SCH ×5 (00:44→17:25)
[2021-06-04] MEDS: MORPHINE SULFATE 4 MG/ML SYRINGE IV PRN ×2 (01:09→04:23)
[2021-06-04] MEDS: INSULIN ASPART (NovoLOG) 100 UNIT/ML VIAL SQ SCH ×4 (06:00→21:45)
[2021-06-04 06:33] LABS: Glucose,Whole Blood 178 mg/dL (75-99)
[2021-06-04 08:38] LABS: HCT 36.5 % (34.0-46.0); HGB 11.4 gm/dL (11.4-16.0); Hypochromasia Slight; MCH 26.8 pg (25.0-35.0); MCHC 31.4 g/dL (31.0-37.0); MCV 85.4 fL (80.0-100.0); Mean Platelet Volume 6.9; Platelet Count 391 k/uL (150-450); RBC 4.27 m/uL (3.80-5.40); RDW 14.3 % (11.5-15.5); WBC 10.3 k/uL (3.8-10.6)
[2021-06-04 08:55] LABS: Potassium 5.2 mmol/L (3.5-5.1)
[2021-06-04 08:56] LABS: ALT 27 U/L (4-34); AST 32 U/L (14-36); African American GFR (CKD) >90 (>60 ml/min/1.73 sqM); Albumin 3.2 g/dL (3.5-5.0); Alkaline Phosphatase 101 U/L (38-126); Anion Gap 5 mmol/L; Blood Urea Nitrogen 21 mg/dL (7-17); Calcium 8.7 mg/dL (8.4-10.2); Carbon Dioxide 31 mmol/L (22-30); Chloride 96 mmol/L (98-107); Glucose 180 mg/dL (74-99); Non-African American GFR(CKD) >90 (>60 ml/min/1.73 sqM); Sodium 132 mmol/L (137-145); Total Bilirubin 0.2 mg/dL (0.2-1.3); Total Protein 6.1 g/dL (6.3-8.2)
[2021-06-04] MEDS: ALBUTEROL HFA INHALER INHALATION SCH ×4 (09:53→20:35)
[2021-06-04] MEDS: ENOXAPARIN 40 MG/0.4 ML SYRINGE SQ SCH ×2 (10:13→21:06)
[2021-06-04 11:36] LABS: Glucose,Whole Blood 167 mg/dL (75-99)
[2021-06-04 12:36] LABS: ABG Base Excess 4.5 mmol/L; ABG HCO3 32 mmol/L (21-25); ABG Oxygen Saturation 97.7 % (94-97); ABG PH 7.25 (7.35-7.45); ABG PO2 103 mmHg (83-108); ABG TCO2 34 mmol/L (19-24); Allen Test Performed? Yes
--- NOTE | 2021-06-04 12:46 | P.PN ---
Subjective 65-year-old female came to emergency department with a competent of cough and shortness of breath of about 1 week duration patient became severely hypoxic and the patient is found to have a complete opacification of the right lung. Patient underwent emergent thoracic cyst removal of 1.3 L of pleural fluid after which patient has significant improvement, now on nasal cannula oxygen. Patient doesn't have any fever chills patient had a CT of the chest which is suspicious for malignancy. Patient is being covered with diabetic antibiotics patient is also positive for Covid [address] did show infiltrates consistent with Covid 19 although there is no typical pneumonic infiltrate. Patient was on BiPAP before the pleural tap. 06/04/2021 Patient is much better today patient the is on 2 L of oxygen at this time patient still has some expiratory wheezing but not significant and much better compared to yesterday patient will be switched to oral prednisone IV per salmeterol will be discontinued patient remains bit hyponatremic probably there is a competent of SIADH. Patient pleural fluid is exudative. Patient has mildly elevated potassium patient will be started on low potassium diet. Constitutional: Denied any fatigue denied any fever. Cardio vascular: denied any chest pain, palpitations Gastrointestinal denied any nausea vomiting Pulmonary: Denied any shortness of breath cough Neurologic denied any new focal deficits All inpatient medications were reviewed and appropriate changes in these medications as dictated in the interval history and assessment and plan. PHYSICAL EXAMINATION: GENERAL: The patient is alert and oriented x3, not in any acute distress. Well developed, well nourished. HEENT: Pupils are round and equally reacting to light. EOMI. No scleral icterus. No conjunctival pallor. Normocephalic, atraumatic. No pharyngeal erythema. No thyromegaly. CARDIOVASCULAR: S1 and S2 present. No murmurs, rubs, or gallops. PULMONARY: Proved Expiratory wheezing on exam ABDOMEN: Soft, nontender, nondistended, normoactive bowel sounds. No palpable organomegaly. MUSCULOSKELETAL: No joint swelling or deformity. EXTREMITIES: No cyanosis, clubbing, or pedal edema. NEUROLOGICAL: Gross neurological examination did not reveal any focal deficits. SKIN: No rashes. Assessment and plan -Acute hypoxic respiratory failure: Multifactorial secondary to right-sided pleural effusion which may be secondary to malignancy along with Covid 19 infection. Patient was on BiPAP presently on nasal cannula oxygen doing well tachycardia improved. Low possibility of pneumonia patient is on empiric antibiotics for now. Patient's the pleural effusion is exudative -COPD with acute exacerbation patient on systemic steroids inhalational treatments -Chronic hypercapnic and hypoxic respiratory failure - COPD patient uses oxygen at home -Obstructive sleep apnea -Obesity -Hypertension next and-type 2 diabetes mellitus -Chronic back pain -Depression -Restless leg syndrome -Hypovolemic hyponatremia for which patient will IV fluids which will be continued DVT prophylaxis: Lovenox Objective - Vital Signs Vital signs: Vital Signs Temp 97.8 F 06/04/21 08:52 Pulse 78 06/04/21 08:52 Resp 18 06/04/21 08:52 BP 155/73 06/04/21 08:52 Pulse Ox 92 L 06/04/21 08:52 Intake & Output 06/03/21 06/04/21 06/04/21 18:59 06:59 18:59 Intake Total 240 Output Total 500 1000 Balance -260 -1000 Intake: Oral 240 Output: Urine 500 1000 Other: Voiding Method Bedpan Bedpan Bedpan - Labs CBC & Chem 7: 06/04/21 07:12 06/04/21 07:12 Labs: Abnormal Lab Results - Last 24 Hours (Table) 06/03/21 06/03/21 06/03/21 Range/Units 11:36 11:48 11:48 D-Dimer 0.86 H (<0.60) mg/L FEU Sodium 133 L (137-145) mmol/L Potassium 5.2 H (3.5-5.1) mmol/L Chloride (98-107) mmol/L Carbon Dioxide (22-30) mmol/L BUN 18 H (7-17) mg/dL Glucose 188 H (74-99) mg/dL POC Glucose (mg/dL) (75-99) mg/dL Lactate Dehydrogenase 695 H (313-618) U/L C-Reactive Protein 2.7 H (<1.0) mg/dL Total Protein 6.1 L (6.3-8.2) g/dL Albumin 3.1 L (3.5-5.0) g/dL Procalcitonin 0.31 H (0.02-0.09) ng/mL 06/03/21 06/03/21 06/03/21 Range/Units 16:41 20:15 23:50 D-Dimer (<0.60) mg/L FEU Sodium (137-145) mmol/L Potassium (3.5-5.1) mmol/L Chloride (98-107) mmol/L Carbon Dioxide (22-30) mmol/L BUN (7-17) mg/dL Glucose (74-99) mg/dL POC Glucose (mg/dL) 392 H 254 H 109 H (75-99) mg/dL Lactate Dehydrogenase (313-618) U/L C-Reactive Protein (<1.0) mg/dL Total Protein (6.3-8.2) g/dL Albumin (3.5-5.0) g/dL Procalcitonin (0.02-0.09) ng/mL 06/04/21 06/04/21 06/04/21 Range/Units 05:53 07:12 11:34 D-Dimer (<0.60) mg/L FEU Sodium 132 L (137-145) mmol/L Potassium 5.2 H (3.5-5.1) mmol/L Chloride 96 L (98-107) mmol/L Carbon Dioxide 31 H (22-30) mmol/L BUN 21 H (7-17) mg/dL Glucose 180 H (74-99) mg/dL POC Glucose (mg/dL) 178 H 167 H (75-99) mg/dL Lactate Dehydrogenase (313-618) U/L C-Reactive Protein (<1.0) mg/dL Total Protein 6.1 L (6.3-8.2) g/dL Albumin 3.2 L (3.5-5.0) g/dL Procalcitonin (0.02-0.09) ng/mL Microbiology - Last 24 Hours (Table) 06/03/21 12:00 Gram Stain - Preliminary Pleural Fluid Body Fluid Culture - Preliminary 06/02/21 20:00 Blood Culture - Preliminary Blood No Growth after 24 hours 06/02/21 18:09 Blood Culture - Preliminary Blood No Growth after 24 hours 06/03/21 12:00 Acid Fast Bacilli Culture - Preliminary Pleural Fluid 06/03/21 12:00 Fungal Culture - Preliminary Pleural Fluid
[2021-06-04] MEDS ORDERED: predniSONE 20 MG TAB PO SCH (13:00)
[2021-06-04 13:06] LABS: ABG PCO2 72 mmHg (35-45)
[2021-06-04] MEDS: LEVOFLOXACIN 500MG-D5W PMX 500 MG in DEXTROSE/WATER 1 100ML.BAG IVPB SCH (14:28)
--- NOTE | 2021-06-04 14:43 | P.PN ---
Subjective Progress Note Date: 06/04/21 65-year-old female patient who is presenting to the emergency department because of an acute respiratory distress. The patient came in yesterday to emergency and she was complaining of increased cough and shortness of breath away 1 week duration. She denied having any fever. She had some pain worse with breathing across her chest. Her chest x-ray was done and showed near-complete opacities of the left lung which was a new finding. In the emergency department, the patient was found to have a white cell count of 7.8 with hemoglobin of 11.8, sodium is at 132 with a BUN of 15 a creatinine of 0.35. The patient's proBNP level was nonelevated, troponins were negative, and she had also normal coagu lation profile. At that point, the patient was admitted to the hospital and a pulmonary consultation was requested. The patient was started on Proventil HFA and the patient was also started on IV Solu-Medrol. 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 Note that this patient has been vaccinated for COVID 19. The patient is known to me. The patient is known to have advanced COPD along with obstructive sleep apnea and she has been able to tolerate CPAP therapy on outpatient basis. She has also history of narcolepsy maintained on Enbrel and Lexapro on outpatient basis. She is known to have diabetes, hypertension, chronic anxiety and depression and chronic back pain. She has also symptoms of RLS. She was in the hospital back in January 2021 for worsening shortness of breath and COPD exacerbation. The patient's condition was optimized and the patient was discharged home. She is maintained on Symbicort on outpatient basis regarding her COPD. No nausea. No vomiting. No emesis. No diarrhea. I saw this patient on an urgent basis. 8 team was called earlier this morning as the patient was in considerable multivessel distress. She is currently on a BiPAP at a pressure of 12/5 cm of water and FiO2 of 35%. She had marked diminished breath sound bilaterally and diffuse expiratory wheezes on the right. She has also absent breath on the left. The chest x-ray was repeated and the patient had complete opacification of the left lung. I performed an emergent bedside thoracentesis draining approximately 1.3 L of fluid from the left lung. Follow-up chest x-rays to follow. Note that her chest x-ray did not reveal any significant pleural effusion. She is currently on a BiPAP for respiratory support. She is also and accommodation bronchodilators and steroids. On 06/04/2031 and seeing the patient for a follow-up. The patient is off the BiPAP. Nevertheless she remains spastic and wheezy. Note that I drained approximately 1.3 L of fluid from the left lung. A follow-up CAT scan of the chest was done and showed a large left hilar mass that was causing obstruction and atelectasis of the left lower lobe. In fact left lower lobe bronchus was quite narrowed and there is probably need endobronchial extension of the hilar tumor. The patient was made aware of this finding. She is a bit lethargic and at times confused. There may be a component of CO2 narcosis. She is declining to use the BiPAP consistently and she is preferring oxygen 4 L per minute nasal cannula. No hemoptysis. No reported chest pain. No focal neurological defi cit. Highly suspect malignancy. Awaiting fluid cytology from the left-sided pleural effusion. Objective - Vital Signs Vital signs: Vital Signs Temp 98.0 F 06/04/21 12:00 Pulse 92 06/04/21 12:00 Resp 18 06/04/21 12:00 BP 142/78 06/04/21 12:00 Pulse Ox 94 L 06/04/21 12:00 Intake & Output 06/03/21 06/04/21 06/04/21 18:59 06:59 18:59 Intake Total 240 360 Output Total 500 1000 Balance -260 -1000 360 Intake: Oral 240 360 Output: Urine 500 1000 Other: Voiding Method Bedpan Bedpan Bedpan - Exam GENERAL EXAM: Alert, very pleasant, 65-year-old white female, the patient is more comfortable compared to yesterday, April 07 nasal cannula. Nevertheless, her breathing is unlabored at times she is confused and I suspect that she may have an underlying component of CO2 narcosis. HEAD: Normocephalic/atraumatic. EYES: Normal reaction of pupils, equal size. Conjunctiva pink, sclera white. NOSE: Clear with pink turbinates. THROAT: No erythema or exudates. NECK: No masses, no JVD, no thyroid enlargement, no adenopathy. CHEST: No chest wall deformity. Symmetrical expansion. LUNGS: Asymmetric breath sounds. Diminished breath on the left. Diffuse expiratory wheezes on the right with prolongation of the exhalation phase of breathing. She is quite short of breath, using excessive muscle breathing. She is off BiPAP. CVS: Regular rate and rhythm, normal S1 and S2, no gallops, no murmurs, no rubs ABDOMEN: Soft, nontender. No hepatosplenomegaly, normal bowel sounds, no guarding or rigidity. EXTREMITIES: No clubbing, no edema, no cyanosis, 2+ pulses and upper and lower extremities. MUSCULOSKELETAL: Muscle strength and tone normal. SPINE: No scoliosis or deformity SKIN: No rashes CENTRAL NERVOUS SYSTEM: Alert and oriented -3. No focal deficits, tone is normal in all 4 extremities. PSYCHIATRIC: Alert and oriented -3. Appropriate affect. Intact judgment and insight. - Labs CBC & Chem 7: 06/04/21 07:12 06/04/21 07:12 Labs: Abnormal Lab Results - Last 24 Hours (Table) 06/03/21 06/03/21 06/03/21 Range/Units 11:48 16:41 20:15 ABG pH (7.35-7.45) ABG pCO2 (35-45) mmHg ABG HCO3 (21-25) mmol/L ABG Total CO2 (19-24) mmol/L ABG O2 Saturation (94-97) % Sodium (137-145) mmol/L Potassium (3.5-5.1) mmol/L Chloride (98-107) mmol/L Carbon Dioxide (22-30) mmol/L BUN (7-17) mg/dL Glucose (74-99) mg/dL POC Glucose (mg/dL) 392 H 254 H (75-99) mg/dL Total Protein (6.3-8.2) g/dL Albumin (3.5-5.0) g/dL Procalcitonin 0.31 H (0.02-0.09) ng/mL 06/03/21 06/04/21 06/04/21 Range/Units 23:50 05:53 07:12 ABG pH (7.35-7.45) ABG pCO2 (35-45) mmHg ABG HCO3 (21-25) mmol/L ABG Total CO2 (19-24) mmol/L ABG O2 Saturation (94-97) % Sodium 132 L (137-145) mmol/L Potassium 5.2 H (3.5-5.1) mmol/L Chloride 96 L (98-107) mmol/L Carbon Dioxide 31 H (22-30) mmol/L BUN 21 H (7-17) mg/dL Glucose 180 H (74-99) mg/dL POC Glucose (mg/dL) 109 H 178 H (75-99) mg/dL Total Protein 6.1 L (6.3-8.2) g/dL Albumin 3.2 L (3.5-5.0) g/dL Procalcitonin (0.02-0.09) ng/mL 06/04/21 06/04/21 Range/Units 11:34 12:35 ABG pH 7.25 L (7.35-7.45) ABG pCO2 72 H* (35-45) mmHg ABG HCO3 32 H (21-25) mmol/L ABG Total CO2 34 H (19-24) mmol/L ABG O2 Saturation 97.7 H (94-97) % Sodium (137-145) mmol/L Potassium (3.5-5.1) mmol/L Chloride (98-107) mmol/L Carbon Dioxide (22-30) mmol/L BUN (7-17) mg/dL Glucose (74-99) mg/dL POC Glucose (mg/dL) 167 H (75-99) mg/dL Total Protein (6.3-8.2) g/dL Albumin (3.5-5.0) g/dL Procalcitonin (0.02-0.09) ng/mL Microbiology - Last 24 Hours (Table) 06/03/21 12:00 Gram Stain - Preliminary Pleural Fluid Body Fluid Culture - Preliminary 06/02/21 20:00 Blood Culture - Preliminary Blood No Growth after 24 hours 06/02/21 18:09 Blood Culture - Preliminary Blood No Growth after 24 hours 06/03/21 12:00 Acid Fast Bacilli Culture - Preliminary Pleural Fluid 06/03/21 12:00 Fungal Culture - Preliminary Pleural Fluid Assessment and Plan Plan: 1 acute hypoxic respiratory failure. Clinically the patient is improved. The patient is currently on 42 by nasal cannula. Nevertheless, she still hypoxic bronchospastic and wheezy. Air entry on the left is improved following the thoracentesis. Awaiting fluid cytology. Meanwhile, the repeat blood gases showed an acute on top of chronic hypoxic and hypercapnic respiratory failure. PH is 7.25 with a pCO2 of 72. 2 complete opacification of the left lung likely secondary to combination of effusion atelectasis. The patient underwent an emergent thoracentesis with a total of 1.3 L of fluid was aspirated. The fluid will be sent for analysis, fluid cytology still pending for now. Rule out underlying malignancy 3 left hilar mass causing mass effect on left lower lobe bronchus with possibly an endobronchial extension. Findings are highly suspicious for malignancy. 4 COPD with previous hospital physician for COPD exacerbation, with a component of an acute on top of chronic hypercapnic respiratory failure and hypoxic respiratory failure. 5 acute COVID 19 infection, doubt COVID 19 related pneumonia. The patient has been vaccinated. 6 acute COPD exacerbation 7 obstructive sleep apnea nontolerant to CPAP therapy 8 history of narcolepsy 9 obesity. 10 Hypertension 11 Diabetes multiple type II 12 Chronic back and neck pain with multiple surgeries 13 Anxiety and depression 14 Restless leg syndrome PLAN Awaiting pleural fluid cytology The patient has a massive left hilar area and once stabilized she may benefit from bronchoscopy for tissue diagnosis. The pleural fluid comes back negative for malignancy Continue bronchodilators and put the patient back on IV Solu Medrol because of ongoing bronchospasm wheezing Continue to IV Solu-Medrol 60 mg IV push every 6 hours Continue BiPAP for respiratory support at a pressure of 12/5 cm of water. Blood gases was noted that showed a component of acute respiratory acidosis with a pH of 7.34 and a pCO2 of 52 check inflammatory markers including LDH, CRP and d-dimer is also check pro calcitonin levels, the progressed from a level is at 0.31, and elevation of his 695 and assess there is only mild elevation of the inflammatory markers. D- dimer is at 0.86. Encouraged use of BiPAP throughout the day knowing that the patient may have an underlying component of CO2 narcosis. She will benefit also from a CAT scan of the brain ventilator status to rule out any [employer] metastases. Prognosis poor baseline above-mentioned comorbidities. We'll continue to follow.
[2021-06-04 16:46] LABS: Glucose,Whole Blood 170 mg/dL (75-99)
[2021-06-04] MEDS: SODIUM CHLORIDE 0.9% 1,000 ML IV SCH ×3 (17:25→21:06)
[2021-06-04 20:10] LABS: Glucose,Whole Blood 571 mg/dL (75-99)
[2021-06-04 20:12] LABS: Glucose,Whole Blood 340 mg/dL (75-99)
[2021-06-04] MEDS: ESCITALOPRAM 20 MG TAB PO SCH (21:05)
[2021-06-04] MEDS: ALPRAZolam 0.5 MG TAB PO PRN (21:05)
[2021-06-04] MEDS: PRAMIPEXOLE 1 MG TAB PO SCH (21:45)
[2021-06-05] MEDS: methylPREDNISolone SOD SUCCI 125 MG/2 ML VIAL IV SCH ×5 (00:03→22:04)
[2021-06-05] MEDS: MORPHINE SULFATE 4 MG/ML SYRINGE IV PRN ×2 (02:05→19:44)
[2021-06-05] MEDS: LORazepam 2 MG/ML INJ IV PRN (04:40)
[2021-06-05 05:56] LABS: Glucose,Whole Blood 336 mg/dL (75-99)
[2021-06-05] MEDS: INSULIN ASPART (NovoLOG) 100 UNIT/ML VIAL SQ SCH ×4 (06:04→22:07)
[2021-06-05 08:12] LABS: HCT 36.5 % (34.0-46.0); HGB 11.5 gm/dL (11.4-16.0); Hypochromasia Moderate; MCH 26.1 pg (25.0-35.0); MCHC 31.5 g/dL (31.0-37.0); Mean Platelet Volume 6.6; Platelet Count 416 k/uL (150-450); RDW 13.8 % (11.5-15.5)
[2021-06-05 08:38] LABS: African American GFR (CKD) >90 (>60 ml/min/1.73 sqM); Anion Gap 7 mmol/L; Blood Urea Nitrogen 24 mg/dL (7-17); Calcium 8.8 mg/dL (8.4-10.2); Carbon Dioxide 31 mmol/L (22-30); Chloride 97 mmol/L (98-107); Glucose 141 mg/dL (74-99); Non-African American GFR(CKD) >90 (>60 ml/min/1.73 sqM); Potassium 4.8 mmol/L (3.5-5.1); Sodium 135 mmol/L (137-145)
[2021-06-05] MEDS: ENOXAPARIN 40 MG/0.4 ML SYRINGE SQ SCH ×2 (08:41→22:04)
[2021-06-05] MEDS: ALBUTEROL HFA INHALER INHALATION SCH ×4 (08:50→20:26)
[2021-06-05 12:02] LABS: Glucose,Whole Blood 130 mg/dL (75-99)
--- NOTE | 2021-06-05 12:43 | P.CONS ---
History of Present Illness - Reason for Consult Consult date: 06/05/21 Wound care - History of Present Illness This is a 66-year-old patient being seen by the wound care center on [address] for a nonhealing ulceration to the right lower extremity lateral aspect (thigh). Patient states that the ulceration has been there for approximately 6 months. She said it started as a pimple and she picked at it. Patient denies use utilizing any advance wound care to the site. She does state that she did put some triple antibiotic ointment. However she has left uncovered. Ulceration measures approximately 10 x 6 x 0.3 cm the wound edges are attached to the wound base, there is granulation seen throughout the wound bed with nonviable tissue including Slough, there is no tunneling or undermining noted. The periwound does show some irritation. Patient has medical history significant for COPD, diabetes, hypertension, asthma, current every day smoker. Review Of Systems: Constitutional: No fever, no chills, no night sweats. No weight change. No weakness, fatigue or lethargy. No daytime sleepiness. Integumentary:reports wounds, no lesions. No rash or pruritus. No unusual bruising. No change in hair or nails. Physical exam: General Appearance: Alert, cooperative, no distress, appears stated age. Skin: See HPI all other Skin color, texture, tugor normal, no rashes or lesions. Neurologic: Alert oriented x3 Assessment: 1. Nonhealing ulceration right lower extremity thigh with fat layer exposure 2. Diabetes a skin ulcer 3. Nicotine dependence Plan: 1.Right lateral lower extremity (thigh): Apply honey alginate, saline moistened gauze, dry gauze, border foam. If unable to keep in place and may wrap with a rolled gauze and secure with tape. Patient would benefit from advanced wound care and outpatient setting. We'll be happy to see her in the wound care center upon discharge. Thank you for the consultation any questions please contact the wound care center DNP note has been reviewed and discussed with Dr. Childress and the impression and plan of care has been directed as dictated. Past Medical History Past Medical History: Asthma, COPD, Diabetes Mellitus, Hypertension Additional Past Medical History / Comment(s): Narcalepsy, cataplexy, JOSSELIN does not wear device, restless leg syndrome, low back pain, R leg numbness at times, IDDM type II. chronic wound to right thigh History of Any Multi-Drug Resistant Organisms: None Reported Past Surgical History: Back Surgery Additional Past Surgical History / Comment(s): 08/18/17 laminectomy/discectomy with spacer L1-L2, lumbar cages, bilateral carpal tunnel released, L knee a rthroscopy, sinus surgery, "pain injections" to back and cervical. Additional Past Anesthesia/Blood Transfusion Reaction / Comm: Pt's heart stopped after a "pain block" procedure that required anesthesia. Past Psychological History: Anxiety, Depression Additional Psychological History / Comment(s): She uses a rolator if going for longer walks or walking outdoors. She no longer drives, her friends or son takes her to [employer]. She has a glucometer and a nebulizer.. Lives alone in 2 bedroom apt Smoking Status: Current every day smoker Past Alcohol Use History: None Reported Additional Past Alcohol Use History / Comment(s): Pt states she currently smokes a pack a day. Past Drug Use History: None Reported - Past Family History Mother Additional Family Medical History / Comment(s): adopted Father History Unknown: Yes Additional Family Medical History / Comment(s): Pt is adopted. Medications and Allergies Home Medications Medication Instructions Recorded Confirmed Type ALPRAZolam [Xanax] 0.5 mg PO BID PRN 03/23/15 06/02/21 History Dextroamphetamine/Amphetamine 30 mg PO BID@0900,1400 03/23/15 06/02/21 History [Adderall] Pramipexole [Mirapex] 2 mg PO HS 05/09/16 06/02/21 History lisinopriL [Zestril] 5 mg PO HS 12/06/17 06/02/21 History Escitalopram [Lexapro] 20 mg PO HS 01/29/21 06/02/21 History metFORMIN HCL ER [Glucophage XR] 1,000 mg PO HS 01/29/21 06/02/21 History Budesonide-Formot 160-4.5 Mcg 1 puff INHALATION RT-BID 06/02/21 06/02/21 History [Symbicort 160-4.5 Mcg Inhaler] Allergies Allergy/AdvReac Type Severity Reaction Status Date / Time Penicillins Allergy Rash/Hives, Verified 06/02/21 19:24 SOB Physical Exam Vitals: Vital Signs Temp Pulse Resp BP Pulse Ox 06/05/21 11:40 97.8 F 76 18 176/76 91 L 06/05/21 08:39 97.8 F 91 18 139/82 91 L 06/05/21 04:00 98.1 F 72 18 147/85 96 06/05/21 02:00 100 20 06/05/21 00:00 98.2 F 100 20 141/76 91 L 06/04/21 20:00 97.9 F 108 H 18 121/68 96 06/04/21 16:00 97.7 F 90 18 140/77 95 06/04/21 14:49 18 Intake and Output 06/04/21 06/05/21 06/05/21 22:59 06:59 14:59 Intake Total 180 Output Total 490 200 300 Balance -310 -200 -300 Intake: Oral 180 Output: Urine 490 200 300 Other: Voiding Method Bedpan Bedpan Bedpan Weight 84 kg Results CBC & Chem 7: 06/05/21 07:52 06/05/21 07:52 Labs: Abnormal Lab Results - Last 24 Hours (Table) 06/04/21 06/04/21 06/04/21 Range/Units 12:35 16:45 20:09 WBC (3.8-10.6) k/uL ABG pH 7.25 L (7.35-7.45) ABG pCO2 72 H* (35-45) mmHg ABG HCO3 32 H (21-25) mmol/L ABG Total CO2 34 H (19-24) mmol/L ABG O2 Saturation 97.7 H (94-97) % Sodium (137-145) mmol/L Chloride (98-107) mmol/L Carbon Dioxide (22-30) mmol/L BUN (7-17) mg/dL Glucose (74-99) mg/dL POC Glucose (mg/dL) 170 H 571 H (75-99) mg/dL 06/04/21 06/04/21 06/05/21 Range/Units 20:11 20:39 05:50 WBC (3.8-10.6) k/uL ABG pH (7.35-7.45) ABG pCO2 (35-45) mmHg ABG HCO3 (21-25) mmol/L ABG Total CO2 (19-24) mmol/L ABG O2 Saturation (94-97) % Sodium (137-145) mmol/L Chloride (98-107) mmol/L Carbon Dioxide (22-30) mmol/L BUN (7-17) mg/dL Glucose 274 H (74-99) mg/dL POC Glucose (mg/dL) 340 H 336 H (75-99) mg/dL 06/05/21 06/05/21 06/05/21 Range/Units 07:52 07:52 11:58 WBC 13.0 H (3.8-10.6) k/uL ABG pH (7.35-7.45) ABG pCO2 (35-45) mmHg ABG HCO3 (21-25) mmol/L ABG Total CO2 (19-24) mmol/L ABG O2 Saturation (94-97) % Sodium 135 L (137-145) mmol/L Chloride 97 L (98-107) mmol/L Carbon Dioxide 31 H (22-30) mmol/L BUN 24 H (7-17) mg/dL Glucose 141 H (74-99) mg/dL POC Glucose (mg/dL) 130 H (75-99) mg/dL Microbiology - Last 24 Hours (Table) 06/03/21 12:00 Gram Stain - Preliminary Pleural Fluid Body Fluid Culture - Preliminary 06/02/21 20:00 Blood Culture - Preliminary Blood No Growth after 48 hours 06/03/21 12:00 Acid Fast Bacilli Smear - Final Pleural Fluid Acid Fast Bacilli Culture - Preliminary 06/02/21 18:09 Blood Culture - Preliminary Blood No Growth after 48 hours Assessment and Plan (1) Non-pressure chronic ulcer of right thigh with fat layer exposed Current Visit: Yes Status: Acute Code(s): L97.112 - NON-PRS CHRONIC ULCER OF RIGHT THIGH W FAT LAYER EXPOSED SNOMED Code(s): 017386975 (2) Diabetes with skin ulcer Current Visit: Yes Status: Acute Code(s): E11.622 - TYPE 2 DIABETES MELLITUS WITH OTHER SKIN ULCER; L98.499 - NON-PRESSURE CHRONIC ULCER OF SKIN OF SITES W UNSP SEVERITY SNOMED Code(s): 15907400
[2021-06-05] MEDS: ALPRAZolam 0.5 MG TAB PO PRN (14:27)
[2021-06-05] MEDS: LEVOFLOXACIN 500 MG TAB PO SCH (14:27)
[2021-06-05 17:00] LABS: Glucose,Whole Blood 204 mg/dL (75-99)
--- NOTE | 2021-06-05 17:33 | P.PN ---
Subjective Progress Note Date: 06/05/21 Principal diagnosis: Acute hypoxic respiratory failure secondary to COVID-19 pneumonia, also secondary to left pleural effusion and possible underlying pulmonary malignancy with left hilar mass. 65-year-old female patient who is presenting to the emergency department because of an acute respiratory distress. The patient came in yesterday to emergency and she was complaining of increased cough and shortness of breath away 1 week duration. She denied having any fever. She had some pain worse with breathing across her chest. Her chest x-ray was done and showed near-complete opacities of the left lung which was a new finding. In the emergency department, the patient was found to have a white cell count of 7.8 with hemoglobin of 11.8, sodium is at 132 with a BUN of 15 a creatinine of 0.35. The patient's proBNP level was nonelevated, troponins were negative, and she had also normal coagulation profile. At that point, the patient was admitted to the hospital and a pulmonary consultation was requested. The patient was started on Proventil HFA and the patient was also started on IV Solu-Medrol. 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 Note that this patient has been vaccinated for COVID 19. The patient is known to me. The patient is known to have advanced COPD along with obstructive sleep apnea and she has been able to tolerate CPAP therapy on outpatient basis. She has also history of narcolepsy maintained on Enbrel and Lexapro on outpatient basis. She is known to have diabetes, hypertension, chronic anxiety and depression and chronic back pain. She has also symptoms of RLS. She was in the hospital back in January 2021 for worsening shortness of breath and COPD exacerbation. The patient's condition was optimized and the patient was discharged home. She is maintained on Symbicort on outpatient basis regarding her COPD. No nausea. No vomiting. No emesis. No diarrhea. I saw this patient on an urgent basis. 8 team was called earlier this morning as the patient was in considerable multivessel distress. She is currently on a BiPAP at a pressure of 12/5 cm of water and FiO2 of 35%. She had marked diminis hed breath sound bilaterally and diffuse expiratory wheezes on the right. She has also absent breath on the left. The chest x-ray was repeated and the patient had complete opacification of the left lung. I performed an emergent bedside thoracentesis draining approximately 1.3 L of fluid from the left lung. Follow-up chest x-rays to follow. Note that her chest x-ray did not reveal any significant pleural effusion. She is currently on a BiPAP for respiratory support. She is also and accommodation bronchodilators and steroids. On 06/04/2031 and seeing the patient for a follow-up. The patient is off the BiPAP. Nevertheless she remains spastic and wheezy. Note that I drained approximately 1.3 L of fluid from the left lung. A follow-up CAT scan of the chest was done and showed a large left hilar mass that was causing obstruction and atelectasis of the left lower lobe. In fact left lower lobe bronchus was quite narrowed and there is probably need endobronchial extension of the hilar tumor. The patient was made aware of this finding. She is a bit lethargic and at times confused. There may be a component of CO2 narcosis. She is declining to use the BiPAP consistently and she is preferring oxygen 4 L per minute nasal cannula. No hemoptysis. No reported chest pain. No focal neurological deficit. Highly suspect malignancy. Awaiting fluid cytology from the left- sided pleural effusion. Reevaluated today on 06/05/2021, patient is on nasal cannula, she is off BiPAP, keeps moaning moving her BiPAP intermittently. She is actually on 2 L nasal cannula, O2 sats is 91%. Patient is lethargic, but she is arousable, follows simple instructions. Cytology on the pleural effusion is pending. Patient had thoracentesis done by Dr. Gardiner on the fourth, remains on bronchodilators, remains on Solu-Medrol, she is also on Lovenox 40 mg subcu twice a day, and she is on Mirapex. Objective - Vital Signs Vital signs: Vital Signs Temp 97.8 F 06/05/21 11:40 Pulse 76 06/05/21 11:40 Resp 18 06/05/21 14:53 BP 176/76 06/05/21 11:40 Pulse Ox 91 L 06/05/21 11:40 Intake & Output 06/04/21 06/05/21 06/05/21 18:59 06:59 18:59 Intake Total 540 240 Output Total 740 450 600 Balance -200 -450 -360 Weight 84 kg Intake: Oral 540 240 Output: Urine 740 450 600 Other: Voiding Method Bedpan Bedpan Bedpan # Bowel Movements 0 - Exam Physical Exam revealed a 66-year-old female lethargic, generally weak, in no di stress. Head: Atraumatic, normocephalic. 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 Cardiac Exam: [Normal S1 and S2, no S3 gallop, no murmur.] Abdomen: [Soft, nontender, no megaly, no rebound, no guarding, normal bowel sounds.] Extremities: [No clubbing, a serum bipedal edema, no cyanosis. Neurological Exam: [Lethargic but arousable, follows simple instructions. Psychiatric: Depressed mood, blunt affect, intact judgment and normal mental status examination. - Labs CBC & Chem 7: 06/05/21 07:52 06/05/21 07:52 Labs: Abnormal Lab Results - Last 24 Hours (Table) 06/04/21 06/04/21 06/04/21 Range/Units 20:09 20:11 20:39 WBC (3.8-10.6) k/uL Sodium (137-145) mmol/L Chloride (98-107) mmol/L Carbon Dioxide (22-30) mmol/L BUN (7-17) mg/dL Glucose 274 H (74-99) mg/dL POC Glucose (mg/dL) 571 H 340 H (75-99) mg/dL 06/05/21 06/05/21 06/05/21 Range/Units 05:50 07:52 07:52 WBC 13.0 H (3.8-10.6) k/uL Sodium 135 L (137-145) mmol/L Chloride 97 L (98-107) mmol/L Carbon Dioxide 31 H (22-30) mmol/L BUN 24 H (7-17) mg/dL Glucose 141 H (74-99) mg/dL POC Glucose (mg/dL) 336 H (75-99) mg/dL 06/05/21 06/05/21 Range/Units 11:58 16:58 WBC (3.8-10.6) k/uL Sodium (137-145) mmol/L Chloride (98-107) mmol/L Carbon Dioxide (22-30) mmol/L BUN (7-17) mg/dL Glucose (74-99) mg/dL POC Glucose (mg/dL) 130 H 204 H (75-99) mg/dL Microbiology - Last 24 Hours (Table) 06/03/21 12:00 Gram Stain - Preliminary Pleural Fluid Body Fluid Culture - Preliminary 06/02/21 20:00 Blood Culture - Preliminary Blood No Growth after 48 hours 06/03/21 12:00 Acid Fast Bacilli Smear - Final Pleural Fluid Acid Fast Bacilli Culture - Preliminary 06/02/21 18:09 Blood Culture - Preliminary Blood No Growth after 48 hours Assessment and Plan Assessment: Impression: Acute hypoxic respiratory failure, multifactorial secondary to COVID-19 pneumonia also secondary to left pleural effusion with left hilar mass, possibly malignant pleural effusion unless for otherwise. And secondary to acute exacerbation of COPD. History of underlying COPD and chronic hypercapnic story failure as well as chronic hypoxic respiratory failure Obstructive sleep apnea syndrome, does not tolerate CPAP History of narcolepsy. Benign essential hypertension Type 2 diabetes Chronic back pain Generalized anxiety disorder Restless leg syndrome Recommendation: Awaiting cytology of the pleural effusion Continue bronchodilators. Continue COVID-19 cocktail. Continue Solu-Medrol. Continue bronchodilators. Monitor inflammatory markers. BiPAP if tolerated however the patient refuses to use BiPAP. Consider CT of the brain, rule out [employer] metastasis, should be done if the cytology from the pleural effusion is negative. We will continue to follow. Prognosis remains extremely poor and guarded Time with Patient: Less than 30
--- NOTE | 2021-06-05 18:11 | P.PN ---
Subjective Progress Note Date: 06/05/21 This is 66-year-old female admitted with acute COVID-19 pneumonia, left pleural effusion, left hilar mass possibly malignant, acute COPD exacerbation, acute hypoxic respiratory failure, and multiple other medical issues. Status post thoracentesis with pleural cytology pending. Maintained on bronchodilators, covid cocktail.Patient currently on BiPAP, labored breathing, fatigued, lethargic. Afebrile. Labs pending. Objective - Vital Signs Vital signs: Vital Signs Temp 98 F 06/05/21 16:52 Pulse 67 06/05/21 16:52 Resp 24 06/05/21 16:52 BP 140/73 06/05/21 16:52 Pulse Ox 95 06/05/21 16:52 Intake & Output 06/04/21 06/05/21 06/05/21 18:59 06:59 18:59 Intake Total 540 480 Output Total 740 450 600 Balance -200 -450 -120 Weight 84 kg Intake: Oral 540 480 Output: Urine 740 450 600 Other: Voiding Method Bedpan Bedpan Bedpan # Bowel Movements 0 - Exam GENERAL: alert and oriented x2,NAD, tired appearing HEENT: Pupils are round and equally reacting to light. EOMI. No scleral icterus. No conjunctival pallor. Normocephalic, atraumatic. CARDIOVASCULAR: S1 and S2 present. No murmurs, rubs, or gallops. PULMONARY: Labored breathing, bilateral bases diminished, scattered rhonchi, and expiratory wheezing ABDOMEN: Soft, nontender, nondistended, normoactive bowel sounds. No palpable organomegaly. EXTREMITIES: No cyanosis, clubbing, or pedal edema. NEUROLOGICAL: Gross neurological examination did not reveal any focal deficits. SKIN: Warm and dry, nonhealing ulceration of right lateral thigh , refer to measurements as per wound care team - Labs CBC & Chem 7: 06/05/21 07:52 06/05/21 07:52 Labs: Abnormal Lab Results - Last 24 Hours (Table) 06/04/21 06/04/21 06/04/21 Range/Units 20:09 20:11 20:39 WBC (3.8-10.6) k/uL Sodium (137-145) mmol/L Chloride (98-107) mmol/L Carbon Dioxide (22-30) mmol/L BUN (7-17) mg/dL Glucose 274 H (74-99) mg/dL POC Glucose (mg/dL) 571 H 340 H (75-99) mg/dL 06/05/21 06/05/21 06/05/21 Range/Units 05:50 07:52 07:52 WBC 13.0 H (3.8-10.6) k/uL Sodium 135 L (137-145) mmol/L Chloride 97 L (98-107) mmol/L Carbon Dioxide 31 H (22-30) mmol/L BUN 24 H (7-17) mg/dL Glucose 141 H (74-99) mg/dL POC Glucose (mg/dL) 336 H (75-99) mg/dL 06/05/21 06/05/21 Range/Units 11:58 16:58 WBC (3.8-10.6) k/uL Sodium (137-145) mmol/L Chloride (98-107) mmol/L Carbon Dioxide (22-30) mmol/L BUN (7-17) mg/dL Glucose (74-99) mg/dL POC Glucose (mg/dL) 130 H 204 H (75-99) mg/dL Microbiology - Last 24 Hours (Table) 06/03/21 12:00 Gram Stain - Preliminary Pleural Fluid Body Fluid Culture - Preliminary 06/02/21 20:00 Blood Culture - Preliminary Blood No Growth after 48 hours 06/03/21 12:00 Acid Fast Bacilli Smear - Final Pleural Fluid Acid Fast Bacilli Culture - Preliminary 06/02/21 18:09 Blood Culture - Preliminary Blood No Growth after 48 hours Assessment and Plan Assessment: Acute hypoxic respiratory failure, multifactorial secondary to acute coated pneumonia, pleural effusion which may be secondary to malignancy and acute COPD exacerbation. Status post emergent thoracentesis, cytology pending. Right lower extremity thigh, nonhealing ulceration Chronic hypoxic and hypercapnic respiratory failure Obstructive sleep apnea, intolerant of CPAP Diabetes mellitus type 2 Essential hypertension Chronic back pain anxiety disorder Restless leg syndrome History of narcolepsy Plan: Continue on current medication regime ,monitoring and symptomatic treatment. Maintain covid cocktail, bronchodilators. Pleural cytology pending. Follow closely with pulmonary. Wound care as per wound care team. Prognosis guarded given multiple complex medical issues. The impression and plan of care has been dictated as directed. : I performed a history and examination of this patient, discussed the same with the dictator. I agree with the dictator's note ,documented as a scribe. Any additional findings or plans will be noted.
[2021-06-05] MEDS: SODIUM CHLORIDE 0.9% 1,000 ML IV SCH (19:47)
[2021-06-05 20:09] LABS: Glucose,Whole Blood 157 mg/dL (75-99)
[2021-06-06] MEDS: PRAMIPEXOLE 1 MG TAB PO SCH ×2 (00:12→21:45)
[2021-06-06] MEDS: ESCITALOPRAM 20 MG TAB PO SCH ×2 (00:13→21:52)
[2021-06-06] MEDS: ALPRAZolam 0.5 MG TAB PO PRN (00:13)
[2021-06-06] MEDS: MORPHINE SULFATE 4 MG/ML SYRINGE IV PRN (03:36)
[2021-06-06] MEDS: methylPREDNISolone SOD SUCCI 125 MG/2 ML VIAL IV SCH ×4 (05:50→22:58)
[2021-06-06] MEDS: INSULIN ASPART (NovoLOG) 100 UNIT/ML VIAL SQ SCH (05:52)
[2021-06-06 06:03] LABS: Glucose,Whole Blood 245 mg/dL (75-99)
[2021-06-06 07:56] LABS: ABG Base Excess 10.7 mmol/L; ABG HCO3 37 mmol/L (21-25); ABG Oxygen Saturation 89.6 % (94-97); ABG PH 7.32 (7.35-7.45); ABG PO2 62 mmHg (83-108); ABG TCO2 39 mmol/L (19-24); Allen Test Performed? Yes
[2021-06-06] MEDS: ENOXAPARIN 40 MG/0.4 ML SYRINGE SQ SCH ×2 (07:58→21:20)
[2021-06-06 08:03] LABS: ABG PCO2 71 mmHg (35-45)
--- NOTE | 2021-06-06 08:06 | XR ---
EXAMINATION TYPE: XR chest 1V portable DATE OF EXAM: 06/06/2021 CLINICAL HISTORY: Difficulty breathing and covid progress study. TECHNIQUE: Single AP portable frontal view of the chest is obtained. COMPARISON: Chest x-ray and CTA chest from 3 days earlier FINDINGS: Persistent cardiomegaly. More prominent multifocal and bilateral opacities. Stable small l eft pleural effusion. Surgical change lumbar spine partially imaged. IMPRESSION: Cardiomegaly with interval progression multifocal and bilateral opacities consistent with covid-19 infection progression. Stable small left pleural effusion.
[2021-06-06 09:29] LABS: Glucose,Whole Blood 340 mg/dL (75-99)
[2021-06-06] MEDS ORDERED: propofoL 100 ML IV ONE (09:52)
[2021-06-06 09:56] LABS: Glucose,Whole Blood 327 mg/dL (75-99)
[2021-06-06 10:04] LABS: HCT 44.2 % (34.0-46.0); HGB 13.6 gm/dL (11.4-16.0); Hypochromasia Moderate; MCH 26.3 pg (25.0-35.0); MCHC 30.8 g/dL (31.0-37.0); MCV 85.3 fL (80.0-100.0); Mean Platelet Volume 6.9; Platelet Count 560 k/uL (150-450); RBC 5.18 m/uL (3.80-5.40); RDW 14.1 % (11.5-15.5); WBC 15.3 k/uL (3.8-10.6)
[2021-06-06] MEDS ORDERED: CISATRACURIUM 2 MG/ML 5 ML VIAL IV ONE ×2 (10:12→16:04)
[2021-06-06] MEDS ORDERED: NOREPINEPHRIN 4 MG-0.9% NS PMX 4 MG/250 ML ML IV ONE (10:15)
[2021-06-06 10:16] LABS: ALT 28 U/L (4-34); AST 40 U/L (14-36); African American GFR (CKD) >90 (>60 ml/min/1.73 sqM); Albumin 3.4 g/dL (3.5-5.0); Alkaline Phosphatase 115 U/L (38-126); Anion Gap 4 mmol/L; Blood Urea Nitrogen 23 mg/dL (7-17); C Reactive Protein 2.4 mg/dL (<1.0); Calcium 9.1 mg/dL (8.4-10.2); Carbon Dioxide 36 mmol/L (22-30); Chloride 94 mmol/L (98-107); Glucose 291 mg/dL (74-99); LDH 1374 U/L (313-618); Magnesium 2.1 mg/dL (1.6-2.3); Non-African American GFR(CKD) >90 (>60 ml/min/1.73 sqM); Potassium 5.2 mmol/L (3.5-5.1); Sodium 134 mmol/L (137-145); Total Bilirubin 0.2 mg/dL (0.2-1.3); Total Protein 6.4 g/dL (6.3-8.2)
--- NOTE | 2021-06-06 10:32 | P.EN ---
A- team: Indication: Hypoxemia Arrived on Scene to find: Patient on BiPAP, accessory muscle use, SpO2 80% Patient seen and examined at bedside. Complains of feeling terrible. In short of breath. Unable to speak. Worse:. Per nursing patient was on 2 L nasal cannula for part of the day yesterday. She then required BiPAP with an FiO2 of 50% which increased to 100% overnight. She then became worse this morning with decreasing SPO2. CXR reviewed with corsening bilateral infiltrated. Vital signs reviewed General: ill appearing maximal distress, appears at stated age Derm: warm, dry Head: atraumatic, normocephalic, symmetric Eyes: EOMI, no lid lag, anicteric sclera Mouth: no lip lesion, mucus membranes dry Cardiovascular: S1S2 reg, no murmur, positive posterior tibial pulse bilateral, Lungs: Course bs bilateral, + accessory muscle use, 3 word conversational dyspnea. Ext: no gross muscle atrophy, no edema, no contractures Neuro: CN II-XI grossly intact, no focal neuro deficits Assessment: COVID -19 pneumonia, ARDS, Acute hypoxic respiratory failure Plan: as below under niotification. repeat CXR is pending Stat Labs are pending. Disposition: critical Notified: Dr. Robert and patient transferred to the ICU, Patients respiratory status was worsening with increased acessory muscle use and decreasing responsiveness [employer] called and intubated the patient. post intubation her SPO2 was 66% peep increased from 5-10-12-. She was biting the tube and received nibex X 1 and was placed on propofol. A[employer]TE[employer] placed an arterial line. PAtient hypotnesive and 1L bolus ordered Dr. Gusman notified via perfect serve. Family was notified by saritha of change in status. A Total of 65 minutes of critical care time was spent on the complex care of this patient.
--- NOTE | 2021-06-06 10:56 | XR ---
EXAMINATION TYPE: XR chest 1V DATE OF EXAM: 06/06/2021 COMPARISON: 06/06/2021 INDICATION: Tube placement TECHNIQUE: Single frontal view of the chest is obtained. FINDINGS: The heart size is mildly prominent. The pulmonary vasculature is prominent. Diffuse increased lung markings are present bilaterally, this is greater in the perihilar and lower l bronson jones. Findings are worsening over the interval. Endotracheal tube is in place with tip 3.3 cm above the alejandro. Nasogastric tube transverses the thor ax. IMPRESSION: 1. Worsening bilateral lung infiltrates. 2. Lines and catheters discussed above
[2021-06-06 11:01] LABS: ABG Base Excess 5.5 mmol/L; ABG HCO3 31 mmol/L (21-25); ABG PCO2 56 mmHg (35-45); ABG PH 7.36 (7.35-7.45); ABG PO2 66 mmHg (83-108); ABG TCO2 33 mmol/L (19-24)
[2021-06-06 11:03] LABS: Allen Test Performed? no
[2021-06-06] MEDS: ALBUTEROL HFA INHALER INHALATION SCH ×4 (11:05→20:51)
[2021-06-06] MEDS: NOREPINEPHRINE 4 MG in SODIUM CHLORIDE 0.9% 250 ML IV SCH ×2 (11:15→20:18)
[2021-06-06] MEDS: SODIUM CHLORIDE 0.9% 1,000 ML IV SCH ×2 (11:33→21:20)
[2021-06-06] MEDS ORDERED: INSULIN REGULAR BOLUS (FROM DRIP BAG) IV PRN (12:00)
[2021-06-06 12:38] LABS: Glucose,Whole Blood 284 mg/dL (75-99)
[2021-06-06] MEDS: INSULIN REGULAR 100 UNIT in SODIUM CHLORIDE 0.9% 100 ML IV SCH (12:39)
[2021-06-06 13:24] LABS: Glucose,Whole Blood 226 mg/dL (75-99)
[2021-06-06] MEDS: PANTOPRAZOLE 40 MG/10 ML VIAL IVP SCH (13:35)
--- NOTE | 2021-06-06 14:02 | P.PN ---
Subjective Progress Note Date: 06/06/21 Principal diagnosis: Acute hypoxic respiratory failure secondary to COVID-19 pneumonia, also secondary to left pleural effusion and possible underlying pulmonary malignancy with left hilar mass. 65-year-old female patient who is presenting to the emergency department because of an acute respiratory distress. The patient came in yesterday to emergency and she was complaining of increased cough and shortness of breath away 1 week duration. She denied having any fever. She had some pain worse with breathing across her chest. Her chest x-ray was done and showed near-complete opacities of the left lung which was a new finding. In the emergency department, the patient was found to have a white cell count of 7.8 with hemoglobin of 11.8, sodium is at 132 with a BUN of 15 a creatinine of 0.35. The patient's proBNP level was nonelevated, troponins were negative, and she had also normal coagulation profile. At that point, the patient was admitted to the hospital and a pulmonary consultation was requested. The patient was started on Proventil HFA and the patient was also started on IV Solu-Medrol. On a separate note, the patient turner machine to be positive for COVID 19. Note that this patient has been vaccinated for COVID 19. The patient is known to me. The patient is known to have advanced COPD along with obstructive sleep apnea and she has been able to tolerate CPAP therapy on outpatient basis. She has also history of narcolepsy maintained on Enbrel and Lexapro on outpatient basis. She is known to have diabetes, hypertension, chronic anxiety and depression and chronic back pain. She has also symptoms of RLS. She was in the hospital back in January 2021 for worsening shortness of breath and COPD exacerbation. The patient's condition was optimized and the patient was discharged home. She is maintained on Symbicort on outpatient basis regarding her COPD. No nausea. No vomiting. No emesis. No diarrhea. I saw this patient on an urgent basis. 8 team was called earlier this morning as the patient was in considerable multivessel distress. She is currently on a BiPAP at a pressure of 12/5 cm of water and FiO2 of 35%. She had marked diminis hed breath sound bilaterally and diffuse expiratory wheezes on the right. She has also absent breath on the left. The chest x-ray was repeated and the patient had complete opacification of the left lung. I performed an emergent bedside thoracentesis draining approximately 1.3 L of fluid from the left lung. Follow-up chest x-rays to follow. Note that her chest x-ray did not reveal any significant pleural effusion. She is currently on a BiPAP for respiratory support. She is also and accommodation bronchodilators and steroids. On 06/04/2031 and seeing the patient for a follow-up. The patient is off the BiPAP. Nevertheless she remains spastic and wheezy. Note that I drained approximately 1.3 L of fluid from the left lung. A follow-up CAT scan of the chest was done and showed a large left hilar mass that was causing obstruction and atelectasis of the left lower lobe. In fact left lower lobe bronchus was quite narrowed and there is probably need endobronchial extension of the hilar tumor. The patient was made aware of this finding. She is a bit lethargic and at times confused. There may be a component of CO2 narcosis. She is declining to use the BiPAP consistently and she is preferring oxygen 4 L per minute nasal cannula. No hemoptysis. No reported chest pain. No focal neurological deficit. Highly suspect malignancy. Awaiting fluid cytology from the left- sided pleural effusion. Reevaluated today on 06/05/2021, patient is on nasal cannula, she is off BiPAP, keeps moaning moving her BiPAP intermittently. She is actually on 2 L nasal cannula, O2 sats is 91%. Patient is lethargic, but she is arousable, follows simple instructions. Cytology on the pleural effusion is pending. Patient had thoracentesis done by Dr. Gardiner on the fourth, remains on bronchodilators, remains on Solu-Medrol, she is also on Lovenox 40 mg subcu twice a day, and she is on Mirapex. Reevaluated today on 06/06/2021, patient had worsening clinical status morning, she required placement on BiPAP, however even on BiPAP, the patient remained extremely short of breath, she was developing intermittent episodes of lethargy. Patient was transferred to the ICU, intubated S1 S1 she arrived to the ICU. She is now on assist control rate of 30 tidal volume 400 FiO2 on the percent and PEEP of 12. ABG post intubation showed a pO2 of 66 pCO2 of 56 pH of 7.36. Basic metabolic profile is normal renal profile is normal blood sugar is running a bit high, patient may have to be placed on insulin drip. D-dimer is 1.41. WBC count is 15.3 hemoglobin 13.6. LDH is 1374 C-reactive protein 2.4. 6 x-ray is showing worsening infiltrates bilaterally right more so than left. Cytology from her pleural effusion is pending. Objective - Vital Signs Vital signs: Vital Signs Temp 98.7 F 06/06/21 12:00 Pulse 96 06/06/21 13:30 Resp 30 H 06/06/21 13:30 BP 94/69 06/06/21 13:30 Pulse Ox 96 06/06/21 13:30 Intake & Output 06/05/21 06/06/21 06/06/21 18:59 06:59 18:59 Intake Total 480 277.794 Output Total 600 675 80 Balance -120 -675 197.794 Weight 82 kg 82 kg Intake: IV 240 0.9NS bolus 200 Sodium Chloride 0.9% 1, 40 000 ml @ 100 mls/hr IV . Q10H JOSE ANTONIO Rx#:[id number] Intake, IV Titration 37.794 Amount Insulin Regular 100 unit 12.019 In Sodium Chloride 0.9% 100 ml @ Per Protocol IV .Q0M JOSE ANTONIO Rx#:[id number] Norepinephrine 4 mg In 25.775 Sodium Chloride 0.9% 250 ml @ 0.05 MCG/KG/MIN 15. 621 mls/hr IV .[id number] JOSE ANTONIO Rx#:[id number] Oral 480 Output: Urine 600 675 80 Other: Voiding Method Bedpan Bedpan Bedpan # Voids 1 # Bowel Movements 0 ABP, PAP, CO, CI - Last Documented Arterial Blood Pressure 98/55 - Exam Physical Exam revealed a 66-year-old female intubated, sedated, on mechanical ventilation. Head: Atraumatic, normocephalic. HEENT:[Neck is supple.] [No neck masses.] [No thyromegaly.] [No JVD.] Chest: [Symmetrical chest expansion crackles at the bases. Cardiac Exam: [Normal S1 and S2, no S3 gallop, no murmur.] Abdomen: [Soft, nontender, no megaly, no rebound, no guarding, normal bowel sounds.] Extremities: [No clubbing, a serum bipedal edema, no cyanosis. Neurological Exam: Unable to assess, patient is fully sedated, presently on propofol at 30 mcg/kg/m. Psychiatric: Unable to assess Skin: Evidence of a large ulcer on the skin on the lateral aspect of her right side. Being addressed by wound care services - Labs CBC & Chem 7: 06/06/21 09:37 06/06/21 09:37 Labs: Abnormal Lab Results - Last 24 Hours (Table) 06/05/21 06/05/21 06/06/21 Range/Units 16:58 20:08 06:02 WBC (3.8-10.6) k/uL MCHC (31.0-37.0) g/dL Plt Count (150-450) k/uL D-Dimer (<0.60) mg/L FEU ABG pH (7.35-7.45) ABG pCO2 (35-45) mmHg ABG pO2 (83-108) mmHg ABG HCO3 (21-25) mmol/L ABG Total CO2 (19-24) mmol/L ABG O2 Saturation (94-97) % Sodium (137-145) mmol/L Potassium (3.5-5.1) mmol/L Chloride (98-107) mmol/L Carbon Dioxide (22-30) mmol/L BUN (7-17) mg/dL Glucose (74-99) mg/dL POC Glucose (mg/dL) 204 H 157 H 245 H (75-99) mg/dL Phosphorus (2.5-4.5) mg/dL AST (14-36) U/L Lactate Dehydrogenase (313-618) U/L C-Reactive Protein (<1.0) mg/dL Albumin (3.5-5.0) g/dL 06/06/21 06/06/21 06/06/21 Range/Units 07:52 09:26 09:37 WBC 15.3 H (3.8-10.6) k/uL MCHC 30.8 L (31.0-37.0) g/dL Plt Count 560 H (150-450) k/uL D-Dimer (<0.60) mg/L FEU ABG pH 7.32 L (7.35-7.45) ABG pCO2 71 H* (35-45) mmHg ABG pO2 62 L (83-108) mmHg ABG HCO3 37 H (21-25) mmol/L ABG Total CO2 39 H (19-24) mmol/L ABG O2 Saturation 89.6 L (94-97) % Sodium (137-145) mmol/L Potassium (3.5-5.1) mmol/L Chloride (98-107) mmol/L Carbon Dioxide (22-30) mmol/L BUN (7-17) mg/dL Glucose (74-99) mg/dL POC Glucose (mg/dL) 340 H (75-99) mg/dL Phosphorus (2.5-4.5) mg/dL AST (14-36) U/L Lactate Dehydrogenase (313-618) U/L C-Reactive Protein (<1.0) mg/dL Albumin (3.5-5.0) g/dL 06/06/21 06/06/21 06/06/21 Range/Units 09:37 09:37 09:54 WBC (3.8-10.6) k/uL MCHC (31.0-37.0) g/dL Plt Count (150-450) k/uL D-Dimer 1.41 H (<0.60) mg/L FEU ABG pH (7.35-7.45) ABG pCO2 (35-45) mmHg ABG pO2 (83-108) mmHg ABG HCO3 (21-25) mmol/L ABG Total CO2 (19-24) mmol/L ABG O2 Saturation (94-97) % Sodium 134 L (137-145) mmol/L Potassium 5.2 H (3.5-5.1) mmol/L Chloride 94 L (98-107) mmol/L Carbon Dioxide 36 H (22-30) mmol/L BUN 23 H (7-17) mg/dL Glucose 291 H (74-99) mg/dL POC Glucose (mg/dL) 327 H (75-99) mg/dL Phosphorus 5.0 H (2.5-4.5) mg/dL AST 40 H (14-36) U/L Lactate Dehydrogenase 1374 H (313-618) U/L C-Reactive Protein 2.4 H (<1.0) mg/dL Albumin 3.4 L (3.5-5.0) g/dL 1206/06/21 06/06/21 Range/Units 10:59 12:34 13:22 WBC (3.8-10.6) k/uL MCHC (31.0-37.0) g/dL Plt Count (150-450) k/uL D-Dimer (<0.60) mg/L FEU ABG pH (7.35-7.45) ABG pCO2 56 H (35-45) mmHg ABG pO2 66 L (83-108) mmHg ABG HCO3 31 H (21-25) mmol/L ABG Total CO2 33 H (19-24) mmol/L ABG O2 Saturation 93.0 L (94-97) % Sodium (137-145) mmol/L Potassium (3.5-5.1) mmol/L Chloride (98-107) mmol/L Carbon Dioxide (22-30) mmol/L BUN (7-17) mg/dL Glucose (74-99) mg/dL POC Glucose (mg/dL) 284 H 226 H (75-99) mg/dL Phosphorus (2.5-4.5) mg/dL AST (14-36) U/L Lactate Dehydrogenase (313-618) U/L C-Reactive Protein (<1.0) mg/dL Albumin (3.5-5.0) g/dL Microbiology - Last 24 Hours (Table) 06/03/21 12:00 Gram Stain - Preliminary Pleural Fluid Body Fluid Culture - Preliminary 06/02/21 20:00 Blood Culture - Preliminary Blood No Growth after 72 hours 06/02/21 18:09 Blood Culture - Preliminary Blood No Growth after 72 hours Assessment and Plan Assessment: Impression: Acute hypoxic respiratory failure, multifactorial secondary to COVID-19 pneumonia also secondary to left pleural effusion with left hilar mass, possibly malignant pleural effusion unless for otherwise. And secondary to acute exacerbation of COPD. History of underlying COPD and chronic hypercapnic and hypoxic respiratory failure. Patient was intubated on 06/06/2021, and she is now on mechanical ventilation. Obstructive sleep apnea syndrome, does not tolerate CPAP History of narcolepsy. Benign essential hypertension Type 2 diabetes Chronic back pain Generalized anxiety disorder Restless leg syndrome Recommendation: Continue ventilatory support. Adjust ventilator settings accordingly based on ABG. Titrate oxygen and PEEP accordingly. Awaiting cytology from the pleural effusion. GI and DVT prophylaxis. Continue bronchodilators. Continue COVID-19 cocktail. Continue Solu-Medrol. Continue bronchodilators. Monitor inflammatory markers. Prognosis is poor and guarded. We will continue to follow. Critical care time is over 30 minutes Time with Patient: Greater than 30
[2021-06-06 14:32] LABS: Glucose,Whole Blood 158 mg/dL (75-99)
--- NOTE | 2021-06-06 15:21 | P.PN ---
Subjective Progress Note Date: 06/06/21 This is 66-year-old female admitted with acute COVID-19 pneumonia, left pleural effusion, left hilar mass possibly malignant, acute COPD exacerbation, acute hypoxic respiratory failure, and multiple other medical issues. Status post thoracentesis with pleural cytology pending. Maintained on bronchodilators, covid cocktail.Patient currently on BiPAP, labored breathing, fatigued, lethargic. Afebrile. Labs pending. 06/06/2021 worsening respiratory status, on BiPAP. Intubated and transferred to ICU. ABGs post intubation reported pH 7.36, pCO2 56, pO2 66, bicarb 31 base excess 5.5. Chest x-ray reported more prominent, progression of multifocal bilateral opacities. Pleural cytology pending. Afebrile, WBC increased to 15.3. D-dimer and LDH increased, CRP 2.4. Hyperglycemia, placed on insulin drip. Objective - Vital Signs Vital signs: Vital Signs Temp 98.7 F 06/06/21 12:00 Pulse 96 06/06/21 14:30 Resp 30 H 06/06/21 14:30 BP 94/69 06/06/21 13:30 Pulse Ox 98 06/06/21 14:30 Intake & Output 06/05/21 06/06/21 06/06/21 18:59 06:59 18:59 Intake Total 480 408.460 Output Total 600 675 120 Balance -120 -675 288.460 Weight 82 kg 82 kg Intake: IV 340 0.9NS bolus 200 Sodium Chloride 0.9% 1, 140 000 ml @ 100 mls/hr IV . Q10H JOSE ANTONIO Rx#:[id number] Intake, IV Titration 68.460 Amount Insulin Regular 100 unit 20.503 In Sodium Chloride 0.9% 100 ml @ Per Protocol IV .Q0M JOSE ANTONIO Rx#:[id number] Norepinephrine 4 mg In 47.957 Sodium Chloride 0.9% 250 ml @ 0.05 MCG/KG/MIN 15. 621 mls/hr IV .[id number] JOSE ANTONIO Rx#:[id number] Oral 480 Output: Urine 600 675 120 Other: Voiding Method Bedpan Bedpan Indwelling Catheter # Voids 1 # Bowel Movements 0 ABP, PAP, CO, CI - Last Documented Arterial Blood Pressure 110/63 - Exam GENERAL: Sedated, on mechanical ventilation HEENT: Normocephalic, atraumatic. CARDIOVASCULAR: S1 and S2 present. No murmurs, rubs, or gallops. PULMONARY: Labored breathing, bilateral bases diminished, fine bibasilar crackles ABDOMEN: Soft, nontender, nondistended, normoactive bowel sounds. No palpable organomegaly. EXTREMITIES: No cyanosis, clubbing, fine pedal edema. NEUROLOGICAL: Unable to assess, sedated and on mechanical ventilation SKIN: Warm and dry, nonhealing ulceration of right lateral thigh , refer to measurements as per wound care team - Labs CBC & Chem 7: 06/06/21 09:37 06/06/21 09:37 Labs: Abnormal Lab Results - Last 24 Hours (Table) 06/05/21 06/05/21 06/06/21 Range/Units 16:58 20:08 06:02 WBC (3.8-10.6) k/uL MCHC (31.0-37.0) g/dL Plt Count (150-450) k/uL D-Dimer (<0.60) mg/L FEU ABG pH (7.35-7.45) ABG pCO2 (35-45) mmHg ABG pO2 (83-108) mmHg ABG HCO3 (21-25) mmol/L ABG Total CO2 (19-24) mmol/L ABG O2 Saturation (94-97) % Sodium (137-145) mmol/L Potassium (3.5-5.1) mmol/L Chloride (98-107) mmol/L Carbon Dioxide (22-30) mmol/L BUN (7-17) mg/dL Glucose (74-99) mg/dL POC Glucose (mg/dL) 204 H 157 H 245 H (75-99) mg/dL Phosphorus (2.5-4.5) mg/dL AST (14-36) U/L Lactate Dehydrogenase (313-618) U/L C-Reactive Protein (<1.0) mg/dL Albumin (3.5-5.0) g/dL 06/06/21 06/06/21 06/06/21 Range/Units 07:52 09:26 09:37 WBC 15.3 H (3.8-10.6) k/uL MCHC 30.8 L (31.0-37.0) g/dL Plt Count 560 H (150-450) k/uL D-Dimer (<0.60) mg/L FEU ABG pH 7.32 L (7.35-7.45) ABG pCO2 71 H* (35-45) mmHg ABG pO2 62 L (83-108) mmHg ABG HCO3 37 H (21-25) mmol/L ABG Total CO2 39 H (19-24) mmol/L ABG O2 Saturation 89.6 L (94-97) % Sodium (137-145) mmol/L Potassium (3.5-5.1) mmol/L Chloride (98-107) mmol/L Carbon Dioxide (22-30) mmol/L BUN (7-17) mg/dL Glucose (74-99) mg/dL POC Glucose (mg/dL) 340 H (75-99) mg/dL Phosphorus (2.5-4.5) mg/dL AST (14-36) U/L Lactate Dehydrogenase (313-618) U/L C-Reactive Protein (<1.0) mg/dL Albumin (3.5-5.0) g/dL 06/06/21 06/06/21 06/06/21 Range/Units 09:37 09:37 09:54 WBC (3.8-10.6) k/uL MCHC (31.0-37.0) g/dL Plt Count (150-450) k/uL D-Dimer 1.41 H (<0.60) mg/L FEU ABG pH (7.35-7.45) ABG pCO2 (35-45) mmHg ABG pO2 (83-108) mmHg ABG HCO3 (21-25) mmol/L ABG Total CO2 (19-24) mmol/L ABG O2 Saturation (94-97) % Sodium 134 L (137-145) mmol/L Potassium 5.2 H (3.5-5.1) mmol/L Chloride 94 L (98-107) mmol/L Carbon Dioxide 36 H (22-30) mmol/L BUN 23 H (7-17) mg/dL Glucose 291 H (74-99) mg/dL POC Glucose (mg/dL) 327 H (75-99) mg/dL Phosphorus 5.0 H (2.5-4.5) mg/dL AST 40 H (14-36) U/L Lactate Dehydrogenase 1374 H (313-618) U/L C-Reactive Protein 2.4 H (<1.0) mg/dL Albumin 3.4 L (3.5-5.0) g/dL 06/06/21 06/06/21 06/06/21 Range/Units 10:59 12:34 13:22 WBC (3.8-10.6) k/uL MCHC (31.0-37.0) g/dL Plt Count (150-450) k/uL D-Dimer (<0.60) mg/L FEU ABG pH (7.35-7.45) ABG pCO2 56 H (35-45) mmHg ABG pO2 66 L (83-108) mmHg ABG HCO3 31 H (21-25) mmol/L ABG Total CO2 33 H (19-24) mmol/L ABG O2 Saturation 93.0 L (94-97) % Sodium (137-145) mmol/L Potassium (3.5-5.1) mmol/L Chloride (98-107) mmol/L Carbon Dioxide (22-30) mmol/L BUN (7-17) mg/dL Glucose (74-99) mg/dL POC Glucose (mg/dL) 284 H 226 H (75-99) mg/dL Phosphorus (2.5-4.5) mg/dL AST (14-36) U/L Lactate Dehydrogenase (313-618) U/L C-Reactive Protein (<1.0) mg/dL Albumin (3.5-5.0) g/dL 06/06/21 Range/Units 14:30 WBC (3.8-10.6) k/uL MCHC (31.0-37.0) g/dL Plt Count (150-450) k/uL D-Dimer (<0.60) mg/L FEU ABG pH (7.35-7.45) ABG pCO2 (35-45) mmHg ABG pO2 (83-108) mmHg ABG HCO3 (21-25) mmol/L ABG Total CO2 (19-24) mmol/L ABG O2 Saturation (94-97) % Sodium (137-145) mmol/L Potassium (3.5-5.1) mmol/L Chloride (98-107) mmol/L Carbon Dioxide (22-30) mmol/L BUN (7-17) mg/dL Glucose (74-99) mg/dL POC Glucose (mg/dL) 158 H (75-99) mg/dL Phosphorus (2.5-4.5) mg/dL AST (14-36) U/L Lactate Dehydrogenase (313-618) U/L C-Reactive Protein (<1.0) mg/dL Albumin (3.5-5.0) g/dL Microbiology - Last 24 Hours (Table) 06/03/21 12:00 Gram Stain - Preliminary Pleural Fluid Body Fluid Culture - Preliminary 06/02/21 20:00 Blood Culture - Preliminary Blood No Growth after 72 hours 06/02/21 18:09 Blood Culture - Preliminary Blood No Growth after 72 hours Assessment and Plan Assessment: Acute hypoxic respiratory failure, mechanical ventilator-dependent, multifactorial secondary to acute coated pneumonia, pleural effusion which may be secondary to malignancy and acute COPD exacerbation. Status post emergent thoracentesis, cytology pending. Right lower extremity thigh, nonhealing ulceration Chronic hypoxic and hypercapnic respiratory failure Obstructive sleep apnea, intolerant of CPAP Diabetes mellitus type 2 Essential hypertension Chronic back pain anxiety disorder Restless leg syndrome History of narcolepsy Plan: Continue on current medication regime ,monitoring and symptomatic treatment. IC management as per employee representative Continue covid cocktail, bronchodilators. Pleural cytology pending. Wound care as per wound care team. Prognosis guarded given multiple complex medical issues. The impression and plan of care has been dictated as directed. : I performed a history and examination of this patient, discussed the same with the dictator. I agree with the dictator's note ,documented as a scribe. Any additional findings or plans will be noted.
[2021-06-06] MEDS: LEVOFLOXACIN 500 MG TAB PO SCH (15:31)
[2021-06-06 15:46] LABS: Glucose,Whole Blood 136 mg/dL (75-99)
[2021-06-06] MEDS ORDERED: FUROSEMIDE 10 MG/ML 4 ML VIAL IV STA (16:19)
--- NOTE | 2021-06-06 16:32 | XR ---
EXAMINATION TYPE: XR chest 1V DATE OF EXAM: 06/06/2021 COMPARISON: 06/06/2021 INDICATION: Central line placement TECHNIQUE: Single frontal view of the chest is obtained. FINDINGS: The heart size is mildly prominent. The pulmonary vasculature is mildly prominent. Diffuse increased lung markings are present bilaterally. Increasing lung markings are at the apices. Endotracheal tube tip remains above the alejandro. Nasogastric tube transverses the thorax. There is placement of left central venous catheter. The tip is in the distal superior vena cava regio n. No pneumothorax is evident. IMPRESSION: 1. No pneumothorax post left central venous catheter placement, tip is in the distal superior vena ca va region. 2. Lines and catheters discussed above. 3. Increasing pulmonary vascular markings and bilateral lung infiltrates.
[2021-06-06 16:56] LABS: Glucose,Whole Blood 157 mg/dL (75-99)
--- NOTE | 2021-06-06 18:26 | OP ---
OPERATIVE REPORT OPERATIVE REPORT: Placement of a left subclavian triple-lumen catheter. PREOPERATIVE DIAGNOSIS: Acute hypoxic respiratory failure secondary COVID-19 pneumonia. POSTOPERATIVE DIAGNOSIS: Acute hypoxic respiratory failure secondary COVID-19 pneumonia. ANESTHESIA USED: 2 mL of 1% lidocaine. PROCEDURE DESCRIPTION: The patient was placed in a supine position. The area of the left clavicle was prepared in a sterile fashion and drapes were applied. The area below the left clavicle was anesthetized using 2 mL of 1% lidocaine. Then, using the infraclavicular approach, the left subclavian vein was easily cannulated, and a guidewire was placed. The area around the guidewire was dilated. Then a triple-lumen catheter was inserted over the guidewire, and the guidewire was removed. Good blood flow was noted in the 3 different ports of the triple-lumen catheter; no evidence of any immediate complications. Chest x- ray was ordered postoperatively, pending at the time of this dictation. MMODL / IJN: [id number] /
[2021-06-06 18:44] LABS: Glucose,Whole Blood 324 mg/dL (75-99)
[2021-06-06 18:44] LABS: Glucose,Whole Blood 188 mg/dL (75-99)
[2021-06-06 20:15] LABS: Glucose,Whole Blood 133 mg/dL (75-99)
[2021-06-06 21:15] LABS: Glucose,Whole Blood 176 mg/dL (75-99)
[2021-06-06 21:53] LABS: Glucose,Whole Blood 180 mg/dL (75-99)
[2021-06-06 21:58] LABS: Glucose,Whole Blood 184 mg/dL (75-99)
[2021-06-07 02:16] LABS: Glucose,Whole Blood 141 mg/dL (75-99)
[2021-06-07 02:16] LABS: Glucose,Whole Blood 138 mg/dL (75-99)
[2021-06-07 02:16] LABS: Glucose,Whole Blood 233 mg/dL (75-99)
[2021-06-07 02:16] LABS: Glucose,Whole Blood 207 mg/dL (75-99)
[2021-06-07 03:00] LABS: Glucose,Whole Blood 245 mg/dL (75-99)
[2021-06-07 03:51] LABS: Glucose,Whole Blood 197 mg/dL (75-99)
[2021-06-07 04:42] LABS: African American GFR (CKD) >90 (>60 ml/min/1.73 sqM); Anion Gap 4 mmol/L; Blood Urea Nitrogen 29 mg/dL (7-17); C Reactive Protein 3.3 mg/dL (<1.0); Carbon Dioxide 33 mmol/L (22-30); Chloride 98 mmol/L (98-107); Glucose 188 mg/dL (74-99); LDH 989 U/L (313-618); Non-African American GFR(CKD) 87 (>60 ml/min/1.73 sqM); Sodium 135 mmol/L (137-145)
[2021-06-07 04:59] LABS: Glucose,Whole Blood 190 mg/dL (75-99)
[2021-06-07 05:17] LABS: ABG Base Excess 9.7 mmol/L; ABG HCO3 33 mmol/L (21-25); ABG Oxygen Saturation 98.2 % (94-97); ABG PCO2 39 mmHg (35-45); ABG PH 7.53 (7.35-7.45); ABG PO2 89 mmHg (83-108); ABG TCO2 34 mmol/L (19-24); Allen Test Performed? Yes
[2021-06-07 05:46] LABS: Basophils % (A) 0 %; Eosinophils % (A) 0 %; HCT 35.8 % (34.0-46.0); HGB 11.2 gm/dL (11.4-16.0); Hypochromasia Marked; Lymphocytes # (A) 0.4 k/uL (1.0-4.8); Lymphocytes % (A) 6 %; MCH 26.8 pg (25.0-35.0); MCHC 31.4 g/dL (31.0-37.0); MCV 85.4 fL (80.0-100.0); Mean Platelet Volume 7.2; Monocytes # (A) 0.4 k/uL (0-1.0); Monocytes % (A) 6 %; Neutrophils # (A) 5.9 k/uL (1.3-7.7); Neutrophils % (A) 87 %; Platelet Count 378 k/uL (150-450); RDW 14.3 % (11.5-15.5); WBC 6.8 k/uL (3.8-10.6)
[2021-06-07 05:52] LABS: Glucose,Whole Blood 188 mg/dL (75-99)
[2021-06-07 07:02] LABS: Glucose,Whole Blood 238 mg/dL (75-99)
[2021-06-07] MEDS: methylPREDNISolone SOD SUCCI 125 MG/2 ML VIAL IV SCH ×4 (07:07→23:42)
[2021-06-07] MEDS: NOREPINEPHRINE 4 MG in SODIUM CHLORIDE 0.9% 250 ML IV SCH ×2 (07:08→19:45)
[2021-06-07] MEDS: SODIUM CHLORIDE 0.9% 1,000 ML IV SCH ×2 (07:17→16:07)
[2021-06-07] MEDS: ALBUTEROL HFA INHALER INHALATION SCH ×4 (07:42→19:12)
[2021-06-07] MEDS: PANTOPRAZOLE 40 MG/10 ML VIAL IVP SCH (08:49)
[2021-06-07] MEDS: ENOXAPARIN 40 MG/0.4 ML SYRINGE SQ SCH ×2 (08:49→22:27)
[2021-06-07 09:01] LABS: Glucose,Whole Blood 156 mg/dL (75-99)
[2021-06-07 10:28] LABS: Glucose,Whole Blood 175 mg/dL (75-99)
[2021-06-07] MEDS: INSULIN REGULAR 100 UNIT in SODIUM CHLORIDE 0.9% 100 ML IV SCH (10:48)
--- NOTE | 2021-06-07 11:14 | P.PN ---
Subjective Progress Note Date: 06/07/21 This is 66-year-old female admitted with acute COVID-19 pneumonia, left pleural effusion, left hilar mass possibly malignant, acute COPD exacerbation, acute hypoxic respiratory failure, and multiple other medical issues. Status post thoracentesis with pleural cytology pending. Maintained on bronchodilators, covid cocktail.Patient currently on BiPAP, labored breathing, fatigued, lethargic. Afebrile. Labs pending. 06/06/2021 worsening respiratory status, on BiPAP. Intubated and transferred to ICU. ABGs post intubation reported pH 7.36, pCO2 56, pO2 66, bicarb 31 base excess 5.5. Chest x-ray reported more prominent, progression of multifocal bilateral opacities. Pleural cytology pending. Afebrile, WBC increased to 15.3. D-dimer and LDH increased, CRP 2.4. Hyperglycemia, placed on insulin drip. 06/07/2021 vent dependent, FiO2 70%/+12 of PEEP. Continues on diprovan, fentanyl, Levophed and insulin drips. Tolerating tube feeds with minimal to no residuals. T-max 99.5, normal WBC. Pleural cultures and cytology pending. Inflammatory markers today trending down with the exception of CRP, 3.3. Objective - Vital Signs Vital signs: Vital Signs Temp 99.5 F 06/07/21 08:00 Pulse 96 06/07/21 10:00 Resp 30 H 06/07/21 10:00 BP 119/77 06/07/21 10:00 Pulse Ox 93 L 06/07/21 10:00 Intake & Output 06/06/21 06/07/21 06/07/21 18:59 06:59 18:59 Intake Total 8525.985 4546.680 782.801 Output Total 700 805 120 Balance 578.695 574.680 662.801 Weight 82 kg 84 kg Intake: IV 840 1133 309 0.9NS bolus 200 Sodium Chloride 0.9% 1, 640 1100 300 000 ml @ 100 mls/hr IV . Q10H [facility] Rx#:[id number] pressure bag 33 9 Intake, IV Titration 378.695 226.680 367.801 Amount Insulin Regular 100 unit 24.695 9.914 63.176 In Sodium Chloride 0.9% 100 ml @ Per Protocol IV .Q0M [facility] Rx#:[id number] Norepinephrine 4 mg In 254.000 40.302 205.569 Sodium Chloride 0.9% 250 ml @ 0.05 MCG/KG/MIN 15. 621 mls/hr IV .[id number] [facility] Rx#:[id number] propofoL 1,000 mg In 100 176.464 99.056 Empty Bag 1 bag @ Titrate IV .Q0M [facility] Rx#: [id number] Tube Feeding 60 20 76 Other 30 Output: Urine 700 805 120 Other: Voiding Method Indwelling Catheter Indwelling Catheter ABP, PAP, CO, CI - Last Documented Arterial Blood Pressure 114/72 - Exam GENERAL: Sedated, on mechanical ventilation. HEENT: Normocephalic, atraumatic. CARDIOVASCULAR: S1 and S2 present. No murmurs, rubs, or gallops. PULMONARY: Labored breathing, bilateral bases diminished, rhonchorous fine bibasilar crackles, inspiratory and expiratory wheezing on right. ABDOMEN: Soft, nontender, nondistended, normoactive bowel sounds. No palpable organomegaly. EXTREMITIES: No cyanosis, clubbing, fine pedal edema. NEUROLOGICAL: Unable to assess, sedated and on mechanical ventilation SKIN: Warm and dry, nonhealing ulceration of right lateral thigh , refer to measurements as per wound care team - Labs CBC & Chem 7: 06/07/21 03:50 06/07/21 03:50 Labs: Abnormal Lab Results - Last 24 Hours (Table) 06/06/21 06/06/21 06/06/21 Range/Units 12:34 13:22 14:30 Hgb (11.4-16.0) gm/dL Lymphocytes # (1.0-4.8) k/uL D-Dimer (<0.60) mg/L FEU ABG pH (7.35-7.45) ABG HCO3 (21-25) mmol/L ABG Total CO2 (19-24) mmol/L ABG O2 Saturation (94-97) % Sodium (137-145) mmol/L Carbon Dioxide (22-30) mmol/L BUN (7-17) mg/dL Glucose (74-99) mg/dL POC Glucose (mg/dL) 284 H 226 H 158 H (75-99) mg/dL Calcium (8.4-10.2) mg/dL Lactate Dehydrogenase (313-618) U/L C-Reactive Protein (<1.0) mg/dL 06/06/21 06/06/21 06/06/21 Range/Units 15:42 16:54 18:37 Hgb (11.4-16.0) gm/dL Lymphocytes # (1.0-4.8) k/uL D-Dimer (<0.60) mg/L FEU ABG pH (7.35-7.45) ABG HCO3 (21-25) mmol/L ABG Total CO2 (19-24) mmol/L ABG O2 Saturation (94-97) % Sodium (137-145) mmol/L Carbon Dioxide (22-30) mmol/L BUN (7-17) mg/dL Glucose (74-99) mg/dL POC Glucose (mg/dL) 136 H 157 H 324 H (75-99) mg/dL Calcium (8.4-10.2) mg/dL Lactate Dehydrogenase (313-618) U/L C-Reactive Protein (<1.0) mg/dL 06/06/21 06/06/21 06/06/21 Range/Units 18:42 20:13 21:13 Hgb (11.4-16.0) gm/dL Lymphocytes # (1.0-4.8) k/uL D-Dimer (<0.60) mg/L FEU ABG pH (7.35-7.45) ABG HCO3 (21-25) mmol/L ABG Total CO2 (19-24) mmol/L ABG O2 Saturation (94-97) % Sodium (137-145) mmol/L Carbon Dioxide (22-30) mmol/L BUN (7-17) mg/dL Glucose (74-99) mg/dL POC Glucose (mg/dL) 188 H 133 H 176 H (75-99) mg/dL Calcium (8.4-10.2) mg/dL Lactate Dehydrogenase (313-618) U/L C-Reactive Protein (<1.0) mg/dL 06/06/21 06/06/21 06/06/21 Range/Units 21:41 21:56 22:48 Hgb (11.4-16.0) gm/dL Lymphocytes # (1.0-4.8) k/uL D-Dimer (<0.60) mg/L FEU ABG pH (7.35-7.45) ABG HCO3 (21-25) mmol/L ABG Total CO2 (19-24) mmol/L ABG O2 Saturation (94-97) % Sodium (137-145) mmol/L Carbon Dioxide (22-30) mmol/L BUN (7-17) mg/dL Glucose (74-99) mg/dL POC Glucose (mg/dL) 180 H 184 H 233 H (75-99) mg/dL Calcium (8.4-10.2) mg/dL Lactate Dehydrogenase (313-618) U/L C-Reactive Protein (<1.0) mg/dL 06/07/21 06/07/21 06/07/21 Range/Units 00:07 01:09 02:07 Hgb (11.4-16.0) gm/dL Lymphocytes # (1.0-4.8) k/uL D-Dimer (<0.60) mg/L FEU ABG pH (7.35-7.45) ABG HCO3 (21-25) mmol/L ABG Total CO2 (19-24) mmol/L ABG O2 Saturation (94-97) % Sodium (137-145) mmol/L Carbon Dioxide (22-30) mmol/L BUN (7-17) mg/dL Glucose (74-99) mg/dL POC Glucose (mg/dL) 141 H 138 H 207 H (75-99) mg/dL Calcium (8.4-10.2) mg/dL Lactate Dehydrogenase (313-618) U/L C-Reactive Protein (<1.0) mg/dL 06/07/21 06/07/21 06/07/21 Range/Units 02:58 03:50 03:50 Hgb 11.2 L (11.4-16.0) gm/dL Lymphocytes # 0.4 L (1.0-4.8) k/uL D-Dimer (<0.60) mg/L FEU ABG pH (7.35-7.45) ABG HCO3 (21-25) mmol/L ABG Total CO2 (19-24) mmol/L ABG O2 Saturation (94-97) % Sodium (137-145) mmol/L Carbon Dioxide (22-30) mmol/L BUN (7-17) mg/dL Glucose (74-99) mg/dL POC Glucose (mg/dL) 245 H 197 H (75-99) mg/dL Calcium (8.4-10.2) mg/dL Lactate Dehydrogenase (313-618) U/L C-Reactive Protein (<1.0) mg/dL 06/07/21 06/07/21 06/07/21 Range/Units 03:50 03:50 04:57 Hgb (11.4-16.0) gm/dL Lymphocytes # (1.0-4.8) k/uL D-Dimer 0.77 H (<0.60) mg/L FEU ABG pH (7.35-7.45) ABG HCO3 (21-25) mmol/L ABG Total CO2 (19-24) mmol/L ABG O2 Saturation (94-97) % Sodium 135 L (137-145) mmol/L Carbon Dioxide 33 H (22-30) mmol/L BUN 29 H (7-17) mg/dL Glucose 188 H (74-99) mg/dL POC Glucose (mg/dL) 190 H (75-99) mg/dL Calcium 8.0 L (8.4-10.2) mg/dL Lactate Dehydrogenase 989 H (313-618) U/L C-Reactive Protein 3.3 H (<1.0) mg/dL 06/07/21 06/07/21 06/07/21 Range/Units 05:06 05:50 07:01 Hgb (11.4-16.0) gm/dL Lymphocytes # (1.0-4.8) k/uL D-Dimer (<0.60) mg/L FEU ABG pH 7.53 H (7.35-7.45) ABG HCO3 33 H (21-25) mmol/L ABG Total CO2 34 H (19-24) mmol/L ABG O2 Saturation 98.2 H (94-97) % Sodium (137-145) mmol/L Carbon Dioxide (22-30) mmol/L BUN (7-17) mg/dL Glucose (74-99) mg/dL POC Glucose (mg/dL) 188 H 238 H (75-99) mg/dL Calcium (8.4-10.2) mg/dL Lactate Dehydrogenase (313-618) U/L C-Reactive Protein (<1.0) mg/dL 06/07/21 06/07/21 Range/Units 08:59 10:27 Hgb (11.4-16.0) gm/dL Lymphocytes # (1.0-4.8) k/uL D-Dimer (<0.60) mg/L FEU ABG pH (7.35-7.45) ABG HCO3 (21-25) mmol/L ABG Total CO2 (19-24) mmol/L ABG O2 Saturation (94-97) % Sodium (137-145) mmol/L Carbon Dioxide (22-30) mmol/L BUN (7-17) mg/dL Glucose (74-99) mg/dL POC Glucose (mg/dL) 156 H 175 H (75-99) mg/dL Calcium (8.4-10.2) mg/dL Lactate Dehydrogenase (313-618) U/L C-Reactive Protein (<1.0) mg/dL Microbiology - Last 24 Hours (Table) 06/03/21 12:00 Gram Stain - Final Pleural Fluid Body Fluid Culture - Final 06/02/21 20:00 Blood Culture - Preliminary Blood No Growth after 96 hours 06/02/21 18:09 Blood Culture - Preliminary Blood No Growth after 96 hours Assessment and Plan Assessment: Acute hypoxic respiratory failure, mechanical ventilator-dependent, multifactorial secondary to acute covid pneumonia, pleural effusion which may be secondary to malignancy and acute COPD exacerbation. Status post emergent thoracentesis, cytology pending. Right lower extremity thigh, nonhealing ulceration Chronic hypoxic and hypercapnic respiratory failure Obstructive sleep apnea, intolerant of CPAP Diabetes mellitus type 2 Essential hypertension Chronic back pain anxiety disorder Restless leg syndrome History of narcolepsy Plan: Continue on current medication regime ,monitoring and symptomatic treatment. Maintain covid cocktail, bronchodilators. Pleural cytology pending. Wound care as per wound care team. ICU management as per slat basket top maker.Prognosis guarded given multiple complex medical issues. The impression and plan of care has been dictated as directed. : I performed a history and examination of this patient, discussed the same with the dictator. I agree with the dictator's note ,documented as a scribe. Any additional findings or plans will be noted.
[2021-06-07] MEDS: fentaNYL (PF). 1,000 MCG in SODIUM CHLORIDE 0.9% 80 ML IV SCH (11:19)
[2021-06-07 11:42] LABS: Glucose,Whole Blood 270 mg/dL (75-99)
[2021-06-07 11:43] LABS: Glucose,Whole Blood 200 mg/dL (75-99)
[2021-06-07 12:37] LABS: Glucose,Whole Blood 201 mg/dL (75-99)
--- NOTE | 2021-06-07 12:54 | P.PN ---
Subjective Progress Note Date: 06/07/21 Principal diagnosis: Acute hypoxic respiratory failure secondary to COVID-19 pneumonia, also secondary to left pleural effusion and possible underlying pulmonary malignancy with left hilar mass. 65-year-old female patient who is presenting to the emergency department because of an acute respiratory distress. The patient came in yesterday to emergency and she was complaining of increased cough and shortness of breath away 1 week duration. She denied having any fever. She had some pain worse with breathing across her chest. Her chest x-ray was done and showed near-complete opacities of the left lung which was a new finding. In the emergency department, the patient was found to have a white cell count of 7.8 with hemoglobin of 11.8, sodium is at 132 with a BUN of 15 a creatinine of 0.35. The patient's proBNP level was nonelevated, troponins were negative, and she had also normal coagulation profile. At that point, the patient was admitted to the hospital and a pulmonary consultation was requested. The patient was started on Proventil HFA and the patient was also started on IV Solu-Medrol. On a separate note, the patient last turner to be positive for COVID 19. Note that this patient has been vaccinated for COVID 19. The patient is known to me. The patient is known to have advanced COPD along with obstructive sleep apnea and she has been able to tolerate CPAP therapy on outpatient basis. She has also history of narcolepsy maintained on Enbrel and Lexapro on outpatient basis. She is known to have diabetes, hypertension, chronic anxiety and depression and chronic back pain. She has also symptoms of RLS. She was in the hospital back in January 2021 for worsening shortness of breath and COPD exacerbation. The patient's condition was optimized and the patient was discharged home. She is maintained on Symbicort on outpatient basis regarding her COPD. No nausea. No vomiting. No emesis. No diarrhea. I saw this patient on an urgent basis. 8 team was called earlier this morning as the patient was in considerable multivessel distress. She is currently on a BiPAP at a pressure of 12/5 cm of water and FiO2 of 35%. She had marked diminis hed breath sound bilaterally and diffuse expiratory wheezes on the right. She has also absent breath on the left. The chest x-ray was repeated and the patient had complete opacification of the left lung. I performed an emergent bedside thoracentesis draining approximately 1.3 L of fluid from the left lung. Follow-up chest x-rays to follow. Note that her chest x-ray did not reveal any significant pleural effusion. She is currently on a BiPAP for respiratory support. She is also and accommodation bronchodilators and steroids. On 06/04/2031 and seeing the patient for a follow-up. The patient is off the BiPAP. Nevertheless she remains spastic and wheezy. Note that I drained approximately 1.3 L of fluid from the left lung. A follow-up CAT scan of the chest was done and showed a large left hilar mass that was causing obstruction and atelectasis of the left lower lobe. In fact left lower lobe bronchus was quite narrowed and there is probably need endobronchial extension of the hilar tumor. The patient was made aware of this finding. She is a bit lethargic and at times confused. There may be a component of CO2 narcosis. She is declining to use the BiPAP consistently and she is preferring oxygen 4 L per minute nasal cannula. No hemoptysis. No reported chest pain. No focal neurological deficit. Highly suspect malignancy. Awaiting fluid cytology from the left- sided pleural effusion. Reevaluated today on 06/05/2021, patient is on nasal cannula, she is off BiPAP, keeps moaning moving her BiPAP intermittently. She is actually on 2 L nasal cannula, O2 sats is 91%. Patient is lethargic, but she is arousable, follows simple instructions. Cytology on the pleural effusion is pending. Patient had thoracentesis done by Dr. Gardiner on the fourth, remains on bronchodilators, remains on Solu-Medrol, she is also on Lovenox 40 mg subcu twice a day, and she is on Mirapex. Reevaluated today on 06/06/2021, patient had worsening clinical status morning, she required placement on BiPAP, however even on BiPAP, the patient remained extremely short of breath, she was developing intermittent episodes of lethargy. Patient was transferred to the ICU, intubated S1 S1 she arrived to the ICU. She is now on assist control rate of 30 tidal volume 400 FiO2 on the percent and PEEP of 12. ABG post intubation showed a pO2 of 66 pCO2 of 56 pH of 7.36. Basic metabolic profile is normal renal profile is normal blood sugar is running a bit high, patient may have to be placed on insulin drip. D-dimer is 1.41. WBC count is 15.3 hemoglobin 13.6. LDH is 1374 C-reactive protein 2.4. 6 x-ray is showing worsening infiltrates bilaterally right more so than left. Cytology from her pleural effusion is pending. Reevaluated today on 06/07/2021, patient remains in the ICU intubated and mechanically ventilated. She is on assist control rate of 30 tidal volume 400 FiO2 60% and PEEP is at 14, it was earlier at 12. ABG showed a pO2 of 89 pCO2 39 pH of 7.53 and this was on 70%, I did cut down the FiO2 to 60%. Patient remains on propofol at 50, she is requiring norepinephrine at 0.05 mcg/kg/m she is on insulin at 20 unit per hour drip is also on IV fluid at 100 mL per hour. CBC and basic metabolic profile is normal. Rest x-ray continues to show bilateral interstitial infiltrates, her LDH today is 989, improving compared to yesterday, and C-reactive protein is down to 3.3. Objective - Vital Signs Vital signs: Vital Signs Temp 99.5 F 06/07/21 08:00 Pulse 100 06/07/21 12:00 Resp 29 H 06/07/21 12:00 BP 112/72 06/07/21 12:00 Pulse Ox 91 L 06/07/21 12:00 Intake & Output 06/06/21 06/07/21 06/07/21 18:59 06:59 18:59 Intake Total 4587.890 0679.680 858.445 Output Total 700 805 120 Balance 578.695 574.680 738.445 Weight 82 kg 84 kg Intake: IV 840 1133 309 0.9NS bolus 200 Sodium Chloride 0.9% 1, 640 1100 300 000 ml @ 100 mls/hr IV . Q10H [facility] Rx#:[id number] pressure bag 33 9 Intake, IV Titration 378.695 226.680 443.445 Amount Insulin Regular 100 unit 24.695 9.914 66.004 In Sodium Chloride 0.9% 100 ml @ Per Protocol IV .Q0M [facility] Rx#:[id number] Norepinephrine 4 mg In 254.000 40.302 205.569 Sodium Chloride 0.9% 250 ml @ 0.05 MCG/KG/MIN 15. 621 mls/hr IV .[id number] [facility] Rx#:[id number] propofoL 1,000 mg In 100 176.464 171.872 Empty Bag 1 bag @ Titrate IV .Q0M [facility] Rx#: [id number] Tube Feeding 60 20 76 Other 30 Output: Urine 700 805 120 Other: Voiding Method Indwelling Catheter Indwelling Catheter ABP, PAP, CO, CI - Last Documented Arterial Blood Pressure 114/72 - Exam Physical Exam revealed a 66-year-old female intubated, sedated, on mechanical ventilation. Head: Atraumatic, normocephalic. HEENT:[Neck is supple.] [No neck masses.] [No thyromegaly.] [No JVD.] Chest: [Symmetrical chest expansion crackles at the bases. Cardiac Exam: [Normal S1 and S2, no S3 gallop, no murmur.] Abdomen: [Soft, nontender, no megaly, no rebound, no guarding, normal bowel sounds.] Extremities: [No clubbing, a serum bipedal edema, no cyanosis. Neurological Exam: Unable to assess, patient is fully sedated, presently on propofol at 30 mcg/kg/m. Psychiatric: Unable to assess Skin: Evidence of a large ulcer on the skin on the lateral aspect of her right side. - Labs CBC & Chem 7: 06/07/21 03:50 06/07/21 03:50 Labs: Abnormal Lab Results - Last 24 Hours (Table) 06/06/21 06/06/21 06/06/21 Range/Units 13:22 14:30 15:42 Hgb (11.4-16.0) gm/dL Lymphocytes # (1.0-4.8) k/uL D-Dimer (<0.60) mg/L FEU ABG pH (7.35-7.45) ABG HCO3 (21-25) mmol/L ABG Total CO2 (19-24) mmol/L ABG O2 Saturation (94-97) % Sodium (137-145) mmol/L Carbon Dioxide (22-30) mmol/L BUN (7-17) mg/dL Glucose (74-99) mg/dL POC Glucose (mg/dL) 226 H 158 H 136 H (75-99) mg/dL Calcium (8.4-10.2) mg/dL Lactate Dehydrogenase (313-618) U/L C-Reactive Protein (<1.0) mg/dL 06/06/21 06/06/21 06/06/21 Range/Units 16:54 18:37 18:42 Hgb (11.4-16.0) gm/dL Lymphocytes # (1.0-4.8) k/uL D-Dimer (<0.60) mg/L FEU ABG pH (7.35-7.45) ABG HCO3 (21-25) mmol/L ABG Total CO2 (19-24) mmol/L ABG O2 Saturation (94-97) % Sodium (137-145) mmol/L Carbon Dioxide (22-30) mmol/L BUN (7-17) mg/dL Glucose (74-99) mg/dL POC Glucose (mg/dL) 157 H 324 H 188 H (75-99) mg/dL Calcium (8.4-10.2) mg/dL Lactate Dehydrogenase (313-618) U/L C-Reactive Protein (<1.0) mg/dL 06/06/21 06/06/21 06/06/21 Range/Units 20:13 21:13 21:41 Hgb (11.4-16.0) gm/dL Lymphocytes # (1.0-4.8) k/uL D-Dimer (<0.60) mg/L FEU ABG pH (7.35-7.45) ABG HCO3 (21-25) mmol/L ABG Total CO2 (19-24) mmol/L ABG O2 Saturation (94-97) % Sodium (137-145) mmol/L Carbon Dioxide (22-30) mmol/L BUN (7-17) mg/dL Glucose (74-99) mg/dL POC Glucose (mg/dL) 133 H 176 H 180 H (75-99) mg/dL Calcium (8.4-10.2) mg/dL Lactate Dehydrogenase (313-618) U/L C-Reactive Protein (<1.0) mg/dL 06/06/21 06/06/21 06/07/21 Range/Units 21:56 22:48 00:07 Hgb (11.4-16.0) gm/dL Lymphocytes # (1.0-4.8) k/uL D-Dimer (<0.60) mg/L FEU ABG pH (7.35-7.45) ABG HCO3 (21-25) mmol/L ABG Total CO2 (19-24) mmol/L ABG O2 Saturation (94-97) % Sodium (137-145) mmol/L Carbon Dioxide (22-30) mmol/L BUN (7-17) mg/dL Glucose (74-99) mg/dL POC Glucose (mg/dL) 184 H 233 H 141 H (75-99) mg/dL Calcium (8.4-10.2) mg/dL Lactate Dehydrogenase (313-618) U/L C-Reactive Protein (<1.0) mg/dL 06/07/21 06/07/21 06/07/21 Range/Units 01:09 02:07 02:58 Hgb (11.4-16.0) gm/dL Lymphocytes # (1.0-4.8) k/uL D-Dimer (<0.60) mg/L FEU ABG pH (7.35-7.45) ABG HCO3 (21-25) mmol/L ABG Total CO2 (19-24) mmol/L ABG O2 Saturation (94-97) % Sodium (137-145) mmol/L Carbon Dioxide (22-30) mmol/L BUN (7-17) mg/dL Glucose (74-99) mg/dL POC Glucose (mg/dL) 138 H 207 H 245 H (75-99) mg/dL Calcium (8.4-10.2) mg/dL Lactate Dehydrogenase (313-618) U/L C-Reactive Protein (<1.0) mg/dL 06/07/21 06/07/21 06/07/21 Range/Units 03:50 03:50 03:50 Hgb 11.2 L (11.4-16.0) gm/dL Lymphocytes # 0.4 L (1.0-4.8) k/uL D-Dimer (<0.60) mg/L FEU ABG pH (7.35-7.45) ABG HCO3 (21-25) mmol/L ABG Total CO2 (19-24) mmol/L ABG O2 Saturation (94-97) % Sodium 135 L (137-145) mmol/L Carbon Dioxide 33 H (22-30) mmol/L BUN 29 H (7-17) mg/dL Glucose 188 H (74-99) mg/dL POC Glucose (mg/dL) 197 H (75-99) mg/dL Calcium 8.0 L (8.4-10.2) mg/dL Lactate Dehydrogenase 989 H (313-618) U/L C-Reactive Protein 3.3 H (<1.0) mg/dL 06/07/21 06/07/21 06/07/21 Range/Units 03:50 04:57 05:06 Hgb (11.4-16.0) gm/dL Lymphocytes # (1.0-4.8) k/uL D-Dimer 0.77 H (<0.60) mg/L FEU ABG pH 7.53 H (7.35-7.45) ABG HCO3 33 H (21-25) mmol/L ABG Total CO2 34 H (19-24) mmol/L ABG O2 Saturation 98.2 H (94-97) % Sodium (137-145) mmol/L Carbon Dioxide (22-30) mmol/L BUN (7-17) mg/dL Glucose (74-99) mg/dL POC Glucose (mg/dL) 190 H (75-99) mg/dL Calcium (8.4-10.2) mg/dL Lactate Dehydrogenase (313-618) U/L C-Reactive Protein (<1.0) mg/dL 06/07/21 06/07/21 06/07/21 Range/Units 05:50 07:01 08:59 Hgb (11.4-16.0) gm/dL Lymphocytes # (1.0-4.8) k/uL D-Dimer (<0.60) mg/L FEU ABG pH (7.35-7.45) ABG HCO3 (21-25) mmol/L ABG Total CO2 (19-24) mmol/L ABG O2 Saturation (94-97) % Sodium (137-145) mmol/L Carbon Dioxide (22-30) mmol/L BUN (7-17) mg/dL Glucose (74-99) mg/dL POC Glucose (mg/dL) 188 H 238 H 156 H (75-99) mg/dL Calcium (8.4-10.2) mg/dL Lactate Dehydrogenase (313-618) U/L C-Reactive Protein (<1.0) mg/dL 06/07/21 06/07/21 06/07/21 Range/Units 10:27 11:40 11:41 Hgb (11.4-16.0) gm/dL Lymphocytes # (1.0-4.8) k/uL D-Dimer (<0.60) mg/L FEU ABG pH (7.35-7.45) ABG HCO3 (21-25) mmol/L ABG Total CO2 (19-24) mmol/L ABG O2 Saturation (94-97) % Sodium (137-145) mmol/L Carbon Dioxide (22-30) mmol/L BUN (7-17) mg/dL Glucose (74-99) mg/dL POC Glucose (mg/dL) 175 H 270 H 200 H (75-99) mg/dL Calcium (8.4-10.2) mg/dL Lactate Dehydrogenase (313-618) U/L C-Reactive Protein (<1.0) mg/dL 06/07/21 Range/Units 12:36 Hgb (11.4-16.0) gm/dL Lymphocytes # (1.0-4.8) k/uL D-Dimer (<0.60) mg/L FEU ABG pH (7.35-7.45) ABG HCO3 (21-25) mmol/L ABG Total CO2 (19-24) mmol/L ABG O2 Saturation (94-97) % Sodium (137-145) mmol/L Carbon Dioxide (22-30) mmol/L BUN (7-17) mg/dL Glucose (74-99) mg/dL POC Glucose (mg/dL) 201 H (75-99) mg/dL Calcium (8.4-10.2) mg/dL Lactate Dehydrogenase (313-618) U/L C-Reactive Protein (<1.0) mg/dL Microbiology - Last 24 Hours (Table) 06/03/21 12:00 Gram Stain - Final Pleural Fluid Body Fluid Culture - Final 06/02/21 20:00 Blood Culture - Preliminary Blood No Growth after 96 hours 06/02/21 18:09 Blood Culture - Preliminary Blood No Growth after 96 hours Assessment and Plan Assessment: Impression: Acute hypoxic respiratory failure, multifactorial secondary to COVID-19 pneumonia also secondary to left pleural effusion with left hilar mass, possibly malignant pleural effusion unless for otherwise. And secondary to acute exacerbation of COPD. History of underlying COPD and chronic hypercapnic and hypoxic respiratory failure. Patient was intubated on 06/06/2021, and she is now on mechanical ventilation. Pleural effusion cytology is pending. Patient is now on tidal volume of 400 assist control rate of 30 FiO2 60% and PEEP is 14 Obstructive sleep apnea syndrome, does not tolerate CPAP History of narcolepsy. Benign essential hypertension Type 2 diabetes Chronic back pain Generalized anxiety disorder Restless leg syndrome Left lung mass, possible underlying bronchogenic carcinoma. Patient had recent thoracentesis, and cytology is pending. Recommendation: Continue ventilatory support. Adjust ventilator settings based on ABG. Titrate oxygen and PEEP accordingly. Awaiting cytology from the pleural effusion. GI and DVT prophylaxis. Continue bronchodilators. Continue COVID-19 cocktail. Continue Solu-Medrol. Continue bronchodilators. Monitor inflammatory markers. Prognosis is extremely poor. We will continue to follow. Critical care time is over 30 minutes Time with Patient: Greater than 30
[2021-06-07 13:36] LABS: Glucose,Whole Blood 203 mg/dL (75-99)
[2021-06-07 14:24] LABS: Glucose,Whole Blood 183 mg/dL (75-99)
[2021-06-07 15:03] LABS: Glucose,Whole Blood 135 mg/dL (75-99)
[2021-06-07] MEDS: LEVOFLOXACIN 500 MG TAB PO SCH (15:10)
[2021-06-07 16:11] LABS: Glucose,Whole Blood 159 mg/dL (75-99)
[2021-06-07 17:11] LABS: Glucose,Whole Blood 223 mg/dL (75-99)
[2021-06-07 18:13] LABS: Glucose,Whole Blood 172 mg/dL (75-99)
[2021-06-07 21:17] LABS: Glucose,Whole Blood 221 mg/dL (75-99)
[2021-06-07 22:23] LABS: Glucose,Whole Blood 213 mg/dL (75-99)
[2021-06-07] MEDS: ESCITALOPRAM 20 MG TAB PO SCH (22:28)
[2021-06-07] MEDS: PRAMIPEXOLE 1 MG TAB PO SCH (22:28)
[2021-06-07 23:49] LABS: Glucose,Whole Blood 176 mg/dL (75-99)
[2021-06-08 00:46] LABS: Glucose,Whole Blood 170 mg/dL (75-99)
[2021-06-08 01:51] LABS: Glucose,Whole Blood 159 mg/dL (75-99)
[2021-06-08 02:57] LABS: Glucose,Whole Blood 182 mg/dL (75-99)
[2021-06-08] MEDS: SODIUM CHLORIDE 0.9% 1,000 ML IV SCH ×3 (03:15→21:58)
[2021-06-08 03:48] LABS: Glucose,Whole Blood 175 mg/dL (75-99)
[2021-06-08 05:25] LABS: Glucose,Whole Blood 187 mg/dL (75-99)
[2021-06-08 06:00] LABS: ABG Base Excess 7.4 mmol/L; ABG HCO3 31 mmol/L (21-25); ABG PCO2 42 mmHg (35-45); ABG PH 7.47 (7.35-7.45); ABG TCO2 32 mmol/L (19-24); Allen Test Performed? Yes
[2021-06-08 06:05] LABS: ABG PO2 53 mmHg (83-108)
[2021-06-08 06:17] LABS: Glucose,Whole Blood 209 mg/dL (75-99)
[2021-06-08] MEDS: INSULIN REGULAR 100 UNIT in SODIUM CHLORIDE 0.9% 100 ML IV SCH (06:23)
[2021-06-08] MEDS: fentaNYL (PF). 1,000 MCG in SODIUM CHLORIDE 0.9% 80 ML IV SCH ×2 (06:24→23:49)
[2021-06-08] MEDS: methylPREDNISolone SOD SUCCI 125 MG/2 ML VIAL IV SCH ×4 (06:25→23:46)
[2021-06-08 06:56] LABS: Glucose,Whole Blood 198 mg/dL (75-99)
[2021-06-08 07:37] LABS: Basophils % (A) 0 %; Eosinophils % (A) 0 %; HCT 36.2 % (34.0-46.0); HGB 10.9 gm/dL (11.4-16.0); Hypochromasia Marked; Lymphocytes # (A) 0.4 k/uL (1.0-4.8); Lymphocytes % (A) 5 %; MCH 26.2 pg (25.0-35.0); MCHC 30.3 g/dL (31.0-37.0); MCV 86.5 fL (80.0-100.0); Mean Platelet Volume 7.9; Monocytes # (A) 0.3 k/uL (0-1.0); Monocytes % (A) 4 %; Neutrophils # (A) 7.3 k/uL (1.3-7.7); Neutrophils % (A) 90 %; Platelet Count 347 k/uL (150-450); RBC 4.18 m/uL (3.80-5.40); RDW 14.5 % (11.5-15.5); WBC 8.1 k/uL (3.8-10.6)
[2021-06-08 07:41] LABS: African American GFR (CKD) >90 (>60 ml/min/1.73 sqM); Anion Gap 3 mmol/L; Blood Urea Nitrogen 23 mg/dL (7-17); Calcium 7.9 mg/dL (8.4-10.2); Carbon Dioxide 32 mmol/L (22-30); Chloride 104 mmol/L (98-107); Glucose 180 mg/dL (74-99); Non-African American GFR(CKD) >90 (>60 ml/min/1.73 sqM); Potassium 4.1 mmol/L (3.5-5.1); Sodium 139 mmol/L (137-145)
[2021-06-08] MEDS: ENOXAPARIN 40 MG/0.4 ML SYRINGE SQ SCH ×2 (08:15→21:37)
[2021-06-08] MEDS: PANTOPRAZOLE 40 MG/10 ML VIAL IVP SCH (08:15)
--- NOTE | 2021-06-08 08:37 | XR ---
EXAMINATION TYPE: XR chest 1V DATE OF EXAM: 06/08/2021 COMPARISON: 06/06/2021 HISTORY: Shortness of breath TECHNIQUE: Single frontal view of the chest is obtained. FINDINGS: Diffuse mixed alveolar and interstitial findings with bilateral effusions. ET tube, NG tub e and central line stable. Biapical pleural thickening. IMPRESSION: Stable diffuse bilateral infiltrate.
[2021-06-08 08:41] LABS: Glucose,Whole Blood 159 mg/dL (75-99)
[2021-06-08] MEDS: ALBUTEROL HFA INHALER INHALATION SCH ×4 (09:00→20:36)
[2021-06-08 10:33] LABS: Glucose,Whole Blood 221 mg/dL (75-99)
[2021-06-08 12:22] LABS: Glucose,Whole Blood 208 mg/dL (75-99)
--- NOTE | 2021-06-08 12:48 | P.PN ---
Subjective Progress Note Date: 06/08/21 Principal diagnosis: Acute hypoxic respiratory failure secondary to COVID-19 pneumonia, also secondary to left pleural effusion and possible underlying pulmonary malignancy with left hilar mass. 65-year-old female patient who is presenting to the emergency department because of an acute respiratory distress. The patient came in yesterday to emergency and she was complaining of increased cough and shortness of breath away 1 week duration. She denied having any fever. She had some pain worse with breathing across her chest. Her chest x-ray was done and showed near-complete opacities of the left lung which was a new finding. In the emergency department, the patient was found to have a white cell count of 7.8 with hemoglobin of 11.8, sodium is at 132 with a BUN of 15 a creatinine of 0.35. The patient's proBNP level was nonelevated, troponins were negative, and she had also normal coagulation profile. At that point, the patient was admitted to the hospital and a pulmonary consultation was requested. The patient was started on Proventil HFA and the patient was also started on IV Solu-Medrol. On a separate note, the patient apple turner to be positive for COVID 19. Note that this patient has been vaccinated for COVID 19. The patient is known to me. The patient is known to have advanced COPD along with obstructive sleep apnea and she has been able to tolerate CPAP therapy on outpatient basis. She has also history of narcolepsy maintained on Enbrel and Lexapro on outpatient basis. She is known to have diabetes, hypertension, chronic anxiety and depression and chronic back pain. She has also symptoms of RLS. She was in the hospital back in January 2021 for worsening shortness of breath and COPD exacerbation. The patient's condition was optimized and the patient was discharged home. She is maintained on Symbicort on outpatient basis regarding her COPD. No nausea. No vomiting. No emesis. No diarrhea. I saw this patient on an urgent basis. 8 team was called earlier this morning as the patient was in considerable multivessel distress. She is currently on a BiPAP at a pressure of 12/5 cm of water and FiO2 of 35%. She had marked diminis hed breath sound bilaterally and diffuse expiratory wheezes on the right. She has also absent breath on the left. The chest x-ray was repeated and the patient had complete opacification of the left lung. I performed an emergent bedside thoracentesis draining approximately 1.3 L of fluid from the left lung. Follow-up chest x-rays to follow. Note that her chest x-ray did not reveal any significant pleural effusion. She is currently on a BiPAP for respiratory support. She is also and accommodation bronchodilators and steroids. On 06/04/2031 and seeing the patient for a follow-up. The patient is off the BiPAP. Nevertheless she remains spastic and wheezy. Note that I drained approximately 1.3 L of fluid from the left lung. A follow-up CAT scan of the chest was done and showed a large left hilar mass that was causing obstruction and atelectasis of the left lower lobe. In fact left lower lobe bronchus was quite narrowed and there is probably need endobronchial extension of the hilar tumor. The patient was made aware of this finding. She is a bit lethargic and at times confused. There may be a component of CO2 narcosis. She is declining to use the BiPAP consistently and she is preferring oxygen 4 L per minute nasal cannula. No hemoptysis. No reported chest pain. No focal neurological deficit. Highly suspect malignancy. Awaiting fluid cytology from the left- sided pleural effusion. Reevaluated today on 06/05/2021, patient is on nasal cannula, she is off BiPAP, keeps moaning moving her BiPAP intermittently. She is actually on 2 L nasal cannula, O2 sats is 91%. Patient is lethargic, but she is arousable, follows simple instructions. Cytology on the pleural effusion is pending. Patient had thoracentesis done by Dr. Gardiner on the fourth, remains on bronchodilators, remains on Solu-Medrol, she is also on Lovenox 40 mg subcu twice a day, and she is on Mirapex. Reevaluated today on 06/06/2021, patient had worsening clinical status morning, she required placement on BiPAP, however even on BiPAP, the patient remained extremely short of breath, she was developing intermittent episodes of lethargy. Patient was transferred to the ICU, intubated S1 S1 she arrived to the ICU. She is now on assist control rate of 30 tidal volume 400 FiO2 on the percent and PEEP of 12. ABG post intubation showed a pO2 of 66 pCO2 of 56 pH of 7.36. Basic metabolic profile is normal renal profile is normal blood sugar is running a bit high, patient may have to be placed on insulin drip. D-dimer is 1.41. WBC count is 15.3 hemoglobin 13.6. LDH is 1374 C-reactive protein 2.4. 6 x-ray is showing worsening infiltrates bilaterally right more so than left. Cytology from her pleural effusion is pending. Reevaluated today on 06/07/2021, patient remains in the ICU intubated and mechanically ventilated. She is on assist control rate of 30 tidal volume 400 FiO2 60% and PEEP is at 14, it was earlier at 12. ABG showed a pO2 of 89 pCO2 39 pH of 7.53 and this was on 70%, I did cut down the FiO2 to 60%. Patient remains on propofol at 50, she is requiring norepinephrine at 0.05 mcg/kg/m she is on insulin at 20 unit per hour drip is also on IV fluid at 100 mL per hour. CBC and basic metabolic profile is normal. Rest x-ray continues to show bilateral interstitial infiltrates, her LDH today is 989, improving compared to yesterday, and C-reactive protein is down to 3.3. Reevaluated today on 06/08/2021, patient remains in the ICU, intubated and mechanically ventilated. Her pleural effusion cytology came back positive for small cell lung cancer. Patient is intubated and mechanically ventilated, she is on tidal volume of 400 assist control rate of 30 FiO2 70% PEEP 14 however considering her poor ABG I recommended increasing her FiO2 to 75% and PEEP was increased to 16. Patient is requiring norepinephrine at 0.03 mcg/kg/m she is on fentanyl 0.5 mcg/kg/h propofol 50 mcg/kg/minute, IV fluid is at 80 mL per hour. ABG is showing pO2 of 53 pCO2 42 pH of 7.47 WBC count is 8.1 hemoglobin is 10.9. Electrolytes are normal renal profile is normal BUN is 23 creatinine 0.6. Again the patient required increase FiO2 to 75% and increase PEEP to 16. Chest x-ray continues to show significant airspace disease and left hilar mass with a small pleural effusion. Again her effusion came back positive for small cell lung cancer. Patient is also on enteral feeding via orogastric tube Objective - Vital Signs Vital signs: Vital Signs Temp 98.5 F 06/08/21 08:00 Pulse 86 06/08/21 11:00 Resp 30 H 06/08/21 11:00 BP 170/104 06/08/21 11:00 Pulse Ox 91 L 06/08/21 11:00 Intake & Output 06/07/21 06/08/21 06/08/21 18:59 06:59 18:59 Intake Total 2273.983 2464.961 887.939 Output Total 570 505 295 Balance 3886.115 6091.961 592.939 Intake: IV 1236 1236 618 Sodium Chloride 0.9% 1, 1200 1200 600 000 ml @ 100 mls/hr IV . Q10H JOSE ANTONIO Rx#:[id number] pressure bag 36 36 18 Intake, IV Titration 565.983 682.961 19.939 Amount Insulin Regular 100 unit 99.082 44.946 19.939 In Sodium Chloride 0.9% 100 ml @ Per Protocol IV .Q0M JOSE ANTONIO Rx#:[id number] Norepinephrine 4 mg In 205.569 197.085 Sodium Chloride 0.9% 250 ml @ 0.05 MCG/KG/MIN 15. 621 mls/hr IV .[id number] JOSE ANTONIO Rx#:[id number] fentaNYL (PF). 1,000 mcg 80.15 In Sodium Chloride 0.9% 80 ml @ 0.5 MCG/KG/HR 4.2 mls/hr IV .[id number] JOSE ANTONIO Rx#:[id number] propofoL 1,000 mg In 261.332 360.78 Empty Bag 1 bag @ Titrate IV .Q0M JOSE ANTONIO Rx#: [id number] Tube Feeding 412 456 190 Other 60 90 60 Output: Urine 570 505 295 Other: Voiding Method Indwelling Catheter Indwelling Catheter Indwelling Catheter # Bowel Movements 0 ABP, PAP, CO, CI - Last Documented Arterial Blood Pressure 128/62 - Exam Physical Exam revealed a 66-year-old female intubated, sedated, on mechanical ventilation. Head: Atraumatic, normocephalic. HEENT:[Neck is supple.] [No neck masses.] [No thyromegaly.] [No JVD.] Chest: [Symmetrical chest expansion crackles at the bases. Cardiac Exam: [Normal S1 and S2, no S3 gallop, no murmur.] Abdomen: [Soft, nontender, no megaly, no rebound, no guarding, normal bowel sounds.] Extremities: [No clubbing, a serum bipedal edema, no cyanosis. Neurological Exam: Unable to assess, patient is fully sedated, presently on propofol at 30 mcg/kg/m. Psychiatric: Unable to assess Skin: Evidence of a large ulcer on the skin on the lateral aspect of her right side. - Labs CBC & Chem 7: 06/08/21 04:00 06/08/21 04:00 Labs: Abnormal Lab Results - Last 24 Hours (Table) 06/07/21 06/07/21 06/07/21 Range/Units 13:35 14:21 15:01 Hgb (11.4-16.0) gm/dL MCHC (31.0-37.0) g/dL Lymphocytes # (1.0-4.8) k/uL D-Dimer (<0.60) mg/L FEU ABG pH (7.35-7.45) ABG pO2 (83-108) mmHg ABG HCO3 (21-25) mmol/L ABG Total CO2 (19-24) mmol/L ABG O2 Saturation (94-97) % Carbon Dioxide (22-30) mmol/L BUN (7-17) mg/dL Glucose (74-99) mg/dL POC Glucose (mg/dL) 203 H 183 H 135 H (75-99) mg/dL Calcium (8.4-10.2) mg/dL 06/07/21 06/07/21 06/07/21 Range/Units 16:10 17:09 18:12 Hgb (11.4-16.0) gm/dL MCHC (31.0-37.0) g/dL Lymphocytes # (1.0-4.8) k/uL D-Dimer (<0.60) mg/L FEU ABG pH (7.35-7.45) ABG pO2 (83-108) mmHg ABG HCO3 (21-25) mmol/L ABG Total CO2 (19-24) mmol/L ABG O2 Saturation (94-97) % Carbon Dioxide (22-30) mmol/L BUN (7-17) mg/dL Glucose (74-99) mg/dL POC Glucose (mg/dL) 159 H 223 H 172 H (75-99) mg/dL Calcium (8.4-10.2) mg/dL 06/07/21 06/07/21 06/07/21 Range/Units 21:16 22:21 23:46 Hgb (11.4-16.0) gm/dL MCHC (31.0-37.0) g/dL Lymphocytes # (1.0-4.8) k/uL D-Dimer (<0.60) mg/L FEU ABG pH (7.35-7.45) ABG pO2 (83-108) mmHg ABG HCO3 (21-25) mmol/L ABG Total CO2 (19-24) mmol/L ABG O2 Saturation (94-97) % Carbon Dioxide (22-30) mmol/L BUN (7-17) mg/dL Glucose (74-99) mg/dL POC Glucose (mg/dL) 221 H 213 H 176 H (75-99) mg/dL Calcium (8.4-10.2) mg/dL 06/08/21 06/08/21 06/08/21 Range/Units 00:44 01:50 02:56 Hgb (11.4-16.0) gm/dL MCHC (31.0-37.0) g/dL Lymphocytes # (1.0-4.8) k/uL D-Dimer (<0.60) mg/L FEU ABG pH (7.35-7.45) ABG pO2 (83-108) mmHg ABG HCO3 (21-25) mmol/L ABG Total CO2 (19-24) mmol/L ABG O2 Saturation (94-97) % Carbon Dioxide (22-30) mmol/L BUN (7-17) mg/dL Glucose (74-99) mg/dL POC Glucose (mg/dL) 170 H 159 H 182 H (75-99) mg/dL Calcium (8.4-10.2) mg/dL 06/08/21 06/08/21 06/08/21 Range/Units 03:47 04:00 04:00 Hgb 10.9 L (11.4-16.0) gm/dL MCHC 30.3 L (31.0-37.0) g/dL Lymphocytes # 0.4 L (1.0-4.8) k/uL D-Dimer (<0.60) mg/L FEU ABG pH (7.35-7.45) ABG pO2 (83-108) mmHg ABG HCO3 (21-25) mmol/L ABG Total CO2 (19-24) mmol/L ABG O2 Saturation (94-97) % Carbon Dioxide 32 H (22-30) mmol/L BUN 23 H (7-17) mg/dL Glucose 180 H (74-99) mg/dL POC Glucose (mg/dL) 175 H (75-99) mg/dL Calcium 7.9 L (8.4-10.2) mg/dL 06/08/21 06/08/21 06/08/21 Range/Units 04:00 05:24 05:50 Hgb (11.4-16.0) gm/dL MCHC (31.0-37.0) g/dL Lymphocytes # (1.0-4.8) k/uL D-Dimer 0.92 H (<0.60) mg/L FEU ABG pH 7.47 H (7.35-7.45) ABG pO2 53 L* (83-108) mmHg ABG HCO3 31 H (21-25) mmol/L ABG Total CO2 32 H (19-24) mmol/L ABG O2 Saturation 89.0 L (94-97) % Carbon Dioxide (22-30) mmol/L BUN (7-17) mg/dL Glucose (74-99) mg/dL POC Glucose (mg/dL) 187 H (75-99) mg/dL Calcium (8.4-10.2) mg/dL 06/08/21 06/08/21 06/08/21 Range/Units 06:15 06:55 08:39 Hgb (11.4-16.0) gm/dL MCHC (31.0-37.0) g/dL Lymphocytes # (1.0-4.8) k/uL D-Dimer (<0.60) mg/L FEU ABG pH (7.35-7.45) ABG pO2 (83-108) mmHg ABG HCO3 (21-25) mmol/L ABG Total CO2 (19-24) mmol/L ABG O2 Saturation (94-97) % Carbon Dioxide (22-30) mmol/L BUN (7-17) mg/dL Glucose (74-99) mg/dL POC Glucose (mg/dL) 209 H 198 H 159 H (75-99) mg/dL Calcium (8.4-10.2) mg/dL 06/08/21 06/08/21 Range/Units 10:31 12:21 Hgb (11.4-16.0) gm/dL MCHC (31.0-37.0) g/dL Lymphocytes # (1.0-4.8) k/uL D-Dimer (<0.60) mg/L FEU ABG pH (7.35-7.45) ABG pO2 (83-108) mmHg ABG HCO3 (21-25) mmol/L ABG Total CO2 (19-24) mmol/L ABG O2 Saturation (94-97) % Carbon Dioxide (22-30) mmol/L BUN (7-17) mg/dL Glucose (74-99) mg/dL POC Glucose (mg/dL) 221 H 208 H (75-99) mg/dL Calcium (8.4-10.2) mg/dL Microbiology - Last 24 Hours (Table) 06/02/21 20:00 Blood Culture - Preliminary Blood No Growth after 120 hours 06/02/21 18:09 Blood Culture - Preliminary Blood No Growth after 120 hours 06/03/21 12:00 Gram Stain - Final Pleural Fluid Body Fluid Culture - Final Assessment and Plan Assessment: Impression: Acute hypoxic respiratory failure, multifactorial secondary to COVID-19 pneumonia also secondary to left pleural effusion with left hilar mass, cytology came back positive for small cell lung cancer. And secondary to acute exacerbation of COPD. History of underlying COPD and chronic hypercapnic and hypoxic respiratory failure. Patient was intubated on 06/06/2021, and she is now on mechanical ventilation. Pleural effusion cytology is pending. Obstructive sleep apnea syndrome, does not tolerate CPAP History of narcolepsy. Benign essential hypertension Type 2 diabetes Chronic back pain Generalized anxiety disorder Restless leg syndrome Left lung mass, possible underlying bronchogenic carcinoma. Patient had recent thoracentesis, and cytology is pending. Recommendation: Continue ventilatory support. Patient is nowhere near any weaning. Daily adjustment of the ventilator settings based on ABG and other parameters. Titrate oxygen and PEEP accordingly. Today FiO2 was increased to 75% and PEEP increased to 16. Will eventually consult oncology about her small cell lung cancer, however nothing could be done at this point until the patient recovers from her acute illness./COVID-19 pneumonitis and a story failure.. GI and DVT prophylaxis. Continue bronchodilators. Continue COVID-19 cocktail. Continue Solu-Medrol. Continue bronchodilators. Monitor inflammatory markers. Prognosis is extremely poor. We will continue to follow. Critical care time is over 30 minutes Time with Patient: Greater than 30
[2021-06-08 13:24] LABS: Glucose,Whole Blood 208 mg/dL (75-99)
[2021-06-08 14:48] LABS: Glucose,Whole Blood 232 mg/dL (75-99)
[2021-06-08] MEDS: NOREPINEPHRINE 4 MG in SODIUM CHLORIDE 0.9% 250 ML IV SCH (15:30)
[2021-06-08 16:15] LABS: Glucose,Whole Blood 203 mg/dL (75-99)
[2021-06-08] MEDS: LEVOFLOXACIN 500 MG TAB PO SCH (16:42)
[2021-06-08 17:35] LABS: Glucose,Whole Blood 149 mg/dL (75-99)
[2021-06-08 18:55] LABS: Glucose,Whole Blood 219 mg/dL (75-99)
[2021-06-08 19:55] LABS: Glucose,Whole Blood 173 mg/dL (75-99)
[2021-06-08 19:55] LABS: Glucose,Whole Blood 49 mg/dL (75-99)
[2021-06-08 21:06] LABS: Glucose,Whole Blood 185 mg/dL (75-99)
[2021-06-08] MEDS: ESCITALOPRAM 20 MG TAB PO SCH (21:37)
[2021-06-08] MEDS: CHLORHEXIDINE GLUCONATE 15 ML CUP MUCOUS MEM SCH (21:37)
[2021-06-08] MEDS: PRAMIPEXOLE 1 MG TAB PO SCH (21:37)
[2021-06-08 21:54] LABS: Glucose,Whole Blood 177 mg/dL (75-99)
[2021-06-08] MEDS ORDERED: CISATRACURIUM 2 MG/ML 5 ML VIAL IV ONE ×2 (22:41→22:43)
[2021-06-08] MEDS: CISATRACURIUM 200 MG in SODIUM CHLORIDE 0.9% 180 ML IV SCH (22:50)
[2021-06-08 22:56] LABS: Glucose,Whole Blood 153 mg/dL (75-99)
[2021-06-08 23:54] LABS: Glucose,Whole Blood 146 mg/dL (75-99)
[2021-06-09 01:04] LABS: Glucose,Whole Blood 162 mg/dL (75-99)
[2021-06-09 02:25] LABS: Glucose,Whole Blood 167 mg/dL (75-99)
[2021-06-09 03:10] LABS: Glucose,Whole Blood 170 mg/dL (75-99)
[2021-06-09 04:14] LABS: Glucose,Whole Blood 187 mg/dL (75-99)
[2021-06-09 04:32] LABS: Basophils % (A) 0 %; Eosinophils % (A) 0 %; HCT 36.2 % (34.0-46.0); HGB 10.8 gm/dL (11.4-16.0); Hypochromasia Marked; Lymphocytes # (A) 0.5 k/uL (1.0-4.8); Lymphocytes % (A) 5 %; MCH 26.4 pg (25.0-35.0); MCHC 29.9 g/dL (31.0-37.0); MCV 88.5 fL (80.0-100.0); Mean Platelet Volume 7.1; Monocytes # (A) 0.3 k/uL (0-1.0); Monocytes % (A) 4 %; Neutrophils # (A) 7.5 k/uL (1.3-7.7); Neutrophils % (A) 89 %; Platelet Count 274 k/uL (150-450); RBC 4.09 m/uL (3.80-5.40); RDW 14.7 % (11.5-15.5); WBC 8.3 k/uL (3.8-10.6)
[2021-06-09] MEDS: NOREPINEPHRINE 4 MG in SODIUM CHLORIDE 0.9% 250 ML IV SCH ×2 (04:34→21:07)
[2021-06-09 04:48] LABS: ALT 25 U/L (4-34); AST 40 U/L (14-36); African American GFR (CKD) >90 (>60 ml/min/1.73 sqM); Albumin 2.4 g/dL (3.5-5.0); Alkaline Phosphatase 76 U/L (38-126); Anion Gap 4 mmol/L; Blood Urea Nitrogen 26 mg/dL (7-17); C Reactive Protein 2.7 mg/dL (<1.0); Calcium 7.8 mg/dL (8.4-10.2); Carbon Dioxide 29 mmol/L (22-30); Chloride 104 mmol/L (98-107); Glucose 188 mg/dL (74-99); LDH 1150 U/L (313-618); Non-African American GFR(CKD) >90 (>60 ml/min/1.73 sqM); Potassium 4.5 mmol/L (3.5-5.1); Sodium 137 mmol/L (137-145); Total Bilirubin 0.1 mg/dL (0.2-1.3); Total Protein 4.9 g/dL (6.3-8.2)
[2021-06-09 05:13] LABS: Glucose,Whole Blood 193 mg/dL (75-99)
[2021-06-09] MEDS: INSULIN REGULAR 100 UNIT in SODIUM CHLORIDE 0.9% 100 ML IV SCH (05:13)
[2021-06-09 05:30] LABS: ABG Base Excess 3.7 mmol/L; ABG HCO3 29 mmol/L (21-25); ABG Oxygen Saturation 94.7 % (94-97); ABG PCO2 52 mmHg (35-45); ABG PH 7.36 (7.35-7.45); ABG PO2 75 mmHg (83-108); ABG TCO2 31 mmol/L (19-24); Allen Test Performed? Yes
[2021-06-09] MEDS: methylPREDNISolone SOD SUCCI 125 MG/2 ML VIAL IV SCH ×3 (06:12→18:50)
[2021-06-09 06:16] LABS: Glucose,Whole Blood 194 mg/dL (75-99)
[2021-06-09 07:00] LABS: Glucose,Whole Blood 174 mg/dL (75-99)
[2021-06-09 08:17] LABS: Glucose,Whole Blood 161 mg/dL (75-99)
[2021-06-09] MEDS: ALBUTEROL HFA INHALER INHALATION SCH ×4 (09:46→20:41)
[2021-06-09] MEDS: CHLORHEXIDINE GLUCONATE 15 ML CUP MUCOUS MEM SCH ×2 (10:02→21:10)
[2021-06-09] MEDS: ENOXAPARIN 40 MG/0.4 ML SYRINGE SQ SCH ×2 (10:02→21:10)
[2021-06-09] MEDS: PANTOPRAZOLE 40 MG/10 ML VIAL IVP SCH (10:03)
[2021-06-09] MEDS: SODIUM CHLORIDE 0.9% 1,000 ML IV SCH ×2 (10:04→18:48)
[2021-06-09 10:12] LABS: Glucose,Whole Blood 198 mg/dL (75-99)
[2021-06-09 11:17] LABS: Glucose,Whole Blood 196 mg/dL (75-99)
[2021-06-09 12:02] LABS: Glucose,Whole Blood 205 mg/dL (75-99)
[2021-06-09] MEDS ORDERED: fentaNYL (PF) 50 MCG/ML 20 ML VIAL ONE (12:11)
[2021-06-09] MEDS: fentaNYL (PF). 1,000 MCG in SODIUM CHLORIDE 0.9% 80 ML IV SCH ×2 (12:13→23:15)
[2021-06-09] MEDS: ARTIFICIAL TEARS-HYPROMELLOSE DROPS 15 ML BTL BOTH EYES SCH ×4 (12:26→23:49)
[2021-06-09 13:09] LABS: Glucose,Whole Blood 228 mg/dL (75-99)
--- NOTE | 2021-06-09 13:14 | P.PN ---
Subjective Progress Note Date: 06/09/21 Principal diagnosis: Acute hypoxic respiratory failure secondary to COVID-19 pneumonia, and malignant pleural effusion/small cell lung cancer 65-year-old female patient who is presenting to the emergency department because of an acute respiratory distress. The patient came in yesterday to emergency and she was complaining of increased cough and shortness of breath away 1 week duration. She denied having any fever. She had some pain worse with breathing across her chest. Her chest x-ray was done and showed near-complete opacities of the left lung which was a new finding. In the emergency department, the patient was found to have a white cell count of 7.8 with hemoglobin of 11.8, sodium is at 132 with a BUN of 15 a creatinine of 0.35. The patient's proBNP level was nonelevated, troponins were negative, and she had also normal coagulation profile. At that point, the patient was admitted to the hospital and a pulmonary consultation was requested. The patient was started on Proventil HFA and the patient was also started on IV Solu-Medrol. On a separate note, the patient shoe turner to be positive for COVID 19. Note that this patient has been vaccinated for COVID 19. The patient is known to me. The patient is known to have advanced COPD along with obstructive sleep apnea and she has been able to tolerate CPAP therapy on outpatient basis. She has also history of narcolepsy maintained on Enbrel and Lexapro on outpatient basis. She is known to have diabetes, hypertension, chronic anxiety and depression and chronic back pain. She has also symptoms of RLS. She was in the hospital back in January 2021 for worsening shortness of breath and COPD exacerbation. The patient's condition was optimized and the patient was discharged home. She is maintained on Symbicort on outpatient basis regarding her COPD. No nausea. No vomiting. No emesis. No diarrhea. I saw this patient on an urgent basis. 8 team was called earlier this morning as the patient was in considerable multivessel distress. She is currently on a BiPAP at a pressure of 12/5 cm of water and FiO2 of 35%. She had marked diminished breath sound bilaterally and diffuse expiratory wheezes on the right. She has also absent breath on the left. The chest x-ray was repeated and the patient had complete opacification of the left lung. I performed an emergent bedside thoracentesis draining approximately 1.3 L of fluid from the left lung. Follow-up chest x-rays to follow. Note that her chest x-ray did not reveal any significant pleural effusion. She is currently on a BiPAP for respiratory support. She is also and accommodation bronchodilators and steroids. On 06/04/2031 and seeing the patient for a follow-up. The patient is off the BiPAP. Nevertheless she remains spastic and wheezy. Note that I drained approximately 1.3 L of fluid from the left lung. A follow-up CAT scan of the chest was done and showed a large left hilar mass that was causing obstruction and atelectasis of the left lower lobe. In fact left lower lobe bronchus was quite narrowed and there is probably need endobronchial extension of the hilar tumor. The patient was made aware of this finding. She is a bit lethargic and at times confused. There may be a component of CO2 narcosis. She is declining to use the BiPAP consistently and she is preferring oxygen 4 L per minute nasal cannula. No hemoptysis. No reported chest pain. No focal neurological deficit. Highly suspect malignancy. Awaiting fluid cytology from the left- sided pleural effusion. Reevaluated today on 06/05/2021, patient is on nasal cannula, she is off BiPAP, keeps moaning moving her BiPAP intermittently. She is actually on 2 L nasal cannula, O2 sats is 91%. Patient is lethargic, but she is arousable, follows s imple instructions. Cytology on the pleural effusion is pending. Patient had thoracentesis done by Dr. Gardiner on the fourth, remains on bronchodilators, remains on Solu-Medrol, she is also on Lovenox 40 mg subcu twice a day, and she is on Mirapex. Reevaluated today on 06/06/2021, patient had worsening clinical status morning, she required placement on BiPAP, however even on BiPAP, the patient remained extremely short of breath, she was developing intermittent episodes of lethargy. Patient was transferred to the ICU, intubated S1 S1 she arrived to the ICU. She is now on assist control rate of 30 tidal volume 400 FiO2 on the percent and PEEP of 12. ABG post intubation showed a pO2 of 66 pCO2 of 56 pH of 7.36. Basic metabolic profile is normal renal profile is normal blood sugar is running a bit high, patient may have to be placed on insulin drip. D-dimer is 1.41. WBC count is 15.3 hemoglobin 13.6. LDH is 1374 C-reactive protein 2.4. 6 x-ray is showing worsening infiltrates bilaterally right more so than left. Cytology from her pleural effusion is pending. Reevaluated today on 06/07/2021, patient remains in the ICU intubated and mechanically ventilated. She is on assist control rate of 30 tidal volume 400 FiO2 60% and PEEP is at 14, it was earlier at 12. ABG showed a pO2 of 89 pCO2 39 pH of 7.53 and this was on 70%, I did cut down the FiO2 to 60%. Patient remains on propofol at 50, she is requiring norepinephrine at 0.05 mcg/kg/m she is on insulin at 20 unit per hour drip is also on IV fluid at 100 mL per hour. CBC and basic metabolic profile is normal. Rest x-ray continues to show bilateral interstitial infiltrates, her LDH today is 989, improving compared to yesterday, and C-reactive protein is down to 3.3. Reevaluated today on 06/08/2021, patient remains in the ICU, intubated and mechanically ventilated. Her pleural effusion cytology came back positive for small cell lung cancer. Patient is intubated and mechanically ventilated, she is on tidal volume of 400 assist control rate of 30 FiO2 70% PEEP 14 however considering her poor ABG I recommended increasing her FiO2 to 75% and PEEP was increased to 16. Patient is requiring norepinephrine at 0.03 mcg/kg/m she is on fentanyl 0.5 mcg/kg/h propofol 50 mcg/kg/minute, IV fluid is at 80 mL per hour. ABG is showing pO2 of 53 pCO2 42 pH of 7.47 WBC count is 8.1 hemoglobin is 10.9. Electrolytes are normal renal profile is normal BUN is 23 creatinine 0.6. Again the patient required increase FiO2 to 75% and increase PEEP to 16. Chest x-ray continues to show significant airspace disease and left hilar mass with a small pleural effusion. Again her effusion came back positive for small cell lung cancer. Patient is also on enteral feeding via orogastric tube Reevaluated today on 06/09/2021, patient remains in the ICU, intubated and mechanically ventilated. Patient is on assist control rate of 30 tidal volume 400 FiO2 60% PEEP of 16. ABG showed a pO2 of 75 pCO2 52 pH of 7.36. Chest x- ray continues to show bilateraldisease, left pleural effusion and left hilar mass. Patient remains on propofol at 50 fentanyl at 1 Nimbex at 2 and she is on enteral feeding. Electrolytes are normal renal profile is normal LDH is 1150. Slightly worse compared to a few days ago. And C-reactive protein is a little bit better compared to 2 days ago he had medications-lake the patient remains on Levaquin, methylprednisolone 60 mg IV push every 6 hours, Mirapex, propofol, and she is on Lovenox 40 mg subcu twice a day because of elevated d-dimer. Objective - Vital Signs Vital signs: Vital Signs Temp 97.5 F L 06/09/21 12:00 Pulse 77 06/09/21 13:00 Resp 30 H 06/09/21 13:00 BP 99/65 06/09/21 13:00 Pulse Ox 90 L 06/09/21 13:00 Intake & Output 06/08/21 06/09/21 06/09/21 18:59 06:59 18:59 Intake Total 2181.619 2168.944 979.372 Output Total 530 410 275 Balance 6302.998 6279.944 704.372 Weight 84 kg Intake: IV 1236 1309 500 Sodium Chloride 0.9% 1, 1200 1300 500 000 ml @ 100 mls/hr IV . Q10H JOSE ANTONIO Rx#:[id number] pressure bag 36 9 Intake, IV Titration 407.619 313.944 217.372 Amount Insulin Regular 100 unit 44.768 47.294 17.372 In Sodium Chloride 0.9% 100 ml @ Per Protocol IV .Q0M JOSE ANTONIO Rx#:[id number] Norepinephrine 4 mg In 262.851 24.94 Sodium Chloride 0.9% 250 ml @ 0.05 MCG/KG/MIN 15. 621 mls/hr IV .[id number] JOSE ANTONIO Rx#:[id number] fentaNYL (PF). 1,000 mcg 81.27 100 In Sodium Chloride 0.9% 80 ml @ 0.5 MCG/KG/HR 4.2 mls/hr IV .[id number] JOSE ANTONIO Rx#:[id number] propofoL 1,000 mg In 100 160.44 100 Empty Bag 1 bag @ Titrate IV .Q0M [facility] Rx#: [id number] Tube Feeding 418 456 172 Other 120 90 90 Output: Urine 530 410 275 Other: Voiding Method Indwelling Catheter Indwelling Catheter Indwelling Catheter ABP, PAP, CO, CI - Last Documented Arterial Blood Pressure 137/132 - Exam Physical Exam revealed a 66-year-old female intubated, sedated, on mechanical ventilation. Head: Atraumatic, normocephalic. HEENT:[Neck is supple.] [No neck masses.] [No thyromegaly.] [No JVD.] Chest: [Symmetrical chest expansion crackles at the bases. Cardiac Exam: [Normal S1 and S2, no S3 gallop, no murmur.] Abdomen: [Soft, nontender, no megaly, no rebound, no guarding, normal bowel sounds.] Extremities: [No clubbing, a serum bipedal edema, no cyanosis. Neurological Exam: Unable to assess, patient is fully sedated, presently on propofol at 30 mcg/kg/m. Psychiatric: Unable to assess Skin: Evidence of a large ulcer on the skin on the lateral aspect of her right side. - Labs CBC & Chem 7: 06/09/21 04:00 06/09/21 04:00 Labs: Abnormal Lab Results - Last 24 Hours (Table) 06/08/21 06/08/21 06/08/21 Range/Units 13:23 14:46 16:13 Hgb (11.4-16.0) gm/dL MCHC (31.0-37.0) g/dL Lymphocytes # (1.0-4.8) k/uL D-Dimer (<0.60) mg/L FEU ABG pCO2 (35-45) mmHg ABG pO2 (83-108) mmHg ABG HCO3 (21-25) mmol/L ABG Total CO2 (19-24) mmol/L BUN (7-17) mg/dL Glucose (74-99) mg/dL POC Glucose (mg/dL) 208 H 232 H 203 H (75-99) mg/dL Calcium (8.4-10.2) mg/dL Total Bilirubin (0.2-1.3) mg/dL AST (14-36) U/L Lactate Dehydrogenase (313-618) U/L C-Reactive Protein (<1.0) mg/dL Total Protein (6.3-8.2) g/dL Albumin (3.5-5.0) g/dL 06/08/21 06/08/21 06/08/21 Range/Units 17:32 18:54 19:53 Hgb (11.4-16.0) gm/dL MCHC (31.0-37.0) g/dL Lymphocytes # (1.0-4.8) k/uL D-Dimer (<0.60) mg/L FEU ABG pCO2 (35-45) mmHg ABG pO2 (83-108) mmHg ABG HCO3 (21-25) mmol/L ABG Total CO2 (19-24) mmol/L BUN (7-17) mg/dL Glucose (74-99) mg/dL POC Glucose (mg/dL) 149 H 219 H 49 L (75-99) mg/dL Calcium (8.4-10.2) mg/dL Total Bilirubin (0.2-1.3) mg/dL AST (14-36) U/L Lactate Dehydrogenase (313-618) U/L C-Reactive Protein (<1.0) mg/dL Total Protein (6.3-8.2) g/dL Albumin (3.5-5.0) g/dL 06/08/21 06/08/21 06/08/21 Range/Units 19:54 21:05 21:52 Hgb (11.4-16.0) gm/dL MCHC (31.0-37.0) g/dL Lymphocytes # (1.0-4.8) k/uL D-Dimer (<0.60) mg/L FEU ABG pCO2 (35-45) mmHg ABG pO2 (83-108) mmHg ABG HCO3 (21-25) mmol/L ABG Total CO2 (19-24) mmol/L BUN (7-17) mg/dL Glucose (74-99) mg/dL POC Glucose (mg/dL) 173 H 185 H 177 H (75-99) mg/dL Calcium (8.4-10.2) mg/dL Total Bilirubin (0.2-1.3) mg/dL AST (14-36) U/L Lactate Dehydrogenase (313-618) U/L C-Reactive Protein (<1.0) mg/dL Total Protein (6.3-8.2) g/dL Albumin (3.5-5.0) g/dL 06/08/21 06/08/21 06/09/21 Range/Units 22:54 23:53 01:03 Hgb (11.4-16.0) gm/dL MCHC (31.0-37.0) g/dL Lymphocytes # (1.0-4.8) k/uL D-Dimer (<0.60) mg/L FEU ABG pCO2 (35-45) mmHg ABG pO2 (83-108) mmHg ABG HCO3 (21-25) mmol/L ABG Total CO2 (19-24) mmol/L BUN (7-17) mg/dL Glucose (74-99) mg/dL POC Glucose (mg/dL) 153 H 146 H 162 H (75-99) mg/dL Calcium (8.4-10.2) mg/dL Total Bilirubin (0.2-1.3) mg/dL AST (14-36) U/L Lactate Dehydrogenase (313-618) U/L C-Reactive Protein (<1.0) mg/dL Total Protein (6.3-8.2) g/dL Albumin (3.5-5.0) g/dL 06/09/21 06/09/21 06/09/21 Range/Units 02:23 03:08 04:00 Hgb 10.8 L (11.4-16.0) gm/dL MCHC 29.9 L (31.0-37.0) g/dL Lymphocytes # 0.5 L (1.0-4.8) k/uL D-Dimer (<0.60) mg/L FEU ABG pCO2 (35-45) mmHg ABG pO2 (83-108) mmHg ABG HCO3 (21-25) mmol/L ABG Total CO2 (19-24) mmol/L BUN (7-17) mg/dL Glucose (74-99) mg/dL POC Glucose (mg/dL) 167 H 170 H (75-99) mg/dL Calcium (8.4-10.2) mg/dL Total Bilirubin (0.2-1.3) mg/dL AST (14-36) U/L Lactate Dehydrogenase (313-618) U/L C-Reactive Protein (<1.0) mg/dL Total Protein (6.3-8.2) g/dL Albumin (3.5-5.0) g/dL 06/09/21 06/09/21 06/09/21 Range/Units 04:00 04:00 04:12 Hgb (11.4-16.0) gm/dL MCHC (31.0-37.0) g/dL Lymphocytes # (1.0-4.8) k/uL D-Dimer 1.02 H (<0.60) mg/L FEU ABG pCO2 (35-45) mmHg ABG pO2 (83-108) mmHg ABG HCO3 (21-25) mmol/L ABG Total CO2 (19-24) mmol/L BUN 26 H (7-17) mg/dL Glucose 188 H (74-99) mg/dL POC Glucose (mg/dL) 187 H (75-99) mg/dL Calcium 7.8 L (8.4-10.2) mg/dL Total Bilirubin 0.1 L (0.2-1.3) mg/dL AST 40 H (14-36) U/L Lactate Dehydrogenase 1150 H (313-618) U/L C-Reactive Protein 2.7 H (<1.0) mg/dL Total Protein 4.9 L (6.3-8.2) g/dL Albumin 2.4 L (3.5-5.0) g/dL 06/09/21 06/09/21 06/09/21 Range/Units 05:12 05:24 06:14 Hgb (11.4-16.0) gm/dL MCHC (31.0-37.0) g/dL Lymphocytes # (1.0-4.8) k/uL D-Dimer (<0.60) mg/L FEU ABG pCO2 52 H (35-45) mmHg ABG pO2 75 L (83-108) mmHg ABG HCO3 29 H (21-25) mmol/L ABG Total CO2 31 H (19-24) mmol/L BUN (7-17) mg/dL Glucose (74-99) mg/dL POC Glucose (mg/dL) 193 H 194 H (75-99) mg/dL Calcium (8.4-10.2) mg/dL Total Bilirubin (0.2-1.3) mg/dL AST (14-36) U/L Lactate Dehydrogenase (313-618) U/L C-Reactive Protein (<1.0) mg/dL Total Protein (6.3-8.2) g/dL Albumin (3.5-5.0) g/dL 06/09/21 06/09/21 06/09/21 Range/Units 06:58 08:15 10:11 Hgb (11.4-16.0) gm/dL MCHC (31.0-37.0) g/dL Lymphocytes # (1.0-4.8) k/uL D-Dimer (<0.60) mg/L FEU ABG pCO2 (35-45) mmHg ABG pO2 (83-108) mmHg ABG HCO3 (21-25) mmol/L ABG Total CO2 (19-24) mmol/L BUN (7-17) mg/dL Glucose (74-99) mg/dL POC Glucose (mg/dL) 174 H 161 H 198 H (75-99) mg/dL Calcium (8.4-10.2) mg/dL Total Bilirubin (0.2-1.3) mg/dL AST (14-36) U/L Lactate Dehydrogenase (313-618) U/L C-Reactive Protein (<1.0) mg/dL Total Protein (6.3-8.2) g/dL Albumin (3.5-5.0) g/dL 06/09/21 06/09/21 Range/Units 11:15 12:01 Hgb (11.4-16.0) gm/dL MCHC (31.0-37.0) g/dL Lymphocytes # (1.0-4.8) k/uL D-Dimer (<0.60) mg/L FEU ABG pCO2 (35-45) mmHg ABG pO2 (83-108) mmHg ABG HCO3 (21-25) mmol/L ABG Total CO2 (19-24) mmol/L BUN (7-17) mg/dL Glucose (74-99) mg/dL POC Glucose (mg/dL) 196 H 205 H (75-99) mg/dL Calcium (8.4-10.2) mg/dL Total Bilirubin (0.2-1.3) mg/dL AST (14-36) U/L Lactate Dehydrogenase (313-618) U/L C-Reactive Protein (<1.0) mg/dL Total Protein (6.3-8.2) g/dL Albumin (3.5-5.0) g/dL Microbiology - Last 24 Hours (Table) 06/08/21 16:35 Gram Stain - Preliminary Sputum Sputum Culture - Preliminary 06/02/21 20:00 Blood Culture - Final Blood No Growth after 144 hours 06/02/21 18:09 Blood Culture - Final Blood No Growth after 144 hours Assessment and Plan Assessment: Impression: Acute hypoxic respiratory failure, multifactorial secondary to COVID-19 pn e[place] also secondary to left pleural effusion with left hilar mass, cytology came back positive for small cell lung cancer. And secondary to acute exacerbation of COPD. History of underlying COPD and chronic hypercapnic and hypoxic respiratory failure. Patient was intubated on 06/06/2021, and she remains mechanically ventilated.. Obstructive sleep apnea syndrome, does not tolerate CPAP History of narcolepsy. Benign essential hypertension Type 2 diabetes Chronic back pain Generalized anxiety disorder Restless leg syndrome Small cell lung cancer with positive pleural effusion for small cell lung cancer Recommendation: Continue ventilatory support. Not ready to be weaned or extubated. Patient is now on assist control rate of 30 tidal volume 400 FiO2 60% and PEEP 16. ABG is marginal. Will titrate FiO2 accordingly. Daily adjustment of the ventilator settings based on ABG and other parameters. Will eventually consult oncology about her small cell lung cancer, however nothing could be done at this point until the patient recovers from her acute illness./COVID-19 pneumonitis and a story failure.. GI and DVT prophylaxis. Continue bronchodilators. Continue COVID-19 cocktail. Continue Solu-Medrol. Continue bronchodilators. Monitor inflammatory markers. Prognosis is extremely poor. Discussed her condition with her son came over the phone today, and updated him on his mother, and explained to him the poor prognosis, discussed the different options with the son including DO NOT RESUSCITATE CODE STATUS and comfort care measures however he would like to discuss this with his other siblings. We will continue to follow. Critical care time is over 30 minutes Time with Patient: Greater than 30
--- NOTE | 2021-06-09 13:42 | XR ---
EXAMINATION TYPE: XR chest 1V DATE OF EXAM: 06/09/2021 COMPARISON: Chest x-ray 06/08/2021 HISTORY: Abnormal chest x-ray, intubated TECHNIQUE: Single frontal view of the chest is obtained. FINDINGS: Endotracheal tube and NG tube, left subclavian central venous catheter are overlying appro priate positions. There is no evident pneumothorax. Bilateral airspace disease shows a similar appear ance. Left lower lung is likely on the exam. There are overlying artifacts. Cardiac mediastinal silho uette is stable. IMPRESSION: There is not a significant interval change. Correlate for pneumonia, ARDS, congestive hea rt failure
[2021-06-09] MEDS: LEVOFLOXACIN 500 MG TAB PO SCH (14:08)
[2021-06-09 14:31] LABS: Glucose,Whole Blood 201 mg/dL (75-99)
[2021-06-09 15:26] LABS: Glucose,Whole Blood 184 mg/dL (75-99)
--- NOTE | 2021-06-09 15:44 | P.PN ---
Subjective Progress Note Date: 06/08/21 This is 66-year-old female admitted with acute COVID-19 pneumonia, left pleural effusion, left hilar mass possibly malignant, acute COPD exacerbation, acute hypoxic respiratory failure, and multiple other medical issues. Status post thoracentesis with pleural cytology pending. Maintained on bronchodilators, covid cocktail.Patient currently on BiPAP, labored breathing, fatigued, lethargic. Afebrile. Labs pending. 06/06/2021 worsening respiratory status, on BiPAP. Intubated and transferred to ICU. ABGs post intubation reported pH 7.36, pCO2 56, pO2 66, bicarb 31 base excess 5.5. Chest x-ray reported more prominent, progression of multifocal bilateral opacities. Pleural cytology pending. Afebrile, WBC increased to 15.3. D-dimer and LDH increased, CRP 2.4. Hyperglycemia, placed on insulin drip. 06/07/2021 vent dependent, FiO2 70%/+12 of PEEP. Continues on diprovan, fentanyl, Levophed and insulin drips. Tolerating tube feeds with minimal to no residuals. T-max 99.5, normal WBC. Pleural cultures and cytology pending. Inflammatory markers today trending down with the exception of CRP, 3.3. 06/08/21 vent-dependent FiO2 70%/+14 of PEEP. Chest x-ray reporting diffuse bilateral infiltrates. Pleural fluid pathology reporting positive for metastatic small cell CA.Maintained on diprovan, fentanyl, Levophed. Renal function/electrolytes within normal limits. Objective - Vital Signs Vital signs: Vital Signs Temp 97.3 F L 06/08/21 16:00 Pulse 90 06/08/21 16:00 Resp 30 H 06/08/21 16:00 BP 121/78 06/08/21 16:00 Pulse Ox 91 L 06/08/21 16:00 Intake & Output 06/07/21 06/08/21 06/08/21 18:59 06:59 18:59 Intake Total 2273.983 2464.961 1741.354 Output Total 570 505 450 Balance 6638.328 0726.961 1291.354 Intake: IV 1236 1236 1030 Sodium Chloride 0.9% 1, 1200 1200 1000 000 ml @ 100 mls/hr IV . Q10H [facility] Rx#:[id number] pressure bag 36 36 30 Intake, IV Titration 565.983 682.961 279.354 Amount Insulin Regular 100 unit 99.082 44.946 19.939 In Sodium Chloride 0.9% 100 ml @ Per Protocol IV .Q0M [facility] Rx#:[id number] Norepinephrine 4 mg In 205.569 197.085 259.415 Sodium Chloride 0.9% 250 ml @ 0.05 MCG/KG/MIN 15. 621 mls/hr IV .[id number] [facility] Rx#:[id number] fentaNYL (PF). 1,000 mcg 80.15 In Sodium Chloride 0.9% 80 ml @ 0.5 MCG/KG/HR 4.2 mls/hr IV .[id number] [facility] Rx#:[id number] propofoL 1,000 mg In 261.332 360.78 Empty Bag 1 bag @ Titrate IV .Q0M [facility] Rx#: [id number] Tube Feeding 412 456 342 Other 60 90 90 Output: Urine 570 505 450 Other: Voiding Method Indwelling Catheter Indwelling Catheter Indwelling Catheter # Bowel Movements 0 ABP, PAP, CO, CI - Last Documented Arterial Blood Pressure 108/68 - Exam GENERAL: Sedated, on mechanical ventilation. HEENT: Normocephalic, atraumatic. CARDIOVASCULAR: S1 and S2 present. No murmurs, rubs, or gallops. PULMONARY: Labored breathing, bilateral bases diminished, minimal rhonchi, fine bibasilar crackles, decreased inspiratory and expiratory wheezing on right. ABDOMEN: Soft, nontender, nondistended, normoactive bowel sounds. No palpable organomegaly. EXTREMITIES: No cyanosis, clubbing, fine pedal edema. NEUROLOGICAL: Unable to assess, sedated and on mechanical ventilation SKIN: Warm and dry, nonhealing ulceration of right lateral thigh , refer to measurements as per wound care team - Labs CBC & Chem 7: 06/09/21 04:00 06/09/21 04:00 Labs: Abnormal Lab Results - Last 24 Hours (Table) 06/07/21 06/07/21 06/07/21 Range/Units 17:09 18:12 21:16 Hgb (11.4-16.0) gm/dL MCHC (31.0-37.0) g/dL Lymphocytes # (1.0-4.8) k/uL D-Dimer (<0.60) mg/L FEU ABG pH (7.35-7.45) ABG pO2 (83-108) mmHg ABG HCO3 (21-25) mmol/L ABG Total CO2 (19-24) mmol/L ABG O2 Saturation (94-97) % Carbon Dioxide (22-30) mmol/L BUN (7-17) mg/dL Glucose (74-99) mg/dL POC Glucose (mg/dL) 223 H 172 H 221 H (75-99) mg/dL Calcium (8.4-10.2) mg/dL 06/07/21 06/07/21 06/08/21 Range/Units 22:21 23:46 00:44 Hgb (11.4-16.0) gm/dL MCHC (31.0-37.0) g/dL Lymphocytes # (1.0-4.8) k/uL D-Dimer (<0.60) mg/L FEU ABG pH (7.35-7.45) ABG pO2 (83-108) mmHg ABG HCO3 (21-25) mmol/L ABG Total CO2 (19-24) mmol/L ABG O2 Saturation (94-97) % Carbon Dioxide (22-30) mmol/L BUN (7-17) mg/dL Glucose (74-99) mg/dL POC Glucose (mg/dL) 213 H 176 H 170 H (75-99) mg/dL Calcium (8.4-10.2) mg/dL 06/08/21 06/08/21 06/08/21 Range/Units 01:50 02:56 03:47 Hgb (11.4-16.0) gm/dL MCHC (31.0-37.0) g/dL Lymphocytes # (1.0-4.8) k/uL D-Dimer (<0.60) mg/L FEU ABG pH (7.35-7.45) ABG pO2 (83-108) mmHg ABG HCO3 (21-25) mmol/L ABG Total CO2 (19-24) mmol/L ABG O2 Saturation (94-97) % Carbon Dioxide (22-30) mmol/L BUN (7-17) mg/dL Glucose (74-99) mg/dL POC Glucose (mg/dL) 159 H 182 H 175 H (75-99) mg/dL Calcium (8.4-10.2) mg/dL 06/08/21 06/08/21 06/08/21 Range/Units 04:00 04:00 04:00 Hgb 10.9 L (11.4-16.0) gm/dL MCHC 30.3 L (31.0-37.0) g/dL Lymphocytes # 0.4 L (1.0-4.8) k/uL D-Dimer 0.92 H (<0.60) mg/L FEU ABG pH (7.35-7.45) ABG pO2 (83-108) mmHg ABG HCO3 (21-25) mmol/L ABG Total CO2 (19-24) mmol/L ABG O2 Saturation (94-97) % Carbon Dioxide 32 H (22-30) mmol/L BUN 23 H (7-17) mg/dL Glucose 180 H (74-99) mg/dL POC Glucose (mg/dL) (75-99) mg/dL Calcium 7.9 L (8.4-10.2) mg/dL 06/08/21 06/08/21 06/08/21 Range/Units 05:24 05:50 06:15 Hgb (11.4-16.0) gm/dL MCHC (31.0-37.0) g/dL Lymphocytes # (1.0-4.8) k/uL D-Dimer (<0.60) mg/L FEU ABG pH 7.47 H (7.35-7.45) ABG pO2 53 L* (83-108) mmHg ABG HCO3 31 H (21-25) mmol/L ABG Total CO2 32 H (19-24) mmol/L ABG O2 Saturation 89.0 L (94-97) % Carbon Dioxide (22-30) mmol/L BUN (7-17) mg/dL Glucose (74-99) mg/dL POC Glucose (mg/dL) 187 H 209 H (75-99) mg/dL Calcium (8.4-10.2) mg/dL 06/08/21 06/08/21 06/08/21 Range/Units 06:55 08:39 10:31 Hgb (11.4-16.0) gm/dL MCHC (31.0-37.0) g/dL Lymphocytes # (1.0-4.8) k/uL D-Dimer (<0.60) mg/L FEU ABG pH (7.35-7.45) ABG pO2 (83-108) mmHg ABG HCO3 (21-25) mmol/L ABG Total CO2 (19-24) mmol/L ABG O2 Saturation (94-97) % Carbon Dioxide (22-30) mmol/L BUN (7-17) mg/dL Glucose (74-99) mg/dL POC Glucose (mg/dL) 198 H 159 H 221 H (75-99) mg/dL Calcium (8.4-10.2) mg/dL 06/08/21 06/08/21 06/08/21 Range/Units 12:21 13:23 14:46 Hgb (11.4-16.0) gm/dL MCHC (31.0-37.0) g/dL Lymphocytes # (1.0-4.8) k/uL D-Dimer (<0.60) mg/L FEU ABG pH (7.35-7.45) ABG pO2 (83-108) mmHg ABG HCO3 (21-25) mmol/L ABG Total CO2 (19-24) mmol/L ABG O2 Saturation (94-97) % Carbon Dioxide (22-30) mmol/L BUN (7-17) mg/dL Glucose (74-99) mg/dL POC Glucose (mg/dL) 208 H 208 H 232 H (75-99) mg/dL Calcium (8.4-10.2) mg/dL 06/08/21 Range/Units 16:13 Hgb (11.4-16.0) gm/dL MCHC (31.0-37.0) g/dL Lymphocytes # (1.0-4.8) k/uL D-Dimer (<0.60) mg/L FEU ABG pH (7.35-7.45) ABG pO2 (83-108) mmHg ABG HCO3 (21-25) mmol/L ABG Total CO2 (19-24) mmol/L ABG O2 Saturation (94-97) % Carbon Dioxide (22-30) mmol/L BUN (7-17) mg/dL Glucose (74-99) mg/dL POC Glucose (mg/dL) 203 H (75-99) mg/dL Calcium (8.4-10.2) mg/dL Microbiology - Last 24 Hours (Table) 06/02/21 20:00 Blood Culture - Preliminary Blood No Growth after 120 hours 06/02/21 18:09 Blood Culture - Preliminary Blood No Growth after 120 hours Assessment and Plan Assessment: Acute hypoxic respiratory failure, mechanical ventilator-dependent, multifactorial secondary to acute covid pneumonia, left pleural effusion and acute COPD exacerbation. Status post emergent thoracentesis, pleural cytology reporting metastatic small cell CA Right lower extremity thigh, nonhealing ulceration Chronic hypoxic and hypercapnic respiratory failure Obstructive sleep apnea, intolerant of CPAP Diabetes mellitus type 2 Essential hypertension Chronic back pain anxiety disorder Restless leg syndrome History of narcolepsy Plan: Continue on current medication regime ,monitoring and symptomatic treatment. Maintain covid cocktail, bronchodilators. 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 The impression and plan of care has been dictated as directed. : I performed a history and examination of this patient, discussed the same with the dictator. I agree with the dictator's note ,documented as a scribe. Any additional findings or plans will be noted.
--- NOTE | 2021-06-09 15:56 | P.PN ---
Subjective Progress Note Date: 06/09/21 This is 66-year-old female admitted with acute COVID-19 pneumonia, left pleural effusion, left hilar mass possibly malignant, acute COPD exacerbation, acute hypoxic respiratory failure, and multiple other medical issues. Status post thoracentesis with pleural cytology pending. Maintained on bronchodilators, covid cocktail.Patient currently on BiPAP, labored breathing, fatigued, lethargic. Afebrile. Labs pending. 06/06/2021 worsening respiratory status, on BiPAP. Intubated and transferred to ICU. ABGs post intubation reported pH 7.36, pCO2 56, pO2 66, bicarb 31 base excess 5.5. Chest x-ray reported more prominent, progression of multifocal bilateral opacities. Pleural cytology pending. Afebrile, WBC increased to 15.3. D-dimer and LDH increased, CRP 2.4. Hyperglycemia, placed on insulin drip. 06/07/2021 vent dependent, FiO2 70%/+12 of PEEP. Continues on diprovan, fentanyl, Levophed and insulin drips. Tolerating tube feeds with minimal to no residuals. T-max 99.5, normal WBC. Pleural cultures and cytology pending. Inflammatory markers today trending down with the exception of CRP, 3.3. 06/08/21 vent-dependent FiO2 70%/+14 of PEEP. Chest x-ray reporting diffuse bilateral infiltrates. Pleural fluid pathology reporting positive for metastatic small cell CA.Maintained on diprovan, fentanyl, Levophed. Renal function/electrolytes within normal limits. 06/09/2021 FiO2 60/+16 PEEP. Chest x-ray reporting no significant interval change/bilateral airspace disease. Afebrile, normal WBC. Maintained on Nimbex, fentanyl, diprovan. Renal function stable. D-dimer, LDH elevated, CRP decreased. Objective - Vital Signs Vital signs: Vital Signs Temp 97.5 F L 06/09/21 12:00 Pulse 74 06/09/21 14:00 Resp 30 H 06/09/21 14:00 BP 97/71 06/09/21 14:00 Pulse Ox 94 L 06/09/21 14:00 Intake & Output 06/08/21 06/09/21 06/09/21 18:59 06:59 18:59 Intake Total 2181.619 2168.944 1227.553 Output Total 530 410 335 Balance 0767.969 6016.944 892.553 Weight 93.3 kg Intake: IV 1236 1309 700 Sodium Chloride 0.9% 1, 1200 1300 700 000 ml @ 100 mls/hr IV . Q10H [facility] Rx#:[id number] pressure bag 36 9 Intake, IV Titration 407.619 313.944 225.553 Amount Insulin Regular 100 unit 44.768 47.294 25.553 In Sodium Chloride 0.9% 100 ml @ Per Protocol IV .Q0M [facility] Rx#:[id number] Norepinephrine 4 mg In 262.851 24.94 Sodium Chloride 0.9% 250 ml @ 0.05 MCG/KG/MIN 15. 621 mls/hr IV .[id number] [facility] Rx#:[id number] fentaNYL (PF). 1,000 mcg 81.27 100 In Sodium Chloride 0.9% 80 ml @ 0.5 MCG/KG/HR 4.2 mls/hr IV .[id number] [facility] Rx#:[id number] propofoL 1,000 mg In 100 160.44 100 Empty Bag 1 bag @ Titrate IV .Q0M [facility] Rx#: [id number] Tube Feeding 418 456 212 Other 120 90 90 Output: Urine 530 410 335 Other: Voiding Method Indwelling Catheter Indwelling Catheter Indwelling Catheter ABP, PAP, CO, CI - Last Documented Arterial Blood Pressure 137/132 - Exam GENERAL: Sedated, on mechanical ventilation. HEENT: Normocephalic, atraumatic. CARDIOVASCULAR: S1 and S2 present. No murmurs, rubs, or gallops. PULMONARY: Labored breathing, bilateral bases diminished, minimal rhonchi, fine bibasilar crackles, decreased inspiratory and expiratory wheezing on right. ABDOMEN: Soft, nontender, nondistended, normoactive bowel sounds. No palpable organomegaly. EXTREMITIES: No cyanosis, clubbing, fine pedal edema. NEUROLOGICAL: Unable to assess, sedated and on mechanical ventilation SKIN: Warm and dry, nonhealing ulceration of right lateral thigh , refer to measurements as per wound care team - Labs CBC & Chem 7: 06/09/21 04:00 06/09/21 04:00 Labs: Abnormal Lab Results - Last 24 Hours (Table) 06/08/21 06/08/21 06/08/21 Range/Units 16:13 17:32 18:54 Hgb (11.4-16.0) gm/dL MCHC (31.0-37.0) g/dL Lymphocytes # (1.0-4.8) k/uL D-Dimer (<0.60) mg/L FEU ABG pCO2 (35-45) mmHg ABG pO2 (83-108) mmHg ABG HCO3 (21-25) mmol/L ABG Total CO2 (19-24) mmol/L BUN (7-17) mg/dL Glucose (74-99) mg/dL POC Glucose (mg/dL) 203 H 149 H 219 H (75-99) mg/dL Calcium (8.4-10.2) mg/dL Total Bilirubin (0.2-1.3) mg/dL AST (14-36) U/L Lactate Dehydrogenase (313-618) U/L C-Reactive Protein (<1.0) mg/dL Total Protein (6.3-8.2) g/dL Albumin (3.5-5.0) g/dL 06/08/21 06/08/21 06/08/21 Range/Units 19:53 19:54 21:05 Hgb (11.4-16.0) gm/dL MCHC (31.0-37.0) g/dL Lymphocytes # (1.0-4.8) k/uL D-Dimer (<0.60) mg/L FEU ABG pCO2 (35-45) mmHg ABG pO2 (83-108) mmHg ABG HCO3 (21-25) mmol/L ABG Total CO2 (19-24) mmol/L BUN (7-17) mg/dL Glucose (74-99) mg/dL POC Glucose (mg/dL) 49 L 173 H 185 H (75-99) mg/dL Calcium (8.4-10.2) mg/dL Total Bilirubin (0.2-1.3) mg/dL AST (14-36) U/L Lactate Dehydrogenase (313-618) U/L C-Reactive Protein (<1.0) mg/dL Total Protein (6.3-8.2) g/dL Albumin (3.5-5.0) g/dL 06/08/21 06/08/21 06/08/21 Range/Units 21:52 22:54 23:53 Hgb (11.4-16.0) gm/dL MCHC (31.0-37.0) g/dL Lymphocytes # (1.0-4.8) k/uL D-Dimer (<0.60) mg/L FEU ABG pCO2 (35-45) mmHg ABG pO2 (83-108) mmHg ABG HCO3 (21-25) mmol/L ABG Total CO2 (19-24) mmol/L BUN (7-17) mg/dL Glucose (74-99) mg/dL POC Glucose (mg/dL) 177 H 153 H 146 H (75-99) mg/dL Calcium (8.4-10.2) mg/dL Total Bilirubin (0.2-1.3) mg/dL AST (14-36) U/L Lactate Dehydrogenase (313-618) U/L C-Reactive Protein (<1.0) mg/dL Total Protein (6.3-8.2) g/dL Albumin (3.5-5.0) g/dL 06/09/21 06/09/21 06/09/21 Range/Units 01:03 02:23 03:08 Hgb (11.4-16.0) gm/dL MCHC (31.0-37.0) g/dL Lymphocytes # (1.0-4.8) k/uL D-Dimer (<0.60) mg/L FEU ABG pCO2 (35-45) mmHg ABG pO2 (83-108) mmHg ABG HCO3 (21-25) mmol/L ABG Total CO2 (19-24) mmol/L BUN (7-17) mg/dL Glucose (74-99) mg/dL POC Glucose (mg/dL) 162 H 167 H 170 H (75-99) mg/dL Calcium (8.4-10.2) mg/dL Total Bilirubin (0.2-1.3) mg/dL AST (14-36) U/L Lactate Dehydrogenase (313-618) U/L C-Reactive Protein (<1.0) mg/dL Total Protein (6.3-8.2) g/dL Albumin (3.5-5.0) g/dL 06/09/21 06/09/21 06/09/21 Range/Units 04:00 04:00 04:00 Hgb 10.8 L (11.4-16.0) gm/dL MCHC 29.9 L (31.0-37.0) g/dL Lymphocytes # 0.5 L (1.0-4.8) k/uL D-Dimer 1.02 H (<0.60) mg/L FEU ABG pCO2 (35-45) mmHg ABG pO2 (83-108) mmHg ABG HCO3 (21-25) mmol/L ABG Total CO2 (19-24) mmol/L BUN 26 H (7-17) mg/dL Glucose 188 H (74-99) mg/dL POC Glucose (mg/dL) (75-99) mg/dL Calcium 7.8 L (8.4-10.2) mg/dL Total Bilirubin 0.1 L (0.2-1.3) mg/dL AST 40 H (14-36) U/L Lactate Dehydrogenase 1150 H (313-618) U/L C-Reactive Protein 2.7 H (<1.0) mg/dL Total Protein 4.9 L (6.3-8.2) g/dL Albumin 2.4 L (3.5-5.0) g/dL 06/09/21 06/09/21 06/09/21 Range/Units 04:12 05:12 05:24 Hgb (11.4-16.0) gm/dL MCHC (31.0-37.0) g/dL Lymphocytes # (1.0-4.8) k/uL D-Dimer (<0.60) mg/L FEU ABG pCO2 52 H (35-45) mmHg ABG pO2 75 L (83-108) mmHg ABG HCO3 29 H (21-25) mmol/L ABG Total CO2 31 H (19-24) mmol/L BUN (7-17) mg/dL Glucose (74-99) mg/dL POC Glucose (mg/dL) 187 H 193 H (75-99) mg/dL Calcium (8.4-10.2) mg/dL Total Bilirubin (0.2-1.3) mg/dL AST (14-36) U/L Lactate Dehydrogenase (313-618) U/L C-Reactive Protein (<1.0) mg/dL Total Protein (6.3-8.2) g/dL Albumin (3.5-5.0) g/dL 06/09/21 06/09/21 06/09/21 Range/Units 06:14 06:58 08:15 Hgb (11.4-16.0) gm/dL MCHC (31.0-37.0) g/dL Lymphocytes # (1.0-4.8) k/uL D-Dimer (<0.60) mg/L FEU ABG pCO2 (35-45) mmHg ABG pO2 (83-108) mmHg ABG HCO3 (21-25) mmol/L ABG Total CO2 (19-24) mmol/L BUN (7-17) mg/dL Glucose (74-99) mg/dL POC Glucose (mg/dL) 194 H 174 H 161 H (75-99) mg/dL Calcium (8.4-10.2) mg/dL Total Bilirubin (0.2-1.3) mg/dL AST (14-36) U/L Lactate Dehydrogenase (313-618) U/L C-Reactive Protein (<1.0) mg/dL Total Protein (6.3-8.2) g/dL Albumin (3.5-5.0) g/dL 06/09/21 06/09/21 06/09/21 Range/Units 10:11 11:15 12:01 Hgb (11.4-16.0) gm/dL MCHC (31.0-37.0) g/dL Lymphocytes # (1.0-4.8) k/uL D-Dimer (<0.60) mg/L FEU ABG pCO2 (35-45) mmHg ABG pO2 (83-108) mmHg ABG HCO3 (21-25) mmol/L ABG Total CO2 (19-24) mmol/L BUN (7-17) mg/dL Glucose (74-99) mg/dL POC Glucose (mg/dL) 198 H 196 H 205 H (75-99) mg/dL Calcium (8.4-10.2) mg/dL Total Bilirubin (0.2-1.3) mg/dL AST (14-36) U/L Lactate Dehydrogenase (313-618) U/L C-Reactive Protein (<1.0) mg/dL Total Protein (6.3-8.2) g/dL Albumin (3.5-5.0) g/dL 06/09/21 06/09/21 06/09/21 Range/Units 13:08 14:29 15:06 Hgb (11.4-16.0) gm/dL MCHC (31.0-37.0) g/dL Lymphocytes # (1.0-4.8) k/uL D-Dimer (<0.60) mg/L FEU ABG pCO2 (35-45) mmHg ABG pO2 (83-108) mmHg ABG HCO3 (21-25) mmol/L ABG Total CO2 (19-24) mmol/L BUN (7-17) mg/dL Glucose (74-99) mg/dL POC Glucose (mg/dL) 228 H 201 H 184 H (75-99) mg/dL Calcium (8.4-10.2) mg/dL Total Bilirubin (0.2-1.3) mg/dL AST (14-36) U/L Lactate Dehydrogenase (313-618) U/L C-Reactive Protein (<1.0) mg/dL Total Protein (6.3-8.2) g/dL Albumin (3.5-5.0) g/dL Microbiology - Last 24 Hours (Table) 06/08/21 16:35 Gram Stain - Preliminary Sputum Sputum Culture - Preliminary 06/02/21 20:00 Blood Culture - Final Blood No Growth after 144 hours 06/02/21 18:09 Blood Culture - Final Blood No Growth after 144 hours Assessment and Plan Assessment: Acute hypoxic respiratory failure, mechanical ventilator-dependent, multifactorial secondary to acute covid pneumonia, left pleural effusion and acute COPD exacerbation. Status post emergent thoracentesis, pleural cytology reporting metastatic small cell CA Right lower extremity thigh, nonhealing ulceration Chronic hypoxic and hypercapnic respiratory failure Obstructive sleep apnea, intolerant of CPAP Diabetes mellitus type 2 Essential hypertension Chronic back pain anxiety disorder Restless leg syndrome History of narcolepsy Plan: Continue on current medication regime ,monitoring and symptomatic treatme nt. covid cocktail, bronchodilators. 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 The impression and plan of care has been dictated as directed. .: I performed a history and examination of this patient, discussed the same with the dictator. I agree with the dictator's note ,documented as a scribe. Any additional findings or plans will be noted.
[2021-06-09 16:44] LABS: Glucose,Whole Blood 190 mg/dL (75-99)
[2021-06-09 18:12] LABS: Glucose,Whole Blood 204 mg/dL (75-99)
[2021-06-09] MEDS: CISATRACURIUM 200 MG in SODIUM CHLORIDE 0.9% 180 ML IV SCH (18:48)
[2021-06-09 20:45] LABS: Glucose,Whole Blood 199 mg/dL (75-99)
[2021-06-09] MEDS: ESCITALOPRAM 20 MG TAB PO SCH (21:10)
[2021-06-09] MEDS: PRAMIPEXOLE 1 MG TAB PO SCH (21:10)
[2021-06-09 23:20] LABS: Glucose,Whole Blood 199 mg/dL (75-99)
[2021-06-10] MEDS: methylPREDNISolone SOD SUCCI 125 MG/2 ML VIAL IV SCH ×5 (00:30→23:31)
[2021-06-10 01:10] LABS: Glucose,Whole Blood 185 mg/dL (75-99)
[2021-06-10 02:01] LABS: Glucose,Whole Blood 183 mg/dL (75-99)
[2021-06-10 03:20] LABS: Glucose,Whole Blood 150 mg/dL (75-99)
[2021-06-10] MEDS: ARTIFICIAL TEARS-HYPROMELLOSE DROPS 15 ML BTL BOTH EYES SCH ×6 (04:02→23:32)
[2021-06-10] MEDS: SODIUM CHLORIDE 0.9% 1,000 ML IV SCH ×2 (04:03→15:33)
[2021-06-10 05:02] LABS: Glucose,Whole Blood 150 mg/dL (75-99)
[2021-06-10] MEDS: INSULIN REGULAR 100 UNIT in SODIUM CHLORIDE 0.9% 100 ML IV SCH (05:19)
[2021-06-10 05:51] LABS: HCT 34.8 % (34.0-46.0); HGB 10.5 gm/dL (11.4-16.0); Hypochromasia Marked; MCH 27.1 pg (25.0-35.0); MCHC 30.3 g/dL (31.0-37.0); MCV 89.3 fL (80.0-100.0); Mean Platelet Volume 7.3; Platelet Count 278 k/uL (150-450); RDW 14.6 % (11.5-15.5); WBC 7.8 k/uL (3.8-10.6)
[2021-06-10 06:00] LABS: ALT 30 U/L (4-34); AST 42 U/L (14-36); African American GFR (CKD) >90 (>60 ml/min/1.73 sqM); Albumin 2.4 g/dL (3.5-5.0); Alkaline Phosphatase 70 U/L (38-126); Anion Gap 3 mmol/L; Blood Urea Nitrogen 27 mg/dL (7-17); Calcium 7.8 mg/dL (8.4-10.2); Carbon Dioxide 29 mmol/L (22-30); Chloride 106 mmol/L (98-107); Glucose 135 mg/dL (74-99); Non-African American GFR(CKD) >90 (>60 ml/min/1.73 sqM); Potassium 4.9 mmol/L (3.5-5.1); Sodium 138 mmol/L (137-145); Total Bilirubin <0.1 mg/dL (0.2-1.3); Total Protein 4.9 g/dL (6.3-8.2)
[2021-06-10 06:05] LABS: ABG HCO3 28 mmol/L (21-25); ABG Oxygen Saturation 92.9 % (94-97); ABG PCO2 48 mmHg (35-45); ABG PH 7.38 (7.35-7.45); ABG PO2 65 mmHg (83-108); ABG TCO2 30 mmol/L (19-24); Allen Test Performed? Yes
[2021-06-10 06:40] LABS: Glucose,Whole Blood 133 mg/dL (75-99)
--- NOTE | 2021-06-10 07:26 | XR ---
EXAMINATION TYPE: XR chest 1V DATE OF EXAM: 06/10/2021 COMPARISON: Chest x-ray 06/09/2021 HISTORY: Intubated TECHNIQUE: Single frontal view of the chest is obtained. FINDINGS: Endotracheal tube, NG tube, left subclavian central venous catheter are overlying appropri ate positions. There is a left-sided pneumothorax is at least 50% or greater in size. Bilateral airsp natalya disease is present. Cardiac mediastinal silhouette is stable accounting for differences in techni que. There are overlying artifacts. Left hemidiaphragm is obscured. IMPRESSION: Interval development of large left-sided pneumothorax. There may be associated effusion. Report relayed telephonically to the patient's nurse at the time of interpretation to Bhavna.
[2021-06-10] MEDS: ALBUTEROL HFA INHALER INHALATION SCH ×4 (08:09→21:12)
[2021-06-10 09:10] LABS: Glucose,Whole Blood 186 mg/dL (75-99)
[2021-06-10] MEDS: ENOXAPARIN 40 MG/0.4 ML SYRINGE SQ SCH ×2 (09:45→20:56)
[2021-06-10] MEDS: PANTOPRAZOLE 40 MG/10 ML VIAL IVP SCH (09:45)
[2021-06-10] MEDS: CHLORHEXIDINE GLUCONATE 15 ML CUP MUCOUS MEM SCH ×2 (09:45→20:56)
--- NOTE | 2021-06-10 09:55 | XR ---
EXAMINATION TYPE: XR chest 1V DATE OF EXAM: 06/10/2021 COMPARISON: Chest x-ray 06/10/2021 HISTORY: Pneumothorax, status post chest tube placement TECHNIQUE: Single frontal view of the chest is obtained. FINDINGS: Left-sided chest tube has been placed in the interval. There is resolution of the left-gerardo ed pneumothorax. Subcutaneous emphysema is noted. No other significant interval change. IMPRESSION: No evident comp occasions status post chest tube placement
[2021-06-10 11:18] LABS: Glucose,Whole Blood 170 mg/dL (75-99)
[2021-06-10] MEDS: fentaNYL (PF). 1,000 MCG in SODIUM CHLORIDE 0.9% 80 ML IV SCH ×2 (11:21→21:50)
--- NOTE | 2021-06-10 12:16 | P.PN ---
Subjective Progress Note Date: 06/10/21 Principal diagnosis: Acute hypoxic respiratory failure secondary to COVID-19 pneumonia, and malignant pleural effusion/small cell lung cancer 65-year-old female patient who is presenting to the emergency department because of an acute respiratory distress. The patient came in yesterday to emergency and she was complaining of increased cough and shortness of breath away 1 week duration. She denied having any fever. She had some pain worse with breathing across her chest. Her chest x-ray was done and showed near-complete opacities of the left lung which was a new finding. In the emergency department, the patient was found to have a white cell count of 7.8 with hemoglobin of 11.8, sodium is at 132 with a BUN of 15 a creatinine of 0.35. The patient's proBNP level was nonelevated, troponins were negative, and she had also normal coagulation profile. At that point, the patient was admitted to the hospital and a pulmonary consultation was requested. The patient was started on Proventil HFA and the patient was also started on IV Solu-Medrol. 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 Note that this patient has been vaccinated for COVID 19. The patient is known to me. The patient is known to have advanced COPD along with obstructive sleep apnea and she has been able to tolerate CPAP therapy on outpatient basis. She has also history of narcolepsy maintained on Enbrel and Lexapro on outpatient basis. She is known to have diabetes, hypertension, chronic anxiety and depression and chronic back pain. She has also symptoms of RLS. She was in the hospital back in January 2021 for worsening shortness of breath and COPD exacerbation. The patient's condition was optimized and the patient was discharged home. She is maintained on Symbicort on outpatient basis regarding her COPD. No nausea. No vomiting. No emesis. No diarrhea. I saw this patient on an urgent basis. 8 team was called earlier this morning as the patient was in considerable multivessel distress. She is currently on a BiPAP at a pressure of 12/5 cm of water and FiO2 of 35%. She had marked diminished breath sound bilaterally and diffuse expiratory wheezes on the right. She has also absent breath on the left. The chest x-ray was repeated and the patient had complete opacification of the left lung. I performed an emergent bedside thoracentesis draining approximately 1.3 L of fluid from the left lung. Follow-up chest x-rays to follow. Note that her chest x-ray did not reveal any significant pleural effusion. She is currently on a BiPAP for respiratory support. She is also and accommodation bronchodilators and steroids. On 06/04/2031 and seeing the patient for a follow-up. The patient is off the BiPAP. Nevertheless she remains spastic and wheezy. Note that I drained approximately 1.3 L of fluid from the left lung. A follow-up CAT scan of the chest was done and showed a large left hilar mass that was causing obstruction and atelectasis of the left lower lobe. In fact left lower lobe bronchus was quite narrowed and there is probably need endobronchial extension of the hilar tumor. The patient was made aware of this finding. She is a bit lethargic and at times confused. There may be a component of CO2 narcosis. She is declining to use the BiPAP consistently and she is preferring oxygen 4 L per minute nasal cannula. No hemoptysis. No reported chest pain. No focal neurological deficit. Highly suspect malignancy. Awaiting fluid cytology from the left- sided pleural effusion. Reevaluated today on 06/05/2021, patient is on nasal cannula, she is off BiPAP, keeps moaning moving her BiPAP intermittently. She is actually on 2 L nasal cannula, O2 sats is 91%. Patient is lethargic, but she is arousable, follows s imple instructions. Cytology on the pleural effusion is pending. Patient had thoracentesis done by Dr. Gardiner on the fourth, remains on bronchodilators, remains on Solu-Medrol, she is also on Lovenox 40 mg subcu twice a day, and she is on Mirapex. Reevaluated today on 06/06/2021, patient had worsening clinical status morning, she required placement on BiPAP, however even on BiPAP, the patient remained extremely short of breath, she was developing intermittent episodes of lethargy. Patient was transferred to the ICU, intubated S1 S1 she arrived to the ICU. She is now on assist control rate of 30 tidal volume 400 FiO2 on the percent and PEEP of 12. ABG post intubation showed a pO2 of 66 pCO2 of 56 pH of 7.36. Basic metabolic profile is normal renal profile is normal blood sugar is running a bit high, patient may have to be placed on insulin drip. D-dimer is 1.41. WBC count is 15.3 hemoglobin 13.6. LDH is 1374 C-reactive protein 2.4. 6 x-ray is showing worsening infiltrates bilaterally right more so than left. Cytology from her pleural effusion is pending. Reevaluated today on 06/07/2021, patient remains in the ICU intubated and mechanically ventilated. She is on assist control rate of 30 tidal volume 400 FiO2 60% and PEEP is at 14, it was earlier at 12. ABG showed a pO2 of 89 pCO2 39 pH of 7.53 and this was on 70%, I did cut down the FiO2 to 60%. Patient remains on propofol at 50, she is requiring norepinephrine at 0.05 mcg/kg/m she is on insulin at 20 unit per hour drip is also on IV fluid at 100 mL per hour. CBC and basic metabolic profile is normal. Rest x-ray continues to show bilateral interstitial infiltrates, her LDH today is 989, improving compared to yesterday, and C-reactive protein is down to 3.3. Reevaluated today on 06/08/2021, patient remains in the ICU, intubated and mechanically ventilated. Her pleural effusion cytology came back positive for small cell lung cancer. Patient is intubated and mechanically ventilated, she is on tidal volume of 400 assist control rate of 30 FiO2 70% PEEP 14 however considering her poor ABG I recommended increasing her FiO2 to 75% and PEEP was increased to 16. Patient is requiring norepinephrine at 0.03 mcg/kg/m she is on fentanyl 0.5 mcg/kg/h propofol 50 mcg/kg/minute, IV fluid is at 80 mL per hour. ABG is showing pO2 of 53 pCO2 42 pH of 7.47 WBC count is 8.1 hemoglobin is 10.9. Electrolytes are normal renal profile is normal BUN is 23 creatinine 0.6. Again the patient required increase FiO2 to 75% and increase PEEP to 16. Chest x-ray continues to show significant airspace disease and left hilar mass with a small pleural effusion. Again her effusion came back positive for small cell lung cancer. Patient is also on enteral feeding via orogastric tube Reevaluated today on 06/09/2021, patient remains in the ICU, intubated and mechanically ventilated. Patient is on assist control rate of 30 tidal volume 400 FiO2 60% PEEP of 16. ABG showed a pO2 of 75 pCO2 52 pH of 7.36. Chest x- ray continues to show bilateraldisease, left pleural effusion and left hilar mass. Patient remains on propofol at 50 fentanyl at 1 Nimbex at 2 and she is on enteral feeding. Electrolytes are normal renal profile is normal LDH is 1150. Slightly worse compared to a few days ago. And C-reactive protein is a little bit better compared to 2 days ago he had medications-lake the patient remains on Levaquin, methylprednisolone 60 mg IV push every 6 hours, Mirapex, propofol, and she is on Lovenox 40 mg subcu twice a day because of elevated d-dimer. Reevaluated today on 06/10/2021, patient had a morning chest x-ray today, and I was called about this patient having a large left-sided pneumothorax. Hence I came in and placed a left sided chest tube in this patient, The patient on mechanical ventilation, her assist control rate is 30 tidal volume 400 FiO2 50% and PEEP of 16. ABG showed a pO2 of 65 pCO2 48 pH of 7.38. Patient is on Nimbex at 1 mcg/kg/m, propofol 50 mcg/kg/m, fentanyl 1 mcg/kg/h she is on vital AF at 20 mL per hour. Chest x-ray was noted before the chest tube placement and there was a large left-sided pneumothorax, follow-up chest x-ray post chest tube placement showed complete reexpansion of the lung, and adequate placement of the chest tube in the left apex. Clinically the patient is about the same. Not much of a change in the last 24 hours except for this new left-sided pneumothorax secondary to barotrauma. CBC today is relatively normal hemoglobin is 10.5 WBC count is 7.8. Electrolytes are normal renal profile is normal. Liver enzymes are normal. Objective - Vital Signs Vital signs: Vital Signs Temp 96.2 F L 06/10/21 12:00 Pulse 61 06/10/21 12:00 Resp 30 H 06/10/21 12:00 BP 115/78 06/10/21 12:00 Pulse Ox 92 L 06/10/21 12:00 Intake & Output 06/09/21 06/10/21 06/10/21 18:59 06:59 18:59 Intake Total 2090.278 1912.021 944.511 Output Total 450 535 280 Balance 8081.697 9355.021 664.511 Weight 93.3 kg 91.2 kg Intake: IV 1100 1100 600 Sodium Chloride 0.9% 1, 1100 1100 600 000 ml @ 100 mls/hr IV . Q10H JOSE ANTONIO Rx#:[id number] Intake, IV Titration 548.278 392.021 104.511 Amount Cisatracurium 200 mg In 200 20.664 Sodium Chloride 0.9% 180 ml @ 2 MCG/KG/MIN 10.08 mls/hr IV .[id number] JOSE ANTONIO Rx #:[id number] Insulin Regular 100 unit 48.278 47.217 4.511 In Sodium Chloride 0.9% 100 ml @ Per Protocol IV .Q0M JOSE ANTONIO Rx#:[id number] fentaNYL (PF). 1,000 mcg 100 92.68 100 In Sodium Chloride 0.9% 80 ml @ 0.5 MCG/KG/HR 4.2 mls/hr IV .[id number] JOSE ANTONIO Rx#:[id number] propofoL 1,000 mg In 200 231.46 Empty Bag 1 bag @ Titrate IV .Q0M JOSE ANTONIO Rx#: [id number] Tube Feeding 292 240 120 Other 150 180 120 Output: Urine 450 535 280 Other: Voiding Method Indwelling Catheter Indwelling Catheter Indwelling Catheter ABP, PAP, CO, CI - Last Documented Arterial Blood Pressure 137/132 - Exam Physical Exam revealed a 66-year-old female intubated, sedated, on mechanical ventilation. Head: Atraumatic, normocephalic. HEENT:[Neck is supple.] [No neck masses.] [No thyromegaly.] [No JVD.] Chest: [Symmetrical chest expansion crackles at the bases. 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 Cardiac Exam: [Normal S1 and S2, no S3 gallop, no murmur.] Abdomen: [Soft, nontender, no megaly, no rebound, no guarding, normal bowel sounds.] Extremities: [No clubbing, a serum bipedal edema, no cyanosis. Neurological Exam: Unable to assess, patient is fully sedated, and paralyzed. Psychiatric: Unable to assess Skin: Evidence of a large ulcer on the skin on the lateral aspect of her right side. - Labs CBC & Chem 7: 06/10/21 05:10 06/10/21 05:10 Labs: Abnormal Lab Results - Last 24 Hours (Table) 06/09/21 06/09/21 06/09/21 Range/Units 13:08 14:29 15:06 Hgb (11.4-16.0) gm/dL MCHC (31.0-37.0) g/dL ABG pCO2 (35-45) mmHg ABG pO2 (83-108) mmHg ABG HCO3 (21-25) mmol/L ABG Total CO2 (19-24) mmol/L ABG O2 Saturation (94-97) % BUN (7-17) mg/dL Glucose (74-99) mg/dL POC Glucose (mg/dL) 228 H 201 H 184 H (75-99) mg/dL Calcium (8.4-10.2) mg/dL Total Bilirubin (0.2-1.3) mg/dL AST (14-36) U/L Total Protein (6.3-8.2) g/dL Albumin (3.5-5.0) g/dL 06/09/21 06/09/21 06/09/21 Range/Units 16:42 18:11 20:34 Hgb (11.4-16.0) gm/dL MCHC (31.0-37.0) g/dL ABG pCO2 (35-45) mmHg ABG pO2 (83-108) mmHg ABG HCO3 (21-25) mmol/L ABG Total CO2 (19-24) mmol/L ABG O2 Saturation (94-97) % BUN (7-17) mg/dL Glucose (74-99) mg/dL POC Glucose (mg/dL) 190 H 204 H 199 H (75-99) mg/dL Calcium (8.4-10.2) mg/dL Total Bilirubin (0.2-1.3) mg/dL AST (14-36) U/L Total Protein (6.3-8.2) g/dL Albumin (3.5-5.0) g/dL 06/09/21 06/09/21 06/10/21 Range/Units 23:19 23:19 01:05 Hgb (11.4-16.0) gm/dL MCHC (31.0-37.0) g/dL ABG pCO2 (35-45) mmHg ABG pO2 (83-108) mmHg ABG HCO3 (21-25) mmol/L ABG Total CO2 (19-24) mmol/L ABG O2 Saturation (94-97) % BUN (7-17) mg/dL Glucose (74-99) mg/dL POC Glucose (mg/dL) 199 H 199 H 185 H (75-99) mg/dL Calcium (8.4-10.2) mg/dL Total Bilirubin (0.2-1.3) mg/dL AST (14-36) U/L Total Protein (6.3-8.2) g/dL Albumin (3.5-5.0) g/dL 06/10/21 06/10/21 06/10/21 Range/Units 01:59 03:19 04:51 Hgb (11.4-16.0) gm/dL MCHC (31.0-37.0) g/dL ABG pCO2 (35-45) mmHg ABG pO2 (83-108) mmHg ABG HCO3 (21-25) mmol/L ABG Total CO2 (19-24) mmol/L ABG O2 Saturation (94-97) % BUN (7-17) mg/dL Glucose (74-99) mg/dL POC Glucose (mg/dL) 183 H 150 H 150 H (75-99) mg/dL Calcium (8.4-10.2) mg/dL Total Bilirubin (0.2-1.3) mg/dL AST (14-36) U/L Total Protein (6.3-8.2) g/dL Albumin (3.5-5.0) g/dL 06/10/21 06/10/21 06/10/21 Range/Units 05:10 05:10 05:40 Hgb 10.5 L (11.4-16.0) gm/dL MCHC 30.3 L (31.0-37.0) g/dL ABG pCO2 48 H (35-45) mmHg ABG pO2 65 L (83-108) mmHg ABG HCO3 28 H (21-25) mmol/L ABG Total CO2 30 H (19-24) mmol/L ABG O2 Saturation 92.9 L (94-97) % BUN 27 H (7-17) mg/dL Glucose 135 H (74-99) mg/dL POC Glucose (mg/dL) (75-99) mg/dL Calcium 7.8 L (8.4-10.2) mg/dL Total Bilirubin <0.1 L (0.2-1.3) mg/dL AST 42 H (14-36) U/L Total Protein 4.9 L (6.3-8.2) g/dL Albumin 2.4 L (3.5-5.0) g/dL 06/10/21 06/10/21 06/10/21 Range/Units 06:29 09:08 11:16 Hgb (11.4-16.0) gm/dL MCHC (31.0-37.0) g/dL ABG pCO2 (35-45) mmHg ABG pO2 (83-108) mmHg ABG HCO3 (21-25) mmol/L ABG Total CO2 (19-24) mmol/L ABG O2 Saturation (94-97) % BUN (7-17) mg/dL Glucose (74-99) mg/dL POC Glucose (mg/dL) 133 H 186 H 170 H (75-99) mg/dL Calcium (8.4-10.2) mg/dL Total Bilirubin (0.2-1.3) mg/dL AST (14-36) U/L Total Protein (6.3-8.2) g/dL Albumin (3.5-5.0) g/dL Microbiology - Last 24 Hours (Table) 06/08/21 16:35 Gram Stain - Final Sputum Sputum Culture - Final Assessment and Plan Assessment: Impression: Acute hypoxic respiratory failure, multifactorial secondary to COVID-19 pneumonia also secondary to left pleural effusion with left hilar mass, cytology came back positive for small cell lung cancer. And secondary to acute exacerbation of COPD. History of underlying COPD and chronic hypercapnic and hypoxic respiratory failure. Patient was intubated on 06/06/2021, and she remains mechanically ventilated.. Patient developed left-sided pneumothorax/barotrauma on the left side, underwent tube thoracostomy on 06/10/2021 and there was complete resolution of her left-sided pneumothorax. Obstructive sleep apnea syndrome, noncompliant. History of narcolepsy. Benign essential hypertension Type 2 diabetes Chronic back pain Generalized anxiety disorder Restless leg syndrome Small cell lung cancer with positive pleural effusion for small cell lung cancer Left-sided pneumothorax secondary to barotrauma. Expected. Recommendation: Continue ventilatory support. Not ready to be weaned or extubated. Patient is now on assist control rate of 30 tidal volume 400 FiO2 50% and PEEP 16. . GI and DVT prophylaxis. Continue bronchodilators. Continue COVID-19 cocktail. Continue Solu-Medrol. Continue bronchodilators. Monitor inflammatory markers. Continue nutritional support/enteral feeding. Prognosis is extremely poor. Nurses updated her son about her condition, and consented over the phone for chest tube placement and this was done also as an emergency. Family has been notified about her poor condition and about her small cell lung cancer diagnosis, remains full code at this point in time. We will continue to follow. Critical care time is over 30 minutes, not including the time spent on procedures/chest tube placement. Time with Patient: Greater than 30
[2021-06-10 12:56] LABS: Glucose,Whole Blood 166 mg/dL (75-99)
--- NOTE | 2021-06-10 14:11 | PCN ---
PROCEDURE NOTE OPERATIVE REPORT: Left-sided chest tube placement/tube thoracostomy. PREOPERATIVE DIAGNOSIS: Large left-sided pneumothorax secondary to barotrauma. POSTOPERATIVE DIAGNOSIS: Large left-sided pneumothorax secondary to barotrauma. ANESTHESIA USED: 5 mL of 2% lidocaine. PROCEDURE: The patient was placed in the supine position, the area of the left chest was prepared in a sterile fashion and drapes were applied. At the level of the fifth intercostal space and anterior axillary line, the area was anesthetized with lidocaine. Then a 1.5 incision was made at the same site, and I dissected the subcutaneous fascia with my index finger and with Susie forceps. Then, the pleural space was entered, and as soon as the pleural space was entered there was a gush of air and a gush of fluid coming from the left pleural space. Then a size 28 argyle chest tube was placed using the trocar pointing atypically and posteriorly. The tube was placed, sutured with 0.0 Ethibond sutures and secured in proper position. Connected to a Pleur-Evac. Over 800 mL of fluid noted in the Pleur-evac as soon as the tube was put in. Then, followup chest x-ray showed adequate placement of the chest tube, it was in the apex, and complete resolution of the pneumothorax with left lung completely expanded. Procedure was well tolerated, no evidence of any complications. MMODL / IJN: [id number] /
[2021-06-10 14:15] LABS: Glucose,Whole Blood 148 mg/dL (75-99)
[2021-06-10] MEDS: LEVOFLOXACIN 500 MG TAB PO SCH (14:22)
[2021-06-10 15:32] LABS: Glucose,Whole Blood 151 mg/dL (75-99)
[2021-06-10] MEDS: CISATRACURIUM 200 MG in SODIUM CHLORIDE 0.9% 180 ML IV SCH (15:32)
[2021-06-10 16:24] LABS: Glucose,Whole Blood 145 mg/dL (75-99)
[2021-06-10 17:27] LABS: Glucose,Whole Blood 140 mg/dL (75-99)
[2021-06-10 18:25] LABS: Glucose,Whole Blood 163 mg/dL (75-99)
--- NOTE | 2021-06-10 18:33 | PCN ---
PROCEDURE NOTE OPERATIVE REPORT: Placement of a right radial arterial line. PREOPERATIVE DIAGNOSIS: Acute hypoxic respiratory failure. POSTOPERATIVE DIAGNOSIS: Acute hypoxic respiratory failure. ANESTHESIA: Used none deployed. PROCEDURE: The right wrist was prepared in a sterile fashion, drapes were applied. Right radial artery was palpated, cannulated, and a guidewire was placed. A Cook's catheter was inserted over the guidewire, the guidewire was removed, the line was secured using 3.0 silk sutures. There was good waveform, good blood flow and no evidence of any complications. MMODL / IJN: [id number] /
[2021-06-10 20:53] LABS: Glucose,Whole Blood 185 mg/dL (75-99)
[2021-06-10] MEDS: INSULIN ASPART (NovoLOG) 100 UNIT/ML VIAL SQ SCH ×2 (20:56→23:31)
[2021-06-10] MEDS: ESCITALOPRAM 20 MG TAB PO SCH (21:47)
[2021-06-10] MEDS: PRAMIPEXOLE 1 MG TAB PO SCH (21:47)
[2021-06-10 23:38] LABS: Glucose,Whole Blood 201 mg/dL (75-99)
--- NOTE | 2021-06-10 23:43 | P.PN ---
Subjective 65-year-old female came to emergency department with a competent of cough and shortness of breath of about 1 week duration patient became severely hypoxic and the patient is found to have a complete opacification of the right lung. Patient underwent emergent thoracic cyst removal of 1.3 L of pleural fluid after which patient has significant improvement, cytology came back positive for small cell lung cancer. Also patient found to have acute COPD exacerbation and she was treated with Solu-Medrol 60 mg, besides IV fluid normal saline at 100 mL per hour and Lovenox for DVT prophylaxis. Today chest x-ray showing large pneumothorax and chest tube was placed with resolution of the pneumothorax. However patient remains in the ICU in critical condition with pulmonary/critical care team help with her vent management as she is intubated and sedated currently. D-dimer 1.0, LDH 1150, CRP 2.7. Objective - Vital Signs Vital signs: Vital Signs Temp 98.1 F 06/10/21 04:00 Pulse 62 06/10/21 11:00 Resp 30 H 06/10/21 11:00 BP 126/78 06/10/21 11:00 Pulse Ox 90 L 06/10/21 11:00 Intake & Output 06/09/21 06/10/21 06/10/21 18:59 06:59 18:59 Intake Total 2090.278 1912.021 744.511 Output Total 450 535 240 Balance 6275.913 4354.021 504.511 Weight 93.3 kg 91.2 kg Intake: IV 1100 1100 500 Sodium Chloride 0.9% 1, 1100 1100 500 000 ml @ 100 mls/hr IV . Q10H JOSE ANTONIO Rx#:[id number] Intake, IV Titration 548.278 392.021 104.511 Amount Cisatracurium 200 mg In 200 20.664 Sodium Chloride 0.9% 180 ml @ 2 MCG/KG/MIN 10.08 mls/hr IV .[id number] JOSE ANTONIO Rx #:[id number] Insulin Regular 100 unit 48.278 47.217 4.511 In Sodium Chloride 0.9% 100 ml @ Per Protocol IV .Q0M JOSE ANTONIO Rx#:[id number] fentaNYL (PF). 1,000 mcg 100 92.68 100 In Sodium Chloride 0.9% 80 ml @ 0.5 MCG/KG/HR 4.2 mls/hr IV .[id number] JOSE ANTONIO Rx#:[id number] propofoL 1,000 mg In 200 231.46 Empty Bag 1 bag @ Titrate IV .Q0M JOSE ANTONIO Rx#: [id number] Tube Feeding 292 240 80 Other 150 180 60 Output: Urine 450 535 240 Other: Voiding Method Indwelling Catheter Indwelling Catheter Indwelling Catheter ABP, PAP, CO, CI - Last Documented Arterial Blood Pressure 137/132 - Exam -GENERAL: The patient is sedated and intubated HEENT: Pupils are round and equally reacting to light. EOMI. No scleral icterus. No conjunctival pallor. Normocephalic, atraumatic. No pharyngeal erythema. No thyromegaly. CARDIOVASCULAR: S1 and S2 present. No murmurs, rubs, or gallops. -PULMONARY: Chest is clear to auscultation, no bilateral scattered wheezing, left-sided chest tube, decreased breath sounds ABDOMEN: Soft, nontender, nondistended, normoactive bowel sounds. No palpable organomegaly. MUSCULOSKELETAL: No joint swelling or deformity. EXTREMITIES: No cyanosis, clubbing, or pedal edema. NEUROLOGICAL: Gross neurological examination did not reveal any focal deficits. SKIN: No rashes. no petechiae. - Labs CBC & Chem 7: 06/10/21 05:10 06/10/21 05:10 Labs: Abnormal Lab Results - Last 24 Hours (Table) 06/09/21 06/09/21 06/09/21 Range/Units 12:01 13:08 14:29 Hgb (11.4-16.0) gm/dL MCHC (31.0-37.0) g/dL ABG pCO2 (35-45) mmHg ABG pO2 (83-108) mmHg ABG HCO3 (21-25) mmol/L ABG Total CO2 (19-24) mmol/L ABG O2 Saturation (94-97) % BUN (7-17) mg/dL Glucose (74-99) mg/dL POC Glucose (mg/dL) 205 H 228 H 201 H (75-99) mg/dL Calcium (8.4-10.2) mg/dL Total Bilirubin (0.2-1.3) mg/dL AST (14-36) U/L Total Protein (6.3-8.2) g/dL Albumin (3.5-5.0) g/dL 12/04/2006/09/21 06/09/21 Range/Units 15:06 16:42 18:11 Hgb (11.4-16.0) gm/dL MCHC (31.0-37.0) g/dL ABG pCO2 (35-45) mmHg ABG pO2 (83-108) mmHg ABG HCO3 (21-25) mmol/L ABG Total CO2 (19-24) mmol/L ABG O2 Saturation (94-97) % BUN (7-17) mg/dL Glucose (74-99) mg/dL POC Glucose (mg/dL) 184 H 190 H 204 H (75-99) mg/dL Calcium (8.4-10.2) mg/dL Total Bilirubin (0.2-1.3) mg/dL AST (14-36) U/L Total Protein (6.3-8.2) g/dL Albumin (3.5-5.0) g/dL 06/09/21 06/09/21 06/09/21 Range/Units 20:34 23:19 23:19 Hgb (11.4-16.0) gm/dL MCHC (31.0-37.0) g/dL ABG pCO2 (35-45) mmHg ABG pO2 (83-108) mmHg ABG HCO3 (21-25) mmol/L ABG Total CO2 (19-24) mmol/L ABG O2 Saturation (94-97) % BUN (7-17) mg/dL Glucose (74-99) mg/dL POC Glucose (mg/dL) 199 H 199 H 199 H (75-99) mg/dL Calcium (8.4-10.2) mg/dL Total Bilirubin (0.2-1.3) mg/dL AST (14-36) U/L Total Protein (6.3-8.2) g/dL Albumin (3.5-5.0) g/dL 06/10/21 06/10/21 06/10/21 Range/Units 01:05 01:59 03:19 Hgb (11.4-16.0) gm/dL MCHC (31.0-37.0) g/dL ABG pCO2 (35-45) mmHg ABG pO2 (83-108) mmHg ABG HCO3 (21-25) mmol/L ABG Total CO2 (19-24) mmol/L ABG O2 Saturation (94-97) % BUN (7-17) mg/dL Glucose (74-99) mg/dL POC Glucose (mg/dL) 185 H 183 H 150 H (75-99) mg/dL Calcium (8.4-10.2) mg/dL Total Bilirubin (0.2-1.3) mg/dL AST (14-36) U/L Total Protein (6.3-8.2) g/dL Albumin (3.5-5.0) g/dL 06/10/21 06/10/21 06/10/21 Range/Units 04:51 05:10 05:10 Hgb 10.5 L (11.4-16.0) gm/dL MCHC 30.3 L (31.0-37.0) g/dL ABG pCO2 (35-45) mmHg ABG pO2 (83-108) mmHg ABG HCO3 (21-25) mmol/L ABG Total CO2 (19-24) mmol/L ABG O2 Saturation (94-97) % BUN 27 H (7-17) mg/dL Glucose 135 H (74-99) mg/dL POC Glucose (mg/dL) 150 H (75-99) mg/dL Calcium 7.8 L (8.4-10.2) mg/dL Total Bilirubin <0.1 L (0.2-1.3) mg/dL AST 42 H (14-36) U/L Total Protein 4.9 L (6.3-8.2) g/dL Albumin 2.4 L (3.5-5.0) g/dL 06/10/21 06/10/21 06/10/21 Range/Units 05:40 06:29 09:08 Hgb (11.4-16.0) gm/dL MCHC (31.0-37.0) g/dL ABG pCO2 48 H (35-45) mmHg ABG pO2 65 L (83-108) mmHg ABG HCO3 28 H (21-25) mmol/L ABG Total CO2 30 H (19-24) mmol/L ABG O2 Saturation 92.9 L (94-97) % BUN (7-17) mg/dL Glucose (74-99) mg/dL POC Glucose (mg/dL) 133 H 186 H (75-99) mg/dL Calcium (8.4-10.2) mg/dL Total Bilirubin (0.2-1.3) mg/dL AST (14-36) U/L Total Protein (6.3-8.2) g/dL Albumin (3.5-5.0) g/dL 06/10/21 Range/Units 11:16 Hgb (11.4-16.0) gm/dL MCHC (31.0-37.0) g/dL ABG pCO2 (35-45) mmHg ABG pO2 (83-108) mmHg ABG HCO3 (21-25) mmol/L ABG Total CO2 (19-24) mmol/L ABG O2 Saturation (94-97) % BUN (7-17) mg/dL Glucose (74-99) mg/dL POC Glucose (mg/dL) 170 H (75-99) mg/dL Calcium (8.4-10.2) mg/dL Total Bilirubin (0.2-1.3) mg/dL AST (14-36) U/L Total Protein (6.3-8.2) g/dL Albumin (3.5-5.0) g/dL Microbiology - Last 24 Hours (Table) 06/08/21 16:35 Gram Stain - Final Sputum Sputum Culture - Final Assessment and Plan Assessment: 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 Continue same treatment. Continue with symptomatic treatment. Resume home medication. Monitor lytes and vitals. DVT and GI prophylaxis. Further recommendationsas per clinical course of the patient DVT prophylaxis: Subcutaneous Lovenox GI Prophylaxis: Pepcid Prognosis is guarded
[2021-06-11] MEDS: ARTIFICIAL TEARS-HYPROMELLOSE DROPS 15 ML BTL BOTH EYES SCH ×6 (03:56→23:38)
[2021-06-11] MEDS: INSULIN ASPART (NovoLOG) 100 UNIT/ML VIAL SQ SCH ×6 (03:56→23:39)
[2021-06-11] MEDS: SODIUM CHLORIDE 0.9% 1,000 ML IV SCH ×3 (03:57→22:47)
[2021-06-11 04:05] LABS: Glucose,Whole Blood 193 mg/dL (75-99)
[2021-06-11 04:13] LABS: HCT 34.8 % (34.0-46.0); HGB 10.7 gm/dL (11.4-16.0); Hypochromasia Marked; MCH 26.9 pg (25.0-35.0); MCHC 30.9 g/dL (31.0-37.0); MCV 87.2 fL (80.0-100.0); Mean Platelet Volume 7.5; Platelet Count 298 k/uL (150-450); RBC 3.99 m/uL (3.80-5.40); RDW 14.5 % (11.5-15.5); WBC 11.6 k/uL (3.8-10.6)
[2021-06-11 04:21] LABS: ALT 30 U/L (4-34); AST 35 U/L (14-36); African American GFR (CKD) >90 (>60 ml/min/1.73 sqM); Albumin 2.3 g/dL (3.5-5.0); Alkaline Phosphatase 76 U/L (38-126); Anion Gap 1 mmol/L; Blood Urea Nitrogen 30 mg/dL (7-17); Calcium 7.9 mg/dL (8.4-10.2); Carbon Dioxide 28 mmol/L (22-30); Chloride 107 mmol/L (98-107); Glucose 205 mg/dL (74-99); Non-African American GFR(CKD) >90 (>60 ml/min/1.73 sqM); Potassium 4.7 mmol/L (3.5-5.1); Sodium 136 mmol/L (137-145); Total Bilirubin 0.1 mg/dL (0.2-1.3); Total Protein 4.8 g/dL (6.3-8.2)
[2021-06-11] MEDS: methylPREDNISolone SOD SUCCI 125 MG/2 ML VIAL IV SCH ×4 (06:16→23:39)
--- NOTE | 2021-06-11 06:26 | XR ---
EXAMINATION TYPE: XR chest 1V DATE OF EXAM: 06/11/2021 5:48 AM COMPARISON: Radiograph from one day prior. CLINICAL INDICATION:Female, 66 years old with history of intubated; TECHNIQUE: Portable AP radiograph of the chest. FINDINGS: Lungs/Pleura: Bilateral airspace opacities with a few scattered hazy opacity seen. Blunting of the co stophrenic angles. No evidence of pneumothorax. Pulmonary vascularity: Pulmonary vascular congestion. Heart/mediastinum: Cardiomediastinal silhouette is partially obscured due to overlying and adjacent o pacities. Musculoskeletal: No acute osseous pathology. Fixation just the lower lumbar spine noted. Lines/Tubes: Endotracheal tube with distal tip at 5.3 cm above the alejandro Nasogastric tube with its distal tip and side-port projecting under the diaphragm. Left thoracotomy tube is present without evidence of pneumothorax. Left central venous catheter with distal tip at the cavoatrial junction. IMPRESSION: 1. Left thoracotomy tube without evidence of pneumothorax. 2. Scattered airspace opacities not significantly changed from one day prior. 3. Small bilateral pleural effusions. 4. Support tubes in appropriate position
[2021-06-11 06:30] LABS: ABG Base Excess 2.7 mmol/L; ABG HCO3 28 mmol/L (21-25); ABG PCO2 48 mmHg (35-45); ABG PH 7.37 (7.35-7.45); ABG PO2 100 mmHg (83-108); ABG TCO2 30 mmol/L (19-24)
[2021-06-11 06:39] LABS: Allen Test Performed? No
[2021-06-11] MEDS: fentaNYL (PF). 1,000 MCG in SODIUM CHLORIDE 0.9% 80 ML IV SCH ×2 (07:15→19:11)
[2021-06-11] MEDS: ALBUTEROL HFA INHALER INHALATION SCH ×4 (08:20→19:12)
[2021-06-11 08:28] LABS: Glucose,Whole Blood 165 mg/dL (75-99)
[2021-06-11] MEDS: ENOXAPARIN 40 MG/0.4 ML SYRINGE SQ SCH ×2 (08:58→20:40)
[2021-06-11] MEDS: CHLORHEXIDINE GLUCONATE 15 ML CUP MUCOUS MEM SCH ×2 (08:58→20:40)
[2021-06-11] MEDS: PANTOPRAZOLE 40 MG/10 ML VIAL IVP SCH (09:00)
[2021-06-11] MEDS: CISATRACURIUM 200 MG in SODIUM CHLORIDE 0.9% 180 ML IV SCH (10:46)
[2021-06-11 11:37] LABS: Glucose,Whole Blood 188 mg/dL (75-99)
--- NOTE | 2021-06-11 13:16 | P.PN ---
Subjective Progress Note Date: 06/11/21 Principal diagnosis: Acute hypoxic respiratory failure secondary to COVID-19 pneumonia, and malignant pleural effusion/small cell lung cancer 65-year-old female patient who is presenting to the emergency department because of an acute respiratory distress. The patient came in yesterday to emergency and she was complaining of increased cough and shortness of breath away 1 week duration. She denied having any fever. She had some pain worse with breathing across her chest. Her chest x-ray was done and showed near-complete opacities of the left lung which was a new finding. In the emergency department, the patient was found to have a white cell count of 7.8 with hemoglobin of 11.8, sodium is at 132 with a BUN of 15 a creatinine of 0.35. The patient's proBNP level was nonelevated, troponins were negative, and she had also normal coagulation profile. At that point, the patient was admitted to the hospital and a pulmonary consultation was requested. The patient was started on Proventil HFA and the patient was also started on IV Solu-Medrol. 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 Note that this patient has been vaccinated for COVID 19. The patient is known to me. The patient is known to have advanced COPD along with obstructive sleep apnea and she has been able to tolerate CPAP therapy on outpatient basis. She has also history of narcolepsy maintained on Enbrel and Lexapro on outpatient basis. She is known to have diabetes, hypertension, chronic anxiety and depression and chronic back pain. She has also symptoms of RLS. She was in the hospital back in January 2021 for worsening shortness of breath and COPD exacerbation. The patient's condition was optimized and the patient was discharged home. She is maintained on Symbicort on outpatient basis regarding her COPD. No nausea. No vomiting. No emesis. No diarrhea. I saw this patient on an urgent basis. 8 team was called earlier this morning as the patient was in considerable multivessel distress. She is currently on a BiPAP at a pressure of 12/5 cm of water and FiO2 of 35%. She had marked diminished breath sound bilaterally and diffuse expiratory wheezes on the right. She has also absent breath on the left. The chest x-ray was repeated and the patient had complete opacification of the left lung. I performed an emergent bedside thoracentesis draining approximately 1.3 L of fluid from the left lung. Follow-up chest x-rays to follow. Note that her chest x-ray did not reveal any significant pleural effusion. She is currently on a BiPAP for respiratory support. She is also and accommodation bronchodilators and steroids. On 06/04/2031 and seeing the patient for a follow-up. The patient is off the BiPAP. Nevertheless she remains spastic and wheezy. Note that I drained approximately 1.3 L of fluid from the left lung. A follow-up CAT scan of the chest was done and showed a large left hilar mass that was causing obstruction and atelectasis of the left lower lobe. In fact left lower lobe bronchus was quite narrowed and there is probably need endobronchial extension of the hilar tumor. The patient was made aware of this finding. She is a bit lethargic and at times confused. There may be a component of CO2 narcosis. She is declining to use the BiPAP consistently and she is preferring oxygen 4 L per minute nasal cannula. No hemoptysis. No reported chest pain. No focal neurological deficit. Highly suspect malignancy. Awaiting fluid cytology from the left- sided pleural effusion. Reevaluated today on 06/05/2021, patient is on nasal cannula, she is off BiPAP, keeps moaning moving her BiPAP intermittently. She is actually on 2 L nasal cannula, O2 sats is 91%. Patient is lethargic, but she is arousable, follows s imple instructions. Cytology on the pleural effusion is pending. Patient had thoracentesis done by Dr. Gardiner on the fourth, remains on bronchodilators, remains on Solu-Medrol, she is also on Lovenox 40 mg subcu twice a day, and she is on Mirapex. Reevaluated today on 06/06/2021, patient had worsening clinical status morning, she required placement on BiPAP, however even on BiPAP, the patient remained extremely short of breath, she was developing intermittent episodes of lethargy. Patient was transferred to the ICU, intubated S1 S1 she arrived to the ICU. She is now on assist control rate of 30 tidal volume 400 FiO2 on the percent and PEEP of 12. ABG post intubation showed a pO2 of 66 pCO2 of 56 pH of 7.36. Basic metabolic profile is normal renal profile is normal blood sugar is running a bit high, patient may have to be placed on insulin drip. D-dimer is 1.41. WBC count is 15.3 hemoglobin 13.6. LDH is 1374 C-reactive protein 2.4. 6 x-ray is showing worsening infiltrates bilaterally right more so than left. Cytology from her pleural effusion is pending. Reevaluated today on 06/07/2021, patient remains in the ICU intubated and mechanically ventilated. She is on assist control rate of 30 tidal volume 400 FiO2 60% and PEEP is at 14, it was earlier at 12. ABG showed a pO2 of 89 pCO2 39 pH of 7.53 and this was on 70%, I did cut down the FiO2 to 60%. Patient remains on propofol at 50, she is requiring norepinephrine at 0.05 mcg/kg/m she is on insulin at 20 unit per hour drip is also on IV fluid at 100 mL per hour. CBC and basic metabolic profile is normal. Rest x-ray continues to show bilateral interstitial infiltrates, her LDH today is 989, improving compared to yesterday, and C-reactive protein is down to 3.3. Reevaluated today on 06/08/2021, patient remains in the ICU, intubated and mechanically ventilated. Her pleural effusion cytology came back positive for small cell lung cancer. Patient is intubated and mechanically ventilated, she is on tidal volume of 400 assist control rate of 30 FiO2 70% PEEP 14 however considering her poor ABG I recommended increasing her FiO2 to 75% and PEEP was increased to 16. Patient is requiring norepinephrine at 0.03 mcg/kg/m she is on fentanyl 0.5 mcg/kg/h propofol 50 mcg/kg/minute, IV fluid is at 80 mL per hour. ABG is showing pO2 of 53 pCO2 42 pH of 7.47 WBC count is 8.1 hemoglobin is 10.9. Electrolytes are normal renal profile is normal BUN is 23 creatinine 0.6. Again the patient required increase FiO2 to 75% and increase PEEP to 16. Chest x-ray continues to show significant airspace disease and left hilar mass with a small pleural effusion. Again her effusion came back positive for small cell lung cancer. Patient is also on enteral feeding via orogastric tube Reevaluated today on 06/09/2021, patient remains in the ICU, intubated and mechanically ventilated. Patient is on assist control rate of 30 tidal volume 400 FiO2 60% PEEP of 16. ABG showed a pO2 of 75 pCO2 52 pH of 7.36. Chest x- ray continues to show bilateraldisease, left pleural effusion and left hilar mass. Patient remains on propofol at 50 fentanyl at 1 Nimbex at 2 and she is on enteral feeding. Electrolytes are normal renal profile is normal LDH is 1150. Slightly worse compared to a few days ago. And C-reactive protein is a little bit better compared to 2 days ago he had medications-lake the patient remains on Levaquin, methylprednisolone 60 mg IV push every 6 hours, Mirapex, propofol, and she is on Lovenox 40 mg subcu twice a day because of elevated d-dimer. Reevaluated today on 06/10/2021, patient had a morning chest x-ray today, and I was called about this patient having a large left-sided pneumothorax. Hence I came in and placed a left sided chest tube in this patient, The patient on mechanical ventilation, her assist control rate is 30 tidal volume 400 FiO2 50% and PEEP of 16. ABG showed a pO2 of 65 pCO2 48 pH of 7.38. Patient is on Nimbex at 1 mcg/kg/m, propofol 50 mcg/kg/m, fentanyl 1 mcg/kg/h she is on vital AF at 20 mL per hour. Chest x-ray was noted before the chest tube placement and there was a large left-sided pneumothorax, follow-up chest x-ray post chest tube placement showed complete reexpansion of the lung, and adequate placement of the chest tube in the left apex. Clinically the patient is about the same. Not much of a change in the last 24 hours except for this new left-sided pneumothorax secondary to barotrauma. CBC today is relatively normal hemoglobin is 10.5 WBC count is 7.8. Electrolytes are normal renal profile is normal. Liver enzymes are normal. Reevaluated today on 06/11/2021, remains in the ICU, intubated and mechanically ventilated. Her chest x-ray today is showing some improvement in her bilateral infiltrates. Chest tubes remains in good position, no air leak noted. However we had a total of 1400 mL of fluid drained in the last 24 hours. She is on assist control rate of 30 tidal volume 400 FiO2 50% PEEP is 16 and I cut it down to 14 today, plan to cut it down to 12 possibly later today. ABG showed a pO2 of 100 pCO2 48 pH of 7.37. Patient remains on propofol at 50 mcg/kg/m fentanyl at 1 mcg/kg/h, Nimbex at 1 mcg/kg/m. IV fluid 0.9 normal saline at 100 mL per hour. Labs today showed WBC count of 11.6 hemoglobin of 10.7. Electrolytes are normal BUN is 30 creatinine 0.6. Again her chest x-ray is clearly showing some improvement in her bilateral infiltrates, and I went ahead and cut down the PEEP to 14, instructed respiratory to cut it down to 12 if her O2 sat saturation remains above 95% later today. Medication list was reviewed patient is on Peridex, Lovenox 40 mg subcu twice a day, Lexapro, insulin as per scale, Lev aquin, methylprednisolone 460 mg IV push every 6 hours, Protonix 40 mg IV push daily Objective - Vital Signs Vital signs: Vital Signs Temp 97.5 F L 06/11/21 04:00 Pulse 74 06/11/21 09:00 Resp 30 H 06/11/21 09:00 BP 154/85 06/11/21 09:00 Pulse Ox 97 06/11/21 09:00 Intake & Output 06/10/21 06/11/21 06/11/21 18:59 06:59 18:59 Intake Total 6606.269 5115.94 798.036 Output Total 565 875 225 Balance 1370.601 878.94 573.036 Weight 93.2 kg Intake: IV 1200 1103 412 0.9NS bolus 3 Sodium Chloride 0.9% 1, 1200 1100 400 000 ml @ 100 mls/hr IV . Q10H JOSE ANTONIO Rx#:[id number] pressure bag 12 Intake, IV Titration 315.601 340.94 276.036 Amount Cisatracurium 200 mg In 94.164 96.936 Sodium Chloride 0.9% 180 ml @ 2 MCG/KG/MIN 10.08 mls/hr IV .[id number] JOSE ANTONIO Rx #:[id number] Insulin Regular 100 unit 21.437 In Sodium Chloride 0.9% 100 ml @ Per Protocol IV .Q0M JOSE ANTONIO Rx#:[id number] fentaNYL (PF). 1,000 mcg 100 88.06 79.1 In Sodium Chloride 0.9% 80 ml @ 0.5 MCG/KG/HR 4.2 mls/hr IV .[id number] JOSE ANTONIO Rx#:[id number] propofoL 1,000 mg In 100 252.88 100 Empty Bag 1 bag @ Titrate IV .Q0M JOSE ANTONIO Rx#: [id number] Tube Feeding 240 220 80 Other 180 90 30 Output: Chest Tube Drainage 240 Left 240 Urine 565 635 225 Other: Voiding Method Indwelling Catheter Indwelling Catheter Indwelling Catheter ABP, PAP, CO, CI - Last Documented Arterial Blood Pressure 154/72 - Exam Physical Exam revealed a 66-year-old female intubated, sedated, on mechanical ventilation. Patient is sedated and paralyzed. Head: Atraumatic, normocephalic. HEENT:[Neck is supple.] [No neck masses.] [No thyromegaly.] [No JVD.] Endotracheal tube and orogastric tube are intact. Chest: [Symmetrical chest expansion crackles at the bases. Left-sided chest tube is intact, no air leak noted. Cardiac Exam: [Normal S1 and S2, no S3 gallop, no murmur.] Abdomen: [Soft, nontender, no megaly, no rebound, no guarding, normal bowel sounds.] Extremities: [No clubbing, a serum bipedal edema, no cyanosis. Neurological Exam: Unable to assess, patient is fully sedated, and paralyzed. Psychiatric: Unable to assess Skin: Evidence of a large ulcer on the skin on the lateral aspect of her right side. - Labs CBC & Chem 7: 06/11/21 03:50 06/11/21 03:50 Labs: Abnormal Lab Results - Last 24 Hours (Table) 06/10/21 06/10/21 06/10/21 Range/Units 14:15 15:31 16:23 WBC (3.8-10.6) k/uL Hgb (11.4-16.0) gm/dL MCHC (31.0-37.0) g/dL ABG pCO2 (35-45) mmHg ABG HCO3 (21-25) mmol/L ABG Total CO2 (19-24) mmol/L ABG O2 Saturation (94-97) % Sodium (137-145) mmol/L BUN (7-17) mg/dL Glucose (74-99) mg/dL POC Glucose (mg/dL) 148 H 151 H 145 H (75-99) mg/dL Calcium (8.4-10.2) mg/dL Total Bilirubin (0.2-1.3) mg/dL Total Protein (6.3-8.2) g/dL Albumin (3.5-5.0) g/dL 06/10/21 06/10/21 06/10/21 Range/Units 17:25 18:23 20:52 WBC (3.8-10.6) k/uL Hgb (11.4-16.0) gm/dL MCHC (31.0-37.0) g/dL ABG pCO2 (35-45) mmHg ABG HCO3 (21-25) mmol/L ABG Total CO2 (19-24) mmol/L ABG O2 Saturation (94-97) % Sodium (137-145) mmol/L BUN (7-17) mg/dL Glucose (74-99) mg/dL POC Glucose (mg/dL) 140 H 163 H 185 H (75-99) mg/dL Calcium (8.4-10.2) mg/dL Total Bilirubin (0.2-1.3) mg/dL Total Protein (6.3-8.2) g/dL Albumin (3.5-5.0) g/dL 06/10/21 06/11/21 06/11/21 Range/Units 23:26 03:50 03:50 WBC 11.6 H (3.8-10.6) k/uL Hgb 10.7 L (11.4-16.0) gm/dL MCHC 30.9 L (31.0-37.0) g/dL ABG pCO2 (35-45) mmHg ABG HCO3 (21-25) mmol/L ABG Total CO2 (19-24) mmol/L ABG O2 Saturation (94-97) % Sodium 136 L (137-145) mmol/L BUN 30 H (7-17) mg/dL Glucose 205 H (74-99) mg/dL POC Glucose (mg/dL) 201 H (75-99) mg/dL Calcium 7.9 L (8.4-10.2) mg/dL Total Bilirubin 0.1 L (0.2-1.3) mg/dL Total Protein 4.8 L (6.3-8.2) g/dL Albumin 2.3 L (3.5-5.0) g/dL 06/11/21 06/11/21 06/11/21 Range/Units 03:53 05:29 08:26 WBC (3.8-10.6) k/uL Hgb (11.4-16.0) gm/dL MCHC (31.0-37.0) g/dL ABG pCO2 48 H (35-45) mmHg ABG HCO3 28 H (21-25) mmol/L ABG Total CO2 30 H (19-24) mmol/L ABG O2 Saturation 98.0 H (94-97) % Sodium (137-145) mmol/L BUN (7-17) mg/dL Glucose (74-99) mg/dL POC Glucose (mg/dL) 193 H 165 H (75-99) mg/dL Calcium (8.4-10.2) mg/dL Total Bilirubin (0.2-1.3) mg/dL Total Protein (6.3-8.2) g/dL Albumin (3.5-5.0) g/dL 06/11/21 Range/Units 11:35 WBC (3.8-10.6) k/uL Hgb (11.4-16.0) gm/dL MCHC (31.0-37.0) g/dL ABG pCO2 (35-45) mmHg ABG HCO3 (21-25) mmol/L ABG Total CO2 (19-24) mmol/L ABG O2 Saturation (94-97) % Sodium (137-145) mmol/L BUN (7-17) mg/dL Glucose (74-99) mg/dL POC Glucose (mg/dL) 188 H (75-99) mg/dL Calcium (8.4-10.2) mg/dL Total Bilirubin (0.2-1.3) mg/dL Total Protein (6.3-8.2) g/dL Albumin (3.5-5.0) g/dL Microbiology - Last 24 Hours (Table) 06/08/21 16:35 Gram Stain - Final Sputum Sputum Culture - Final Assessment and Plan Assessment: Impression: Acute hypoxic respiratory failure, multifactorial secondary to COVID-19 pneumonia also secondary to left pleural effusion with left hilar mass, cytology came back positive for small cell lung cancer. And secondary to acute exacerbation of COPD. History of underlying COPD and chronic hypercapnic and hypoxic respiratory failure. Patient was intubated on 06/06/2021, and she remains mechanically ventilated.. Patient developed left-sided pneumothorax/barotrauma on the left side, underwent tube thoracostomy on 06/10/2021 and there was complete resolution of her left-sided pneumothorax. 1400 mL of fluid drained from the left side into the pleural VAC, chest x-ray today is showing improvement hence the PEEP was cut down to 14 and I plan to cut it down to 12 later today. Obstructive sleep apnea syndrome, noncompliant. History of narcolepsy. Benign essential hypertension Type 2 diabetes Chronic back pain Generalized anxiety disorder Restless leg syndrome Small cell lung cancer with positive pleural effusion for small cell lung cancer Left-sided pneumothorax secondary to barotrauma. Expected. Recommendation: Continue ventilatory support. Decrease PEEP to 14. And possibly decrease it down to 12 later on today and the patient maintains adequate O2 sats rations above 95%. GI and DVT prophylaxis. Continue bronchodilators. Continue COVID-19 cocktail. Continue Solu-Medrol. Continue bronchodilators. Monitor inflammatory markers. Continue nutritional support/enteral feeding. Prognosis in the long run remains relatively poor. We will continue to follow. Critical care time is over 30 minutes Time with Patient: Greater than 30
[2021-06-11] MEDS: LEVOFLOXACIN 500 MG TAB PO SCH (14:49)
[2021-06-11 16:00] LABS: Glucose,Whole Blood 185 mg/dL (75-99)
[2021-06-11 20:21] LABS: Glucose,Whole Blood 173 mg/dL (75-99)
[2021-06-11] MEDS: ESCITALOPRAM 20 MG TAB PO SCH (21:28)
[2021-06-11] MEDS: PRAMIPEXOLE 1 MG TAB PO SCH (21:28)
--- NOTE | 2021-06-11 23:01 | P.PN ---
Subjective 65-year-old female came to emergency department with a competent of cough and shortness of breath of about 1 week duration patient became severely hypoxic and the patient is found to have a complete opacification of the right lung. Patient underwent emergent thoracic cyst removal of 1.3 L of pleural fluid after which patient has significant improvement, cytology came back positive for small cell lung cancer. Also patient found to have acute COPD exacerbation and she was treated with Solu-Medrol 60 mg, besides IV fluid normal saline at 100 mL per hour and Lovenox for DVT prophylaxis. Today chest x-ray showing large pneumothorax and chest tube was placed with resolution of the pneumothorax. However patient remains in the ICU in critical condition with pulmonary/critical care team help with her vent management as she is intubated and sedated currently. D-dimer 1.0, LDH 1150, CRP 2.7. 06/11/2021 Patient remains in the ICU in critical condition, she is intubated and sedated and on mechanical ventilation with pulmonary/critical care team following her closely. She still tachypneic and labs reviewed with no significant change. Afebrile. Chest x-ray showing bilateral pneumonia, no change. She remains on Solu-Medrol for her COPD exacerbation, normal saline at 100, Lovenox 40 mg twice a day. Objective - Vital Signs Vital signs: Vital Signs Temp 98.0 F 06/11/21 20:00 Pulse 66 06/11/21 22:00 Resp 30 H 06/11/21 22:00 BP 154/85 06/11/21 09:00 Pulse Ox 96 06/11/21 22:00 Intake & Output 06/11/21 06/11/21 06/12/21 06:59 18:59 06:59 Intake Total 1753.94 1802.036 613 Output Total 875 1070 360 Balance 878.94 732.036 253 Weight 93.2 kg Intake: IV 1103 1236 403 0.9NS bolus 3 Sodium Chloride 0.9% 1, 1100 1200 400 000 ml @ 100 mls/hr IV . Q10H JOSE ANTONIO Rx#:[id number] pressure bag 36 3 Intake, IV Titration 340.94 276.036 100 Amount Cisatracurium 200 mg In 96.936 Sodium Chloride 0.9% 180 ml @ 2 MCG/KG/MIN 10.08 mls/hr IV .[id number] JOSE ANTONIO Rx #:[id number] fentaNYL (PF). 1,000 mcg 88.06 79.1 100 In Sodium Chloride 0.9% 80 ml @ 0.5 MCG/KG/HR 4.2 mls/hr IV .[id number] JOSE ANTONIO Rx#:[id number] propofoL 1,000 mg In 252.88 100 Empty Bag 1 bag @ Titrate IV .Q0M JOSE ANTONIO Rx#: [id number] Tube Feeding 220 200 80 Other 90 90 30 Output: Chest Tube Drainage 240 220 Left 240 220 Urine 635 850 360 Other: Voiding Method Indwelling Catheter Indwelling Catheter Indwelling Catheter ABP, PAP, CO, CI - Last Documented Arterial Blood Pressure 111/52 - Exam -GENERAL: The patient is sedated and intubated HEENT: Pupils are round and equally reacting to light. EOMI. No scleral icterus. No conjunctival pallor. Normocephalic, atraumatic. No pharyngeal erythema. No thyromegaly. CARDIOVASCULAR: S1 and S2 present. No murmurs, rubs, or gallops. -PULMONARY: Chest is clear to auscultation, no bilateral scattered wheezing, left-sided chest tube, decreased breath sounds ABDOMEN: Soft, nontender, nondistended, normoactive bowel sounds. No palpable organomegaly. MUSCULOSKELETAL: No joint swelling or deformity. EXTREMITIES: No cyanosis, clubbing, or pedal edema. NEUROLOGICAL: Gross neurological examination did not reveal any focal deficits. SKIN: No rashes. no petechiae. - Labs CBC & Chem 7: 06/11/21 03:50 06/11/21 03:50 Labs: Abnormal Lab Results - Last 24 Hours (Table) 06/10/21 06/11/21 06/11/21 Range/Units 23:26 03:50 03:50 WBC 11.6 H (3.8-10.6) k/uL Hgb 10.7 L (11.4-16.0) gm/dL MCHC 30.9 L (31.0-37.0) g/dL ABG pCO2 (35-45) mmHg ABG HCO3 (21-25) mmol/L ABG Total CO2 (19-24) mmol/L ABG O2 Saturation (94-97) % Sodium 136 L (137-145) mmol/L BUN 30 H (7-17) mg/dL Glucose 205 H (74-99) mg/dL POC Glucose (mg/dL) 201 H (75-99) mg/dL Calcium 7.9 L (8.4-10.2) mg/dL Total Bilirubin 0.1 L (0.2-1.3) mg/dL Total Protein 4.8 L (6.3-8.2) g/dL Albumin 2.3 L (3.5-5.0) g/dL 06/11/21 06/11/21 06/11/21 Range/Units 03:53 05:29 08:26 WBC (3.8-10.6) k/uL Hgb (11.4-16.0) gm/dL MCHC (31.0-37.0) g/dL ABG pCO2 48 H (35-45) mmHg ABG HCO3 28 H (21-25) mmol/L ABG Total CO2 30 H (19-24) mmol/L ABG O2 Saturation 98.0 H (94-97) % Sodium (137-145) mmol/L BUN (7-17) mg/dL Glucose (74-99) mg/dL POC Glucose (mg/dL) 193 H 165 H (75-99) mg/dL Calcium (8.4-10.2) mg/dL Total Bilirubin (0.2-1.3) mg/dL Total Protein (6.3-8.2) g/dL Albumin (3.5-5.0) g/dL 06/11/21 06/11/21 06/11/21 Range/Units 11:35 15:57 20:08 WBC (3.8-10.6) k/uL Hgb (11.4-16.0) gm/dL MCHC (31.0-37.0) g/dL ABG pCO2 (35-45) mmHg ABG HCO3 (21-25) mmol/L ABG Total CO2 (19-24) mmol/L ABG O2 Saturation (94-97) % Sodium (137-145) mmol/L BUN (7-17) mg/dL Glucose (74-99) mg/dL POC Glucose (mg/dL) 188 H 185 H 173 H (75-99) mg/dL Calcium (8.4-10.2) mg/dL Total Bilirubin (0.2-1.3) mg/dL Total Protein (6.3-8.2) g/dL Albumin (3.5-5.0) g/dL Assessment and Plan Assessment: 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 Continue same treatment. Continue with symptomatic treatment. Resume home medication. Monitor lytes and vitals. DVT and GI prophylaxis. Further recommendationsas per clinical course of the patient DVT prophylaxis: Subcutaneous Lovenox GI Prophylaxis: Pepcid Prognosis is guarded
[2021-06-11 23:36] LABS: Glucose,Whole Blood 159 mg/dL (75-99)
[2021-06-12 02:52] VITALS: BP 130/82
[2021-06-12] MEDS: ARTIFICIAL TEARS-HYPROMELLOSE DROPS 15 ML BTL BOTH EYES SCH ×5 (03:58→19:50)
[2021-06-12] MEDS: INSULIN ASPART (NovoLOG) 100 UNIT/ML VIAL SQ SCH ×5 (03:58→20:05)
[2021-06-12 04:02] LABS: Glucose,Whole Blood 127 mg/dL (75-99)
[2021-06-12 04:27] LABS: Basophils % (A) 0 %; Eosinophils % (A) 0 %; HCT 34.7 % (34.0-46.0); HGB 10.5 gm/dL (11.4-16.0); Hypochromasia Marked; Lymphocytes # (A) 0.5 k/uL (1.0-4.8); Lymphocytes % (A) 4 %; MCH 25.9 pg (25.0-35.0); MCHC 30.1 g/dL (31.0-37.0); MCV 86.1 fL (80.0-100.0); Mean Platelet Volume 7.2; Monocytes # (A) 0.5 k/uL (0-1.0); Monocytes % (A) 4 %; Neutrophils # (A) 10.4 k/uL (1.3-7.7); Neutrophils % (A) 91 %; Platelet Count 328 k/uL (150-450); RBC 4.03 m/uL (3.80-5.40); RDW 14.8 % (11.5-15.5); WBC 11.5 k/uL (3.8-10.6)
[2021-06-12 04:29] LABS: ALT 27 U/L (4-34); AST 24 U/L (14-36); African American GFR (CKD) >90 (>60 ml/min/1.73 sqM); Albumin 2.3 g/dL (3.5-5.0); Alkaline Phosphatase 69 U/L (38-126); Anion Gap 3 mmol/L; Blood Urea Nitrogen 27 mg/dL (7-17); Calcium 7.8 mg/dL (8.4-10.2); Carbon Dioxide 30 mmol/L (22-30); Chloride 106 mmol/L (98-107); Glucose 133 mg/dL (74-99); Non-African American GFR(CKD) >90 (>60 ml/min/1.73 sqM); Potassium 4.4 mmol/L (3.5-5.1); Sodium 139 mmol/L (137-145); Total Bilirubin <0.1 mg/dL (0.2-1.3); Total Protein 4.8 g/dL (6.3-8.2)
[2021-06-12] MEDS: methylPREDNISolone SOD SUCCI 125 MG/2 ML VIAL IV SCH (05:51)
[2021-06-12] MEDS: SODIUM CHLORIDE 0.9% 1,000 ML IV SCH ×2 (05:54→19:04)
[2021-06-12] MEDS: fentaNYL (PF). 1,000 MCG in SODIUM CHLORIDE 0.9% 80 ML IV SCH ×2 (05:54→19:48)
[2021-06-12 06:25] LABS: ABG Base Excess 5.7 mmol/L; ABG HCO3 30 mmol/L (21-25); ABG Oxygen Saturation 96.6 % (94-97); ABG PCO2 49 mmHg (35-45); ABG PO2 81 mmHg (83-108); ABG TCO2 32 mmol/L (19-24); Allen Test Performed? Yes
[2021-06-12] MEDS: CISATRACURIUM 200 MG in SODIUM CHLORIDE 0.9% 180 ML IV SCH (06:53)
--- NOTE | 2021-06-12 08:06 | XR ---
EXAMINATION TYPE: XR chest 1V DATE OF EXAM: 06/12/2021 COMPARISON: Chest x-ray 06/11/2021 HISTORY: Intubated, Covid TECHNIQUE: Single frontal view of the chest is obtained. FINDINGS: Endotracheal tube, NG tube are present and overlying appropriate position although the tip of the endotracheal tube may be within 8 mm of the alejandro, there is superimposition with the subclav eboni catheter. The left sided chest tube is in place, left subclavian central venous catheter is overl bebo appropriate position. No sizable pneumothorax is evident. Basilar density is present in the retr ocardiac region. Interstitium is increased. Postop changes are noted to the lumbar spine. IMPRESSION: Endotracheal tube may be slightly less than 1 cm above the level of the alejandro. Pleural parenchymal changes show a similar appearance, there is underlying emphysema, possible left effusion
[2021-06-12] MEDS ORDERED: FUROSEMIDE 10 MG/ML 4 ML VIAL IV STA (09:06)
[2021-06-12] MEDS: ENOXAPARIN 40 MG/0.4 ML SYRINGE SQ SCH (09:30)
[2021-06-12] MEDS: PANTOPRAZOLE 40 MG/10 ML VIAL IVP SCH (09:30)
[2021-06-12] MEDS: CHLORHEXIDINE GLUCONATE 15 ML CUP MUCOUS MEM SCH ×2 (09:31→19:50)
[2021-06-12] MEDS: ALBUTEROL HFA INHALER INHALATION SCH ×4 (09:41→19:59)
[2021-06-12 11:31] LABS: Glucose,Whole Blood 209 mg/dL (75-99)
--- NOTE | 2021-06-12 12:15 | P.PN ---
Subjective Progress Note Date: 06/12/21 Principal diagnosis: Coronavirus associated pneumonia. Reevaluated today on 06/06/2021, patient had worsening clinical status morning, she required placement on BiPAP, however even on BiPAP, the patient remained extremely short of breath, she was developing intermittent episodes of lethargy. Patient was transferred to the ICU, intubated S1 S1 she arrived to the ICU. She is now on assist control rate of 30 tidal volume 400 FiO2 on the percent and PEEP of 12. ABG post intubation showed a pO2 of 66 pCO2 of 56 pH of 7.36. Basic metabolic profile is normal renal profile is normal blood sugar is running a bit high, patient may have to be placed on insulin drip. D-dimer is 1.41. WBC count is 15.3 hemoglobin 13.6. LDH is 1374 C-reactive protein 2.4. 6 x-ray is showing worsening infiltrates bilaterally right more so than left. Cytology from her pleural effusion is pending. Reevaluated today on 06/07/2021, patient remains in the ICU intubated and mechanically ventilated. She is on assist control rate of 30 tidal volume 400 FiO2 60% and PEEP is at 14, it was earlier at 12. ABG showed a pO2 of 89 pCO2 39 pH of 7.53 and this was on 70%, I did cut down the FiO2 to 60%. Patient remains on propofol at 50, she is requiring norepinephrine at 0.05 mcg/kg/m she is on insulin at 20 unit per hour drip is also on IV fluid at 100 mL per hour. CBC and basic metabolic profile is normal. Rest x-ray continues to show bilateral interstitial infiltrates, her LDH today is 989, improving compared to yesterday, and C-reactive protein is down to 3.3. Reevaluated today on 06/08/2021, patient remains in the ICU, intubated and mechanically ventilated. Her pleural effusion cytology came back positive for small cell lung cancer. Patient is intubated and mechanically ventilated, she is on tidal volume of 400 assist control rate of 30 FiO2 70% PEEP 14 however considering her poor ABG I recommended increasing her FiO2 to 75% and PEEP was increased to 16. Patient is requiring norepinephrine at 0.03 mcg/kg/m she is on fentanyl 0.5 mcg/kg/h propofol 50 mcg/kg/minute, IV fluid is at 80 mL per hour. ABG is showing pO2 of 53 pCO2 42 pH of 7.47 WBC count is 8.1 hemoglobin is 10.9. Electrolytes are normal renal profile is normal BUN is 23 creatinine 0.6. Again the patient required increase FiO2 to 75% and increase PEEP to 16. Chest x-ray continues to show significant airspace disease and left hilar mass with a small pleural effusion. Again her effusion came back positive for small cell lung cancer. Patient is also on enteral feeding via orogastric tube Reevaluated today on 06/09/2021, patient remains in the ICU, intubated and mechanically ventilated. Patient is on assist control rate of 30 tidal volume 400 FiO2 60% PEEP of 16. ABG showed a pO2 of 75 pCO2 52 pH of 7.36. Chest x- ray continues to show bilateraldisease, left pleural effusion and left hilar mass. Patient remains on propofol at 50 fentanyl at 1 Nimbex at 2 and she is on enteral feeding. Electrolytes are normal renal profile is normal LDH is 1150. Slightly worse compared to a few days ago. And C-reactive protein is a little bit better compared to 2 days ago he had medications-lake the patient remains on Levaquin, methylprednisolone 60 mg IV push every 6 hours, Mirapex, propofol, and she is on Lovenox 40 mg subcu twice a day because of elevated d-dimer. Reevaluated today on 06/10/2021, patient had a morning chest x-ray today, and I was called about this patient having a large left-sided pneumothorax. Hence I came in and placed a left sided chest tube in this patient, The patient on mechanical ventilation, her assist control rate is 30 tidal volume 400 FiO2 50% and PEEP of 16. ABG showed a pO2 of 65 pCO2 48 pH of 7.38. Patient is on Nimbex at 1 mcg/kg/m, propofol 50 mcg/kg/m, fentanyl 1 mcg/kg/h she is on vital AF at 20 mL per hour. Chest x-ray was noted before the chest tube placement and there was a large left-sided pneumothorax, follow-up chest x-ray post chest tube placement showed complete reexpansion of the lung, and adequate placement of the chest tube in the left apex. Clinically the patient is about the same. Not much of a change in the last 24 hours except for this new left-sided pneumothorax secondary to barotrauma. CBC today is relatively normal hemoglobin is 10.5 WBC count is 7.8. Electrolytes are normal renal profile is normal. Liver enzymes are normal. Reevaluated today on 06/11/2021, remains in the ICU, intubated and mechanically ventilated. Her chest x-ray today is showing some improvement in her bilateral infiltrates. Chest tubes remains in good position, no air leak noted. However we had a total of 1400 mL of fluid drained in the last 24 hours. She is on assist control rate of 30 tidal volume 400 FiO2 50% PEEP is 16 and I cut it down to 14 today, plan to cut it down to 12 possibly later today. ABG showed a pO2 of 100 pCO2 48 pH of 7.37. Patient remains on propofol at 50 mcg/kg/m fentanyl at 1 mcg/kg/h, Nimbex at 1 mcg/kg/m. IV fluid 0.9 normal saline at 100 mL per hour. Labs today showed WBC count of 11.6 hemoglobin of 10.7. Electrolytes are normal BUN is 30 creatinine 0.6. Again her chest x-ray is clearly showing some improvement in her bilateral infiltrates, and I went ahead and cut down the PEEP to 14, instructed respiratory to cut it down to 12 if her O2 sat saturation remains above 95% later today. Medication list was reviewed patient is on Peridex, Lovenox 40 mg subcu twice a day, Lexapro, insulin as per scale, Levaquin, methylprednisolone 460 mg IV push every 6 hours, Protonix 40 mg IV pus h daily Progress note dated 06/12/2021. This is a patient who is 58 years of age, who was admitted to the hospital back on June 02, with coronavirus associated pneumonia. She came to the intensive care unit on June 06, and had a left thoracentesis. Thoracentesis was performed on June 03, and showed evidence of small cell lung cancer. She was intubated on June 06, and subsequently, was discovered to have a left-sided pneumothorax, a chest tube was placed. She remains on mechanical ventilator. She is on the volume assist control mode, rate 30, tidal volume 400, FiO2 50%, with a PEEP of 12. Blood gases show pO2 of 80, pCO2 49, and a pH is 7.40. She is on Nimbex at 1 mcg/kg/m, fentanyl 1 mcg/kg/h, follow 50 mcg/kg/m, saline at 100 mL an hour, and vital AF at 20 mL an hour, which is goal. The plan today is to turn down the IV fluids, give her Lasix, and drop the PEEP from 12 down to 10. White count from 0.5, hemoglobin 10.5, normal hematocrit, and platelet count 328,000. Sodium 139, potassium 4.4, chlorides 106, CO2 30, anion gap 3, BUN 27, and creatinine 0.52. Albumin is 2.3. Microbiologic studies are negative. Chest x-ray shows endotracheal tube that is too low and needs to be pulled back, as well as diffuse bilateral parenchymal abnormalities. The left-s ided chest tube is noted. Objective - Vital Signs Vital signs: Vital Signs Temp 98.8 F 06/12/21 08:00 Pulse 84 06/12/21 11:00 Resp 26 H 06/12/21 11:00 BP 130/82 06/12/21 11:00 Pulse Ox 88 L 06/12/21 11:00 Intake & Output 06/11/21 06/12/21 06/12/21 18:59 06:59 18:59 Intake Total 9808.364 0118.428 383.24 Output Total 1070 920 190 Balance 832.036 986.428 193.24 Weight 93.2 kg Intake: IV 1236 1209 290 Sodium Chloride 0.9% 1, 1200 1200 275 000 ml @ 100 mls/hr IV . Q10H JOSE ANTONIO Rx#:[id number] pressure bag 36 9 15 Intake, IV Titration 376.036 367.428 93.24 Amount Cisatracurium 200 mg In 96.936 101.388 Sodium Chloride 0.9% 180 ml @ 2 MCG/KG/MIN 10.08 mls/hr IV .[id number] JOSE ANTONIO Rx #:[id number] fentaNYL (PF). 1,000 mcg 79.1 190.02 In Sodium Chloride 0.9% 80 ml @ 0.5 MCG/KG/HR 4.2 mls/hr IV .[id number] JOSE ANTONIO Rx#:[id number] propofoL 1,000 mg In 200 76.02 93.24 Empty Bag 1 bag @ Titrate IV .Q0M JOSE ANTONIO Rx#: [id number] Tube Feeding 200 240 Other 90 90 Output: Chest Tube Drainage 220 110 Left 220 110 Urine 850 810 190 Other: Voiding Method Indwelling Catheter Indwelling Catheter Indwelling Catheter ABP, PAP, CO, CI - Last Documented Arterial Blood Pressure 157/71 - Exam No acute distress, currently sedated and paralyzed, with an orally placed endotracheal tube and NG tube. There is a left-sided chest tube as well.. HEENT examination is grossly unremarkable. Neck supple. Full range of motion. No adenopathy thyromegaly or neck vein distention. Cardiovascular examination reveals regular rhythm rate. S1-S2 normal. No S3 or S4. No discernible murmur noted. Heart rate 84 bpm. Heart sounds are distant. Lungs reveal coarse bilateral rhonchi. Breath sounds equal. No wheezes or crackles. Left-sided chest tube is noted. Abdomen soft bowel sounds are heard. No masses or tenderness. Extremities are intact. No cyanosis clubbing or edema. Skin is without rash or lesion. Neurologic examination cannot be adequately assessed as the patient's currently sedated and paralyzed. - Labs CBC & Chem 7: 06/12/21 03:50 06/12/21 03:50 Labs: Abnormal Lab Results - Last 24 Hours (Table) 06/11/21 06/11/21 06/11/21 Range/Units 15:57 20:08 23:34 WBC (3.8-10.6) k/uL Hgb (11.4-16.0) gm/dL MCHC (31.0-37.0) g/dL Neutrophils # (1.3-7.7) k/uL Lymphocytes # (1.0-4.8) k/uL ABG pCO2 (35-45) mmHg ABG pO2 (83-108) mmHg ABG HCO3 (21-25) mmol/L ABG Total CO2 (19-24) mmol/L BUN (7-17) mg/dL Glucose (74-99) mg/dL POC Glucose (mg/dL) 185 H 173 H 159 H (75-99) mg/dL Calcium (8.4-10.2) mg/dL Total Bilirubin (0.2-1.3) mg/dL Total Protein (6.3-8.2) g/dL Albumin (3.5-5.0) g/dL 06/12/21 06/12/21 06/12/21 Range/Units 03:50 03:50 03:50 WBC 11.5 H (3.8-10.6) k/uL Hgb 10.5 L (11.4-16.0) gm/dL MCHC 30.1 L (31.0-37.0) g/dL Neutrophils # 10.4 H (1.3-7.7) k/uL Lymphocytes # 0.5 L (1.0-4.8) k/uL ABG pCO2 (35-45) mmHg ABG pO2 (83-108) mmHg ABG HCO3 (21-25) mmol/L ABG Total CO2 (19-24) mmol/L BUN 27 H (7-17) mg/dL Glucose 133 H (74-99) mg/dL POC Glucose (mg/dL) 127 H (75-99) mg/dL Calcium 7.8 L (8.4-10.2) mg/dL Total Bilirubin <0.1 L (0.2-1.3) mg/dL Total Protein 4.8 L (6.3-8.2) g/dL Albumin 2.3 L (3.5-5.0) g/dL 06/12/21 06/12/21 Range/Units 06:18 11:29 WBC (3.8-10.6) k/uL Hgb (11.4-16.0) gm/dL MCHC (31.0-37.0) g/dL Neutrophils # (1.3-7.7) k/uL Lymphocytes # (1.0-4.8) k/uL ABG pCO2 49 H (35-45) mmHg ABG pO2 81 L (83-108) mmHg ABG HCO3 30 H (21-25) mmol/L ABG Total CO2 32 H (19-24) mmol/L BUN (7-17) mg/dL Glucose (74-99) mg/dL POC Glucose (mg/dL) 209 H (75-99) mg/dL Calcium (8.4-10.2) mg/dL Total Bilirubin (0.2-1.3) mg/dL Total Protein (6.3-8.2) g/dL Albumin (3.5-5.0) g/dL Microbiology - Last 24 Hours (Table) 06/03/21 12:00 Acid Fast Bacilli Smear - Final Pleural Fluid Acid Fast Bacilli Culture - Preliminary Assessment and Plan Assessment: Acute hypoxemic respiratory failure, secondary to coronavirus associated pneumonia, as well as small cell lung cancer. Acute exacerbation of COPD. Status post left-sided thoracentesis June 03, showing evidence of small cell lung cancer. Status post intubation and mechanical ventilation for respiratory failure, 06/06/2021. Status post left-sided pneumothorax, with chest tube insertion, 06/10/2021. History of obstructive sleep apnea syndrome. History of narcolepsy. Benign essential hypertension. Type 2 diabetes mellitus. Chronic back pain. Generalized anxiety disorder. History of restless leg syndrome. Plan: Plan dated 06/12/2021. The patient remains on the mechanical ventilator. We are going to cut back on her IV fluids. We'll give her Lasix 40 mg IV push. The PEEP was dropped from 12 cm water, down to 10 cm water. The patient continues on Nimbex, fentanyl, and propofol. We will attempt to wean her off the paralytic. We will continue with GI prophylaxis and DVT prophylaxis, bronchodilators, and vitamins against coronavirus infection. Prognosis is guarded. She continues on tube feeds. We will continue to follow make recommendations where appropriate. Time with Patient: Greater than 30
[2021-06-12 15:47] LABS: Glucose,Whole Blood 176 mg/dL (75-99)
--- NOTE | 2021-06-12 16:20 | P.PN ---
Subjective Progress Note Date: 06/12/21 This is 66-year-old female admitted with acute COVID-19 pneumonia, left pleural effusion, left hilar mass possibly malignant, acute COPD exacerbation, acute hypoxic respiratory failure, and multiple other medical issues. Status post thoracentesis with pleural cytology pending. Maintained on bronchodilators, covid cocktail.Patient currently on BiPAP, labored breathing, fatigued, lethargic. Afebrile. Labs pending. 06/06/2021 worsening respiratory status, on BiPAP. Intubated and transferred to ICU. ABGs post intubation reported pH 7.36, pCO2 56, pO2 66, bicarb 31 base excess 5.5. Chest x-ray reported more prominent, progression of multifocal bilateral opacities. Pleural cytology pending. Afebrile, WBC increased to 15.3. D-dimer and LDH increased, CRP 2.4. Hyperglycemia, placed on insulin drip. 06/07/2021 vent dependent, FiO2 70%/+12 of PEEP. Continues on diprovan, fentanyl, Levophed and insulin drips. Tolerating tube feeds with minimal to no residuals. T-max 99.5, normal WBC. Pleural cultures and cytology pending. Inflammatory markers today trending down with the exception of CRP, 3.3. 06/08/21 vent-dependent FiO2 70%/+14 of PEEP. Chest x-ray reporting diffuse bilateral infiltrates. Pleural fluid pathology reporting positive for metastatic small cell CA.Maintained on diprovan, fentanyl, Levophed. Renal function/electrolytes within normal limits. 06/09/2021 FiO2 60/+16 PEEP. Chest x-ray reporting no significant interval change/bilateral airspace disease. Afebrile, normal WBC. Maintained on Nimbex, fentanyl, diprovan. Renal function stable. D-dimer, LDH elevated, CRP decreased. 06/12/2021 FiO2 50%/+10 of PEEP. Maintained on diprovan, Nimbex, fentanyl, with Nimbex currently being weaned off. Objective - Vital Signs Vital signs: Vital Signs Temp 98.8 F 06/12/21 08:00 Pulse 84 06/12/21 11:00 Resp 26 H 06/12/21 11:00 BP 130/82 06/12/21 11:00 Pulse Ox 88 L 06/12/21 11:00 Intake & Output 06/11/21 06/12/21 06/12/21 18:59 06:59 18:59 Intake Total 0058.050 3375.428 383.24 Output Total 1070 920 190 Balance 832.036 986.428 193.24 Weight 93.2 kg Intake: IV 1236 1209 290 Sodium Chloride 0.9% 1, 1200 1200 275 000 ml @ 100 mls/hr IV . Q10H JOSE ANTONIO Rx#:[id number] pressure bag 36 9 15 Intake, IV Titration 376.036 367.428 93.24 Amount Cisatracurium 200 mg In 96.936 101.388 Sodium Chloride 0.9% 180 ml @ 2 MCG/KG/MIN 10.08 mls/hr IV .[id number] JOSE ANTONIO Rx #:[id number] fentaNYL (PF). 1,000 mcg 79.1 190.02 In Sodium Chloride 0.9% 80 ml @ 0.5 MCG/KG/HR 4.2 mls/hr IV .[id number] JOSE ANTONIO Rx#:[id number] propofoL 1,000 mg In 200 76.02 93.24 Empty Bag 1 bag @ Titrate IV .Q0M JOSE ANTONIO Rx#: [id number] Tube Feeding 200 240 Other 90 90 Output: Chest Tube Drainage 220 110 Left 220 110 Urine 850 810 190 Other: Voiding Method Indwelling Catheter Indwelling Catheter Indwelling Catheter ABP, PAP, CO, CI - Last Documented Arterial Blood Pressure 157/71 - Exam Limited physical exam in intubated patient with Covid: GENERAL: Sedated, paralyzed on mechanical ventilation. HEENT: Normocephalic CARDIOVASCULAR: S1 and S2 regular per telemetry NEUROLOGICAL: Unable to assess, sedated, paralyzed and on mechanical ventilation. - Labs CBC & Chem 7: 06/12/21 03:50 06/12/21 03:50 Labs: Abnormal Lab Results - Last 24 Hours (Table) 06/11/21 06/11/21 06/12/21 Range/Units 20:08 23:34 03:50 WBC 11.5 H (3.8-10.6) k/uL Hgb 10.5 L (11.4-16.0) gm/dL MCHC 30.1 L (31.0-37.0) g/dL Neutrophils # 10.4 H (1.3-7.7) k/uL Lymphocytes # 0.5 L (1.0-4.8) k/uL ABG pCO2 (35-45) mmHg ABG pO2 (83-108) mmHg ABG HCO3 (21-25) mmol/L ABG Total CO2 (19-24) mmol/L BUN (7-17) mg/dL Glucose (74-99) mg/dL POC Glucose (mg/dL) 173 H 159 H (75-99) mg/dL Calcium (8.4-10.2) mg/dL Total Bilirubin (0.2-1.3) mg/dL Total Protein (6.3-8.2) g/dL Albumin (3.5-5.0) g/dL 06/12/21 06/12/21 06/12/21 Range/Units 03:50 03:50 06:18 WBC (3.8-10.6) k/uL Hgb (11.4-16.0) gm/dL MCHC (31.0-37.0) g/dL Neutrophils # (1.3-7.7) k/uL Lymphocytes # (1.0-4.8) k/uL ABG pCO2 49 H (35-45) mmHg ABG pO2 81 L (83-108) mmHg ABG HCO3 30 H (21-25) mmol/L ABG Total CO2 32 H (19-24) mmol/L BUN 27 H (7-17) mg/dL Glucose 133 H (74-99) mg/dL POC Glucose (mg/dL) 127 H (75-99) mg/dL Calcium 7.8 L (8.4-10.2) mg/dL Total Bilirubin <0.1 L (0.2-1.3) mg/dL Total Protein 4.8 L (6.3-8.2) g/dL Albumin 2.3 L (3.5-5.0) g/dL 06/12/21 06/12/21 Range/Units 11:29 15:46 WBC (3.8-10.6) k/uL Hgb (11.4-16.0) gm/dL MCHC (31.0-37.0) g/dL Neutrophils # (1.3-7.7) k/uL Lymphocytes # (1.0-4.8) k/uL ABG pCO2 (35-45) mmHg ABG pO2 (83-108) mmHg ABG HCO3 (21-25) mmol/L ABG Total CO2 (19-24) mmol/L BUN (7-17) mg/dL Glucose (74-99) mg/dL POC Glucose (mg/dL) 209 H 176 H (75-99) mg/dL Calcium (8.4-10.2) mg/dL Total Bilirubin (0.2-1.3) mg/dL Total Protein (6.3-8.2) g/dL Albumin (3.5-5.0) g/dL Microbiology - Last 24 Hours (Table) 06/03/21 12:00 Acid Fast Bacilli Smear - Final Pleural Fluid Acid Fast Bacilli Culture - Preliminary Assessment and Plan Assessment: Acute hypoxic respiratory failure, mechanical ventilator-dependent, multifactorial secondary to acute covid pneumonia, left pleural effusion and acute COPD exacerbation. Large left pneumothorax with chest tube. Status post emergent thoracentesis, pleural cytology reporting metastatic small cell CA. Right lower extremity thigh, nonhealing ulceration Chronic hypoxic and hypercapnic respiratory failure Obstructive sleep apnea, intolerant of CPAP Diabetes mellitus type 2 Essential hypertension Chronic back pain anxiety disorder Restless leg syndrome History of narcolepsy Plan: Continue on current medication regime ,monitoring and symptomatic treatment. covid cocktail, bronchodilators. 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 Prognosis guarded given mult iple complex medical issues. The impression and plan of care has been dictated as directed. : I performed a history and examination of this patient, discussed the same with the dictator. I agree with the dictator's note ,documented as a scribe. Any additional findings or plans will be noted.
[2021-06-12] MEDS: methylPREDNISolone SOD SUCCI 40 MG/ML 1 ML VIAL IV SCH (17:06)
[2021-06-12 19:57] LABS: Glucose,Whole Blood 136 mg/dL (75-99)
[2021-06-12] MEDS: ESCITALOPRAM 20 MG TAB PO SCH (20:09)
[2021-06-13 00:48] LABS: Glucose,Whole Blood 166 mg/dL (75-99)
[2021-06-13] MEDS: methylPREDNISolone SOD SUCCI 40 MG/ML 1 ML VIAL IV SCH ×4 (00:54→23:42)
[2021-06-13] MEDS: INSULIN ASPART (NovoLOG) 100 UNIT/ML VIAL SQ SCH ×5 (00:56→23:44)
[2021-06-13] MEDS: ARTIFICIAL TEARS-HYPROMELLOSE DROPS 15 ML BTL BOTH EYES SCH ×7 (01:25→23:43)
[2021-06-13] MEDS: CISATRACURIUM 200 MG in SODIUM CHLORIDE 0.9% 180 ML IV SCH ×3 (01:49→20:11)
[2021-06-13] MEDS: SODIUM CHLORIDE 0.9% 1,000 ML IV SCH ×2 (03:46→15:05)
[2021-06-13 05:23] LABS: Basophils % (A) 0 %; Eosinophils % (A) 0 %; HGB 11.2 gm/dL (11.4-16.0); Hypochromasia Marked; Lymphocytes # (A) 0.5 k/uL (1.0-4.8); Lymphocytes % (A) 4 %; MCHC 30.3 g/dL (31.0-37.0); MCV 85.9 fL (80.0-100.0); Mean Platelet Volume 7.3; Monocytes # (A) 0.4 k/uL (0-1.0); Monocytes % (A) 4 %; Neutrophils # (A) 10.8 k/uL (1.3-7.7); Neutrophils % (A) 92 %; Platelet Count 353 k/uL (150-450); RBC 4.31 m/uL (3.80-5.40); RDW 15.1 % (11.5-15.5); WBC 11.8 k/uL (3.8-10.6)
[2021-06-13 05:31] LABS: Glucose,Whole Blood 175 mg/dL (75-99)
[2021-06-13 05:41] LABS: ALT 28 U/L (4-34); AST 24 U/L (14-36); African American GFR (CKD) >90 (>60 ml/min/1.73 sqM); Albumin 2.5 g/dL (3.5-5.0); Alkaline Phosphatase 76 U/L (38-126); Anion Gap 4 mmol/L; Blood Urea Nitrogen 34 mg/dL (7-17); Calcium 8.2 mg/dL (8.4-10.2); Carbon Dioxide 31 mmol/L (22-30); Chloride 102 mmol/L (98-107); Glucose 193 mg/dL (74-99); Non-African American GFR(CKD) >90 (>60 ml/min/1.73 sqM); Potassium 4.4 mmol/L (3.5-5.1); Sodium 137 mmol/L (137-145); Total Bilirubin 0.2 mg/dL (0.2-1.3); Total Protein 5.3 g/dL (6.3-8.2)
[2021-06-13 05:53] LABS: ABG Base Excess 9.3 mmol/L; ABG HCO3 33 mmol/L (21-25); ABG Oxygen Saturation 92.4 % (94-97); ABG PCO2 48 mmHg (35-45); ABG PH 7.45 (7.35-7.45); ABG PO2 60 mmHg (83-108); ABG TCO2 35 mmol/L (19-24)
[2021-06-13 06:00] LABS: Allen Test Performed? no
[2021-06-13] MEDS: fentaNYL (PF). 1,000 MCG in SODIUM CHLORIDE 0.9% 80 ML IV SCH ×3 (07:11→22:10)
[2021-06-13] MEDS ORDERED: FUROSEMIDE 10 MG/ML 4 ML VIAL IV STA (08:32)
[2021-06-13] MEDS: PANTOPRAZOLE 40 MG/10 ML VIAL IVP SCH (08:36)
[2021-06-13] MEDS: CHLORHEXIDINE GLUCONATE 15 ML CUP MUCOUS MEM SCH ×2 (08:36→20:12)
[2021-06-13] MEDS: ENOXAPARIN 40 MG/0.4 ML SYRINGE SQ SCH (08:36)
--- NOTE | 2021-06-13 09:01 | XR ---
EXAMINATION TYPE: XR chest 1V portable DATE OF EXAM: 06/13/2021 COMPARISON: Chest x-ray 06/12/2021, CT chest 06/03/2021 HISTORY: Status post central venous catheter placement, intubated TECHNIQUE: Single frontal view of the chest is obtained. FINDINGS: Left subclavian central venous catheter is again noted, distal tip is overlying the region of the cavoatrial junction. Endotracheal tube and NG tube are overlying appropriate positions, patie nt is rotated. Cardiac mediastinal silhouette shows a similar appearance, prominence of mediastinum a nd left hilar region again seen. Interstitium is increased. There is blunting the costophrenic angles , obscured portions of the right hemidiaphragm is an interval finding. Left-sided chest tube is in pl [place]. Prominent lung volumes again noted. IMPRESSION: Correlate for worsening volume overload, congestive heart failure with pleural effusions , pneumonia not excluded, there is underlying emphysema, mediastinal and left hilar adenopathy.
[2021-06-13] MEDS: ALBUTEROL HFA INHALER INHALATION SCH ×4 (09:21→20:30)
[2021-06-13] MEDS ORDERED: bisacodyL 10 MG SUPP RECTAL STA (09:40)
--- NOTE | 2021-06-13 10:07 | P.PN ---
Subjective Progress Note Date: 06/13/21 Principal diagnosis: Coronavirus associated pneumonia. Reevaluated today on 06/06/2021, patient had worsening clinical status morning, she required placement on BiPAP, however even on BiPAP, the patient remained extremely short of breath, she was developing intermittent episodes of lethargy. Patient was transferred to the ICU, intubated S1 S1 she arrived to the ICU. She is now on assist control rate of 30 tidal volume 400 FiO2 on the percent and PEEP of 12. ABG post intubation showed a pO2 of 66 pCO2 of 56 pH of 7.36. Basic metabolic profile is normal renal profile is normal blood sugar is running a bit high, patient may have to be placed on insulin drip. D-dimer is 1.41. WBC count is 15.3 hemoglobin 13.6. LDH is 1374 C-reactive protein 2.4. 6 x-ray is showing worsening infiltrates bilaterally right more so than left. Cytology from her pleural effusion is pending. Reevaluated today on 06/07/2021, patient remains in the ICU intubated and mechanically ventilated. She is on assist control rate of 30 tidal volume 400 FiO2 60% and PEEP is at 14, it was earlier at 12. ABG showed a pO2 of 89 pCO2 39 pH of 7.53 and this was on 70%, I did cut down the FiO2 to 60%. Patient remains on propofol at 50, she is requiring norepinephrine at 0.05 mcg/kg/m she is on insulin at 20 unit per hour drip is also on IV fluid at 100 mL per hour. CBC and basic metabolic profile is normal. Rest x-ray continues to show bilateral interstitial infiltrates, her LDH today is 989, improving compared to yesterday, and C-reactive protein is down to 3.3. Reevaluated today on 06/08/2021, patient remains in the ICU, intubated and mechanically ventilated. Her pleural effusion cytology came back positive for small cell lung cancer. Patient is intubated and mechanically ventilated, she is on tidal volume of 400 assist control rate of 30 FiO2 70% PEEP 14 however considering her poor ABG I recommended increasing her FiO2 to 75% and PEEP was increased to 16. Patient is requiring norepinephrine at 0.03 mcg/kg/m she is on fentanyl 0.5 mcg/kg/h propofol 50 mcg/kg/minute, IV fluid is at 80 mL per hour. ABG is showing pO2 of 53 pCO2 42 pH of 7.47 WBC count is 8.1 hemoglobin is 10.9. Electrolytes are normal renal profile is normal BUN is 23 creatinine 0.6. Again the patient required increase FiO2 to 75% and increase PEEP to 16. Chest x-ray continues to show significant airspace disease and left hilar mass with a small pleural effusion. Again her effusion came back positive for small cell lung cancer. Patient is also on enteral feeding via orogastric tube Reevaluated today on 06/09/2021, patient remains in the ICU, intubated and mechanically ventilated. Patient is on assist control rate of 30 tidal volume 400 FiO2 60% PEEP of 16. ABG showed a pO2 of 75 pCO2 52 pH of 7.36. Chest x- ray continues to show bilateraldisease, left pleural effusion and left hilar mass. Patient remains on propofol at 50 fentanyl at 1 Nimbex at 2 and she is on enteral feeding. Electrolytes are normal renal profile is normal LDH is 1150. Slightly worse compared to a few days ago. And C-reactive protein is a little bit better compared to 2 days ago he had medications-lake the patient remains on Levaquin, methylprednisolone 60 mg IV push every 6 hours, Mirapex, propofol, and she is on Lovenox 40 mg subcu twice a day because of elevated d-dimer. Reevaluated today on 06/10/2021, patient had a morning chest x-ray today, and I was called about this patient having a large left-sided pneumothorax. Hence I came in and placed a left sided chest tube in this patient, The patient on mechanical ventilation, her assist control rate is 30 tidal volume 400 FiO2 50% and PEEP of 16. ABG showed a pO2 of 65 pCO2 48 pH of 7.38. Patient is on Nimbex at 1 mcg/kg/m, propofol 50 mcg/kg/m, fentanyl 1 mcg/kg/h she is on vital AF at 20 mL per hour. Chest x-ray was noted before the chest tube placement and there was a large left-sided pneumothorax, follow-up chest x-ray post chest tube placement showed complete reexpansion of the lung, and adequate placement of the chest tube in the left apex. Clinically the patient is about the same. Not much of a change in the last 24 hours except for this new left-sided pneumothorax secondary to barotrauma. CBC today is relatively normal hemoglobin is 10.5 WBC count is 7.8. Electrolytes are normal renal profile is normal. Liver enzymes are normal. Reevaluated today on 06/11/2021, remains in the ICU, intubated and mechanically ventilated. Her chest x-ray today is showing some improvement in her bilateral infiltrates. Chest tubes remains in good position, no air leak noted. However we had a total of 1400 mL of fluid drained in the last 24 hours. She is on assist control rate of 30 tidal volume 400 FiO2 50% PEEP is 16 and I cut it down to 14 today, plan to cut it down to 12 possibly later today. ABG showed a pO2 of 100 pCO2 48 pH of 7.37. Patient remains on propofol at 50 mcg/kg/m fentanyl at 1 mcg/kg/h, Nimbex at 1 mcg/kg/m. IV fluid 0.9 normal saline at 100 mL per hour. Labs today showed WBC count of 11.6 hemoglobin of 10.7. Electrolytes are normal BUN is 30 creatinine 0.6. Again her chest x-ray is clearly showing some improvement in her bilateral infiltrates, and I went ahead and cut down the PEEP to 14, instructed respiratory to cut it down to 12 if her O2 sat saturation remains above 95% later today. Medication list was reviewed patient is on Peridex, Lovenox 40 mg subcu twice a day, Lexapro, insulin as per scale, Levaquin, methylprednisolone 460 mg IV push every 6 hours, Protonix 40 mg IV pus h daily Progress note dated 06/12/2021. This is a patient who is 58 years of age, who was admitted to the hospital back on June 02, with coronavirus associated pneumonia. She came to the intensive care unit on June 06, and had a left thoracentesis. Thoracentesis was performed on June 03, and showed evidence of small cell lung cancer. She was intubated on June 06, and subsequently, was discovered to have a left-sided pneumothorax, a chest tube was placed. She remains on mechanical ventilator. She is on the volume assist control mode, rate 30, tidal volume 400, FiO2 50%, with a PEEP of 12. Blood gases show pO2 of 80, pCO2 49, and a pH is 7.40. She is on Nimbex at 1 mcg/kg/m, fentanyl 1 mcg/kg/h, follow 50 mcg/kg/m, saline at 100 mL an hour, and vital AF at 20 mL an hour, which is goal. The plan today is to turn down the IV fluids, give her Lasix, and drop the PEEP from 12 down to 10. White count from 0.5, hemoglobin 10.5, normal hematocrit, and platelet count 328,000. Sodium 139, potassium 4.4, chlorides 106, CO2 30, anion gap 3, BUN 27, and creatinine 0.52. Albumin is 2.3. Microbiologic studies are negative. Chest x-ray shows endotracheal tube that is too low and needs to be pulled back, as well as diffuse bilateral parenchymal abnormalities. The left-s ided chest tube is noted. Progress note dated 06/13/2021. 58-year-old female, again seen in room 257. She was admitted to the hospital back on June 02 with coronavirus associated pneumonia. She came to the intensive care unit on June 06, and had a left-sided thoracentesis. Thoracentesis was performed on June 03. Fluid cytology was positive for small cell lung cancer. The patient was intubated on June 06, was also discovered to have a left-sided pneumothorax. A chest tube was placed. She remains on the mechanical ventilator. She is on the volume assist control mode, rate 30, tidal volume 400, FiO2 50%, and PEEP of 10. The gases show a pO2 of 60, pCO2 48, and a pH of 7.45. She remains on propofol at 50 mcg/kg/m, fentanyl 1 microgram per kilogram per hour, saline at KVO, and vital AF at 22 mL an hour, which is goal. Microbiologic studies are negative. White count 11.8, hemoglobin 11.2, hematocrit 37, and platelet count is normal. Sodium 137, potassium 4.4, chlorides 102, CO2 31, normal anion gap, BUN 34, and creatinine 0.47. Chest x-ray shows a worsening pattern of fluid overload and/or pneumonia. Objective - Vital Signs Vital signs: Vital Signs Temp 982 F H 06/13/21 04:00 Pulse 77 06/13/21 09:00 Resp 30 H 06/13/21 09:00 BP 130/82 06/12/21 19:00 Pulse Ox 88 L 06/13/21 09:00 Intake & Output 06/12/21 06/13/2121 18:59 06:59 18:59 Intake Total 779.24 967.160 261.62 Output Total 515 465 150 Balance 264.24 502.160 111.62 Weight 93.2 kg 96 kg Intake: IV 486 258 40 0.9 @ KVO 200 40 Sodium Chloride 0.9% 1, 450 25 000 ml @ 100 mls/hr IV . Q10H JOSE ANTONIO Rx#:[id number] pressure bag 36 33 Intake, IV Titration 293.24 267.160 95.62 Amount fentaNYL (PF). 1,000 mcg 100 95.62 In Sodium Chloride 0.9% 80 ml @ 0.5 MCG/KG/HR 4.2 mls/hr IV .[id number] JOSE ANTONIO Rx#:[id number] propofoL 1,000 mg In 193.24 267.160 Empty Bag 1 bag @ Titrate IV .Q0M JOSE ANTONIO Rx#: [id number] Tube Feeding 242 66 Other 200 60 Output: Chest Tube Drainage 40 Left 40 Urine 515 425 150 Other: Voiding Method Indwelling Catheter Indwelling Catheter Indwelling Catheter ABP, PAP, CO, CI - Last Documented Arterial Blood Pressure 136/64 - Exam No acute distress, currently sedated and paralyzed, with an orally placed endotracheal tube and NG tube. There is a left-sided chest tube as well.. HEENT examination is grossly unremarkable. Neck supple. Full range of motion. No adenopathy thyromegaly or neck vein distention. Cardiovascular examination reveals regular rhythm rate. S1-S2 normal. No S3 or S4. No discernible murmur noted. Heart rate 77 bpm. Heart sounds are distant. Lungs reveal coarse bilateral rhonchi. Breath sounds equal. No wheezes or crackles. Left-sided chest tube is noted. Abdomen soft bowel sounds are heard. No masses or tenderness. Extremities are intact. No cyanosis clubbing or edema. Skin is without rash or lesion. Neurologic examination cannot be adequately assessed as the patient's currently sedated and paralyzed. - Labs CBC & Chem 7: 06/13/21 05:05 06/13/21 05:05 Labs: Abnormal Lab Results - Last 24 Hours (Table) 06/12/21 06/12/21 06/12/21 Range/Units 11:29 15:46 19:55 WBC (3.8-10.6) k/uL Hgb (11.4-16.0) gm/dL MCHC (31.0-37.0) g/dL Neutrophils # (1.3-7.7) k/uL Lymphocytes # (1.0-4.8) k/uL ABG pCO2 (35-45) mmHg ABG pO2 (83-108) mmHg ABG HCO3 (21-25) mmol/L ABG Total CO2 (19-24) mmol/L ABG O2 Saturation (94-97) % Carbon Dioxide (22-30) mmol/L BUN (7-17) mg/dL Creatinine (0.52-1.04) mg/dL Glucose (74-99) mg/dL POC Glucose (mg/dL) 209 H 176 H 136 H (75-99) mg/dL Calcium (8.4-10.2) mg/dL Total Protein (6.3-8.2) g/dL Albumin (3.5-5.0) g/dL 06/13/21 06/13/21 06/13/21 Range/Units 00:45 05:05 05:05 WBC 11.8 H (3.8-10.6) k/uL Hgb 11.2 L (11.4-16.0) gm/dL MCHC 30.3 L (31.0-37.0) g/dL Neutrophils # 10.8 H (1.3-7.7) k/uL Lymphocytes # 0.5 L (1.0-4.8) k/uL ABG pCO2 (35-45) mmHg ABG pO2 (83-108) mmHg ABG HCO3 (21-25) mmol/L ABG Total CO2 (19-24) mmol/L ABG O2 Saturation (94-97) % Carbon Dioxide 31 H (22-30) mmol/L BUN 34 H (7-17) mg/dL Creatinine 0.47 L (0.52-1.04) mg/dL Glucose 193 H (74-99) mg/dL POC Glucose (mg/dL) 166 H (75-99) mg/dL Calcium 8.2 L (8.4-10.2) mg/dL Total Protein 5.3 L (6.3-8.2) g/dL Albumin 2.5 L (3.5-5.0) g/dL 06/13/21 06/13/21 Range/Units 05:29 05:50 WBC (3.8-10.6) k/uL Hgb (11.4-16.0) gm/dL MCHC (31.0-37.0) g/dL Neutrophils # (1.3-7.7) k/uL Lymphocytes # (1.0-4.8) k/uL ABG pCO2 48 H (35-45) mmHg ABG pO2 60 L (83-108) mmHg ABG HCO3 33 H (21-25) mmol/L ABG Total CO2 35 H (19-24) mmol/L ABG O2 Saturation 92.4 L (94-97) % Carbon Dioxide (22-30) mmol/L BUN (7-17) mg/dL Creatinine (0.52-1.04) mg/dL Glucose (74-99) mg/dL POC Glucose (mg/dL) 175 H (75-99) mg/dL Calcium (8.4-10.2) mg/dL Total Protein (6.3-8.2) g/dL Albumin (3.5-5.0) g/dL Microbiology - Last 24 Hours (Table) 06/03/21 12:00 Acid Fast Bacilli Smear - Final Pleural Fluid Acid Fast Bacilli Culture - Preliminary Assessment and Plan Assessment: Acute hypoxemic respiratory failure, secondary to coronavirus associated pneumonia, as well as small cell lung cancer. Acute exacerbation of COPD. Status post left-sided thoracentesis June 03, showing evidence of small cell lung cancer. Status post intubation and mechanical ventilation for respiratory failure, 06/06/2021. Status post left-sided pneumothorax, with chest tube insertion, 06/10/2021. History of obstructive sleep apnea syndrome. History of narcolepsy. Benign essential hypertension. Type 2 diabetes mellitus. Chronic back pain. Generalized anxiety disorder. History of restless leg syndrome. Plan: Plan dated 06/12/2021. The patient remains on the mechanical ventilator. We are going to cut back on her IV fluids. We'll give her Lasix 40 mg IV push. The PEEP was dropped from 12 cm water, down to 10 cm water. The patient continues on Nimbex, fentanyl, and propofol. We will attempt to wean her off the paralytic. We will continue with GI prophylaxis and DVT prophylaxis, bronchodilators, and vitamins against coronavirus infection. Prognosis is guarded. She continues on tube feeds. We will continue to follow make recommendations where appropriate. Plan dated 06/13/2021. Because of the patient's worsening chest x-ray, the patient will get some Lasix, 40 mg IV push. We did cut back her IV fluids yesterday. She remains on propofol at 50 mcg/kg/m, and fentanyl 1 mcg/kg/h. Blood gases have been reviewed. The patient remains on appropriate vitamins, as well as GI prophylaxis and DVT prophylaxis. Her overall prognosis is poor. Dr. Gusman we'll talk to the son's about CODE STATUS given her diagnoses. Additional recommendations and suggestions are forthcoming. We'll continue to follow and make recommendations where appropriate. Time with Patient: Greater than 30
[2021-06-13 12:00] LABS: Glucose,Whole Blood 192 mg/dL (75-99)
--- NOTE | 2021-06-13 16:08 | P.PN ---
Subjective Progress Note Date: 06/13/21 This is 66-year-old female admitted with acute COVID-19 pneumonia, left pleural effusion, left hilar mass possibly malignant, acute COPD exacerbation, acute hypoxic respiratory failure, and multiple other medical issues. Status post thoracentesis with pleural cytology pending. Maintained on bronchodilators, covid cocktail.Patient currently on BiPAP, labored breathing, fatigued, lethargic. Afebrile. Labs pending. 06/06/2021 worsening respiratory status, on BiPAP. Intubated and transferred to ICU. ABGs post intubation reported pH 7.36, pCO2 56, pO2 66, bicarb 31 base excess 5.5. Chest x-ray reported more prominent, progression of multifocal bilateral opacities. Pleural cytology pending. Afebrile, WBC increased to 15.3. D-dimer and LDH increased, CRP 2.4. Hyperglycemia, placed on insulin drip. 06/07/2021 vent dependent, FiO2 70%/+12 of PEEP. Continues on diprovan, fentanyl, Levophed and insulin drips. Tolerating tube feeds with minimal to no residuals. T-max 99.5, normal WBC. Pleural cultures and cytology pending. Inflammatory markers today trending down with the exception of CRP, 3.3. 06/08/21 vent-dependent FiO2 70%/+14 of PEEP. Chest x-ray reporting diffuse bilateral infiltrates. Pleural fluid pathology reporting positive for metastatic small cell CA.Maintained on diprovan, fentanyl, Levophed. Renal function/electrolytes within normal limits. 06/09/2021 FiO2 60/+16 PEEP. Chest x-ray reporting no significant interval change/bilateral airspace disease. Afebrile, normal WBC. Maintained on Nimbex, fentanyl, diprovan. Renal function stable. D-dimer, LDH elevated, CRP decreased. 06/12/2021 FiO2 50%/+10 of PEEP. Maintained on diprovan, Nimbex, fentanyl, with Nimbex currently being weaned off. 06/13/2021 remains vent dependent, FiO2 50% +10 of PEEP. Chest x-ray reporting worsening volume overload, possible pneumonia. Received Lasix yesterday and scheduled today. Maintained on diprovan, fentanyl. Tolerating tube feeds at goal with minimal to no residual. Objective - Vital Signs Vital signs: Vital Signs Temp 98.1 F 06/13/21 16:00 Pulse 86 06/13/21 16:00 Resp 30 H 06/13/21 16:00 BP 130/82 06/12/21 19:00 Pulse Ox 86 L 06/13/21 16:00 Intake & Output 06/12/21 06/13/21 06/13/21 18:59 06:59 18:59 Intake Total 779.24 967.160 856.08 Output Total 432 113 9447 Balance 264.24 502.160 -818.92 Weight 93.2 kg 96 kg Intake: IV 486 258 160 0.9 @ KVO 200 160 Sodium Chloride 0.9% 1, 450 25 000 ml @ 20 mls/hr IV . Q24H JOSE ANTONIO Rx#:[id number] pressure bag 36 33 Intake, IV Titration 293.24 267.160 378.08 Amount fentaNYL (PF). 1,000 mcg 100 178.08 In Sodium Chloride 0.9% 80 ml @ 0.5 MCG/KG/HR 4.2 mls/hr IV .[id number] JOSE ANTONIO Rx#:[id number] propofoL 1,000 mg In 193.24 267.160 200.00 Empty Bag 1 bag @ Titrate IV .Q0M JOSE ANTONIO Rx#: [id number] Tube Feeding 242 198 Other 200 120 Output: Chest Tube Drainage 40 Left 40 Urine 448 604 7075 Other: Voiding Method Indwelling Catheter Indwelling Catheter Indwelling Catheter ABP, PAP, CO, CI - Last Documented Arterial Blood Pressure 108/56 - Exam Limited physical exam in intubated patient with Covid: GENERAL: Sedated on mechanical ventilation. HEENT: Normocephalic CARDIOVASCULAR: S1 and S2 regular per telemetry NEUROLOGICAL: Unable to assess, sedated on mechanical ventilation. - Labs CBC & Chem 7: 06/13/21 05:05 06/13/21 05:05 Labs: Abnormal Lab Results - Last 24 Hours (Table) 06/12/21 06/13/21 06/13/21 Range/Units 19:55 00:45 05:05 WBC 11.8 H (3.8-10.6) k/uL Hgb 11.2 L (11.4-16.0) gm/dL MCHC 30.3 L (31.0-37.0) g/dL Neutrophils # 10.8 H (1.3-7.7) k/uL Lymphocytes # 0.5 L (1.0-4.8) k/uL ABG pCO2 (35-45) mmHg ABG pO2 (83-108) mmHg ABG HCO3 (21-25) mmol/L ABG Total CO2 (19-24) mmol/L ABG O2 Saturation (94-97) % Carbon Dioxide (22-30) mmol/L BUN (7-17) mg/dL Creatinine (0.52-1.04) mg/dL Glucose (74-99) mg/dL POC Glucose (mg/dL) 136 H 166 H (75-99) mg/dL Calcium (8.4-10.2) mg/dL Total Protein (6.3-8.2) g/dL Albumin (3.5-5.0) g/dL 06/13/21 06/13/21 06/13/21 Range/Units 05:05 05:29 05:50 WBC (3.8-10.6) k/uL Hgb (11.4-16.0) gm/dL MCHC (31.0-37.0) g/dL Neutrophils # (1.3-7.7) k/uL Lymphocytes # (1.0-4.8) k/uL ABG pCO2 48 H (35-45) mmHg ABG pO2 60 L (83-108) mmHg ABG HCO3 33 H (21-25) mmol/L ABG Total CO2 35 H (19-24) mmol/L ABG O2 Saturation 92.4 L (94-97) % Carbon Dioxide 31 H (22-30) mmol/L BUN 34 H (7-17) mg/dL Creatinine 0.47 L (0.52-1.04) mg/dL Glucose 193 H (74-99) mg/dL POC Glucose (mg/dL) 175 H (75-99) mg/dL Calcium 8.2 L (8.4-10.2) mg/dL Total Protein 5.3 L (6.3-8.2) g/dL Albumin 2.5 L (3.5-5.0) g/dL 06/13/21 Range/Units 11:58 WBC (3.8-10.6) k/uL Hgb (11.4-16.0) gm/dL MCHC (31.0-37.0) g/dL Neutrophils # (1.3-7.7) k/uL Lymphocytes # (1.0-4.8) k/uL ABG pCO2 (35-45) mmHg ABG pO2 (83-108) mmHg ABG HCO3 (21-25) mmol/L ABG Total CO2 (19-24) mmol/L ABG O2 Saturation (94-97) % Carbon Dioxide (22-30) mmol/L BUN (7-17) mg/dL Creatinine (0.52-1.04) mg/dL Glucose (74-99) mg/dL POC Glucose (mg/dL) 192 H (75-99) mg/dL Calcium (8.4-10.2) mg/dL Total Protein (6.3-8.2) g/dL Albumin (3.5-5.0) g/dL Microbiology - Last 24 Hours (Table) 06/03/21 12:00 Acid Fast Bacilli Smear - Final Pleural Fluid Acid Fast Bacilli Culture - Preliminary Assessment and Plan Assessment: Acute hypoxic respiratory failure, mechanical ventilator-dependent, multifactorial secondary to acute covid pneumonia, left pleural effusion and acute COPD exacerbation. Large left pneumothorax with chest tube. Status post emergent thoracentesis, pleural cytology reporting metastatic small cell CA. Right lower extremity thigh, nonhealing ulceration Chronic hypoxic and hypercapnic respiratory failure Obstructive sleep apnea, intolerant of CPAP Diabetes mellitus type 2 Essential hypertension Chronic back pain anxiety disorder Restless leg syndrome History of narcolepsy Plan: Continue on current medication regime ,monitoring and symptomatic treatment. Maintain covid cocktail, bronchodilators. ICU management as per clutch inspector.PCP will discuss with son CODE STATUS as prognosis guarded given multiple complex medical issues. The impression and plan of care has been dictated as directed. : I performed a history and examination of this patient, discussed the same with the dictator. I agree with the dictator's note ,documented as a scribe. Any additional findings or plans will be noted.
[2021-06-13 17:37] LABS: Glucose,Whole Blood 196 mg/dL (75-99)
[2021-06-13] MEDS ORDERED: CISATRACURIUM 2 MG/ML 5 ML VIAL IV ONE ×2 (19:44→19:48)
[2021-06-13] MEDS: ESCITALOPRAM 20 MG TAB PO SCH (20:12)
[2021-06-13] MEDS: INSULIN DETEMIR (LEVEMIR) 100 UNIT/ML SYR SQ SCH (20:12)
[2021-06-13 21:23] VITALS: RESP 30
[2021-06-13 23:36] LABS: Glucose,Whole Blood 164 mg/dL (75-99)
[2021-06-14] MEDS: SODIUM CHLORIDE 0.9% 1,000 ML IV SCH (01:50)
[2021-06-14] MEDS: ARTIFICIAL TEARS-HYPROMELLOSE DROPS 15 ML BTL BOTH EYES SCH ×5 (03:20→20:27)
[2021-06-14] MEDS: fentaNYL (PF). 1,000 MCG in SODIUM CHLORIDE 0.9% 80 ML IV SCH ×4 (04:24→23:21)
[2021-06-14 05:17] LABS: Glucose,Whole Blood 196 mg/dL (75-99)
[2021-06-14] MEDS: INSULIN ASPART (NovoLOG) 100 UNIT/ML VIAL SQ SCH ×3 (05:21→17:48)
[2021-06-14 05:50] LABS: ABG Base Excess 12.1 mmol/L; ABG HCO3 36 mmol/L (21-25); ABG Oxygen Saturation 97.4 % (94-97); ABG PCO2 51 mmHg (35-45); ABG PH 7.46 (7.35-7.45); ABG PO2 85 mmHg (83-108); ABG TCO2 38 mmol/L (19-24); Allen Test Performed? Yes
[2021-06-14 08:53] LABS: Basophils % (A) 0 %; Eosinophils % (A) 0 %; HCT 31.9 % (34.0-46.0); HGB 9.9 gm/dL (11.4-16.0); Hypochromasia Marked; Lymphocytes # (A) 0.6 k/uL (1.0-4.8); Lymphocytes % (A) 6 %; MCH 26.6 pg (25.0-35.0); MCHC 31.1 g/dL (31.0-37.0); MCV 85.5 fL (80.0-100.0); Mean Platelet Volume 7.7; Monocytes # (A) 0.4 k/uL (0-1.0); Monocytes % (A) 4 %; Neutrophils # (A) 8.5 k/uL (1.3-7.7); Neutrophils % (A) 89 %; Platelet Count 301 k/uL (150-450); RBC 3.73 m/uL (3.80-5.40); RDW 14.8 % (11.5-15.5); WBC 9.6 k/uL (3.8-10.6)
[2021-06-14 09:22] LABS: African American GFR (CKD) >90 (>60 ml/min/1.73 sqM); Anion Gap 0 mmol/L; Blood Urea Nitrogen 28 mg/dL (7-17); Carbon Dioxide 34 mmol/L (22-30); Chloride 102 mmol/L (98-107); Glucose 185 mg/dL (74-99); Non-African American GFR(CKD) >90 (>60 ml/min/1.73 sqM); Potassium 4.4 mmol/L (3.5-5.1); Sodium 136 mmol/L (137-145)
[2021-06-14 10:24] VITALS: BMI 37.5
[2021-06-14] MEDS: ALBUTEROL HFA INHALER INHALATION SCH ×4 (10:50→20:43)
--- NOTE | 2021-06-14 10:54 | P.PN ---
Subjective Progress Note Date: 06/14/21 Principal diagnosis: Coronavirus associated pneumonia. Reevaluated today on 06/06/2021, patient had worsening clinical status morning, she required placement on BiPAP, however even on BiPAP, the patient remained extremely short of breath, she was developing intermittent episodes of lethargy. Patient was transferred to the ICU, intubated S1 S1 she arrived to the ICU. She is now on assist control rate of 30 tidal volume 400 FiO2 on the percent and PEEP of 12. ABG post intubation showed a pO2 of 66 pCO2 of 56 pH of 7.36. Basic metabolic profile is normal renal profile is normal blood sugar is running a bit high, patient may have to be placed on insulin drip. D-dimer is 1.41. WBC count is 15.3 hemoglobin 13.6. LDH is 1374 C-reactive protein 2.4. 6 x-ray is showing worsening infiltrates bilaterally right more so than left. Cytology from her pleural effusion is pending. Reevaluated today on 06/07/2021, patient remains in the ICU intubated and mechanically ventilated. She is on assist control rate of 30 tidal volume 400 FiO2 60% and PEEP is at 14, it was earlier at 12. ABG showed a pO2 of 89 pCO2 39 pH of 7.53 and this was on 70%, I did cut down the FiO2 to 60%. Patient remains on propofol at 50, she is requiring norepinephrine at 0.05 mcg/kg/m she is on insulin at 20 unit per hour drip is also on IV fluid at 100 mL per hour. CBC and basic metabolic profile is normal. Rest x-ray continues to show bilateral interstitial infiltrates, her LDH today is 989, improving compared to yesterday, and C-reactive protein is down to 3.3. Reevaluated today on 06/08/2021, patient remains in the ICU, intubated and mechanically ventilated. Her pleural effusion cytology came back positive for small cell lung cancer. Patient is intubated and mechanically ventilated, she is on tidal volume of 400 assist control rate of 30 FiO2 70% PEEP 14 however considering her poor ABG I recommended increasing her FiO2 to 75% and PEEP was increased to 16. Patient is requiring norepinephrine at 0.03 mcg/kg/m she is on fentanyl 0.5 mcg/kg/h propofol 50 mcg/kg/minute, IV fluid is at 80 mL per hour. ABG is showing pO2 of 53 pCO2 42 pH of 7.47 WBC count is 8.1 hemoglobin is 10.9. Electrolytes are normal renal profile is normal BUN is 23 creatinine 0.6. Again the patient required increase FiO2 to 75% and increase PEEP to 16. Chest x-ray continues to show significant airspace disease and left hilar mass with a small pleural effusion. Again her effusion came back positive for small cell lung cancer. Patient is also on enteral feeding via orogastric tube Reevaluated today on 06/09/2021, patient remains in the ICU, intubated and mechanically ventilated. Patient is on assist control rate of 30 tidal volume 400 FiO2 60% PEEP of 16. ABG showed a pO2 of 75 pCO2 52 pH of 7.36. Chest x- ray continues to show bilateraldisease, left pleural effusion and left hilar mass. Patient remains on propofol at 50 fentanyl at 1 Nimbex at 2 and she is on enteral feeding. Electrolytes are normal renal profile is normal LDH is 1150. Slightly worse compared to a few days ago. And C-reactive protein is a little bit better compared to 2 days ago he had medications-lake the patient remains on Levaquin, methylprednisolone 60 mg IV push every 6 hours, Mirapex, propofol, and she is on Lovenox 40 mg subcu twice a day because of elevated d-dimer. Reevaluated today on 06/10/2021, patient had a morning chest x-ray today, and I was called about this patient having a large left-sided pneumothorax. Hence I came in and placed a left sided chest tube in this patient, The patient on mechanical ventilation, her assist control rate is 30 tidal volume 400 FiO2 50% and PEEP of 16. ABG showed a pO2 of 65 pCO2 48 pH of 7.38. Patient is on Nimbex at 1 mcg/kg/m, propofol 50 mcg/kg/m, fentanyl 1 mcg/kg/h she is on vital AF at 20 mL per hour. Chest x-ray was noted before the chest tube placement and there was a large left-sided pneumothorax, follow-up chest x-ray post chest tube placement showed complete reexpansion of the lung, and adequate placement of the chest tube in the left apex. Clinically the patient is about the same. Not much of a change in the last 24 hours except for this new left-sided pneumothorax secondary to barotrauma. CBC today is relatively normal hemoglobin is 10.5 WBC count is 7.8. Electrolytes are normal renal profile is normal. Liver enzymes are normal. Reevaluated today on 06/11/2021, remains in the ICU, intubated and mechanically ventilated. Her chest x-ray today is showing some improvement in her bilateral infiltrates. Chest tubes remains in good position, no air leak noted. However we had a total of 1400 mL of fluid drained in the last 24 hours. She is on assist control rate of 30 tidal volume 400 FiO2 50% PEEP is 16 and I cut it down to 14 today, plan to cut it down to 12 possibly later today. ABG showed a pO2 of 100 pCO2 48 pH of 7.37. Patient remains on propofol at 50 mcg/kg/m fentanyl at 1 mcg/kg/h, Nimbex at 1 mcg/kg/m. IV fluid 0.9 normal saline at 100 mL per hour. Labs today showed WBC count of 11.6 hemoglobin of 10.7. Electrolytes are normal BUN is 30 creatinine 0.6. Again her chest x-ray is clearly showing some improvement in her bilateral infiltrates, and I went ahead and cut down the PEEP to 14, instructed respiratory to cut it down to 12 if her O2 sat saturation remains above 95% later today. Medication list was reviewed patient is on Peridex, Lovenox 40 mg subcu twice a day, Lexapro, insulin as per scale, Levaquin, methylprednisolone 460 mg IV push every 6 hours, Protonix 40 mg IV pus h daily Progress note dated 06/12/2021. This is a patient who is 58 years of age, who was admitted to the hospital back on June 02, with coronavirus associated pneumonia. She came to the intensive care unit on June 06, and had a left thoracentesis. Thoracentesis was performed on June 03, and showed evidence of small cell lung cancer. She was intubated on June 06, and subsequently, was discovered to have a left-sided pneumothorax, a chest tube was placed. She remains on mechanical ventilator. She is on the volume assist control mode, rate 30, tidal volume 400, FiO2 50%, with a PEEP of 12. Blood gases show pO2 of 80, pCO2 49, and a pH is 7.40. She is on Nimbex at 1 mcg/kg/m, fentanyl 1 mcg/kg/h, follow 50 mcg/kg/m, saline at 100 mL an hour, and vital AF at 20 mL an hour, which is goal. The plan today is to turn down the IV fluids, give her Lasix, and drop the PEEP from 12 down to 10. White count from 0.5, hemoglobin 10.5, normal hematocrit, and platelet count 328,000. Sodium 139, potassium 4.4, chlorides 106, CO2 30, anion gap 3, BUN 27, and creatinine 0.52. Albumin is 2.3. Microbiologic studies are negative. Chest x-ray shows endotracheal tube that is too low and needs to be pulled back, as well as diffuse bilateral parenchymal abnormalities. The left-s ided chest tube is noted. Progress note dated 06/13/2021. 58-year-old female, again seen in room 257. She was admitted to the hospital back on June 02 with coronavirus associated pneumonia. She came to the intensive care unit on June 06, and had a left-sided thoracentesis. Thoracentesis was performed on June 03. Fluid cytology was positive for small cell lung cancer. The patient was intubated on June 06, was also discovered to have a left-sided pneumothorax. A chest tube was placed. She remains on the mechanical ventilator. She is on the volume assist control mode, rate 30, tidal volume 400, FiO2 50%, and PEEP of 10. The gases show a pO2 of 60, pCO2 48, and a pH of 7.45. She remains on propofol at 50 mcg/kg/m, fentanyl 1 microgram per kilogram per hour, saline at KVO, and vital AF at 22 mL an hour, which is goal. Microbiologic studies are negative. White count 11.8, hemoglobin 11.2, hematocrit 37, and platelet count is normal. Sodium 137, potassium 4.4, chlorides 102, CO2 31, normal anion gap, BUN 34, and creatinine 0.47. Chest x-ray shows a worsening pattern of fluid overload and/or pneumonia. Progress note dated 06/14/2021. 58-year-old female, seen in room 257. The patient was admitted to the hospital back on June 02, with coronavirus associated pneumonia. She came to the intensive care unit on June 06, and was noted to have a left-sided thoracentesis. Thoracentesis was performed on June 03, and the fluid cytology came back positive for small cell lung cancer. For worsening respiratory failure, the patient was intubated on June 06, and also had a chest tube placed for left-sided pneumothorax. The patient remains on the vent ilator. She is on the volume assist control mode, rate 30, tidal volume 400, FiO2 60% to be reduced down to 50% PEEP of 10. PO2 is 84, pCO2 51, pH 7.46. She is on propofol 65 mcg/kg/m, fentanyl at 2 mcg/kg/h, Nimbex at 2 mcg/kg/m, saline at 20 mL an hour and vital AF at 22 mL an hour, which is goal. The patient had a daily interruption of sedation on June 13, but did poorly. Apparently family is now considering the possibility of comfort care. The patient is a DO NOT RESUSCITATE patient. White count is 9.6, hemoglobin 9.9, hematocrit 31.9, and a platelet count is 301,000. Sodium 136, potassium 4.4, chlorides 102, CO2 34, BUN 28, with a creatinine 0.51. Chest x-ray shows a pattern of worsening fluid overload/CHF. Objective - Vital Signs Vital signs: Vital Signs Temp 98.2 F 06/14/21 08:00 Pulse 85 06/14/21 09:00 Resp 30 H 06/14/21 09:00 BP 130/82 06/14/21 09:00 Pulse Ox 95 06/14/21 09:00 Intake & Output 06/13/21 06/14/21 06/14/21 18:59 06:59 18:59 Intake Total 1142.08 1134.764 46 Output Total 1865 655 95 Balance -722.92 479.764 -49 Weight 96.3 kg 96.3 kg Intake: IV 220 296 46 0.9 @ KVO 220 260 40 pressure bag 36 6 Intake, IV Titration 478.08 574.764 Amount Cisatracurium 200 mg In 197.484 Sodium Chloride 0.9% 180 ml @ 2 MCG/KG/MIN 10.08 mls/hr IV .[id number] [facility] Rx #:[id number] fentaNYL (PF). 1,000 mcg 178.08 200.00 In Sodium Chloride 0.9% 80 ml @ 0.5 MCG/KG/HR 4.2 mls/hr IV .[id number] [facility] Rx#:[id number] propofoL 1,000 mg In 300.00 177.280 Empty Bag 1 bag @ Titrate IV .Q0M [facility] Rx#: [id number] Tube Feeding 264 264 Other 180 Output: Chest Tube Drainage 70 10 Left 70 10 Urine 1795 645 95 Other: Voiding Method Indwelling Catheter Indwelling Catheter Indwelling Catheter ABP, PAP, CO, CI - Last Documented Arterial Blood Pressure 114/47 - Exam No acute distress, currently sedated and paralyzed, with an orally placed endotracheal tube and NG tube. There is a left-sided chest tube as well.. HEENT examination is grossly unremarkable. Neck supple. Full range of motion. No adenopathy thyromegaly or neck vein distention. Cardiovascular examination reveals regular rhythm rate. S1-S2 normal. No S3 or S4. No discernible murmur noted. Heart rate 85 bpm. Heart sounds are distant. Lungs reveal coarse bilateral rhonchi. Breath sounds equal. No wheezes or crackles. Left-sided chest tube is noted. Saturations are 95%. Abdomen soft bowel sounds are heard. No masses or tenderness. Extremities are intact. No cyanosis clubbing or edema. Skin is without rash or lesion. Neurologic examination cannot be adequately assessed as the patient's currently sedated and paralyzed. - Labs CBC & Chem 7: 06/14/21 06:45 06/14/21 06:45 Labs: Abnormal Lab Results - Last 24 Hours (Table) 06/13/21 06/13/21 06/13/21 Range/Units 11:58 17:35 23:34 RBC (3.80-5.40) m/uL Hgb (11.4-16.0) gm/dL Hct (34.0-46.0) % Neutrophils # (1.3-7.7) k/uL Lymphocytes # (1.0-4.8) k/uL ABG pH (7.35-7.45) ABG pCO2 (35-45) mmHg ABG HCO3 (21-25) mmol/L ABG Total CO2 (19-24) mmol/L ABG O2 Saturation (94-97) % Sodium (137-145) mmol/L Carbon Dioxide (22-30) mmol/L BUN (7-17) mg/dL Creatinine (0.52-1.04) mg/dL Glucose (74-99) mg/dL POC Glucose (mg/dL) 192 H 196 H 164 H (75-99) mg/dL Calcium (8.4-10.2) mg/dL 06/14/21 06/14/21 06/14/21 Range/Units 05:15 05:44 06:45 RBC 3.73 L (3.80-5.40) m/uL Hgb 9.9 L (11.4-16.0) gm/dL Hct 31.9 L (34.0-46.0) % Neutrophils # 8.5 H (1.3-7.7) k/uL Lymphocytes # 0.6 L (1.0-4.8) k/uL ABG pH 7.46 H (7.35-7.45) ABG pCO2 51 H (35-45) mmHg ABG HCO3 36 H (21-25) mmol/L ABG Total CO2 38 H (19-24) mmol/L ABG O2 Saturation 97.4 H (94-97) % Sodium (137-145) mmol/L Carbon Dioxide (22-30) mmol/L BUN (7-17) mg/dL Creatinine (0.52-1.04) mg/dL Glucose (74-99) mg/dL POC Glucose (mg/dL) 196 H (75-99) mg/dL Calcium (8.4-10.2) mg/dL 06/14/21 Range/Units 06:45 RBC (3.80-5.40) m/uL Hgb (11.4-16.0) gm/dL Hct (34.0-46.0) % Neutrophils # (1.3-7.7) k/uL Lymphocytes # (1.0-4.8) k/uL ABG pH (7.35-7.45) ABG pCO2 (35-45) mmHg ABG HCO3 (21-25) mmol/L ABG Total CO2 (19-24) mmol/L ABG O2 Saturation (94-97) % Sodium 136 L (137-145) mmol/L Carbon Dioxide 34 H (22-30) mmol/L BUN 28 H (7-17) mg/dL Creatinine 0.51 L (0.52-1.04) mg/dL Glucose 185 H (74-99) mg/dL POC Glucose (mg/dL) (75-99) mg/dL Calcium 8.0 L (8.4-10.2) mg/dL Assessment and Plan Assessment: Acute hypoxemic respiratory failure, secondary to coronavirus associated pneumonia, as well as small cell lung cancer. Acute exacerbation of COPD. Status post left-sided thoracentesis June 03, showing evidence of small cell lung cancer. Status post intubation and mechanical ventilation for respiratory failure, 06/06/2021. Status post left-sided pneumothorax, with chest tube insertion, 06/10/2021. History of obstructive sleep apnea syndrome. History of narcolepsy. Benign essential hypertension. Type 2 diabetes mellitus. Chronic back pain. Generalized anxiety disorder. History of restless leg syndrome. Plan: Plan dated 06/12/2021. The patient remains on the mechanical ventilator. We are going to cut back on her IV fluids. We'll give her Lasix 40 mg IV push. The PEEP was dropped from 12 cm water, down to 10 cm water. The patient continues on Nimbex, fentanyl, and propofol. We will attempt to wean her off the paralytic. We will continue with GI prophylaxis and DVT prophylaxis, bronchodilators, and vitamins against coronavirus infection. Prognosis is guarded. She continues on tube feeds. We will continue to follow make recommendations where appropriate. Plan dated 06/13/2021. Because of the patient's worsening chest x-ray, the patient will get some Lasix, 40 mg IV push. We did cut back her IV fluids yesterday. She remains on propofol at 50 mcg/kg/m, and fentanyl 1 mcg/kg/h. Blood gases have been reviewed. The patient remains on appropriate vitamins, as well as GI prophylaxis and DVT prophylaxis. Her overall prognosis is poor. Dr. Gusman we'll talk to the son's about CODE STATUS given her diagnoses. Additional recommendations and suggestions are forthcoming. We'll continue to follow and make recommendations where appropriate. Plan dated 06/14/2021. The patient did very poorly with her daily interruption of sedation yesterday. She remains on propofol, fentanyl, and Nimbex. Apparently, the family has decided to make the patient a DO NOT RESUSCITATE. At this point, given the history and diagnosis of small cell lung cancer,, apparently, they are also considering comfort care. The patient was intubated on June 06. She remains intubated. Overall prognosis is very poor. We'll continue to follow make recommendations where appropriate. Labs, x-rays, and medications are all reviewed. Time with Patient: Greater than 30
[2021-06-14] MEDS: PANTOPRAZOLE 40 MG/10 ML VIAL IVP SCH (12:10)
[2021-06-14] MEDS: CHLORHEXIDINE GLUCONATE 15 ML CUP MUCOUS MEM SCH ×2 (12:10→20:26)
[2021-06-14] MEDS: methylPREDNISolone SOD SUCCI 40 MG/ML 1 ML VIAL IV SCH ×2 (12:16→17:48)
[2021-06-14] MEDS: ENOXAPARIN 40 MG/0.4 ML SYRINGE SQ SCH (12:16)
[2021-06-14 12:28] LABS: Glucose,Whole Blood 166 mg/dL (75-99)
--- NOTE | 2021-06-14 15:56 | P.PN ---
Subjective Progress Note Date: 06/14/21 This is 66-year-old female admitted with acute COVID-19 pneumonia, left pleural effusion, left hilar mass possibly malignant, acute COPD exacerbation, acute hypoxic respiratory failure, and multiple other medical issues. Status post thoracentesis with pleural cytology pending. Maintained on bronchodilators, covid cocktail.Patient currently on BiPAP, labored breathing, fatigued, lethargic. Afebrile. Labs pending. 06/06/2021 worsening respiratory status, on BiPAP. Intubated and transferred to ICU. ABGs post intubation reported pH 7.36, pCO2 56, pO2 66, bicarb 31 base excess 5.5. Chest x-ray reported more prominent, progression of multifocal bilateral opacities. Pleural cytology pending. Afebrile, WBC increased to 15.3. D-dimer and LDH increased, CRP 2.4. Hyperglycemia, placed on insulin drip. 06/07/2021 vent dependent, FiO2 70%/+12 of PEEP. Continues on diprovan, fentanyl, Levophed and insulin drips. Tolerating tube feeds with minimal to no residuals. T-max 99.5, normal WBC. Pleural cultures and cytology pending. Inflammatory markers today trending down with the exception of CRP, 3.3. 06/08/21 vent-dependent FiO2 70%/+14 of PEEP. Chest x-ray reporting diffuse bilateral infiltrates. Pleural fluid pathology reporting positive for metastatic small cell CA.Maintained on diprovan, fentanyl, Levophed. Renal function/electrolytes within normal limits. 06/09/2021 FiO2 60/+16 PEEP. Chest x-ray reporting no significant interval change/bilateral airspace disease. Afebrile, normal WBC. Maintained on Nimbex, fentanyl, diprovan. Renal function stable. D-dimer, LDH elevated, CRP decreased. 06/12/2021 FiO2 50%/+10 of PEEP. Maintained on diprovan, Nimbex, fentanyl, with Nimbex currently being weaned off. 06/13/2021 remains vent dependent, FiO2 50% +10 of PEEP. Chest x-ray reporting worsening volume overload, possible pneumonia. Received Lasix yesterday and scheduled today. Maintained on diprovan, fentanyl. Tolerating tube feeds at goal with minimal to no residual. 06/14/2021 FiO2 60%/+10 of PEEP. Chest x-ray reporting worsening volume overload, mediastinal and left hilar adenopathy. PCP discussed poor prognosis , CODE STATUS and options with patient's son Navin. CODE STATUS changed to no code, no CPR, no re-intubation. Navin discussing with other siblings potential comfort care. Maintained on diprovan, fentanyl, Nimbex. Tolerating tube feeds at goal with minimal to no residuals. Afebrile, normal WBC, hemoglobin 9.9, platelets 301, BUN 28, creatinine 0.51. Objective - Vital Signs Vital signs: Vital Signs Temp 98.2 F 06/14/21 08:00 Pulse 85 06/14/21 09:00 Resp 30 H 06/14/21 09:00 BP 130/82 06/14/21 09:00 Pulse Ox 95 06/14/21 09:00 Intake & Output 06/13/21 06/14/21 06/14/21 18:59 06:59 18:59 Intake Total 1142.08 1134.764 146 Output Total 1865 655 95 Balance -722.92 479.764 51 Weight 96.3 kg 96.3 kg Intake: IV 220 296 46 0.9 @ KVO 220 260 40 pressure bag 36 6 Intake, IV Titration 478.08 574.764 100 Amount Cisatracurium 200 mg In 197.484 Sodium Chloride 0.9% 180 ml @ 2 MCG/KG/MIN 10.08 mls/hr IV .[id number] [facility] Rx #:[id number] fentaNYL (PF). 1,000 mcg 178.08 200.00 100 In Sodium Chloride 0.9% 80 ml @ 0.5 MCG/KG/HR 4.2 mls/hr IV .[id number] [facility] Rx#:[id number] propofoL 1,000 mg In 300.00 177.280 Empty Bag 1 bag @ Titrate IV .Q0M [facility] Rx#: [id number] Tube Feeding 264 264 Other 180 Output: Chest Tube Drainage 70 10 Left 70 10 Urine 1795 645 95 Other: Voiding Method Indwelling Catheter Indwelling Catheter Indwelling Catheter ABP, PAP, CO, CI - Last Documented Arterial Blood Pressure 114/47 - Exam Limited physical exam in intubated patient with Covid: GENERAL: Sedated on mechanical ventilation. HEENT: Normocephalic CARDIOVASCULAR: S1 and S2 regular per telemetry NEUROLOGICAL: Unable to assess, sedated on mechanical ventilation. - Labs CBC & Chem 7: 06/14/21 06:45 06/14/21 06:45 Labs: Abnormal Lab Results - Last 24 Hours (Table) 06/13/21 06/13/21 06/14/21 Range/Units 17:35 23:34 05:15 RBC (3.80-5.40) m/uL Hgb (11.4-16.0) gm/dL Hct (34.0-46.0) % Neutrophils # (1.3-7.7) k/uL Lymphocytes # (1.0-4.8) k/uL ABG pH (7.35-7.45) ABG pCO2 (35-45) mmHg ABG HCO3 (21-25) mmol/L ABG Total CO2 (19-24) mmol/L ABG O2 Saturation (94-97) % Sodium (137-145) mmol/L Carbon Dioxide (22-30) mmol/L BUN (7-17) mg/dL Creatinine (0.52-1.04) mg/dL Glucose (74-99) mg/dL POC Glucose (mg/dL) 196 H 164 H 196 H (75-99) mg/dL Calcium (8.4-10.2) mg/dL 06/14/21 06/14/21 06/14/21 Range/Units 05:44 06:45 06:45 RBC 3.73 L (3.80-5.40) m/uL Hgb 9.9 L (11.4-16.0) gm/dL Hct 31.9 L (34.0-46.0) % Neutrophils # 8.5 H (1.3-7.7) k/uL Lymphocytes # 0.6 L (1.0-4.8) k/uL ABG pH 7.46 H (7.35-7.45) ABG pCO2 51 H (35-45) mmHg ABG HCO3 36 H (21-25) mmol/L ABG Total CO2 38 H (19-24) mmol/L ABG O2 Saturation 97.4 H (94-97) % Sodium 136 L (137-145) mmol/L Carbon Dioxide 34 H (22-30) mmol/L BUN 28 H (7-17) mg/dL Creatinine 0.51 L (0.52-1.04) mg/dL Glucose 185 H (74-99) mg/dL POC Glucose (mg/dL) (75-99) mg/dL Calcium 8.0 L (8.4-10.2) mg/dL 06/14/21 Range/Units 12:26 RBC (3.80-5.40) m/uL Hgb (11.4-16.0) gm/dL Hct (34.0-46.0) % Neutrophils # (1.3-7.7) k/uL Lymphocytes # (1.0-4.8) k/uL ABG pH (7.35-7.45) ABG pCO2 (35-45) mmHg ABG HCO3 (21-25) mmol/L ABG Total CO2 (19-24) mmol/L ABG O2 Saturation (94-97) % Sodium (137-145) mmol/L Carbon Dioxide (22-30) mmol/L BUN (7-17) mg/dL Creatinine (0.52-1.04) mg/dL Glucose (74-99) mg/dL POC Glucose (mg/dL) 166 H (75-99) mg/dL Calcium (8.4-10.2) mg/dL Assessment and Plan Assessment: Acute hypoxic respiratory failure, mechanical ventilator-dependent, multifactorial secondary to acute covid pneumonia, left pleural effusion and acute COPD exacerbation. Large left pneumothorax with chest tube. Status post emergent thoracentesis, pleural cytology reporting metastatic small cell CA. Right lower extremity thigh, nonhealing ulceration Chronic hypoxic and hypercapnic respiratory failure Obstructive sleep apnea, intolerant of CPAP Diabetes mellitus type 2 Essential hypertension Chronic back pain anxiety disorder Restless leg syndrome History of narcolepsy No code, no CPR, no re-intubation Plan: Continue on current medication regime ,monitoring and symptomatic treatment. Maintain covid cocktail, bronchodilators. ICU management as per inte nsivist.family discussing among themselves potential comfort care -prognosis guarded given multiple complex medical issues. Maintaining supportive care. The impression and plan of care has been dictated as directed. : I performed a history and examination of this patient, discussed the same with the dictator. I agree with the dictator's note ,documented as a scribe. Any additional findings or plans will be noted.
[2021-06-14 17:25] LABS: Glucose,Whole Blood 117 mg/dL (75-99)
[2021-06-14] MEDS: INSULIN DETEMIR (LEVEMIR) 100 UNIT/ML SYR SQ SCH (20:26)
[2021-06-14] MEDS: ESCITALOPRAM 20 MG TAB PO SCH (20:26)
[2021-06-14 23:33] LABS: Glucose,Whole Blood 104 mg/dL (75-99)
[2021-06-15] MEDS: ARTIFICIAL TEARS-HYPROMELLOSE DROPS 15 ML BTL BOTH EYES SCH ×4 (00:03→11:51)
[2021-06-15] MEDS: INSULIN ASPART (NovoLOG) 100 UNIT/ML VIAL SQ SCH ×2 (00:05→06:14)
[2021-06-15] MEDS: methylPREDNISolone SOD SUCCI 40 MG/ML 1 ML VIAL IV SCH ×2 (00:09→09:06)
[2021-06-15 06:10] LABS: Glucose,Whole Blood 154 mg/dL (75-99)
[2021-06-15] MEDS: fentaNYL (PF). 1,000 MCG in SODIUM CHLORIDE 0.9% 80 ML IV SCH ×3 (06:17→12:11)
[2021-06-15] MEDS: ALBUTEROL HFA INHALER INHALATION SCH (08:13)
[2021-06-15] MEDS: SODIUM CHLORIDE 0.9% 1,000 ML IV SCH (09:05)
[2021-06-15] MEDS: PANTOPRAZOLE 40 MG/10 ML VIAL IVP SCH (09:06)
[2021-06-15] MEDS: ENOXAPARIN 40 MG/0.4 ML SYRINGE SQ SCH (09:06)
[2021-06-15] MEDS: CHLORHEXIDINE GLUCONATE 15 ML CUP MUCOUS MEM SCH (09:06)
--- NOTE | 2021-06-15 09:51 | P.PN ---
Subjective Progress Note Date: 06/15/21 Principal diagnosis: Coronavirus associated pneumonia. Reevaluated today on 06/06/2021, patient had worsening clinical status morning, she required placement on BiPAP, however even on BiPAP, the patient remained extremely short of breath, she was developing intermittent episodes of lethargy. Patient was transferred to the ICU, intubated S1 S1 she arrived to the ICU. She is now on assist control rate of 30 tidal volume 400 FiO2 on the percent and PEEP of 12. ABG post intubation showed a pO2 of 66 pCO2 of 56 pH of 7.36. Basic metabolic profile is normal renal profile is normal blood sugar is running a bit high, patient may have to be placed on insulin drip. D-dimer is 1.41. WBC count is 15.3 hemoglobin 13.6. LDH is 1374 C-reactive protein 2.4. 6 x-ray is showing worsening infiltrates bilaterally right more so than left. Cytology from her pleural effusion is pending. Reevaluated today on 06/07/2021, patient remains in the ICU intubated and mechanically ventilated. She is on assist control rate of 30 tidal volume 400 FiO2 60% and PEEP is at 14, it was earlier at 12. ABG showed a pO2 of 89 pCO2 39 pH of 7.53 and this was on 70%, I did cut down the FiO2 to 60%. Patient remains on propofol at 50, she is requiring norepinephrine at 0.05 mcg/kg/m she is on insulin at 20 unit per hour drip is also on IV fluid at 100 mL per hour. CBC and basic metabolic profile is normal. Rest x-ray continues to show bilateral interstitial infiltrates, her LDH today is 989, improving compared to yesterday, and C-reactive protein is down to 3.3. Reevaluated today on 06/08/2021, patient remains in the ICU, intubated and mechanically ventilated. Her pleural effusion cytology came back positive for small cell lung cancer. Patient is intubated and mechanically ventilated, she is on tidal volume of 400 assist control rate of 30 FiO2 70% PEEP 14 however considering her poor ABG I recommended increasing her FiO2 to 75% and PEEP was increased to 16. Patient is requiring norepinephrine at 0.03 mcg/kg/m she is on fentanyl 0.5 mcg/kg/h propofol 50 mcg/kg/minute, IV fluid is at 80 mL per hour. ABG is showing pO2 of 53 pCO2 42 pH of 7.47 WBC count is 8.1 hemoglobin is 10.9. Electrolytes are normal renal profile is normal BUN is 23 creatinine 0.6. Again the patient required increase FiO2 to 75% and increase PEEP to 16. Chest x-ray continues to show significant airspace disease and left hilar mass with a small pleural effusion. Again her effusion came back positive for small cell lung cancer. Patient is also on enteral feeding via orogastric tube Reevaluated today on 06/09/2021, patient remains in the ICU, intubated and mechanically ventilated. Patient is on assist control rate of 30 tidal volume 400 FiO2 60% PEEP of 16. ABG showed a pO2 of 75 pCO2 52 pH of 7.36. Chest x- ray continues to show bilateraldisease, left pleural effusion and left hilar mass. Patient remains on propofol at 50 fentanyl at 1 Nimbex at 2 and she is on enteral feeding. Electrolytes are normal renal profile is normal LDH is 1150. Slightly worse compared to a few days ago. And C-reactive protein is a little bit better compared to 2 days ago he had medications-lake the patient remains on Levaquin, methylprednisolone 60 mg IV push every 6 hours, Mirapex, propofol, and she is on Lovenox 40 mg subcu twice a day because of elevated d-dimer. Reevaluated today on 06/10/2021, patient had a morning chest x-ray today, and I was called about this patient having a large left-sided pneumothorax. Hence I came in and placed a left sided chest tube in this patient, The patient on mechanical ventilation, her assist control rate is 30 tidal volume 400 FiO2 50% and PEEP of 16. ABG showed a pO2 of 65 pCO2 48 pH of 7.38. Patient is on Nimbex at 1 mcg/kg/m, propofol 50 mcg/kg/m, fentanyl 1 mcg/kg/h she is on vital AF at 20 mL per hour. Chest x-ray was noted before the chest tube placement and there was a large left-sided pneumothorax, follow-up chest x-ray post chest tube placement showed complete reexpansion of the lung, and adequate placement of the chest tube in the left apex. Clinically the patient is about the same. Not much of a change in the last 24 hours except for this new left-sided pneumothorax secondary to barotrauma. CBC today is relatively normal hemoglobin is 10.5 WBC count is 7.8. Electrolytes are normal renal profile is normal. Liver enzymes are normal. Reevaluated today on 06/11/2021, remains in the ICU, intubated and mechanically ventilated. Her chest x-ray today is showing some improvement in her bilateral infiltrates. Chest tubes remains in good position, no air leak noted. However we had a total of 1400 mL of fluid drained in the last 24 hours. She is on assist control rate of 30 tidal volume 400 FiO2 50% PEEP is 16 and I cut it down to 14 today, plan to cut it down to 12 possibly later today. ABG showed a pO2 of 100 pCO2 48 pH of 7.37. Patient remains on propofol at 50 mcg/kg/m fentanyl at 1 mcg/kg/h, Nimbex at 1 mcg/kg/m. IV fluid 0.9 normal saline at 100 mL per hour. Labs today showed WBC count of 11.6 hemoglobin of 10.7. Electrolytes are normal BUN is 30 creatinine 0.6. Again her chest x-ray is clearly showing some improvement in her bilateral infiltrates, and I went ahead and cut down the PEEP to 14, instructed respiratory to cut it down to 12 if her O2 sat saturation remains above 95% later today. Medication list was reviewed patient is on Peridex, Lovenox 40 mg subcu twice a day, Lexapro, insulin as per scale, Levaquin, methylprednisolone 460 mg IV push every 6 hours, Protonix 40 mg IV pus h daily Progress note dated 06/12/2021. This is a patient who is 58 years of age, who was admitted to the hospital back on June 02, with coronavirus associated pneumonia. She came to the intensive care unit on June 06, and had a left thoracentesis. Thoracentesis was performed on June 03, and showed evidence of small cell lung cancer. She was intubated on June 06, and subsequently, was discovered to have a left-sided pneumothorax, a chest tube was placed. She remains on mechanical ventilator. She is on the volume assist control mode, rate 30, tidal volume 400, FiO2 50%, with a PEEP of 12. Blood gases show pO2 of 80, pCO2 49, and a pH is 7.40. She is on Nimbex at 1 mcg/kg/m, fentanyl 1 mcg/kg/h, follow 50 mcg/kg/m, saline at 100 mL an hour, and vital AF at 20 mL an hour, which is goal. The plan today is to turn down the IV fluids, give her Lasix, and drop the PEEP from 12 down to 10. White count from 0.5, hemoglobin 10.5, normal hematocrit, and platelet count 328,000. Sodium 139, potassium 4.4, chlorides 106, CO2 30, anion gap 3, BUN 27, and creatinine 0.52. Albumin is 2.3. Microbiologic studies are negative. Chest x-ray shows endotracheal tube that is too low and needs to be pulled back, as well as diffuse bilateral parenchymal abnormalities. The left-s ided chest tube is noted. Progress note dated 06/13/2021. 58-year-old female, again seen in room 257. She was admitted to the hospital back on June 02 with coronavirus associated pneumonia. She came to the intensive care unit on June 06, and had a left-sided thoracentesis. Thoracentesis was performed on June 03. Fluid cytology was positive for small cell lung cancer. The patient was intubated on June 06, was also discovered to have a left-sided pneumothorax. A chest tube was placed. She remains on the mechanical ventilator. She is on the volume assist control mode, rate 30, tidal volume 400, FiO2 50%, and PEEP of 10. The gases show a pO2 of 60, pCO2 48, and a pH of 7.45. She remains on propofol at 50 mcg/kg/m, fentanyl 1 microgram per kilogram per hour, saline at KVO, and vital AF at 22 mL an hour, which is goal. Microbiologic studies are negative. White count 11.8, hemoglobin 11.2, hematocrit 37, and platelet count is normal. Sodium 137, potassium 4.4, chlorides 102, CO2 31, normal anion gap, BUN 34, and creatinine 0.47. Chest x-ray shows a worsening pattern of fluid overload and/or pneumonia. Progress note dated 06/14/2021. 58-year-old female, seen in room 257. The patient was admitted to the hospital back on June 02, with coronavirus associated pneumonia. She came to the intensive care unit on June 06, and was noted to have a left-sided thoracentesis. Thoracentesis was performed on June 03, and the fluid cytology came back positive for small cell lung cancer. For worsening respiratory failure, the patient was intubated on June 06, and also had a chest tube placed for left-sided pneumothorax. The patient remains on the vent ilator. She is on the volume assist control mode, rate 30, tidal volume 400, FiO2 60% to be reduced down to 50% PEEP of 10. PO2 is 84, pCO2 51, pH 7.46. She is on propofol 65 mcg/kg/m, fentanyl at 2 mcg/kg/h, Nimbex at 2 mcg/kg/m, saline at 20 mL an hour and vital AF at 22 mL an hour, which is goal. The patient had a daily interruption of sedation on June 13, but did poorly. Apparently family is now considering the possibility of comfort care. The patient is a DO NOT RESUSCITATE patient. White count is 9.6, hemoglobin 9.9, hematocrit 31.9, and a platelet count is 301,000. Sodium 136, potassium 4.4, chlorides 102, CO2 34, BUN 28, with a creatinine 0.51. Chest x-ray shows a pattern of worsening fluid overload/CHF. Progress note dated 06/15/2021. 58-year-old female, again seen in room 257. She was admitted to the hospital back on 06/02/2021, with coronavirus associated pneumonia. She came to the intensive care unit on 06/06/2021. She was noted to have a thoracentesis, which was performed on 06/03/2021. The fluid cytology came back positive for small cell lung cancer. For worsening respiratory failure and hypoxemia, she was intubated on June 06, and had a chest tube placement believe on June 10 for a left-sided pneumothorax. She remains on mechanical ventilator. She is on the volume assist control mode, rate of 30, tidal volume 400, FiO2 50%, and PEEP of 10. No blood gases were done today. She remains on propofol 60 mcg/kg/m, fentanyl at 2 mcg/kg/h, Nimbex, at 2 mcg/kg/m, 0.9 at 20 mL an hour and vital AF at 22 mL an hour, which is goal. We will DC the Nimbex, the tube feeds, and updrafts. Apparently, the family has finally decided to make the patient a comfort care patient. This apparently will happen sometime today. No labs were done today in anticipation of comfort care orders. Objective - Vital Signs Vital signs: Vital Signs Temp 97.8 F 06/15/21 04:00 Pulse 69 06/15/21 07:00 Resp 30 H 06/15/21 07:00 BP 130/82 06/15/21 06:00 Pulse Ox 96 06/15/21 07:00 Intake & Output 06/14/21 06/15/21 06/15/21 18:59 06:59 18:59 Intake Total 453 655.384 114.87 Output Total 520 640 65 Balance -67 15.384 49.87 Weight 96.3 kg Intake: IV 253 299 23 0.9 @ KVO 220 260 20 pressure bag 33 39 3 Intake, IV Titration 200 356.384 91.87 Amount fentaNYL (PF). 1,000 mcg 200 162.16 In Sodium Chloride 0.9% 80 ml @ 0.5 MCG/KG/HR 4.2 mls/hr IV .[id number] JOSE ANTONIO Rx#:[id number] propofoL 1,000 mg In 194.224 91.87 Empty Bag 1 bag @ Titrate IV .Q0M JOSE ANTONIO Rx#: [id number] Output: Chest Tube Drainage 0 0 Left 0 0 Urine 520 640 65 Other: Voiding Method Indwelling Catheter Indwelling Catheter ABP, PAP, CO, CI - Last Documented Arterial Blood Pressure 111/48 - Exam No acute distress, currently sedated and paralyzed, with an orally placed endotracheal tube and NG tube. There is a left-sided chest tube as well.. HEENT examination is grossly unremarkable. Neck supple. Full range of motion. No adenopathy thyromegaly or neck vein distention. Cardiovascular examination reveals regular rhythm rate. S1-S2 normal. No S3 or S4. No discernible murmur noted. Heart rate 69 bpm. Heart sounds are distant. Lungs reveal coarse bilateral rhonchi. Breath sounds equal. No wheezes or crackles. Left-sided chest tube is noted. Saturations are 96%. Abdomen soft bowel sounds are heard. No masses or tenderness. Extremities are intact. No cyanosis clubbing or edema. Skin is without rash or lesion. Neurologic examination cannot be adequately assessed as the patient's currently sedated and paralyzed. - Labs CBC & Chem 7: 06/14/21 06:45 06/14/21 06:45 Labs: Abnormal Lab Results - Last 24 Hours (Table) 12/15/21 12/15/21 12/15/21 Range/Units 12:26 17:24 23:29 POC Glucose (mg/dL) 166 H 117 H 104 H (75-99) mg/dL 06/15/21 Range/Units 06:09 POC Glucose (mg/dL) 154 H (75-99) mg/dL Assessment and Plan Assessment: Acute hypoxemic respiratory failure, secondary to coronavirus associated pneumonia, as well as small cell lung cancer. Acute exacerbation of COPD. Status post left-sided thoracentesis June 03, showing evidence of small cell lung cancer. Status post intubation and mechanical ventilation for respiratory failure, 06/06/2021. Status post left-sided pneumothorax, with chest tube insertion, 06/10/2021. History of obstructive sleep apnea syndrome. History of narcolepsy. Benign essential hypertension. Type 2 diabetes mellitus. Chronic back pain. Generalized anxiety disorder. History of restless leg syndrome. Plan: Plan dated 06/12/2021. The patient remains on the mechanical ventilator. We are going to cut back on her IV fluids. We'll give her Lasix 40 mg IV push. The PEEP was dropped from 12 cm water, down to 10 cm water. The patient continues on Nimbex, fentanyl, and propofol. We will attempt to wean her off the paralytic. We will continue with GI prophylaxis and DVT prophylaxis, bronchodilators, and vitamins against coronavirus infection. Prognosis is guarded. She continues on tube feeds. We will continue to follow make recommendations where appropriate. Plan dated 06/13/2021. Because of the patient's worsening chest x-ray, the patient will get some Lasix, 40 mg IV push. We did cut back her IV fluids yesterday. She remains on propofol at 50 mcg/kg/m, and fentanyl 1 mcg/kg/h. Blood gases have been reviewed. The patient remains on appropriate vitamins, as well as GI prophylaxis and DVT prophylaxis. Her overall prognosis is poor. Dr. Gusman we'll talk to the son's about CODE STATUS given her diagnoses. Additional recommendations and suggestions are forthcoming. We'll continue to follow and make recommendations where appropriate. Plan dated 06/14/2021. The patient did very poorly with her daily interruption of sedation yesterday. She remains on propofol, fentanyl, and Nimbex. Apparently, the family has decided to make the patient a DO NOT RESUSCITATE. At this point, given the history and diagnosis of small cell lung cancer,, apparently, they are also considering comfort care. The patient was intubated on June 06. She remains intubated. Overall prognosis is very poor. We'll continue to follow make recommendations where appropriate. Labs, x-rays, and medications are all reviewed. Plan dated 06/15/2021. The patient apparently will be made comfort care today. The family has apparently made that decision, finally. Currently, the patient is a DO NOT RESUSCITATE patient. Unnecessary medications will be discontinued including tube feeds, updrafts, and Nimbex. Additional recommendations and suggestions are forthcoming. We will continue to follow. No labs or x-rays were done today . Obviously, prognosis is very poor. Time with Patient: Greater than 30
[2021-06-15 12:50] VITALS: PULSE 64; TEMP 98.5
--- NOTE | 2021-06-15 15:56 | P.PN ---
Subjective Progress Note Date: 06/15/21 This is 66-year-old female admitted with acute COVID-19 pneumonia, left pleural effusion, left hilar mass possibly malignant, acute COPD exacerbation, acute hypoxic respiratory failure, and multiple other medical issues. Status post thoracentesis with pleural cytology pending. Maintained on bronchodilators, covid cocktail.Patient currently on BiPAP, labored breathing, fatigued, lethargic. Afebrile. Labs pending. 06/06/2021 worsening respiratory status, on BiPAP. Intubated and transferred to ICU. ABGs post intubation reported pH 7.36, pCO2 56, pO2 66, bicarb 31 base excess 5.5. Chest x-ray reported more prominent, progression of multifocal bilateral opacities. Pleural cytology pending. Afebrile, WBC increased to 15.3. D-dimer and LDH increased, CRP 2.4. Hyperglycemia, placed on insulin drip. 06/07/2021 vent dependent, FiO2 70%/+12 of PEEP. Continues on diprovan, fentanyl, Levophed and insulin drips. Tolerating tube feeds with minimal to no residuals. T-max 99.5, normal WBC. Pleural cultures and cytology pending. Inflammatory markers today trending down with the exception of CRP, 3.3. 06/08/21 vent-dependent FiO2 70%/+14 of PEEP. Chest x-ray reporting diffuse bilateral infiltrates. Pleural fluid pathology reporting positive for metastatic small cell CA.Maintained on diprovan, fentanyl, Levophed. Renal function/electrolytes within normal limits. 06/09/2021 FiO2 60/+16 PEEP. Chest x-ray reporting no significant interval change/bilateral airspace disease. Afebrile, normal WBC. Maintained on Nimbex, fentanyl, diprovan. Renal function stable. D-dimer, LDH elevated, CRP decreased. 06/12/2021 FiO2 50%/+10 of PEEP. Maintained on diprovan, Nimbex, fentanyl, with Nimbex currently being weaned off. 06/13/2021 remains vent dependent, FiO2 50% +10 of PEEP. Chest x-ray reporting worsening volume overload, possible pneumonia. Received Lasix yesterday and scheduled today. Maintained on diprovan, fentanyl. Tolerating tube feeds at goal with minimal to no residual. 06/14/2021 FiO2 60%/+10 of PEEP. Chest x-ray reporting worsening volume overload, mediastinal and left hilar adenopathy. PCP discussed poor prognosis , CODE STATUS and options with patient's son Navin. CODE STATUS changed to no code, no CPR, no re-intubation. Navin discussing with other siblings potential comfort care. Maintained on diprovan, fentanyl, Nimbex. Tolerating tube feeds at goal with minimal to no residuals. Afebrile, normal WBC, hemoglobin 9.9, platelets 301, BUN 28, creatinine 0.51. 06/15/2021 FiO2 50%/+ of PEEP. Maintained on diprovan, fentanyl and Nimbex. Staff reports son called in last night; he and his brother wished to proceed with comfort care and will be coming in later today. Die Cutting Machine Operator notified. Objective - Vital Signs Vital signs: Vital Signs Temp 98.5 F 06/15/21 12:00 Pulse 64 06/15/21 15:00 Resp 30 H 06/15/21 14:00 BP 130/82 06/15/21 06:00 Pulse Ox 95 06/15/21 14:00 Intake & Output 06/14/21 06/15/21 06/15/21 18:59 06:59 18:59 Intake Total 453 655.384 489.130 Output Total 520 640 744 Balance -67 15.384 -254.870 Weight 96.3 kg Intake: IV 253 299 184 0.9 @ KVO 220 260 160 pressure bag 33 39 24 Intake, IV Titration 200 356.384 305.130 Amount fentaNYL (PF). 1,000 mcg 200 162.16 113.26 In Sodium Chloride 0.9% 80 ml @ 0.5 MCG/KG/HR 4.2 mls/hr IV .[id number] JOSE ANTONIO Rx#:[id number] propofoL 1,000 mg In 194.224 191.870 Empty Bag 1 bag @ Titrate IV .Q0M JOSE ANTONIO Rx#: [id number] Output: Chest Tube Drainage 0 0 Left 0 0 Urine 520 640 744 Other: Voiding Method Indwelling Catheter Indwelling Catheter Indwelling Catheter ABP, PAP, CO, CI - Last Documented Arterial Blood Pressure 114/50 - Exam Limited physical exam in intubated patient with Covid: GENERAL: Sedated on mechanical ventilation. HEENT: Normocephalic CARDIOVASCULAR: S1 and S2 regular per telemetry NEUROLOGICAL: Unable to assess, sedated on mechanical ventilation. - Labs CBC & Chem 7: 06/14/21 06:45 06/14/21 06:45 Labs: Abnormal Lab Results - Last 24 Hours (Table) 06/14/21 06/14/21 06/15/21 Range/Units 17:24 23:29 06:09 POC Glucose (mg/dL) 117 H 104 H 154 H (75-99) mg/dL Assessment and Plan Assessment: Acute hypoxic respiratory failure, mechanical ventilator-dependent, multifactorial secondary to acute covid pneumonia, left pleural effusion and acute COPD exacerbation. Large left pneumothorax with chest tube. Status post emergent thoracentesis, pleural cytology reporting metastatic small cell CA. Right lower extremity thigh, nonhealing ulceration Chronic hypoxic and hypercapnic respiratory failure Obstructive sleep apnea, intolerant of CPAP Diabetes mellitus type 2 Essential hypertension Chronic back pain anxiety disorder Restless leg syndrome History of narcolepsy No code, no CPR, no re-intubation Plan: Continue on current medication regime ,monitoring and symptomatic treatme nt. Maintain supportive care. Staff reports family coming in and expressed wishing to proceed with comfort care. ICU management as per bank officer. The impression and plan of care has been dictated as directed. : I performed a history and examination of this patient, discussed the same with the dictator. I agree with the dictator's note ,documented as a scribe. Any additional findings or plans will be noted.
== END 2021-06-15 16:45 | disposition expired | DRG 207 ==
LOC: EC 16:39 → 3SCARD 20:01 → 2SICU 06-06 09:46
PROVIDERS: ADMIT Family Medicine; ATTEND Family Medicine
PROC: 5A09457 Assistance with Respiratory Ventilation, 24-96 Consecutive Hours, Continuous Positive Airway Pressure (ICD-10-PCS; 2021-06-02)
PROC: 0W9B3ZX Drainage of Left Pleural Cavity, Percutaneous Approach, Diagnostic (ICD-10-PCS; 2021-06-03)
PROC: 5A1955Z Respiratory Ventilation, Greater than 96 Consecutive Hours (ICD-10-PCS; principal; 2021-06-06)
PROC: 02HV33Z Insertion of Infusion Device into Superior Vena Cava, Percutaneous Approach (ICD-10-PCS; 2021-06-06)
PROC: 3E0G76Z Introduction of Nutritional Substance into Upper GI, Via Natural or Artificial Opening (ICD-10-PCS; 2021-06-06)
PROC: 0BH17EZ Insertion of Endotracheal Airway into Trachea, Via Natural or Artificial Opening (ICD-10-PCS; 2021-06-06)
PROC: 0D9670Z Drainage of Stomach with Drainage Device, Via Natural or Artificial Opening (ICD-10-PCS; 2021-06-06)
PROC: 03HY32Z Insertion of Monitoring Device into Upper Artery, Percutaneous Approach (ICD-10-PCS; 2021-06-06)
PROC: 4A133B1 Monitoring of Arterial Pressure, Peripheral, Percutaneous Approach (ICD-10-PCS; 2021-06-06)
PROC: 4A133J1 Monitoring of Arterial Pulse, Peripheral, Percutaneous Approach (ICD-10-PCS; 2021-06-06)
PROC: 3E033XZ Introduction of Vasopressor into Peripheral Vein, Percutaneous Approach (ICD-10-PCS; 2021-06-06)
PROC: 0W9B30Z Drainage of Left Pleural Cavity with Drainage Device, Percutaneous Approach (ICD-10-PCS; 2021-06-10)
PROC: 03HY32Z Insertion of Monitoring Device into Upper Artery, Percutaneous Approach (ICD-10-PCS; 2021-06-10)
PROC: 4A133B1 Monitoring of Arterial Pressure, Peripheral, Percutaneous Approach (ICD-10-PCS; 2021-06-10)
PROC: 4A133J1 Monitoring of Arterial Pulse, Peripheral, Percutaneous Approach (ICD-10-PCS; 2021-06-10)
DX: U07.1 COVID-19 (principal); J95.811 Postprocedural pneumothorax; J12.82 Pneumonia due to coronavirus disease 2019; J80 Acute respiratory distress syndrome; J94.8 Other specified pleural conditions; E22.2 Syndrome of inappropriate secretion of antidiuretic hormone; E87.2 Acidosis; L97.112 Non-pressure chronic ulcer of right thigh with fat layer exposed; J95.859 Other complication of respirator [ventilator]; J91.0 Malignant pleural effusion; C34.02 Malignant neoplasm of left main bronchus; J44.0 Chronic obstructive pulmonary disease with (acute) lower respiratory infection; J44.1 Chronic obstructive pulmonary disease with (acute) exacerbation; J98.11 Atelectasis; E11.622 Type 2 diabetes mellitus with other skin ulcer; I11.0 Hypertensive heart disease with heart failure; I50.9 Heart failure, unspecified; I95.9 Hypotension, unspecified; E11.65 Type 2 diabetes mellitus with hyperglycemia; Z66 Do not resuscitate; Z51.5 Encounter for palliative care; G47.33 Obstructive sleep apnea (adult) (pediatric); G47.411 Narcolepsy with cataplexy; G25.81 Restless legs syndrome; F32.A Depression, unspecified; F41.1 Generalized anxiety disorder; E86.1 Hypovolemia; I44.7 Left bundle-branch block, unspecified; G89.29 Other chronic pain; M54.50 Low back pain, unspecified; R59.0 Localized enlarged lymph nodes; E66.9 Obesity, unspecified; Z68.37 Body mass index [BMI] 37.0-37.9, adult; F17.210 Nicotine dependence, cigarettes, uncomplicated; Z91.19 Patient's noncompliance with other medical treatment and regimen; Z79.51 Long term (current) use of inhaled steroids; Z79.84 Long term (current) use of oral hypoglycemic drugs; Z79.899 Other long term (current) drug therapy; Z60.2 Problems related to living alone; Z87.39 Personal history of other diseases of the musculoskeletal system and connective tissue; Z98.890 Other specified postprocedural states; Z71.3 Dietary counseling and surveillance; Z88.0 Allergy status to penicillin
CPT/HCPCS: 36415; 36600; 71045; 71275; 80048; 80053; 82728; 82805; 82947; 83605; 83615; 83735; 83880; 84100; 84145; 84157; 84484; 85025; 85027; 85379; 85610; 85730; 86140; 87040; 87070; 87102; 87116; 87205; 87206; 87252; 87496; 87498; 87502; 87529; 87634; 87635; 87798; 88108; 88305; 88341; 88342; 89050; 93005; 94002; 94003; 94640; 94645; 94660; 96365; 96375; 99291